=== PATIENT | female | born 1950 | race Caucasian/White ===

== ENCOUNTER → 2016-06-11 | Outpatient (CLI) | payer BC ==
--- NOTE | 2016-06-11 14:13 | MM ---
Reason for exam: history of breast cancer, conservation therapy. Last mammogram was performed 3 years and 8 months ago. History: Patient is postmenopausal and has history of breast cancer at age 55. Benign right mammotome panel of the right breast, November 27, 2009. Lumpectomy of the right breast, December 13, 2005. Malignant right mammotome panel of the right breast, November 22, 2005. Radiation therapy of the right breast, 2005. Took tamoxifen for 5 years 6 months beginning at age 57. Physical Findings: Nurse Summary: 1cm nodule in the right breast at 2 o'clock by scar (nurse mm). MG Diagnostic Mammo w CAD JAMES Bilateral CC and MLO view(s) were taken. Prior study comparison: September 28, 2012, CAD bilateral diagnostic mammogram. August 09, 2011, CAD bilateral diagnostic mammogram. There are scattered fibroglandular densities. No suspicious calcifications are seen. Stable post operative changes in the right breast. No significant new findings when compared with previous films. These results were verbally communicated with the patient and result sheet given to the patient on 06/11/16. ASSESSMENT: Benign, BI-RAD 2 RECOMMENDATION: Follow-up diagnostic mammogram of both breasts in 1 year.
--- NOTE | 2016-06-11 14:51 | BD ---
EXAMINATION TYPE: MG DEXA axial skeleton. DATE OF EXAM: 06/11/2016 2:25 PM COMPARISON: 2006 CLINICAL HISTORY: BONE DISORDER Height: 5'1 Weight: 206 FRAX RISK QUESTIONS: Alcohol (3 or more units per day): no Family History (Parent hip fracture): no Glucocorticoids (More than 3mos): no (Ex: prednisone, prednisolone, methylprednisolone, dexamethasone, and hydrocortisone). History of Fracture in Adulthood: no Secondary Osteoporosis: 1. Type 1 Diabetes: no 2. Hyperthyroidism: no 3. Menopause before 45: no 4. Malnutrition: no 5. Chronic liver disease: no Rheumatoid Arthritis: no Current Tobacco Use: yes RISK FACTORS HISTORY OF: Smoke tobacco: Active: Postmenopausal woman: MEDICATIONS: Additional Medications: vitamin D , see list Additional History: breast cancer survivor 2006, radiation EXAM MEASUREMENTS: Bone mineral densitometry was performed using the Transmension System. Bone mineral density as measured about the Lumbar spine is: ----- L1-L4(G/cm2): 1.265 T Score Values are as follows: ----- L2: 0.4 ----- L3: 1.9 ----- L4: 0.9 ----- L1-L4:0.7 Bone mineral density has: Increased 11.8% since study of: 12/30/2006 Bone mineral density about the R hip (g/cm2): 0.840 Bone mineral density about the L hip (g/cm2): 0.818 T Score values are as follows: -----R Neck: -1.4 -----L Neck: -1.6 -----R Intertrochanter: -0.4 -----L Intertrochanter: -0.5 Bone mineral density has: Decreased -1.1% since study of: 12/30/2006 IMPRESSION: Osteopenia (T Score between -2.5 and -1 as noted by T score values: Christian Hips There is slightly increased risk of fracture and the patient may be considered for treatment. Re-Screen 1-2 years. NOTE: T-SCORE=SD OF THE YOUNG ADULT MEAN.
== END | disposition home or self-care (01) ==
LOC: RADMAMWWP 13:32
PROVIDERS: ATTEND Internal Medicine
DX: M85.852 Other specified disorders of bone density and structure, left thigh (principal); M85.851 Other specified disorders of bone density and structure, right thigh; Z85.3 Personal history of malignant neoplasm of breast
CPT/HCPCS: 77080; G0204

== ENCOUNTER → 2016-08-06 | Day surgery (SDC) | payer BC ==
--- NOTE | 2016-08-06 13:36 | US ---
EXAMINATION TYPE: US thyroid st tissue head/neck DATE OF EXAM: 08/06/2016 12:31 PM COMPARISON: Prior ultrasound thyroid dated 21 March 2015, FNA thyroid 28 July 2015 CLINICAL HISTORY: E04.1 Thyroid Nodule; no thyroid medication per patient GLAND SIZE: Right Lobe: 5.3 x 2.6 x 2.4 cm Overall Parenchyma: heterogenous Left Lobe: 3.8 x 3.8 x 4.2 cm Overall Parenchyma: heterogeneous Isthmus Thickness: 0.6 cm NODULES RIGHT: # of nodules measured on right: none measured as thyroid nodules are too numerous to count LEFT: # of nodules measured on left: 1 (largest of multiple) 1. 4.6 X 2.7 x 2.6 cm hypoechoic mixed nodule at the mid and lower pole with poorly defined margins . This nodule is wider than tall and shows no intranodular vascularity. Prior size: 5.2 x 2.7 x 3.4 cm ISTHMUS: # of nodules measured in the isthmus: 1 1. 0.9 X 0.7 x 0.7 cm hypoechoic mixed nodule at the lower pole with well-defined margins. This no dule is as wide as is tall and shows no intranodular vascularity. Prior size: no prior Bilateral neck scanned, no evidence of lymphadenopathy. Mixed cystic solid nodule in the left lobe of the thyroid is not significantly changed. Gland shows m ultiple subcentimeter thyroid nodules. IMPRESSION: Consider multinodular goiter, thyroiditis, essentially stable exam
== END ==
LOC: RADPROMAIN 12:07
PROVIDERS: ATTEND Otolaryngology
DX: E04.1 Nontoxic single thyroid nodule (principal)
CPT/HCPCS: 76536

== ENCOUNTER → 2017-04-09 | Outpatient (CLI) | payer BC ==
--- NOTE | 2017-04-09 13:14 | US ---
EXAMINATION TYPE: US kidneys/renal and bladder DATE OF EXAM: 04/09/2017 COMPARISON: NONE CLINICAL HISTORY: R10.9 Lt Flank Pain. EXAM MEASUREMENTS: Right Kidney: 11.5 x 4.5 x 5.8 cm Left Kidney: 11.5 x 5.6 x 5.8 cm Right Kidney: No hydronephrosis or masses seen Left Kidney: cyst lower pole measures 1.7 x 1.5 x 1.3 cm Bladder: wnl Bilateral Jets seen: Yes There is no evidence for hydronephrosis at this point in time. No nephrolithiasis is seen. No suspi cious solid or cystic masses are identified. The urinary bladder is anechoic. Bilateral ureteral je ts are seen. Technologist garland 1.7 cm simple appearing cysts left kidney mid to lower pole level. IMPRESSION: No significant finding is seen to account for patient's symptoms.
== END | disposition home or self-care (01) ==
LOC: RADUSWWP 12:27
PROVIDERS: ATTEND Internal Medicine
DX: R10.9 Unspecified abdominal pain (principal)
CPT/HCPCS: 76770

== ENCOUNTER → 2017-12-05 | Outpatient (CLI) | payer BC ==
--- NOTE | 2017-12-05 15:53 | XR ---
EXAMINATION TYPE: XR chest 2V DATE OF EXAM: 12/05/2017 COMPARISON: NONE TECHNIQUE: PA and lateral views submitted. HISTORY: Cough FINDINGS: There is a mass within the right upper lobe measuring 1.8 cm. There is ill-defined patchy density anthony ng the left suprahilar region and prominence of both hilum. Subsegmental consolidation at the left malick ng base. No pleural effusion or pneumothorax. Hypertrophic and degenerative change of the spine. IMPRESSION: 1. 1.8 cm right upper lobe lung mass recommend CT chest. 2. Patchy infiltrate left lower lobe and left upper lobe. Underlying adenopathy in the mediastinum dubois spected. A Yellow level critical message alert has been initiated for Diana Mora MD via the [employer] Critical Results System on 12/05/2017 3:51 PM. This message alert has been sent to Diana Mora MD via the preferences provided by the clinician for the receipt of Radiology Critical Findings. Message ID [id number].
== END | disposition home or self-care (01) ==
LOC: RADXRMAIN 15:35
PROVIDERS: ATTEND Internal Medicine
DX: R91.8 Other nonspecific abnormal finding of lung field (principal)
CPT/HCPCS: 71046

== ENCOUNTER → 2017-12-11 | Outpatient (CLI) | payer BC ==
--- NOTE | 2017-12-11 10:40 | US ---
EXAMINATION TYPE: US thyroid st tissue head/neck DATE OF EXAM: 12/11/2017 COMPARISON: US CLINICAL HISTORY: E04.1 Nontoxic single thyroid nodule. GLAND SIZE: Right Lobe: 5.2 x 2.4 x 2.5 cm Overall Parenchyma: heterogenous Left Lobe: 4.7 x 2.3 x 2.4 cm Overall Parenchyma: heterogeneous Isthmus Thickness: 0.6 cm NODULES RIGHT: # of nodules measured on right: Full of nodules, too many to accurately separate and measure. LEFT: # of nodules measured on left: 1 1. 3.3 X 1.7 x 2.5 cm hypoechoic cystic nodule at the lower pole with irregular margins; . This no dule is wider than tall and shows no intranodular vascularity. Prior size: 3.6 x 1.7 x 2.4 cm ISTHMUS: # of nodules measured in the isthmus: 1 1. 0.7 X 0.4 x 0.8 cm hypoechoic mixed nodule at the left side with well-defined margins; . This n odule is wider than tall and shows no intranodular vascularity. Prior size: 0.9 x 0.6 x 0.8 cm Bilateral neck scanned, no evidence of lymphadenopathy. Bilateral solid soft tissue densities, right measures 3.0 x 1.2 x 1.9, and left 2.2 x 1.2 x 1.8 cm. T here are other smaller densities as well. IMPRESSION: 1. Large left lobe cystic type thyroid nodule, essentially stable. No increasing size nodule is ident ified. 2. Multinodular goiter heterogenous signal through the right lobe thyroid
== END | disposition home or self-care (01) ==
LOC: RADUSWWP 09:27
PROVIDERS: ATTEND Otolaryngology
DX: E04.2 Nontoxic multinodular goiter (principal)
CPT/HCPCS: 76536

== ENCOUNTER 2017-12-15 13:34 | Inpatient (IN) | payer BC, MEDICARE ==
[2017-12-15] MEDS ORDERED: SODIUM CHLORIDE 0.9% 1,000 ML IV STA (14:58)
[2017-12-15] MEDS ORDERED: IPRATROPIUM-ALBUTEROL 3 ML NEB INHALATION STA (14:58)
--- NOTE | 2017-12-15 15:13 | ED ---
General Adult HPI - General Source: patient, RN notes reviewed Mode of arrival: wheelchair Limitations: no limitations <Martha Luevano - Last Filed: 12/15/17 19:33> <Yvonne Dominique - Last Filed: 12/22/17 22:28> - General Chief complaint: Recheck/Abnormal Lab/Rx Stated complaint: abnormal labs Time Seen by Provider: 12/15/17 14:41 - History of Present Illness Initial comments: This is a 67-year-old female who presents to the emergency department chief complaint abnormal labs. Patient states that she has a history of COPD. She states that over the past one month she has been doing at home breathing treatments for cough, shortness of breath and wheezes. She states that after 1 month of this she presented to her primary care provider, Dr. Mora for further evaluation. Patient states that on December 05 a chest x-ray was taken. She states that she was sent to the hospital today for a computed tomography scan of the chest. CT scan with IV contrast could not be performed because of patient's kidney function. Patient denies any history of kidney disease. She denies overuse of NSAIDs. She denies any new medications. She denies recent fevers or chills, chest pain, abdominal pain, nausea or vomiting, diarrhea or constipation. She states that over the last few months she has lost weight and has had a decreased appetite. (Martha Luevano) - Related Data Home Medications Medication Instructions Recorded Confirmed ALPRAZolam [Xanax] 0.25 mg PO BID PRN 07/19/15 12/15/17 Aspirin 81 mg PO DAILY 07/19/15 12/15/17 Atenolol 25 mg PO BID 07/19/15 12/15/17 Losartan/Hydrochlorothiazide 1 tab PO DAILY 07/19/15 12/15/17 [Losartan-Hctz 50-12.5 mg Tab] Pentoxifylline [TRENtal] 400 mg PO AC-TID 07/19/15 12/15/17 Simvastatin [Zocor] 20 mg PO HS 07/19/15 12/15/17 amLODIPine BESYLATE [Norvasc] 2.5 mg PO DAILY 07/19/15 12/15/17 Ergocalciferol [Vitamin D2] 50,000 unit PO FR 12/15/17 12/15/17 busPIRone HCL 15 mg PO TID 12/15/17 12/15/17 Allergies Allergy/AdvReac Type Severity Reaction Status Date / Time No Known Allergies Allergy Verified 12/15/17 13:40 Review of Systems ROS Other: All systems not noted in ROS Statement are negative. <Martha Luevano - Last Filed: 12/15/17 19:33> ROS Other: All systems not noted in ROS Statement are negative. <Yvonne Dominique P - Last Filed: 12/22/17 22:28> ROS Statement: Those systems with pertinent positive or pertinent negative responses have been documented in the HPI. Past Medical History Past Medical History: Cancer, Hearing Disorder / Deafness, Hyperlipidemia, Hypertension, Pneumonia, Vascular Disorder Additional Past Medical History / Comment(s): 2 times pneumonia 2010, breast cancer right breast - lumpectomy 2005 History of Any Multi-Drug Resistant Organisms: None Reported Past Surgical History: Appendectomy, Breast Surgery, Section, Hysterectomy Additional Past Surgical History / Comment(s): 2 times , salpingectomy and oopherectomy, angioplasty on left leg, lumpectomy 2005 Past Anesthesia/Blood Transfusion Reactions: No Reported Reaction, Previous Problems w/ Anesthesia Additional Past Anesthesia/Blood Transfusion Reaction / Comment(s): slow to wake up after anaesthesia Past Psychological History: Anxiety Smoking Status: Current every day smoker Past Alcohol Use History: None Reported Past Drug Use History: None Reported - Past Family History Mother Additional Family Medical History / Comment(s): diverticulitis, Sister(s) Family Medical History: Diabetes Mellitus Father Family Medical History: Coronary Artery Disease (CAD), Diabetes Mellitus Additional Family Medical History / Comment(s): CABG and carotid endarterectomy <Martha Luevano - Last Filed: 12/15/17 19:33> General Exam Limitations: no limitations <Martha Luevano - Last Filed: 12/15/17 19:33> <Yvonne Dominique P - Last Filed: 12/22/17 22:28> - General Exam Comments Initial Comments: General: Awake and alert, well-developed; in no apparent distress. Appears chronically ill. is at bedside. HEENT: Head atraumatic, normocephalic. Pupils are equal, round and reactive to light. Extraocular movements intact. Oropharynx moist without erythema or exudate. Neck: Supple. Normal ROM. Cardiovascular: Regular rate and rhythm. No murmurs, rubs or gallops. Chest symmetrical. Respiratory: Normal respiratory effort with no use of accessory muscles. Diffuse rales and wheezes throughout. Abdomen: Soft, non-tender, non-distended. No rigidity, rebound or guarding. Normal bowel sounds in all 4 quadrants. Musculoskeletal: Normal ROM, no tenderness bilateral upper and lower extremities. Ambulating normally. Skin: [place], warm and dry without rashes or lesions. Neurological: Alert and oriented x3. CN II-XII grossly intact. Speech is fluent and answers are appropriate. No focal neuro deficits. Psychiatric: Normal mood and affect. No overt signs of depression or anxiety noted. (Martha Luevano) Vital Signs 12/15/17 12/15/17 12/15/17 13:38 14:03 15:21 Temperature 97.9 F Pulse Rate 90 87 85 Respiratory 20 20 18 Rate Blood Pressure 105/71 122/70 114/80 O2 Sat by Pulse 97 95 99 Oximetry 12/15/17 12/15/17 12/15/17 15:37 15:49 17:07 Temperature 98 F Pulse Rate 94 97 84 Respiratory 16 Rate Blood Pressure 105/65 O2 Sat by Pulse 98 Oximetry Medical Decision Making - Lab Data Result diagrams: 12/15/17 15:30 12/15/17 15:30 - Radiology Data Radiology results: report reviewed <Martha Luveano - Last Filed: 12/15/17 19:33> - Lab Data Result diagrams: 12/22/17 06:29 12/22/17 06:29 <Yvonne Dominique - Last Filed: 12/22/17 22:28> - Medical Decision Making This is a 67-year-old female who presents to the emergency department with chief complaint of abnormal labs. Patient was sent to the hospital today for a computed tomography scan of her chest with IV contrast. Before undergoing this , patient was noted to have an elevated BUN at 103 and a creatinine of 6.15. Patient denies any history of kidney disease. Denies any new medications or overuse of NSAIDs. On review of patient's previous reports, a chest x-ray performed on December 05 revealed evidence for a right pulmonary mass. A computed tomography scan without IV contrast of the chest was obtained here in the emergency department. This revealed evidence for multiple pulmonary nodules bilaterally. Follow-up bronchoscopy is recommended. Findings were discussed with patient and her at bedside. Patient will be admitted to Dr. Mora with diagnosis of acute kidney failure with consult to nephrology. Patient is in agreement with this. Her vital signs have been stable and she is in no acute distress. All questions have been answered. (Martha Luevano) I saw and evaluated this patient. I discussed the patient care with her primary care physician Dr. Mora who accepts admission. Admission orders placed. (Yvonne Dominique) - Lab Data Lab Results 12/15/17 12/15/17 12/15/17 Range/Units 12:45 15:30 15:30 WBC 11.5 H (3.8-10.6) k/uL RBC 4.04 (3.80-5.40) m/uL Hgb 12.1 (11.4-16.0) gm/dL Hct 36.3 (34.0-46.0) % MCV 89.8 (80.0-100.0) fL MCH 29.9 (25.0-35.0) pg MCHC 33.3 (31.0-37.0) g/dL RDW 14.0 (11.5-15.5) % Plt Count 205 (150-450) k/uL Neutrophils % 77 % Lymphocytes % 11 % Monocytes % 7 % Eosinophils % 3 % Basophils % 1 % Neutrophils # 8.9 H (1.3-7.7) k/uL Lymphocytes # 1.2 (1.0-4.8) k/uL Monocytes # 0.8 (0-1.0) k/uL Eosinophils # 0.3 (0-0.7) k/uL Basophils # 0.1 (0-0.2) k/uL Sodium 143 (137-145) mmol/L Potassium 3.8 (3.5-5.1) mmol/L Chloride 108 H (98-107) mmol/L Carbon Dioxide 19 L (22-30) mmol/L Anion Gap 16 mmol/L BUN 103 H* 106 H* (7-17) mg/dL Creatinine 6.15 H* 5.90 H* (0.52-1.04) mg/dL Est GFR (CKD-EPI)AfAm 8 8 (>60 ml/min/1.73 sqM) Est GFR (CKD-EPI)NonAf 7 7 (>60 ml/min/1.73 sqM) Glucose 114 H (74-99) mg/dL Uric Acid (3.7-7.4) mg/dL Calcium 10.1 (8.4-10.2) mg/dL Total Bilirubin 0.6 (0.2-1.3) mg/dL AST 17 (14-36) U/L ALT 22 (9-52) U/L Alkaline Phosphatase 108 (38-126) U/L Total Protein 6.9 (6.3-8.2) g/dL Albumin 4.0 (3.5-5.0) g/dL Serum HENRY Interpret 12/15/17 12/15/17 Range/Units 15:30 15:30 WBC (3.8-10.6) k/uL RBC (3.80-5.40) m/uL Hgb (11.4-16.0) gm/dL Hct (34.0-46.0) % MCV (80.0-100.0) fL MCH (25.0-35.0) pg MCHC (31.0-37.0) g/dL RDW (11.5-15.5) % Plt Count (150-450) k/uL Neutrophils % % Lymphocytes % % Monocytes % % Eosinophils % % Basophils % % Neutrophils # (1.3-7.7) k/uL Lymphocytes # (1.0-4.8) k/uL Monocytes # (0-1.0) k/uL Eosinophils # (0-0.7) k/uL Basophils # (0-0.2) k/uL Sodium (137-145) mmol/L Potassium (3.5-5.1) mmol/L Chloride (98-107) mmol/L Carbon Dioxide (22-30) mmol/L Anion Gap mmol/L BUN (7-17) mg/dL Creatinine (0.52-1.04) mg/dL Est GFR (CKD-EPI)AfAm (>60 ml/min/1.73 sqM) Est GFR (CKD-EPI)NonAf (>60 ml/min/1.73 sqM) Glucose (74-99) mg/dL Uric Acid 9.6 H (3.7-7.4) mg/dL Calcium (8.4-10.2) mg/dL Total Bilirubin (0.2-1.3) mg/dL AST (14-36) U/L ALT (9-52) U/L Alkaline Phosphatase (38-126) U/L Total Protein (6.3-8.2) g/dL Albumin (3.5-5.0) g/dL Serum HENRY Interpret SEE NOTE - Radiology Data CT chest without contrast impression: 1. Multiple pulmonary nodules measuring up to 2.0 cm. A couple cavitary masses are present in the left hilar region and left lower lobe measuring up to 3.7 cm. There is also left hilar soft tissue fullness and mediastinal lymphadenopathy measuring up to 3.1 cm and upper abdominal lymphadenopathy measuring up to 1.6 cm. Left adrenal nodularity measures up to 3.4 cm. 2. Neoplastic etiology with metastatic disease is in the differential as is atypical infections going to be and fungal infections given the cavitary changes. Clinical correlation recommended. Consider bronchoscopic evaluation. 2. COPD with moderate emphysema. 4. Large heterogenous left thyroid nodule. We note recent thyroid ultrasound performed on 12/11/2017. For to that report for further findings and impression. (Martha Luevano) Disposition Is patient prescribed a controlled substance at d/c from ED?: No Time of Disposition: 17:01 <Martha Luevano - Last Filed: 12/15/17 19:33> <Yvonne Dominique - Last Filed: 12/22/17 22:28> Clinical Impression: Acute kidney failure, Pulmonary nodules Disposition: ADMITTED IP TO THIS HOSP Condition: Fair
[2017-12-15 15:46] LABS: Basophils # (A) 0.1 k/uL (0-0.2); Basophils % (A) 1 %; Eosinophils # (A) 0.3 k/uL (0-0.7); Eosinophils % (A) 3 %; HCT 36.3 % (34.0-46.0); HGB 12.1 gm/dL (11.4-16.0); Lymphocytes # (A) 1.2 k/uL (1.0-4.8); Lymphocytes % (A) 11 %; MCH 29.9 pg (25.0-35.0); MCHC 33.3 g/dL (31.0-37.0); MCV 89.8 fL (80.0-100.0); Mean Platelet Volume 7.7; Monocytes # (A) 0.8 k/uL (0-1.0); Monocytes % (A) 7 %; Neutrophils # (A) 8.9 k/uL (1.3-7.7); Neutrophils % (A) 77 %; Platelet Count 205 k/uL (150-450); RBC 4.04 m/uL (3.80-5.40); WBC 11.5 k/uL (3.8-10.6)
[2017-12-15 15:58] LABS: Calcium 10.1 mg/dL (8.4-10.2); Potassium 3.8 mmol/L (3.5-5.1); Total Bilirubin 0.6 mg/dL (0.2-1.3); Total Protein 6.9 g/dL (6.3-8.2)
--- NOTE | 2017-12-15 16:28 | CT ---
EXAMINATION TYPE: CT chest wo con DATE OF EXAM: 12/15/2017 COMPARISON: Radiograph 12/05/2017 HISTORY: 67-year-old female Lung mass. TECHNIQUE: Contiguous axial scanning of the chest without IV contrast. Coronal and sagittal reconstru ctions performed. CT DLP: 703 mGycm Automated exposure control for dose reduction was used. FINDINGS: Large complex nodule of the left lobe of the thyroid gland measures up to 4.7 cm with internal cystic components and calcifications. Since slight substernal extension extending below the sternal notch b y 1.3 cm, refer to sagittal image 66. Heart normal size without pericardial effusion. Coronary vessel calcifications are present. Aorta normal caliber with mild arthroscopic calcifications and obscured arch vessels due to the large left thyroid nodule. There is underlying mediastinal lymphadenopathy measuring up to 2.2 cm prevascular space, 2.2 cm AP w indow, 3.1 cm right paratracheal, 2.7 cm subcarinal region. There is moderate centrilobular emphysema and left-sided hilar soft tissue thickening. Scattered pulmonary nodules are present on both sides, largest right upper lobe measure 2.0 and 1.4 c m just adjacent to each other. Right midlung pulmonary nodule measures 1.3 cm. There is focal cavitary mass measuring 3.7 cm in the left lower lobe and a second area of left perihi lar cavitation measuring 1.9 cm. Left retrocrural lymphadenopathy measures up to 9 mm. Upper abdominal lymphadenopathy partially visua lized in the gastrohepatic ligament region measures up to 1.6 cm and in the left para-aortic region m easures 1.6 cm. There is abnormal nodular thickening of the left adrenal gland measuring up to 3.4 cm . Bones: No osseous destructive process. Degenerative disc disease midthoracic spine. IMPRESSION: 1. MULTIPLE PULMONARY NODULES MEASURING UP TO 2.0 CM. A COUPLE CAVITARY MASSES ARE PRESENT IN THE LEF T HILAR REGION AND LEFT LOWER LOBE MEASURING UP TO 3.7 CM. THERE IS ALSO LEFT HILAR SOFT TISSUE FULLN ESS AND MEDIASTINAL LYMPHADENOPATHY MEASURING UP TO 3.1 CM AND UPPER ABDOMINAL LYMPHADENOPATHY MEASUR ING UP TO 1.6 CM. LEFT ADRENAL NODULARITY MEASURES UP TO 3.4 CM. 2. NEOPLASTIC ETIOLOGY WITH METASTATIC DISEASE IS IN THE DIFFERENTIAL IS ATYPICAL INFECTIONS INCLU DING TB AND FUNGAL INFECTIONS GIVEN THE CAVITARY CHANGES. CLINICAL CORRELATION RECOMMENDED. CONSIDER BRONCHOSCOPIC EVALUATION. 3. COPD WITH MODERATE EMPHYSEMA. 4. LARGE HETEROGENEOUS LEFT THYROID NODULE. WE NOTE RECENT THYROID ULTRASOUND PERFORMED ON 12/11/2017. REFER TO THAT REPORT FOR FURTHER FINDINGS AND IMPRESSION.
[2017-12-15] MEDS ORDERED: NALOXONE 0.4 MG/ML 1 ML VIAL IV PRN (17:02)
[2017-12-15] MEDS ORDERED: ONDANSETRON 4 MG/2 ML VIAL IVP PRN (17:02)
[2017-12-15] MEDS ORDERED: HYDROcodone/APAP 5-325MG 1 EACH TAB PO PRN (17:02)
[2017-12-15] MEDS ORDERED: MORPHINE SULFATE 4 MG/ML SYRINGE IV PRN (17:02)
[2017-12-15] MEDS ORDERED: ACETAMINOPHEN TAB 325 MG TAB PO PRN (17:02)
[2017-12-15] MEDS: SODIUM CHLORIDE 0.9% 1,000 ML IV SCH (18:59)
--- NOTE | 2017-12-15 19:07 | P.HPIM ---
History of Present Illness H&P Date: 12/15/17 Evelyn Flores is a 67 year old female who presented to [facility] to have a computed tomography scan of the chest was contrast BUN and creatinine were done prior to computed tomography scan and were significantly elevated, her BUN was 103, and creatinine 6.15, computed tomography scan was canceled and patient was sent to [facility] emergency room, she was evaluated in the emergency room she was given IV fluid and her creatinine came down slightly to 5.9, computed tomography scan of the chest without contrast was done and revealed multiple pulmonary nodules with a couple of cavitary masses patient also had evidence of lymphadenopathy in the chest and the upper abdomen, she also had a large left thyroid nodule, she was started on IV fluid and was admitted to the medical floor, pulmonary and nephrology and oncology consultation were requested. Patient has not been feeling well for the last 6 weeks, she had cough with minimal sputum production, she was given a course of antibiotic without any improvement, chest x-ray was done on 12/05/2017 and revealed evidence of right upper lobe lung mass computed tomography scan was recommended and this was scheduled for 12/15/2017 however patient was admitted due to severely elevated BUN and creatinine. Patient has a lifelong history of smoking, she has known history of hypertension , hyperlipidemia, anxiety disorder, and a thyroid nodule that was recently biopsied by Dr. Morales. At this time patient denies any pain or discomfort she reports having episodes of nausea and vomiting in the last 2 weeks she reports feeling full and then able to eat much, she reports significant weight loss in the last 6 weeks, she has been complaining of cough, she had minimal sputum production, she denies any hemoptysis, there is no abdominal pain no blood in the urine or in the stools. Past Medical History Past Medical History: Cancer, Hearing Disorder / Deafness, Hyperlipidemia, Hypertension, Pneumonia, Vascular Disorder Additional Past Medical History / Comment(s): 2 times pneumonia 2010, breast cancer right breast - lumpectomy 2005 History of Any Multi-Drug Resistant Organisms: None Reported Past Surgical History: Appendectomy, Breast Surgery, Section, Hysterectomy Additional Past Surgical History / Comment(s): 2 times , salpingectomy and oopherectomy, angioplasty on left leg, lumpectomy 2005 Past Anesthesia/Blood Transfusion Reactions: No Reported Reaction, Previous Problems w/ Anesthesia Additional Past Anesthesia/Blood Transfusion Reaction / Comment(s): slow to wake up after anaesthesia Past Psychological History: Anxiety Smoking Status: Current every day smoker Past Alcohol Use History: None Reported Past Drug Use History: None Reported - Past Family History Mother Additional Family Medical History / Comment(s): diverticulitis, Sister(s) Family Medical History: Diabetes Mellitus Father Family Medical History: Coronary Artery Disease (CAD), Diabetes Mellitus Additional Family Medical History / Comment(s): CABG and carotid endarterectomy Medications and Allergies Home Medications Medication Instructions Recorded Confirmed Type ALPRAZolam [Xanax] 0.25 mg PO BID PRN 07/19/15 12/15/17 History Aspirin 81 mg PO DAILY 07/19/15 12/15/17 History Atenolol 25 mg PO BID 07/19/15 12/15/17 History Losartan/Hydrochlorothiazide 1 tab PO DAILY 07/19/15 12/15/17 History [Losartan-Hctz 50-12.5 mg Tab] Pentoxifylline [TRENtal] 400 mg PO AC-TID 07/19/15 12/15/17 History Simvastatin [Zocor] 20 mg PO HS 07/19/15 12/15/17 History amLODIPine BESYLATE [Norvasc] 2.5 mg PO DAILY 07/19/15 12/15/17 History Ergocalciferol [Vitamin D2] 50,000 unit PO FR 12/15/17 12/15/17 History busPIRone HCL 15 mg PO TID 12/15/17 12/15/17 History Allergies Allergy/AdvReac Type Severity Reaction Status Date / Time No Known Allergies Allergy Verified 12/15/17 13:40 Physical Exam Vitals: Vital Signs Temp Pulse Resp BP Pulse Ox 12/15/17 17:07 98 F 84 16 105/65 98 12/15/17 15:49 97 12/15/17 15:37 94 12/15/17 15:21 85 18 114/80 99 12/15/17 14:03 87 20 122/70 95 12/15/17 13:38 97.9 F 90 20 105/71 97 Intake and Output 12/15/17 12/15/17 12/15/17 06:59 14:59 22:59 Other: Weight 73.482 kg In general patient is alert and oriented 3 in no apparent distress HEENT head normocephalic and atraumatic Neck is supple no JVD no goiter no lymphadenopathy Chest exam reveals a few scattered crackles no wheezing Cardiac exam reveals regular heart sounds no gallops no murmurs Abdomen is soft nontender no organomegaly with normal bowel sounds Extremity exam reveals no edema no cyanosis or clubbing Neurological examination reveals no gross focal deficits Results CBC & Chem 7: 12/15/17 15:30 12/15/17 15:30 Labs: Abnormal Lab Results - Last 24 Hours (Table) 12/15/17 12/15/17 12/15/17 Range/Units 12:45 15:30 15:30 WBC 11.5 H (3.8-10.6) k/uL Neutrophils # 8.9 H (1.3-7.7) k/uL Chloride 108 H (98-107) mmol/L Carbon Dioxide 19 L (22-30) mmol/L BUN 103 H* 106 H* (7-17) mg/dL Creatinine 6.15 H* 5.90 H* (0.52-1.04) mg/dL Glucose 114 H (74-99) mg/dL Thrombosis Risk Factor Assmnt - Choose All That Apply Any of the Below Risk Factors Present?: Yes Other Risk Factors: Yes Each Risk Factor Represents 2 Points: Age 61-74 years Other congenital or acquired thrombophilia - If yes, enter type in comment: No Thrombosis Risk Factor Assessment Total Risk Factor Score: 2 Thrombosis Risk Factor Assessment Level: Low Risk Assessment and Plan Plan: #1 multiple pulmonary masses including 2 cavitary lesions #2 enlarged lymphadenopathy in the chest and upper abdomen #3 thyroid nodule with recent biopsy by Dr. Morales #4 acute renal failure, last creatinine prior to this admission was in August 2017 and was 1.2 #5 underlying history of hypertension #6 underlying history of hyperlipidemia #7 evidence of COPD on computed tomography scan #8 tobacco abuse #9 underlying history of anxiety disorder At this time patient is admitted to medical floor She was started on IV fluid, will monitor kidney function Nephrology consult was requested Also pulmonary and oncology consultation were requested Will follow closely prognosis is guarded
--- NOTE | 2017-12-15 20:58 | P.NPCON ---
History of Present Illness - Reason for Consult Consult date: 12/15/17 acute renal failure - Chief Complaint acute kidney injury - History of Present Illness this is a 67-year-old female seen in consultation because of acute kidney injury. Creatinine went up to 6.15 and she was being prepared for a computed tomography scan of the chest.a plain CT was done it showed possible metastatic disease with multiple pulmonary nodules and and lymphadenopathy. She has a creatinine of 0.971 07/24/2015, since then no creatinines are available here in the EMR but supposedly the patient was told by Dr. Mora that her creatinine was normal in August 2017 3 months ago. She denies any nausea vomiting use of nonsteroidals antibiotics recently. No history of herbal use. No history suggestive of any bladder problems. No hematuria kidney stones recurrent infection. No history of chest pain shortness of breath. She is known with COPD, chronic smoker, hypertension, CA breast 2006 with lumpectomy. She had peripheral vascular disease supposedly operate upon 1998. She is known with weight loss of 30 pounds over the last few weeks with loss of appetite is possibly some night sweats. She's been coughing which is dry. Past Medical History Past Medical History: Cancer, Hearing Disorder / Deafness, Hyperlipidemia, Hypertension, Pneumonia, Vascular Disorder Additional Past Medical History / Comment(s): 2 times pneumonia 2010, breast cancer right breast - lumpectomy 2005 History of Any Multi-Drug Resistant Organisms: None Reported Past Surgical History: Appendectomy, Breast Surgery, Section, Hysterectomy Additional Past Surgical History / Comment(s): 2 times , salpingectomy and oopherectomy, angioplasty on left leg, lumpectomy 2005 Past Anesthesia/Blood Transfusion Reactions: No Reported Reaction, Previous Problems w/ Anesthesia Additional Past Anesthesia/Blood Transfusion Reaction / Comment(s): slow to wake up after anaesthesia Past Psychological History: Anxiety Smoking Status: Current every day smoker Past Alcohol Use History: None Reported Past Drug Use History: None Reported - Past Family History Mother Additional Family Medical History / Comment(s): diverticulitis, Sister(s) Family Medical History: Diabetes Mellitus Father Family Medical History: Coronary Artery Disease (CAD), Diabetes Mellitus Additional Family Medical History / Comment(s): CABG and carotid endarterectomy Medications and Allergies Home Medications Medication Instructions Recorded Confirmed Type ALPRAZolam [Xanax] 0.25 mg PO BID PRN 07/19/15 12/15/17 History Aspirin 81 mg PO DAILY 07/19/15 12/15/17 History Atenolol 25 mg PO BID 07/19/15 12/15/17 History Losartan/Hydrochlorothiazide 1 tab PO DAILY 07/19/15 12/15/17 History [Losartan-Hctz 50-12.5 mg Tab] Pentoxifylline [TRENtal] 400 mg PO AC-TID 07/19/15 12/15/17 History Simvastatin [Zocor] 20 mg PO HS 07/19/15 12/15/17 History amLODIPine BESYLATE [Norvasc] 2.5 mg PO DAILY 07/19/15 12/15/17 History Ergocalciferol [Vitamin D2] 50,000 unit PO FR 12/15/17 12/15/17 History busPIRone HCL 15 mg PO TID 12/15/17 12/15/17 History Allergies Allergy/AdvReac Type Severity Reaction Status Date / Time No Known Allergies Allergy Verified 12/15/17 13:40 Physical Exam Vitals: Vital Signs Temp Pulse Resp BP Pulse Ox 12/15/17 17:07 98 F 84 16 105/65 98 12/15/17 15:49 97 12/15/17 15:37 94 12/15/17 15:21 85 18 114/80 99 12/15/17 14:03 87 20 122/70 95 12/15/17 13:38 97.9 F 90 20 105/71 97 Intake and Output 12/15/17 12/15/17 12/15/17 06:59 14:59 22:59 Other: Weight 73.482 kg examination she is awake alert oriented very anxious HEENT exam no JVP lymphadenopathy thyromegaly she had thyroid nodule that has been ultrasound and examine but not biopsied recently Lungs are clear to auscultation and percussion with good air entry bilaterally Heart sounds are unremarkable for any murmur rub gallop Abdomen soft nontender no organomegaly ascites masses Lymph nodes are not noted in the axilla neck or groin Extremity exam was no edema Neurologically awake alert oriented comfortable motor deficit Results - Lab Results Most recent lab results Calcium 10.1 mg/dL (8.4-10.2) 12/15/17 15:30 12/15/17 15:30 12/15/17 15:30 Assessment and Plan Assessment: impression 1. Acute kidney injury with creatinine of 6.15 on admission. Previous creatinine 0.97 07/24/2015 and her possible normal creatinine in August 2017. Patient. The cause of this acute kidney injury is not clear possible metastatic disease with retroperitoneal fibrosis and hydronephrosis is a possibility. This is because of the fact that the computed tomography scan done this morning showed multiple pulmonary nodules and lymph nodes in the chest. This could be lymphoma. 2. mild degree of gap acidosis with bicarb 19 and gap of 16 secondary to acute kidney injury. 3. History of Peripheral vascular disease with surgery on both groin in 1998. No history of acute PA or strokes. 3. Hypertension. 4. COPD smoker. 5. History of CA breast 2006 lumpectomy. 6. thyroid noduleNodule 7.significant weight loss of 30 pounds over the last few weeks rule out malignancy recommendation. 1. Check ultrasound of the abdomen and pelvis and right upper Ultrasound. 2. Check uric acid. 3. Maintain IV fluids normal saline at 75 an hour. 4. Urinalysis. 5. Urine and serum immunofixation. 6. Monitor labs on a daily basis for the next few days. Thank you for this consultation and continue to follow closely with you.
--- NOTE | 2017-12-15 22:34 | US ---
EXAMINATION TYPE: US renals and bladder DATE OF EXAM: 12/15/2017 COMPARISON: NONE CLINICAL HISTORY: renal failure. Acute renal failure. EXAM MEASUREMENTS: Right Kidney: 10.5 x 4.2 x 4.1 cm Left Kidney: 10.2 x 5.3 x 4.6 cm Post Void Residual Volume: mL Right Kidney: No hydronephrosis or masses seen Left Kidney: Cystic area seen lower pole measuring 1.8 x 1.3 x 1.5cm Bladder: Anechoic Bilateral Jets seen: No There is no evidence for hydronephrosis at this point in time. No nephrolithiasis is seen. No aurelio s are identified. The urinary bladder is anechoic. Incidental finding aortic aneurysm mid measuring 4.4 x 4.5 x 5.2 cm. IMPRESSION: There is a fusiform lower abdominal aortic aneurysm that measures up to 5.2 cm in diameter. The lengt h is more than 8 cm. No hydronephrosis. Small left renal cortical cyst.
[2017-12-16 01:34] LABS: Amorphous Sediment,Urine Rare /hpf; Appearance,Urine Clear (Clear); Bacteria,Urine Rare /hpf; Bilirubin,Urine Negative (Negative); Blood,Urine Trace (Negative); Color,Urine Light Yellow; Glucose,Urine (UA) Negative (Negative); Ketones,Urine Negative (Negative); Leukocyte Esterase,Urine Small (Negative); Mucus,Urine Rare /hpf; Nitrite,Urine Negative (Negative); PH, Urine 5.5 (5.0-8.0); Protein,Urine Trace (Negative); RBC,Urine 2 /hpf (0-5); Specific Gravity,Urine 1.009 (1.001-1.035); Squamous Epithelial Cell,Urine 1 /hpf (0-4); Urobilinogen,Urine <2.0 mg/dL (<2.0); WBC,Urine 8 /hpf (0-5)
[2017-12-16 07:29] LABS: Basophils # (A) 0.1 k/uL (0-0.2); Basophils % (A) 1 %; Eosinophils # (A) 0.3 k/uL (0-0.7); Eosinophils % (A) 3 %; HCT 28.9 % (34.0-46.0); HGB 10.1 gm/dL (11.4-16.0); Lymphocytes # (A) 0.9 k/uL (1.0-4.8); Lymphocytes % (A) 10 %; MCHC 34.9 g/dL (31.0-37.0); MCV 88.8 fL (80.0-100.0); Monocytes # (A) 0.8 k/uL (0-1.0); Monocytes % (A) 9 %; Neutrophils % (A) 76 %; Platelet Count 173 k/uL (150-450); RBC 3.26 m/uL (3.80-5.40); RDW 13.9 % (11.5-15.5); WBC 9.2 k/uL (3.8-10.6)
[2017-12-16 07:44] LABS: Albumin 3.1 g/dL (3.5-5.0); Calcium 8.8 mg/dL (8.4-10.2); Total Bilirubin 0.5 mg/dL (0.2-1.3); Total Protein 5.6 g/dL (6.3-8.2)
[2017-12-16 07:52] LABS: Potassium 2.9 mmol/L (3.5-5.1)
[2017-12-16] MEDS ORDERED: Potassium Replacement Protocol 1 EACH MISC MISCELLANE PRN (08:34)
[2017-12-16] MEDS: SODIUM CHLORIDE 0.9% 1,000 ML IV SCH ×2 (08:38→19:24)
[2017-12-16] MEDS: POTASSIUM CHLORIDE ER 20 MEQ TAB.ER PO SCH ×3 (09:13→12:04)
[2017-12-16 10:29] VITALS: BMI 28.7
--- NOTE | 2017-12-16 10:43 | P.PN ---
Subjective Progress Note Date: 12/16/17 Evelyn Flores is a 67 year old female who presented to [facility] to have a computed tomography scan of the chest was contrast BUN and creatinine were done prior to computed tomography scan and were significantly elevated, her BUN was 103, and creatinine 6.15, computed tomography scan was canceled and patient was sent to [facility] emergency room, she was evaluated in the emergency room she was given IV fluid and her creatinine came down slightly to 5.9, computed tomography scan of the chest without contrast was done and revealed multiple pulmonary nodules with a couple of cavitary masses patient also had evidence of lymphadenopathy in the chest and the upper abdomen, she also had a large left thyroid nodule, she was started on IV fluid and was admitted to the medical floor, pulmonary and nephrology and oncology consultation were requested. Patient has not been feeling well for the last 6 weeks, she had cough with minimal sputum production, she was given a course of antibiotic without any improvement, chest x-ray was done on 12/05/2017 and revealed evidence of right upper lobe lung mass computed tomography scan was recommended and this was scheduled for 12/15/2017 however patient was admitted due to severely elevated BUN and creatinine. Patient has a lifelong history of smoking, she has known history of hypertension , hyperlipidemia, anxiety disorder, and a thyroid nodule that was recently biopsied by Dr. Morales. At this time patient denies any pain or discomfort she reports having episodes of nausea and vomiting in the last 2 weeks she reports feeling full and then able to eat much, she reports significant weight loss in the last 6 weeks, she has been complaining of cough, she had minimal sputum production, she denies any hemoptysis, there is no abdominal pain no blood in the urine or in the stools. On 12/16/2017 patient is currently A & O 3 resting comfortably in bed. Patient does report some shortness of breath with activity. Patient denies chest pain. Denies nausea vomiting or diarrhea. Does reports she has very little appetite. Patient denies any urinary burning or frequency. Objective - Vital Signs Vital signs: Vital Signs Temp 97.5 F L 12/16/17 08:47 Pulse 87 12/16/17 08:47 Resp 16 12/16/17 08:47 BP 111/56 12/16/17 08:47 Pulse Ox 94 L 12/16/17 08:47 Intake & Output 12/15/17 12/16/17 12/16/17 18:59 06:59 18:59 Intake Total 900 Output Total 68 Balance 832 Weight 73.482 kg 73.482 kg Intake: IV 900 Sodium Chloride 0.9% 1, 900 000 ml @ 75 mls/hr IV . [id number] [facility] Rx#:[id number] Output: Post Void Residual 68 Other: Voiding Method Toilet Toilet - Exam Head normocephalic Neck supple Lungs scattered crackles Heart regular rate and rhythm S1-S2, no rub or gallop Abdomen is soft nontender nondistended positive bowel sounds no hepatosplenomegaly Extremities no edema Neuro alert and orientated to 3 - Labs CBC & Chem 7: 12/16/17 06:56 12/16/17 06:56 Labs: Abnormal Lab Results - Last 24 Hours (Table) 12/15/17 12/15/17 12/15/17 Range/Units 12:45 15:30 15:30 WBC 11.5 H (3.8-10.6) k/uL RBC (3.80-5.40) m/uL Hgb (11.4-16.0) gm/dL Hct (34.0-46.0) % Neutrophils # 8.9 H (1.3-7.7) k/uL Lymphocytes # (1.0-4.8) k/uL Potassium (3.5-5.1) mmol/L Chloride 108 H (98-107) mmol/L Carbon Dioxide 19 L (22-30) mmol/L BUN 103 H* 106 H* (7-17) mg/dL Creatinine 6.15 H* 5.90 H* (0.52-1.04) mg/dL Glucose 114 H (74-99) mg/dL Uric Acid (3.7-7.4) mg/dL Total Protein (6.3-8.2) g/dL Albumin (3.5-5.0) g/dL Urine Protein (Negative) Urine Blood (Negative) Ur Leukocyte Esterase (Negative) Urine WBC (0-5) /hpf Amorphous Sediment (None) /hpf Urine Bacteria (None) /hpf Urine Mucus (None) /hpf 12/15/17 12/16/17 12/16/17 Range/Units 15:30 01:00 06:56 WBC (3.8-10.6) k/uL RBC 3.26 L (3.80-5.40) m/uL Hgb 10.1 L (11.4-16.0) gm/dL Hct 28.9 L (34.0-46.0) % Neutrophils # (1.3-7.7) k/uL Lymphocytes # 0.9 L (1.0-4.8) k/uL Potassium (3.5-5.1) mmol/L Chloride (98-107) mmol/L Carbon Dioxide (22-30) mmol/L BUN (7-17) mg/dL Creatinine (0.52-1.04) mg/dL Glucose (74-99) mg/dL Uric Acid 9.6 H (3.7-7.4) mg/dL Total Protein (6.3-8.2) g/dL Albumin (3.5-5.0) g/dL Urine Protein Trace H (Negative) Urine Blood Trace H (Negative) Ur Leukocyte Esterase Small H (Negative) Urine WBC 8 H (0-5) /hpf Amorphous Sediment Rare H (None) /hpf Urine Bacteria Rare H (None) /hpf Urine Mucus Rare H (None) /hpf 12/16/17 Range/Units 06:56 WBC (3.8-10.6) k/uL RBC (3.80-5.40) m/uL Hgb (11.4-16.0) gm/dL Hct (34.0-46.0) % Neutrophils # (1.3-7.7) k/uL Lymphocytes # (1.0-4.8) k/uL Potassium 2.9 L* (3.5-5.1) mmol/L Chloride 112 H (98-107) mmol/L Carbon Dioxide 18 L (22-30) mmol/L BUN 93 H* (7-17) mg/dL Creatinine 5.15 H* (0.52-1.04) mg/dL Glucose 108 H (74-99) mg/dL Uric Acid (3.7-7.4) mg/dL Total Protein 5.6 L (6.3-8.2) g/dL Albumin 3.1 L (3.5-5.0) g/dL Urine Protein (Negative) Urine Blood (Negative) Ur Leukocyte Esterase (Negative) Urine WBC (0-5) /hpf Amorphous Sediment (None) /hpf Urine Bacteria (None) /hpf Urine Mucus (None) /hpf Assessment and Plan Assessment: #1 multiple pulmonary masses including 2 cavitary lesions. Pulmonary services have been consulted. Awaiting consult. #2 enlarged lymphadenopathy in the chest and upper abdomen. Oncology services have been consulted. #3 thyroid nodule with recent biopsy by Dr. Morales #4 acute renal failure, last creatinine prior to this admission was in August 2017 and was 1.2. Creatinine 5.15 and bun 93. Nephrology following. Renal ultrasound completed showing fusiform lower abdomen aortic aneurysm measures up to 5.2 cm in diameter. The length is more than 8 cm. No hydronephrosis. Small left renal cortical cyst. We'll continue to monitor labs closely #5 underlying history of hypertension #6 underlying history of hyperlipidemia #7 evidence of COPD on computed tomography scan #8 tobacco abuse #9 underlying history of anxiety disorder #10 hypokalemia. Potassium replacement protocol. Will recheck potassium level and monitor closely GI prophylaxis Pepcid and DVT prophylaxis Lovenox I performed an examination of the patient and discussed their management with the Nurse Practitioner. I have reviewed the Nurse Practitioner's notes and agree with the documented findings and plan of care
--- NOTE | 2017-12-16 10:57 | P.CNPUL ---
History of Present Illness Consult date: 12/16/17 Requesting physician: Diana Mora Reason for consult: dyspnea, abnormal CXR/CT Chief complaint: Shortness of breath, cough, congestion History of present illness: This is a very pleasant 67-year-old female patient who follows with Dr. Mora as her primary care physician. She has a history of hypertension, hyperlipidemia, peripheral vascular disease with previous angioplasty of the left lower extremity, hearing disorder, right sided breast cancer status post lumpectomy and radiation treatment in 2005. She also has chronic and ongoing 40 + year smoking history. She had not been on any inhalers in the past. Approximately one month ago she started having increasing shortness of breath, cough and congestion. She was treated with antibiotics and nebulized treatments without much improvement. Follow-up chest x-ray revealed some abnormalities and she was scheduled for a CT angiogram of the chest to be performed yesterday. However her renal function was significantly elevated. She did undergo a computed tomography scan of the chest without contrast which revealed multiple pulmonary nodules measuring up to 2 cm. There is cavitary masses present in the left hilar region and left lower lobe. There is left hilar soft tissue fullness and mediastinal lymphadenopathy. There is also noted moderate emphysema/COPD. There is a large heterogenous left thyroid nodule with recent ultrasound revealing a large left lobe cystic-type thyroid nodule that was stable compared to previous. Renal ultrasound revealed no evidence of hydronephrosis. There is a small left renal cortical cysts. She does have a fusiform lower abdominal aortic aneurysm measuring 5.2 cm in diameter that is more than 8 cm in length. Initial creatinine 6.15. Today 5.15 the BUN of 93. Patient is seen today in consultation on the oncology unit. She is currently awake and alert in no acute distress. She has been feeling quite poorly especially the last several days without eating or drinking much. She's had approximately 30 pound weight loss over the past month since all of her symptoms began. She denies productive cough. No hemoptysis. Review of Systems Constitutional: Reports fatigue, Reports malaise, Reports weight loss Eyes: denies blurred vision, denies decreased vision Ears: bilateral: decreased hearing Ears, nose, mouth and throat: Reports hoarseness, Reports neck lump Breasts: right: as per HPI Cardiovascular: Reports dyspnea on exertion, Reports shortness of breath Respiratory: Reports congestion, Reports cough, Reports dyspnea Gastrointestinal: Reports indigestion, Reports nausea Genitourinary: Denies dysuria, Denies hematuria Musculoskeletal: Denies myalgias Integumentary: Reports color changes Neurological: Reports weakness Psychiatric: Reports anxiety Endocrine: Reports weight change, Denies fatigue Hematologic/Lymphatic: Reports as per HPI Allergic/Immunologic: Reports as per HPI Past Medical History Past Medical History: Cancer, Hearing Disorder / Deafness, Hyperlipidemia, Hypertension, Pneumonia, Vascular Disorder Additional Past Medical History / Comment(s): 2 times pneumonia 2010, breast cancer right breast - lumpectomy 2005 History of Any Multi-Drug Resistant Organisms: None Reported Past Surgical History: Appendectomy, Breast Surgery, Section, Hysterectomy Additional Past Surgical History / Comment(s): 2 times , salpingectomy and oopherectomy, angioplasty on left leg, lumpectomy 2005 Past Anesthesia/Blood Transfusion Reactions: No Reported Reaction, Previous Problems w/ Anesthesia Additional Past Anesthesia/Blood Transfusion Reaction / Comment(s): slow to wake up after anaesthesia Past Psychological History: Anxiety Smoking Status: Current every day smoker Past Alcohol Use History: None Reported Past Drug Use History: None Reported - Past Family History Mother Additional Family Medical History / Comment(s): diverticulitis, Sister(s) Family Medical History: Diabetes Mellitus Father Family Medical History: Coronary Artery Disease (CAD), Diabetes Mellitus Additional Family Medical History / Comment(s): CABG and carotid endarterectomy Medications and Allergies Home Medications Medication Instructions Recorded Confirmed Type ALPRAZolam [Xanax] 0.25 mg PO BID PRN 07/19/15 12/15/17 History Aspirin 81 mg PO DAILY 07/19/15 12/15/17 History Atenolol 25 mg PO BID 07/19/15 12/15/17 History Losartan/Hydrochlorothiazide 1 tab PO DAILY 07/19/15 12/15/17 History [Losartan-Hctz 50-12.5 mg Tab] Pentoxifylline [TRENtal] 400 mg PO AC-TID 07/19/15 12/15/17 History Simvastatin [Zocor] 20 mg PO HS 07/19/15 12/15/17 History amLODIPine BESYLATE [Norvasc] 2.5 mg PO DAILY 07/19/15 12/15/17 History Ergocalciferol [Vitamin D2] 50,000 unit PO FR 12/15/17 12/15/17 History busPIRone HCL 15 mg PO TID 12/15/17 12/15/17 History Allergies Allergy/AdvReac Type Severity Reaction Status Date / Time No Known Allergies Allergy Verified 12/15/17 13:40 Physical Exam Vitals: Vital Signs Temp Pulse Pulse Resp BP BP Pulse Ox 12/16/17 08:47 97.5 F L 87 16 111/56 94 L 12/16/17 05:00 97.9 F 94 16 88/50 93 L 12/15/17 23:00 96.5 F L 85 16 107/56 98 12/15/17 17:07 98 F 84 16 105/65 98 12/15/17 15:49 97 12/15/17 15:37 94 12/15/17 15:21 85 18 114/80 99 12/15/17 14:03 87 20 122/70 95 12/15/17 13:38 97.9 F 90 20 105/71 97 Intake and Output 12/15/17 12/16/17 12/16/17 22:59 06:59 14:59 Intake Total 300 600 Output Total 68 Balance 232 600 Intake: IV 300 600 Sodium Chloride 0.9% 1, 300 600 000 ml @ 75 mls/hr IV . [id number] [facility] Rx#:[id number] Output: Post Void Residual 68 Other: Voiding Method Toilet Toilet - Constitutional General appearance: average body habitus, mild distress - EENT Eyes: EOMI, PERRLA ENT: hard of hearing Ears: bilateral: normal - Neck Neck: normal ROM Carotids: bilateral: upstroke normal Thyroid: left: enlarged, nodule - Respiratory Respiratory: bilateral: diminished, rhonchi - Cardiovascular Rhythm: regular Heart sounds: normal: S1, S2 - Gastrointestinal General gastrointestinal: normal bowel sounds - Integumentary Integumentary: normal turgor - Neurologic Neurologic: CNII-XII intact - Musculoskeletal Musculoskeletal: gait normal - Psychiatric Psychiatric: A&O x's 3, appropriate affect, intact judgment & insight Results - Laboratory Findings CBC and BMP: 12/16/17 06:56 12/16/17 06:56 Abnormal lab findings: Abnormal Labs 12/15/17 12/15/17 12/15/17 12:45 15:30 15:30 WBC 11.5 H RBC Hgb Hct Neutrophils # 8.9 H Lymphocytes # Potassium Chloride 108 H Carbon Dioxide 19 L BUN 103 H* 106 H* Creatinine 6.15 H* 5.90 H* Glucose 114 H Uric Acid Total Protein Albumin Urine Protein Urine Blood Ur Leukocyte Esterase Urine WBC Amorphous Sediment Urine Bacteria Urine Mucus 12/15/17 12/16/17 12/16/17 15:30 01:00 06:56 WBC RBC 3.26 L Hgb 10.1 L Hct 28.9 L Neutrophils # Lymphocytes # 0.9 L Potassium Chloride Carbon Dioxide BUN Creatinine Glucose Uric Acid 9.6 H Total Protein Albumin Urine Protein Trace H Urine Blood Trace H Ur Leukocyte Esterase Small H Urine WBC 8 H Amorphous Sediment Rare H Urine Bacteria Rare H Urine Mucus Rare H 12/16/17 06:56 WBC RBC Hgb Hct Neutrophils # Lymphocytes # Potassium 2.9 L* Chloride 112 H Carbon Dioxide 18 L BUN 93 H* Creatinine 5.15 H* Glucose 108 H Uric Acid Total Protein 5.6 L Albumin 3.1 L Urine Protein Urine Blood Ur Leukocyte Esterase Urine WBC Amorphous Sediment Urine Bacteria Urine Mucus - Diagnostic Findings Chest x-ray: image reviewed CT scan - chest: image reviewed Assessment and Plan Assessment: Impression: #1 Acute renal failure of unclear etiology. No hydronephrosis per ultrasound. Presenting creatinine 6.15, currently 5.15. #2 multiple pulmonary nodules along with cavitary masses. Left hilar soft tissue fullness and mediastinal adenopathy and upper abdominal lymphadenopathy with left adrenal nodularity. Neoplastic etiology with metastatic disease within the differential. #3 Chronic and ongoing tobacco dependence of greater than 40 years. 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 #5 History of right-sided breast cancer status post lumpectomy and radiation. #6 Large left thyroid nodule, negative biopsy in 2016. #7 Hypertension. #8 Hyperlipidemia. #9 Peripheral vascular disease with previous angioplasty of the left lower extremity. #10 Anxiety. Plan: The patient was seen and evaluated by Dr. Rojas. CAT scan was reviewed. Plan to do a bronchoscopy with BAL and biopsies in 2 days from now. That'll give us opportunity to improve her pulmonary and hopefully renal status. We did have a long discussion with the patient and her is present at the bedside. They are aware that cancer is a probability most likely a small cell lung cancer. We'll continue with the current treatment plan. We will continue to follow. I, the cosigning physician, performed a history & physical examination of the patient. Lungs sounds with bilateral end expiratory wheeze, scattered rhonchi. Maintaining good O2 saturations in the 90s on 2 L/m per nasal cannula. I discussed the assessment and plan of care with my nurse practitioner, Patricia Baca. I attest to the above note as dictated by her. Time with Patient: Greater than 30
[2017-12-16] MEDS ORDERED: PENTOXIFYLLINE 400 MG TABLET.ER PO SCH (12:30)
--- NOTE | 2017-12-16 13:04 | P.CONS ---
History of Present Illness - Reason for Consult Consult date: 12/16/17 New Adenopathy and Pulmonary nodules Requesting physician: Diana Mora - Chief Complaint Acute Renal Failure, New Pulmonary Nodules - History of Present Illness Evelyn Flores is a 67 year old female who originally was sent to [facility] with increased renal function studies prior to a repeat CT of the chest. She admits to decreased po intake of fluids and food, weight loss 30+ pounds in past 6 weeks. A Chest xray was completed earler this month and showed concern for a RUL mass, a repeat CT Follow-up was ordered and was unable to be performed secondary to renal function. CT was completed without contrast and did show consistencys with what appears to be concerning for a malignant process , therefore Oncology has been consulted. Review of Systems A 14 point review of systems assessed and completed and all negative except HPI. Past Medical History Past Medical History: Cancer, Hearing Disorder / Deafness, Hyperlipidemia, Hypertension, Pneumonia, Vascular Disorder Additional Past Medical History / Comment(s): 2 times pneumonia 2010, breast cancer right breast - lumpectomy 2005 History of Any Multi-Drug Resistant Organisms: None Reported Past Surgical History: Appendectomy, Breast Surgery, Section, Hysterectomy Additional Past Surgical History / Comment(s): 2 times , salpingectomy and oopherectomy, angioplasty on left leg, lumpectomy 2005 Past Anesthesia/Blood Transfusion Reactions: No Reported Reaction, Previous Problems w/ Anesthesia Additional Past Anesthesia/Blood Transfusion Reaction / Comm: slow to wake up after anaesthesia Past Psychological History: Anxiety Smoking Status: Current every day smoker Past Alcohol Use History: None Reported Past Drug Use History: None Reported - Past Family History Mother Additional Family Medical History / Comment(s): diverticulitis, Sister(s) Family Medical History: Diabetes Mellitus Father Family Medical History: Coronary Artery Disease (CAD), Diabetes Mellitus Additional Family Medical History / Comment(s): CABG and carotid endarterectomy Medications and Allergies Home Medications Medication Instructions Recorded Confirmed Type ALPRAZolam [Xanax] 0.25 mg PO BID PRN 07/19/15 12/15/17 History Aspirin 81 mg PO DAILY 07/19/15 12/15/17 History Atenolol 25 mg PO BID 07/19/15 12/15/17 History Losartan/Hydrochlorothiazide 1 tab PO DAILY 07/19/15 12/15/17 History [Losartan-Hctz 50-12.5 mg Tab] Pentoxifylline [TRENtal] 400 mg PO AC-TID 07/19/15 12/15/17 History Simvastatin [Zocor] 20 mg PO HS 07/19/15 12/15/17 History amLODIPine BESYLATE [Norvasc] 2.5 mg PO DAILY 07/19/15 12/15/17 History Ergocalciferol [Vitamin D2] 50,000 unit PO FR 12/15/17 12/15/17 History busPIRone HCL 15 mg PO TID 12/15/17 12/15/17 History Allergies Allergy/AdvReac Type Severity Reaction Status Date / Time No Known Allergies Allergy Verified 12/15/17 13:40 Physical Exam Vitals: Vital Signs Temp Pulse Pulse Resp BP BP Pulse Ox 12/16/17 08:47 97.5 F L 87 16 111/56 94 L 12/16/17 05:00 97.9 F 94 16 88/50 93 L 12/15/17 23:00 96.5 F L 85 16 107/56 98 12/15/17 17:07 98 F 84 16 105/65 98 12/15/17 15:49 97 12/15/17 15:37 94 12/15/17 15:21 85 18 114/80 99 12/15/17 14:03 87 20 122/70 95 12/15/17 13:38 97.9 F 90 20 105/71 97 Intake and Output 12/15/17 12/16/17 12/16/17 22:59 06:59 14:59 Intake Total 300 600 Output Total 68 Balance 232 600 Intake: IV 300 600 Sodium Chloride 0.9% 1, 300 600 000 ml @ 75 mls/hr IV . [id number] [facility] Rx#:[id number] Output: Post Void Residual 68 Other: Voiding Method Toilet Toilet Weight 73.482 kg - Constitutional General appearance: average body habitus, mild distress - EENT Eyes: EOMI, PERRLA ENT: hard of hearing Ears: bilateral: normal - Neck Neck: normal ROM Carotids: bilateral: upstroke normal Thyroid: left: enlarged, nodule - Respiratory Respiratory: bilateral: diminished, rhonchi - Cardiovascular Rhythm: regular Heart sounds: normal: S1, S2 - Gastrointestinal General gastrointestinal: normal bowel sounds - Integumentary Integumentary: normal turgor - Neurologic Neurologic: CNII-XII intact - Musculoskeletal Musculoskeletal: gait normal - Psychiatric Psychiatric: A&O x's 3, appropriate affect, intact judgment & insight Results CBC & Chem 7: 12/16/17 06:56 12/16/17 06:56 Labs: Abnormal Lab Results - Last 24 Hours (Table) 12/15/17 12/15/17 12/15/17 Range/Units 12:45 15:30 15:30 WBC 11.5 H (3.8-10.6) k/uL RBC (3.80-5.40) m/uL Hgb (11.4-16.0) gm/dL Hct (34.0-46.0) % Neutrophils # 8.9 H (1.3-7.7) k/uL Lymphocytes # (1.0-4.8) k/uL Potassium (3.5-5.1) mmol/L Chloride 108 H (98-107) mmol/L Carbon Dioxide 19 L (22-30) mmol/L BUN 103 H* 106 H* (7-17) mg/dL Creatinine 6.15 H* 5.90 H* (0.52-1.04) mg/dL Glucose 114 H (74-99) mg/dL Uric Acid (3.7-7.4) mg/dL Total Protein (6.3-8.2) g/dL Albumin (3.5-5.0) g/dL Urine Protein (Negative) Urine Blood (Negative) Ur Leukocyte Esterase (Negative) Urine WBC (0-5) /hpf Amorphous Sediment (None) /hpf Urine Bacteria (None) /hpf Urine Mucus (None) /hpf 12/15/17 12/16/17 12/16/17 Range/Units 15:30 01:00 06:56 WBC (3.8-10.6) k/uL RBC 3.26 L (3.80-5.40) m/uL Hgb 10.1 L (11.4-16.0) gm/dL Hct 28.9 L (34.0-46.0) % Neutrophils # (1.3-7.7) k/uL Lymphocytes # 0.9 L (1.0-4.8) k/uL Potassium (3.5-5.1) mmol/L Chloride (98-107) mmol/L Carbon Dioxide (22-30) mmol/L BUN (7-17) mg/dL Creatinine (0.52-1.04) mg/dL Glucose (74-99) mg/dL Uric Acid 9.6 H (3.7-7.4) mg/dL Total Protein (6.3-8.2) g/dL Albumin (3.5-5.0) g/dL Urine Protein Trace H (Negative) Urine Blood Trace H (Negative) Ur Leukocyte Esterase Small H (Negative) Urine WBC 8 H (0-5) /hpf Amorphous Sediment Rare H (None) /hpf Urine Bacteria Rare H (None) /hpf Urine Mucus Rare H (None) /hpf 12/16/17 Range/Units 06:56 WBC (3.8-10.6) k/uL RBC (3.80-5.40) m/uL Hgb (11.4-16.0) gm/dL Hct (34.0-46.0) % Neutrophils # (1.3-7.7) k/uL Lymphocytes # (1.0-4.8) k/uL Potassium 2.9 L* (3.5-5.1) mmol/L Chloride 112 H (98-107) mmol/L Carbon Dioxide 18 L (22-30) mmol/L BUN 93 H* (7-17) mg/dL Creatinine 5.15 H* (0.52-1.04) mg/dL Glucose 108 H (74-99) mg/dL Uric Acid (3.7-7.4) mg/dL Total Protein 5.6 L (6.3-8.2) g/dL Albumin 3.1 L (3.5-5.0) g/dL Urine Protein (Negative) Urine Blood (Negative) Ur Leukocyte Esterase (Negative) Urine WBC (0-5) /hpf Amorphous Sediment (None) /hpf Urine Bacteria (None) /hpf Urine Mucus (None) /hpf Assessment and Plan Plan: Assessment and Recommendations: 1. New Mediastinal Lymphadenopathy and Pulmonary Nodules: - Will need a tissue biopsy, likely surgical (to send further tests if possible ), for diagnsis - Pulmonary is following and will defer Bronchoscopy versus IR Needle Biopsy - Full Initial Staging once renal function improves - May benefit from MRI brain as well 2. Acute Renal Failure: - This maybe related to Dehydration and Dramatic reduction in PO intake - She has had a large weight loss and decreased po intake overall - Nephrology is following - Renal Function Mildly improving since hydration Began 3. Hypokalemia - Per Nephrology 4. Hx: Breast Cancer - Lumpectomy and radiation in 2005 - Unaware of type - Check Tumor Markers Physician Attestation: I have completed the full history and physical of this patient and agree with above dictation by josephine pablo NP. Dictated as a scribe
[2017-12-16] MEDS: IPRATROPIUM-ALBUTEROL 3 ML NEB INHALATION PRN ×2 (16:04→20:03)
[2017-12-16] MEDS: methylPREDNISolone SOD SUCCI 125 MG/2 ML VIAL IV SCH ×3 (16:32→23:23)
[2017-12-16] MEDS: FAMOTIDINE 20 MG TAB PO SCH (16:33)
[2017-12-16] MEDS: busPIRone HCl 5 MG TAB PO SCH ×2 (16:33→21:02)
[2017-12-16] MEDS ORDERED: POTASSIUM CHLORIDE ER 20 MEQ TAB.ER PO SCH (17:00)
[2017-12-16 17:06] LABS: Glucose,Whole Blood 130 mg/dL (75-99)
[2017-12-16 17:08] LABS: CA27.29 Breast Ca Marker 60.6 U/mL (0.0-38.5)
[2017-12-16] MEDS: INSULIN ASPART 100 UNIT/ML 1 ML 10 ML VIAL SQ SCH ×2 (17:36→21:01)
[2017-12-16 20:00] LABS: Glucose,Whole Blood 236 mg/dL (75-99)
[2017-12-16] MEDS: BUDESONIDE 1 MG/2 ML NEBU INHALATION SCH (20:03)
[2017-12-16] MEDS: FORMOTEROL FUMARATE 20 MCG/2 ML NEBU INHALATION SCH (20:03)
[2017-12-16] MEDS: ATENOLOL 25 MG TAB PO SCH (21:01)
[2017-12-16] MEDS: ATORVASTATIN 10 MG TAB PO SCH (21:01)
[2017-12-16] MEDS: PENTOXIFYLLINE 400 MG TABLET.ER PO SCH (21:02)
[2017-12-17] MEDS: methylPREDNISolone SOD SUCCI 125 MG/2 ML VIAL IV SCH ×4 (05:30→23:41)
[2017-12-17 06:55] LABS: Glucose,Whole Blood 225 mg/dL (75-99)
[2017-12-17 07:24] LABS: Basophils % (A) 0 %; Eosinophils % (A) 0 %; HCT 29.4 % (34.0-46.0); HGB 9.9 gm/dL (11.4-16.0); Lymphocytes # (A) 0.4 k/uL (1.0-4.8); Lymphocytes % (A) 5 %; MCH 31.1 pg (25.0-35.0); MCHC 33.6 g/dL (31.0-37.0); MCV 92.5 fL (80.0-100.0); Mean Platelet Volume 7.6; Monocytes # (A) 0.2 k/uL (0-1.0); Monocytes % (A) 2 %; Neutrophils # (A) 8.4 k/uL (1.3-7.7); Neutrophils % (A) 93 %; Platelet Count 175 k/uL (150-450); RBC 3.18 m/uL (3.80-5.40); RDW 13.9 % (11.5-15.5); WBC 9.1 k/uL (3.8-10.6)
[2017-12-17 07:58] LABS: Albumin 3.1 g/dL (3.5-5.0); Calcium 8.9 mg/dL (8.4-10.2); Potassium 3.9 mmol/L (3.5-5.1); Total Bilirubin 0.3 mg/dL (0.2-1.3); Total Protein 5.6 g/dL (6.3-8.2)
[2017-12-17] MEDS: busPIRone HCl 5 MG TAB PO SCH ×3 (08:03→20:30)
[2017-12-17] MEDS: FAMOTIDINE 20 MG TAB PO SCH (08:03)
[2017-12-17] MEDS: PENTOXIFYLLINE 400 MG TABLET.ER PO SCH ×4 (08:03→16:38)
[2017-12-17] MEDS: ATENOLOL 25 MG TAB PO SCH ×2 (08:03→20:34)
[2017-12-17] MEDS: ASPIRIN 81 MG PO SCH ×2 (08:03→08:35)
[2017-12-17] MEDS: INSULIN ASPART 100 UNIT/ML 1 ML 10 ML VIAL SQ SCH ×4 (08:04→20:31)
[2017-12-17] MEDS: IPRATROPIUM-ALBUTEROL 3 ML NEB INHALATION PRN ×4 (08:55→19:20)
[2017-12-17] MEDS: FORMOTEROL FUMARATE 20 MCG/2 ML NEBU INHALATION SCH ×2 (08:55→19:20)
[2017-12-17] MEDS: BUDESONIDE 1 MG/2 ML NEBU INHALATION SCH ×2 (08:55→19:20)
[2017-12-17] MEDS ORDERED: PENTOXIFYLLINE 400 MG TABLET.ER PO SCH (09:00)
[2017-12-17] MEDS ORDERED: FAMOTIDINE 20 MG TAB PO SCH (09:00)
[2017-12-17] MEDS ORDERED: ENOXAPARIN 40 MG/0.4 ML SYRINGE SQ SCH (09:00)
--- NOTE | 2017-12-17 11:14 | P.PN ---
Subjective Progress Note Date: 12/17/17 Principal diagnosis: Multiple pulmonary nodules, adenopathy This is a very pleasant 67-year-old female patient who follows with Dr. Mora as her primary care physician. She has a history of hypertension, hyperlipidemia, peripheral vascular disease with previous angioplasty of the left lower extremity, hearing disorder, right sided breast cancer status post lumpectomy and radiation treatment in 2005. She also has chronic and ongoing 40 + year smoking history. She had not been on any inhalers in the past. Approximately one month ago she started having increasing shortness of breath, cough and congestion. She was treated with antibiotics and nebulized treatments without much improvement. Follow-up chest x-ray revealed some abnormalities and she was scheduled for a CT angiogram of the chest to be performed yesterday. However her renal function was significantly elevated. She did undergo a computed tomography scan of the chest without contrast which revealed multiple pulmonary nodules measuring up to 2 cm. There is cavitary masses present in the left hilar region and left lower lobe. There is left hilar soft tissue fullness and mediastinal lymphadenopathy. There is also noted moderate emphysema/COPD. There is a large heterogenous left thyroid nodule with recent ultrasound revealing a large left lobe cystic-type thyroid nodule that was stable compared to previous. Renal ultrasound revealed no evidence of hydronephrosis. There is a small left renal cortical cysts. She does have a fusiform lower abdominal aortic aneurysm measuring 5.2 cm in diameter that is more than 8 cm in length. Initial creatinine 6.15. Today 5.15 the BUN of 93. Patient is seen today in consultation on the oncology unit. She is currently awake and alert in no acute distress. She has been feeling quite poorly especially the last several days without eating or drinking much. She's had approximately 30 pound weight loss over the past month since all of her symptoms began. She denies productive cough. No hemoptysis. The patient is seen again today 12/17/2017 in follow-up on the oncology unit. She is currently awake and alert in no acute distress. She is breathing quite a bit easier today as compared to yesterday. In general she is feeling better overall as well. Her renal function has improved current creatinine 4.33. Her pulmonary status has improved. She is less short of breath. Less bronchospastic and wheezy. Maintaining good O2 saturations in the mid to upper 90s on 2 L/m per nasal cannula. She is afebrile. Blood culture reveals no growth. White count 9.1. Hemoglobin 9.9. Objective - Vital Signs Vital signs: Vital Signs Temp 97.8 F 12/17/17 05:00 Pulse 92 12/17/17 09:14 Resp 16 12/17/17 05:00 BP 109/55 12/17/17 05:00 Pulse Ox 96 12/17/17 05:00 Intake & Output 12/16/17 12/17/17 12/17/17 18:59 06:59 18:59 Intake Total 1970 Output Total 0 800 Balance 0 1170 Weight 73.482 kg Intake: IV 900 Sodium Chloride 0.9% 1, 900 000 ml @ 75 mls/hr IV . [id number] [facility] Rx#:[id number] Oral 1070 Output: Urine 800 Post Void Residual 0 Other: Voiding Method Toilet Toilet Toilet # Voids 1 2 # Bowel Movements 2 - Exam - Constitutional General appearance: average body habitus, no acute distress - EENT Eyes: EOMI, PERRLA ENT: hard of hearing Ears: bilateral: normal - Neck Neck: normal ROM Carotids: bilateral: upstroke normal Thyroid: left: enlarged, nodule - Respiratory Respiratory: bilateral: diminished, end expiratory wheeze - Cardiovascular Rhythm: regular Heart sounds: normal: S1, S2 - Gastrointestinal General gastrointestinal: normal bowel sounds - Integumentary Integumentary: normal turgor - Neurologic Neurologic: CNII-XII intact - Musculoskeletal Musculoskeletal: gait normal - Psychiatric Psychiatric: A&O x's 3, appropriate affect, intact judgment & insight - Labs CBC & Chem 7: 12/17/17 07:07 12/17/17 07:07 Labs: Abnormal Lab Results - Last 24 Hours (Table) 12/16/17 12/16/17 12/16/17 Range/Units 06:56 16:59 19:57 RBC (3.80-5.40) m/uL Hgb (11.4-16.0) gm/dL Hct (34.0-46.0) % Neutrophils # (1.3-7.7) k/uL Lymphocytes # (1.0-4.8) k/uL Chloride (98-107) mmol/L Carbon Dioxide (22-30) mmol/L BUN (7-17) mg/dL Creatinine (0.52-1.04) mg/dL Glucose (74-99) mg/dL POC Glucose (mg/dL) 130 H 236 H (75-99) mg/dL Total Protein (6.3-8.2) g/dL Albumin (3.5-5.0) g/dL CA 27-29 60.6 H (0.0-38.5) U/mL 12/17/17 12/17/17 12/17/17 Range/Units 06:53 07:07 07:07 RBC 3.18 L (3.80-5.40) m/uL Hgb 9.9 L (11.4-16.0) gm/dL Hct 29.4 L (34.0-46.0) % Neutrophils # 8.4 H (1.3-7.7) k/uL Lymphocytes # 0.4 L (1.0-4.8) k/uL Chloride 116 H (98-107) mmol/L Carbon Dioxide 16 L (22-30) mmol/L BUN 85 H* (7-17) mg/dL Creatinine 4.33 H (0.52-1.04) mg/dL Glucose 180 H (74-99) mg/dL POC Glucose (mg/dL) 225 H (75-99) mg/dL Total Protein 5.6 L (6.3-8.2) g/dL Albumin 3.1 L (3.5-5.0) g/dL CA 27-29 (0.0-38.5) U/mL Microbiology - Last 24 Hours (Table) 12/15/17 15:30 Blood Culture - Preliminary Blood No Growth after 24 hours Assessment and Plan Assessment: Impression: #1 Acute renal failure of unclear etiology. No hydronephrosis per ultrasound. Presenting creatinine 6.15, currently 4.33. #2 Multiple pulmonary nodules along with cavitary masses. Left hilar soft tissue fullness and mediastinal adenopathy and upper abdominal lymphadenopathy with left adrenal nodularity. Neoplastic etiology with metastatic disease within the differential. #3 Chronic and ongoing tobacco dependence of greater than 40 years. 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 #5 History of right-sided breast cancer status post lumpectomy and radiation. #6 Large left thyroid nodule, negative biopsy in 2016. #7 Hypertension. #8 Hyperlipidemia. #9 Peripheral vascular disease with previous angioplasty of the left lower extremity. #10 Anxiety. Plan: The patient was seen and evaluated by Dr. Rojas. She is improved from the pulmonary status. We'll continue with her current medications. We'll plan for bronchoscopy with biopsies tomorrow. We will continue to follow. I, the cosigning physician, performed a history & physical examination of the patient. Lungs sounds with bilateral end expiratory wheeze, scattered rhonchi. Maintaining good O2 saturations in the 90s on 2 L/m per nasal cannula. I discussed the assessment and plan of care with my nurse practitioner, Patricia Baca. I attest to the above note as dictated by her.
[2017-12-17 11:18] LABS: Glucose,Whole Blood 207 mg/dL (75-99)
--- NOTE | 2017-12-17 11:52 | P.PN ---
Subjective Progress Note Date: 12/17/17 Evelyn Flores is a 67 year old female who presented to [facility] to have a computed tomography scan of the chest was contrast BUN and creatinine were done prior to computed tomography scan and were significantly elevated, her BUN was 103, and creatinine 6.15, computed tomography scan was canceled and patient was sent to [facility] emergency room, she was evaluated in the emergency room she was given IV fluid and her creatinine came down slightly to 5.9, computed tomography scan of the chest without contrast was done and revealed multiple pulmonary nodules with a couple of cavitary masses patient also had evidence of lymphadenopathy in the chest and the upper abdomen, she also had a large left thyroid nodule, she was started on IV fluid and was admitted to the medical floor, pulmonary and nephrology and oncology consultation were requested. Patient has not been feeling well for the last 6 weeks, she had cough with minimal sputum production, she was given a course of antibiotic without any improvement, chest x-ray was done on 12/05/2017 and revealed evidence of right upper lobe lung mass computed tomography scan was recommended and this was scheduled for 12/15/2017 however patient was admitted due to severely elevated BUN and creatinine. Patient has a lifelong history of smoking, she has known history of hypertension , hyperlipidemia, anxiety disorder, and a thyroid nodule that was recently biopsied by Dr. Morales. At this time patient denies any pain or discomfort she reports having episodes of nausea and vomiting in the last 2 weeks she reports feeling full and then able to eat much, she reports significant weight loss in the last 6 weeks, she has been complaining of cough, she had minimal sputum production, she denies any hemoptysis, there is no abdominal pain no blood in the urine or in the stools. On 12/16/2017 patient is currently A & O 3 resting comfortably in bed. Patient does report some shortness of breath with activity. Patient denies chest pain. Denies nausea vomiting or diarrhea. Does reports she has very little appetite. Patient denies any urinary burning or frequency. On 12/17/2017 patient is currently anal 3 resting in bed comfortably. Patient' s shortness of breath has improved. Patient being followed by pulmonary. Per pulmonary plan for bronchoscopy and biopsies tomorrow. IV steroids have been added per pulmonary. Patient denies chest pain at this time. Patient denies nausea vomiting or diarrhea. Patient denies any urinary burning or frequency Objective - Vital Signs Vital signs: Vital Signs Temp 97.8 F 12/17/17 05:00 Pulse 92 12/17/17 09:14 Resp 16 12/17/17 05:00 BP 109/55 12/17/17 05:00 Pulse Ox 96 12/17/17 05:00 Intake & Output 12/16/17 12/17/17 12/17/17 18:59 06:59 18:59 Intake Total 1970 Output Total 0 800 Balance 0 1170 Weight 73.482 kg Intake: IV 900 Sodium Chloride 0.9% 1, 900 000 ml @ 75 mls/hr IV . [id number] MIGUEL Rx#:[id number] Oral 1070 Output: Urine 800 Post Void Residual 0 Other: Voiding Method Toilet Toilet Toilet # Voids 1 2 # Bowel Movements 2 - Exam Head normocephalic Neck supple Lungs scattered crackles Heart regular rate and rhythm S1-S2, no rub or gallop Abdomen is soft nontender nondistended positive bowel sounds no hepatosplenomegaly Extremities no edema Neuro alert and orientated to 3 - Labs CBC & Chem 7: 12/17/17 07:07 12/17/17 07:07 Labs: Abnormal Lab Results - Last 24 Hours (Table) 12/16/17 12/16/17 12/16/17 Range/Units 06:56 16:59 19:57 RBC (3.80-5.40) m/uL Hgb (11.4-16.0) gm/dL Hct (34.0-46.0) % Neutrophils # (1.3-7.7) k/uL Lymphocytes # (1.0-4.8) k/uL Chloride (98-107) mmol/L Carbon Dioxide (22-30) mmol/L BUN (7-17) mg/dL Creatinine (0.52-1.04) mg/dL Glucose (74-99) mg/dL POC Glucose (mg/dL) 130 H 236 H (75-99) mg/dL Total Protein (6.3-8.2) g/dL Albumin (3.5-5.0) g/dL CA 27-29 60.6 H (0.0-38.5) U/mL 12/17/17 12/17/17 12/17/17 Range/Units 06:53 07:07 07:07 RBC 3.18 L (3.80-5.40) m/uL Hgb 9.9 L (11.4-16.0) gm/dL Hct 29.4 L (34.0-46.0) % Neutrophils # 8.4 H (1.3-7.7) k/uL Lymphocytes # 0.4 L (1.0-4.8) k/uL Chloride 116 H (98-107) mmol/L Carbon Dioxide 16 L (22-30) mmol/L BUN 85 H* (7-17) mg/dL Creatinine 4.33 H (0.52-1.04) mg/dL Glucose 180 H (74-99) mg/dL POC Glucose (mg/dL) 225 H (75-99) mg/dL Total Protein 5.6 L (6.3-8.2) g/dL Albumin 3.1 L (3.5-5.0) g/dL CA 27-29 (0.0-38.5) U/mL 12/17/17 Range/Units 11:16 RBC (3.80-5.40) m/uL Hgb (11.4-16.0) gm/dL Hct (34.0-46.0) % Neutrophils # (1.3-7.7) k/uL Lymphocytes # (1.0-4.8) k/uL Chloride (98-107) mmol/L Carbon Dioxide (22-30) mmol/L BUN (7-17) mg/dL Creatinine (0.52-1.04) mg/dL Glucose (74-99) mg/dL POC Glucose (mg/dL) 207 H (75-99) mg/dL Total Protein (6.3-8.2) g/dL Albumin (3.5-5.0) g/dL CA 27-29 (0.0-38.5) U/mL Microbiology - Last 24 Hours (Table) 12/15/17 15:30 Blood Culture - Preliminary Blood No Growth after 24 hours Assessment and Plan Assessment: #1 multiple pulmonary masses including 2 cavitary lesions. Pulmonary services have been consulted. Awaiting consult. Per pulmonary team planning biopsy and bronchoscopy tomorrow. Solu-Medrol 60 mg every 6 has been added. #2 enlarged lymphadenopathy in the chest and upper abdomen. Oncology services . CA 2729 and CA 153 antigen ordered per oncology. #3 thyroid nodule with recent biopsy by Dr. Morales #4 acute renal failure, last creatinine prior to this admission was in August 2017 and was 1.2. Creatinine 5.15 and bun 93. Nephrology following. Renal ultrasound completed showing fusiform lower abdomen aortic aneurysm measures up to 5.2 cm in diameter. The length is more than 8 cm. No hydronephrosis. Small left renal cortical cyst. We'll continue to monitor labs closely. Creatinine continued to trend down to 4.33 and bun 85. Per nephrology continue to monitor labs on a daily basis #5 underlying history of hypertension #6 underlying history of hyperlipidemia #7 evidence of COPD on computed tomography scan #8 tobacco abuse #9 underlying history of anxiety disorder #10 hypokalemia. Potassium replacement protocol. Will recheck potassium level and monitor closely. Repeat potassium 3.9 GI prophylaxis Pepcid and DVT prophylaxis SCDs. Lovenox on hold due to bronchoscopy tomorrow I performed an examination of the patient and discussed their management with the Nurse Practitioner. I have reviewed the Nurse Practitioner's notes and agree with the documented findings and plan of care
[2017-12-17] MEDS: SODIUM CHLORIDE 0.9% 1,000 ML IV SCH (12:11)
--- NOTE | 2017-12-17 14:08 | P.PN ---
Subjective Progress Note Date: 12/17/17 Principal diagnosis: New Pulmonary Nodules and adenopathy Patient seen and examined today. Plan for Biopsy via bronch tomorrow per pulmonary. Objective - Vital Signs Vital signs: Vital Signs Temp 97.7 F 12/17/17 12:40 Pulse 97 12/17/17 12:40 Resp 16 12/17/17 12:40 BP 129/62 12/17/17 12:40 Pulse Ox 91 L 12/17/17 12:40 Intake & Output 12/16/17 12/17/17 12/17/17 18:59 06:59 18:59 Intake Total 1970 Output Total 0 800 Balance 0 1170 Weight 73.482 kg Intake: IV 900 Sodium Chloride 0.9% 1, 900 000 ml @ 75 mls/hr IV . [id number] MIGUEL Rx#:[id number] Oral 1070 Output: Urine 800 Post Void Residual 0 Other: Voiding Method Toilet Toilet Toilet # Voids 1 2 # Bowel Movements 2 - Exam - Constitutional General appearance: average body habitus, mild distress - EENT Eyes: EOMI, PERRLA ENT: hard of hearing Ears: bilateral: normal - Neck Neck: normal ROM Carotids: bilateral: upstroke normal Thyroid: left: enlarged, nodule - Respiratory Respiratory: bilateral: diminished, rhonchi - Cardiovascular Rhythm: regular Heart sounds: normal: S1, S2 - Gastrointestinal General gastrointestinal: normal bowel sounds - Integumentary Integumentary: normal turgor - Neurologic Neurologic: CNII-XII intact - Musculoskeletal Musculoskeletal: gait normal - Psychiatric Psychiatric: A&O x's 3, appropriate affect, intact judgment & insight - Labs CBC & Chem 7: 12/17/17 07:07 12/17/17 07:07 Labs: Abnormal Lab Results - Last 24 Hours (Table) 12/16/17 12/16/17 12/16/17 Range/Units 06:56 16:59 19:57 RBC (3.80-5.40) m/uL Hgb (11.4-16.0) gm/dL Hct (34.0-46.0) % Neutrophils # (1.3-7.7) k/uL Lymphocytes # (1.0-4.8) k/uL Chloride (98-107) mmol/L Carbon Dioxide (22-30) mmol/L BUN (7-17) mg/dL Creatinine (0.52-1.04) mg/dL Glucose (74-99) mg/dL POC Glucose (mg/dL) 130 H 236 H (75-99) mg/dL Total Protein (6.3-8.2) g/dL Albumin (3.5-5.0) g/dL CA 27-29 60.6 H (0.0-38.5) U/mL 12/17/17 12/17/17 12/17/17 Range/Units 06:53 07:07 07:07 RBC 3.18 L (3.80-5.40) m/uL Hgb 9.9 L (11.4-16.0) gm/dL Hct 29.4 L (34.0-46.0) % Neutrophils # 8.4 H (1.3-7.7) k/uL Lymphocytes # 0.4 L (1.0-4.8) k/uL Chloride 116 H (98-107) mmol/L Carbon Dioxide 16 L (22-30) mmol/L BUN 85 H* (7-17) mg/dL Creatinine 4.33 H (0.52-1.04) mg/dL Glucose 180 H (74-99) mg/dL POC Glucose (mg/dL) 225 H (75-99) mg/dL Total Protein 5.6 L (6.3-8.2) g/dL Albumin 3.1 L (3.5-5.0) g/dL CA 27-29 (0.0-38.5) U/mL 12/17/17 Range/Units 11:16 RBC (3.80-5.40) m/uL Hgb (11.4-16.0) gm/dL Hct (34.0-46.0) % Neutrophils # (1.3-7.7) k/uL Lymphocytes # (1.0-4.8) k/uL Chloride (98-107) mmol/L Carbon Dioxide (22-30) mmol/L BUN (7-17) mg/dL Creatinine (0.52-1.04) mg/dL Glucose (74-99) mg/dL POC Glucose (mg/dL) 207 H (75-99) mg/dL Total Protein (6.3-8.2) g/dL Albumin (3.5-5.0) g/dL CA 27-29 (0.0-38.5) U/mL Microbiology - Last 24 Hours (Table) 12/15/17 15:30 Blood Culture - Preliminary Blood No Growth after 24 hours Assessment and Plan Plan: Assessment and Recommendations: 1. New Mediastinal Lymphadenopathy and Pulmonary Nodules: - Will need a tissue biopsy, likely surgical (to send further tests if possible ), for diagnsis - Pulmonary is following and will defer Bronchoscopy versus IR Needle Biopsy - Full Initial Staging once renal function improves - May benefit from MRI brain as well - Biopsy tomorrow via bronch although recommend caution with steroid use prior to biopsy as may affect positive results if underlyng lymphoma malignancy. Discussed with ORANGE PEEL OPERATOR 2. Acute Renal Failure: - This maybe related to Dehydration and Dramatic reduction in PO intake - She has had a large weight loss and decreased po intake overall - Nephrology is following - Renal Function Mildly improving since hydration Began 3. Hypokalemia - Per Nephrology 4. Hx: Breast Cancer - Lumpectomy and radiation in 2005 - Unaware of type - Check Tumor Markers, Ca 27.29 is mildly elevated from normal range
[2017-12-17] MEDS ORDERED: CALCIUM CARBONATE 500 MG CHEWABLE PO PRN (14:31)
[2017-12-17 16:59] LABS: Glucose,Whole Blood 158 mg/dL (75-99)
[2017-12-17 20:04] LABS: Glucose,Whole Blood 232 mg/dL (75-99)
[2017-12-17] MEDS: ALPRAZolam 0.25 MG TAB PO PRN (20:30)
[2017-12-17] MEDS: ATORVASTATIN 10 MG TAB PO SCH (20:31)
--- NOTE | 2017-12-17 20:57 | PN ---
PROGRESS NOTE DATE OF SERVICE: 12/16/2012. The patient is seen for followup for acute injury. She is currently not complaining of any pain. The patient is maintained on IV fluids. She has had good urine output. EXAMINATION: Blood pressure was 109/70, heart rate 90 per minute. The patient is afebrile. HEART: S1, S2. LUNGS: Bilateral breath sounds are heard. Decreased breath sounds at the bases. Abdomen is soft, obese, nontender. Lower extremities show no significant edema. LABS: Show sodium of 140, potassium 2.9, chloride 112, BUN 93, serum creatinine 5.15. Potassium was previously elevated at 9.6. Hemoglobin 10.1 g/dL. ASSESSMENT: 1. Acute kidney injury, most likely acute tubular necrosis, currently nonoliguric. Will continue with IV fluids. Repeat labs in a.m. urinalysis shows trace protein and trace blood. There is no evidence of obstruction on the ultrasound. 2. Metabolic acidosis secondary to renal failure. 3. Hypertension. 4. Chronic obstructive pulmonary disease. PLAN: Continue IV fluids. Repeat labs in a.m. MMODL / IJN: [id number] /
--- NOTE | 2017-12-17 21:03 | PN ---
PROGRESS NOTE DATE OF SERVICE: 12/17/2017 Patient is seen for followup for acute renal injury. Her renal function has improved. Patient has had good urine output. She remains on IV fluids. Overall she states she is feeling better. She has found to have multiple pulmonary nodules and cavitary masses and is scheduled for bronchoscopy. PHYSICAL EXAMINATION: Blood pressure 129/62, heart rate 74 per minute. Patient is afebrile. EXAMINATION OF THE HEART: S1, S2. EXAMINATION OF LUNGS: Bilateral breath sounds are heard. ABDOMEN: Soft, non-tender. Examination of lower extremities shows no significant edema. COGNOS TM1 DEVELOPER exam is grossly intact. LABS: Sodium of 141, potassium 3.9, BUN 85, serum creatinine 4.3, hemoglobin 9.9 g/dL. ASSESSMENT: 1. Acute kidney injury, currently non-oliguric and improving. Continue with IV fluids. 2. Non-gap metabolic acidosis secondary to renal failure. Continue with oral sodium bicarb. 3. Pulmonary nodules and cavitary lesions, scheduled for bronchoscopy. PLAN: Continue IV fluids and oral sodium bicarb. Repeat labs in a.m. MMODL / IJN: [id number] /
[2017-12-17] MEDS: SODIUM BICARBONATE TAB 650 MG TAB PO SCH (21:15)
[2017-12-18] MEDS: SODIUM CHLORIDE 0.9% 1,000 ML IV SCH ×2 (04:59→13:31)
[2017-12-18] MEDS: methylPREDNISolone SOD SUCCI 125 MG/2 ML VIAL IV SCH ×3 (04:59→18:08)
[2017-12-18 07:08] LABS: Glucose,Whole Blood 165 mg/dL (75-99)
[2017-12-18 07:44] LABS: Basophils % (A) 0 %; Eosinophils # (A) 0.1 k/uL (0-0.7); Eosinophils % (A) 0 %; HCT 32.3 % (34.0-46.0); HGB 10.3 gm/dL (11.4-16.0); Lymphocytes # (A) 0.7 k/uL (1.0-4.8); Lymphocytes % (A) 3 %; MCH 29.5 pg (25.0-35.0); MCHC 31.9 g/dL (31.0-37.0); MCV 92.6 fL (80.0-100.0); Mean Platelet Volume 8.3; Monocytes # (A) 0.9 k/uL (0-1.0); Monocytes % (A) 4 %; Neutrophils # (A) 19.4 k/uL (1.3-7.7); Neutrophils % (A) 92 %; Platelet Count 211 k/uL (150-450); RBC 3.48 m/uL (3.80-5.40); RDW 13.8 % (11.5-15.5); WBC 21.2 k/uL (3.8-10.6)
[2017-12-18 07:51] LABS: Albumin 3.3 g/dL (3.5-5.0); Calcium 9.5 mg/dL (8.4-10.2); Potassium 3.9 mmol/L (3.5-5.1); Total Bilirubin 0.3 mg/dL (0.2-1.3)
[2017-12-18] MEDS: INSULIN ASPART 100 UNIT/ML 1 ML 10 ML VIAL SQ SCH ×4 (08:19→21:03)
[2017-12-18] MEDS: busPIRone HCl 5 MG TAB PO SCH ×3 (08:23→21:00)
[2017-12-18] MEDS: ATENOLOL 25 MG TAB PO SCH ×2 (08:24→21:00)
[2017-12-18] MEDS: PENTOXIFYLLINE 400 MG TABLET.ER PO SCH ×3 (08:24→18:08)
[2017-12-18] MEDS: BUDESONIDE 1 MG/2 ML NEBU INHALATION SCH ×2 (08:54→19:38)
[2017-12-18] MEDS: FORMOTEROL FUMARATE 20 MCG/2 ML NEBU INHALATION SCH ×2 (08:54→19:38)
[2017-12-18] MEDS: IPRATROPIUM-ALBUTEROL 3 ML NEB INHALATION PRN ×3 (08:54→19:38)
[2017-12-18] MEDS ORDERED: ENOXAPARIN 30 MG/0.3 ML SYRINGE SQ SCH (09:00)
[2017-12-18] MEDS ORDERED: IV FLUID CONTINUATION 1,000 ML IV ONE (09:43)
[2017-12-18] MEDS: LACTATED RINGERS 1,000 ML IV SCH (10:02)
[2017-12-18] MEDS ORDERED: LIDOCAINE 1% INJ 10MG/ML (20 ML MDV) ONE (10:30)
[2017-12-18] MEDS ORDERED: MIDAZOLAM 2 MG/2 ML VIAL ONE (10:30)
[2017-12-18] MEDS ORDERED: fentaNYL (PF) 50 MCG/ML 2 ML AMP ONE (10:30)
[2017-12-18] MEDS ORDERED: PROPOFOL 10 MG/ML 20 ML VIAL IV ONE (10:30)
[2017-12-18] MEDS ORDERED: SUCCINYLCHOLINE CHLORIDE 100 MG/5 ML SYR IV ONE (10:30)
--- NOTE | 2017-12-18 12:15 | XR ---
EXAMINATION TYPE: XR chest 1V DATE OF EXAM: 12/18/2017 COMPARISON: 12/05/2017 HISTORY: Shortness of breath TECHNIQUE: Single frontal view of the chest is obtained. FINDINGS: There is a mass within the right upper lobe measuring 1.8 cm. There is ill- defined patchy density along the left suprahilar region and prominence of both hilum. Subsegmental consolidation at the left lung base. No pleural effusion or pneumothorax. Hypertrophic and degenerative change of the spine. IMPRESSION: 1. Bilateral pulmonary masses suspected left perihilar and lower lobe patchy infiltrate stable from t he prior exam.
[2017-12-18 12:36] LABS: Glucose,Whole Blood 142 mg/dL (75-99)
--- NOTE | 2017-12-18 12:58 | PCN ---
PROCEDURE NOTE PROCEDURE: Bronchoscopy with multiple endobronchial biopsies of the lingula, brushings of the lingula, washings, and lavage of the lingula. Brushings of the left lower lobe and washings of the left lower lobe, and trans carinal Andre needle, aspiration of the anterior carinal lymph node using Andre needle. PREOPERATIVE DIAGNOSIS: Cavitary lung masses, lymphadenopathy and anterior carinal lymph nodes. POSTOPERATIVE DIAGNOSIS: Cavitary lung masses, lymphadenopathy and anterior carinal lymph nodes. ANESTHESIA USED: Patient was given the general anesthesia, please refer to IRRIGATOR VALVE PIPE documentation, patient was intubated by IRRIGATOR VALVE PIPE, and the procedure was done in the Operating Room. PROCEDURE DESCRIPTION: Patient was prepared according to the bronchoscopy protocol. She was brought in to the operating room #2, intubated by Anesthesia, we monitored continuously her O2 saturation, blood pressure was intermittently monitored, and cardiac rhythm was continuously monitored. Patient was already on mechanical ventilation, and an adapter was applied to the endotracheal tube. The bronchoscope was advanced through the endotracheal tube down to the area of the jeffrey and the jeffrey was noted to be collapsible, and there was generous and prominent tissue noted in the anterior carinal portion on the left side and on the right side. Further examination was done of the right upper lobe, right middle lobe, right lower lobe, and there was no significant findings to be concerned with on the right side other than the anterior carinal lymph nodes. On the left side; however, there was significant purulent secretions. There was significant abnormality involving the mucosa of the lingula, the mucosa of the left lower lobe was also abnormal showing a lumpy appearance to it, and irregular with fragile mucosa noted. Multiple washings were done from the left lower lobe and from the lingula. Then the brushings were also done from the left lower lobe and from the lingula. Multiple endobronchial biopsies were done from the superior and inferior lingula. Then, Andre needle aspiration and biopsy done from the anterior carinal lymph nodes. Procedure was well tolerated, no evidence of any immediate complications. BLOOD LOSS: Less than 10 mL total. Again, no evidence of any immediate complications. MMODL / IJN: [id number] /
[2017-12-18] MEDS: ASPIRIN 81 MG PO SCH (13:18)
[2017-12-18] MEDS: FAMOTIDINE 20 MG TAB PO SCH (13:20)
--- NOTE | 2017-12-18 13:41 | P.PN ---
Subjective Progress Note Date: 12/18/17 Evelyn Flores is a 67 year old female who presented to [facility] to have a computed tomography scan of the chest was contrast BUN and creatinine were done prior to computed tomography scan and were significantly elevated, her BUN was 103, and creatinine 6.15, computed tomography scan was canceled and patient was sent to [facility] emergency room, she was evaluated in the emergency room she was given IV fluid and her creatinine came down slightly to 5.9, computed tomography scan of the chest without contrast was done and revealed multiple pulmonary nodules with a couple of cavitary masses patient also had evidence of lymphadenopathy in the chest and the upper abdomen, she also had a large left thyroid nodule, she was started on IV fluid and was admitted to the medical floor, pulmonary and nephrology and oncology consultation were requested. Patient has not been feeling well for the last 6 weeks, she had cough with minimal sputum production, she was given a course of antibiotic without any improvement, chest x-ray was done on 12/05/2017 and revealed evidence of right upper lobe lung mass computed tomography scan was recommended and this was scheduled for 12/15/2017 however patient was admitted due to severely elevated BUN and creatinine. Patient has a lifelong history of smoking, she has known history of hypertension , hyperlipidemia, anxiety disorder, and a thyroid nodule that was recently biopsied by Dr. Morales. At this time patient denies any pain or discomfort she reports having episodes of nausea and vomiting in the last 2 weeks she reports feeling full and then able to eat much, she reports significant weight loss in the last 6 weeks, she has been complaining of cough, she had minimal sputum production, she denies any hemoptysis, there is no abdominal pain no blood in the urine or in the stools. On 12/16/2017 patient is currently A & O 3 resting comfortably in bed. Patient does report some shortness of breath with activity. Patient denies chest pain. Denies nausea vomiting or diarrhea. Does reports she has very little appetite. Patient denies any urinary burning or frequency. On 12/17/2017 patient is currently alert and oriented 3 resting in bed comfortably. Patient's shortness of breath has improved. Patient being followed by pulmonary. Per pulmonary plan for bronchoscopy and biopsies tomorrow. IV steroids have been added per pulmonary. Patient denies chest pain at this time. Patient denies nausea vomiting or diarrhea. Patient denies any urinary burning or frequency On 12/18/2017 patient is currently alert and oriented X 3. Patient is currently resting comfortably in bed. Patient underwent bronchoscopy with biopsy without complication. Patient is currently on room air but does state she still gets winded upon activity. Patient denies chest pain or shortness of breath. Denies nausea vomiting or diarrhea. Denies any urinary or burning with urination Objective - Vital Signs Vital signs: Vital Signs Temp 97.6 F 12/18/17 11:36 Pulse 93 12/18/17 12:16 Resp 24 12/18/17 12:16 BP 102/61 12/18/17 12:16 Pulse Ox 93 L 12/18/17 12:16 Intake & Output 12/17/17 12/18/17 12/18/17 18:59 06:59 18:59 Intake Total 600 825 800 Output Total 800 Balance 600 25 800 Weight 73.482 kg Intake: IV 825 800 Sodium Chloride 0.9% 1, 825 000 ml @ 75 mls/hr IV . [id number] MIGUEL Rx#:[id number] Intake, IV Titration 600 Amount Sodium Chloride 0.9% 1, 600 000 ml @ 75 mls/hr IV . [id number] MIGUEL Rx#:[id number] Output: Urine 800 Other: Voiding Method Toilet Toilet Toilet # Voids 2 # Bowel Movements 2 - Exam Head normocephalic Neck supple Lungs scattered crackles Heart regular rate and rhythm S1-S2, no rub or gallop Abdomen is soft nontender nondistended positive bowel sounds no hepatosplenomegaly Extremities no edema Neuro alert and orientated to 3 - Labs CBC & Chem 7: 12/18/17 06:43 12/18/17 06:43 Labs: Abnormal Lab Results - Last 24 Hours (Table) 12/17/17 12/17/17 12/18/17 Range/Units 16:57 19:47 06:43 WBC 21.2 H (3.8-10.6) k/uL RBC 3.48 L (3.80-5.40) m/uL Hgb 10.3 L (11.4-16.0) gm/dL Hct 32.3 L (34.0-46.0) % Neutrophils # 19.4 H (1.3-7.7) k/uL Lymphocytes # 0.7 L (1.0-4.8) k/uL Chloride (98-107) mmol/L Carbon Dioxide (22-30) mmol/L BUN (7-17) mg/dL Creatinine (0.52-1.04) mg/dL Glucose (74-99) mg/dL POC Glucose (mg/dL) 158 H 232 H (75-99) mg/dL Total Protein (6.3-8.2) g/dL Albumin (3.5-5.0) g/dL 12/18/17 12/18/17 12/18/17 Range/Units 06:43 07:06 12:34 WBC (3.8-10.6) k/uL RBC (3.80-5.40) m/uL Hgb (11.4-16.0) gm/dL Hct (34.0-46.0) % Neutrophils # (1.3-7.7) k/uL Lymphocytes # (1.0-4.8) k/uL Chloride 114 H (98-107) mmol/L Carbon Dioxide 15 L (22-30) mmol/L BUN 74 H (7-17) mg/dL Creatinine 4.07 H (0.52-1.04) mg/dL Glucose 135 H (74-99) mg/dL POC Glucose (mg/dL) 165 H 142 H (75-99) mg/dL Total Protein 6.0 L (6.3-8.2) g/dL Albumin 3.3 L (3.5-5.0) g/dL Microbiology - Last 24 Hours (Table) 12/15/17 15:30 Blood Culture - Preliminary Blood No Growth after 48 hours Assessment and Plan Assessment: #1 multiple pulmonary masses including 2 cavitary lesions. Pulmonary services have been consulted. Awaiting consult. Per pulmonary team planning biopsy and bronchoscopy tomorrow. Solu-Medrol 60 mg every 6 has been added. Patient underwent bronchoscopy with biopsies and Dr. Rojas. Awaiting biopsy results #2 enlarged lymphadenopathy in the chest and upper abdomen. Oncology services . CA 2729 and CA 153 antigen ordered per oncology. CA 153 antigen 29.9 and CA 2729 elevated at 60.6. Oncology services are following #3 thyroid nodule with recent biopsy by Dr. Morales #4 acute renal failure, last creatinine prior to this admission was in August 2017 and was 1.2. Creatinine 5.15 and bun 93. Nephrology following. Renal ultrasound completed showing fusiform lower abdomen aortic aneurysm measures up to 5.2 cm in diameter. The length is more than 8 cm. No hydronephrosis. Small left renal cortical cyst. We'll continue to monitor labs closely. Creatinine continued to trend down to 4.07 and bun 73. Per nephrology continue to monitor labs on a daily basis #5 underlying history of hypertension #6 underlying history of hyperlipidemia #7 evidence of COPD on computed tomography scan #8 tobacco abuse #9 underlying history of anxiety disorder #10 hypokalemia. Potassium replacement protocol. Will recheck potassium level and monitor closely. Repeat potassium 3.9 #11 abdominal aortic aneurysm. Renal ultrasound completed showing fusiform lower abdomen aortic aneurysm measuring up to 5.2 cm in diameter. The length is more than 8 cm. Patient to follow-up outpatient for further workup. #12 leukocytosis likely related to steroids. WBC increasing to 21.2. Blood culture currently negative. Patient does state she is coughing up sputum. Will order sputum sample GI prophylaxis Pepcid and DVT prophylaxis SCDs. DVT prophylaxis heparin I performed an examination of the patient and discussed their management with the Nurse Practitioner. I have reviewed the Nurse Practitioner's notes and agree with the documented findings and plan of care
--- NOTE | 2017-12-18 14:16 | P.PN ---
Subjective Progress Note Date: 12/18/17 Principal diagnosis: Multiple pulmonary nodules, adenopathy This is a very pleasant 67-year-old female patient who follows with Dr. Mora as her primary care physician. She has a history of hypertension, hyperlipidemia, peripheral vascular disease with previous angioplasty of the left lower extremity, hearing disorder, right sided breast cancer status post lumpectomy and radiation treatment in 2005. She also has chronic and ongoing 40 + year smoking history. She had not been on any inhalers in the past. Approximately one month ago she started having increasing shortness of breath, cough and congestion. She was treated with antibiotics and nebulized treatments without much improvement. Follow-up chest x-ray revealed some abnormalities and she was scheduled for a CT angiogram of the chest to be performed yesterday. However her renal function was significantly elevated. She did undergo a computed tomography scan of the chest without contrast which revealed multiple pulmonary nodules measuring up to 2 cm. There is cavitary masses present in the left hilar region and left lower lobe. There is left hilar soft tissue fullness and mediastinal lymphadenopathy. There is also noted moderate emphysema/COPD. There is a large heterogenous left thyroid nodule with recent ultrasound revealing a large left lobe cystic-type thyroid nodule that was stable compared to previous. Renal ultrasound revealed no evidence of hydronephrosis. There is a small left renal cortical cysts. She does have a fusiform lower abdominal aortic aneurysm measuring 5.2 cm in diameter that is more than 8 cm in length. Initial creatinine 6.15. Today 5.15 the BUN of 93. Patient is seen today in consultation on the oncology unit. She is currently awake and alert in no acute distress. She has been feeling quite poorly especially the last several days without eating or drinking much. She's had approximately 30 pound weight loss over the past month since all of her symptoms began. She denies productive cough. No hemoptysis. The patient is seen again today 12/17/2017 in follow-up on the oncology unit. She is currently awake and alert in no acute distress. She is breathing quite a bit easier today as compared to yesterday. In general she is feeling better overall as well. Her renal function has improved current creatinine 4.33. Her pulmonary status has improved. She is less short of breath. Less bronchospastic and wheezy. Maintaining good O2 saturations in the mid to upper 90s on 2 L/m per nasal cannula. She is afebrile. Blood culture reveals no growth. White count 9.1. Hemoglobin 9.9. The patient is seen again today 12/18/2017 in follow-up on the oncology unit. She is awake and alert in no acute distress. She is breathing a bit better today as compared to yesterday. Maintaining good O2 saturations in the 90s on room air. She's been afebrile. Hemodynamically stable. Blood culture reveals no growth to date. White count 21.2. Hemoglobin 10.3. Creatinine 4.07. She did undergo bronchoscopy with biopsies with Dr. Rojas this morning. She tolerated the procedure well. Pathology is pending. Objective - Vital Signs Vital signs: Vital Signs Temp 97.6 F 12/18/17 11:36 Pulse 80 12/18/17 13:44 Resp 24 12/18/17 12:16 BP 102/61 12/18/17 12:16 Pulse Ox 93 L 12/18/17 12:16 Intake & Output 12/17/17 12/18/17 12/18/17 18:59 06:59 18:59 Intake Total 600 825 800 Output Total 800 Balance 600 25 800 Weight 73.482 kg Intake: IV 825 800 Sodium Chloride 0.9% 1, 825 000 ml @ 75 mls/hr IV . [id number] [facility] Rx#:[id number] Intake, IV Titration 600 Amount Sodium Chloride 0.9% 1, 600 000 ml @ 75 mls/hr IV . [id number] [facility] Rx#:[id number] Output: Urine 800 Other: Voiding Method Toilet Toilet Toilet # Voids 2 # Bowel Movements 2 - Exam - Constitutional General appearance: average body habitus, no acute distress - EENT Eyes: EOMI, PERRLA ENT: hard of hearing Ears: bilateral: normal - Neck Neck: normal ROM Carotids: bilateral: upstroke normal Thyroid: left: enlarged, nodule - Respiratory Respiratory: bilateral: diminished, end expiratory wheeze - Cardiovascular Rhythm: regular Heart sounds: normal: S1, S2 - Gastrointestinal General gastrointestinal: normal bowel sounds - Integumentary Integumentary: normal turgor - Neurologic Neurologic: CNII-XII intact - Musculoskeletal Musculoskeletal: gait normal - Psychiatric Psychiatric: A&O x's 3, appropriate affect, intact judgment & insight - Labs CBC & Chem 7: 12/18/17 06:43 12/18/17 06:43 Labs: Abnormal Lab Results - Last 24 Hours (Table) 12/17/17 12/17/17 12/18/17 Range/Units 16:57 19:47 06:43 WBC 21.2 H (3.8-10.6) k/uL RBC 3.48 L (3.80-5.40) m/uL Hgb 10.3 L (11.4-16.0) gm/dL Hct 32.3 L (34.0-46.0) % Neutrophils # 19.4 H (1.3-7.7) k/uL Lymphocytes # 0.7 L (1.0-4.8) k/uL Chloride (98-107) mmol/L Carbon Dioxide (22-30) mmol/L BUN (7-17) mg/dL Creatinine (0.52-1.04) mg/dL Glucose (74-99) mg/dL POC Glucose (mg/dL) 158 H 232 H (75-99) mg/dL Total Protein (6.3-8.2) g/dL Albumin (3.5-5.0) g/dL 12/18/17 12/18/17 12/18/17 Range/Units 06:43 07:06 12:34 WBC (3.8-10.6) k/uL RBC (3.80-5.40) m/uL Hgb (11.4-16.0) gm/dL Hct (34.0-46.0) % Neutrophils # (1.3-7.7) k/uL Lymphocytes # (1.0-4.8) k/uL Chloride 114 H (98-107) mmol/L Carbon Dioxide 15 L (22-30) mmol/L BUN 74 H (7-17) mg/dL Creatinine 4.07 H (0.52-1.04) mg/dL Glucose 135 H (74-99) mg/dL POC Glucose (mg/dL) 165 H 142 H (75-99) mg/dL Total Protein 6.0 L (6.3-8.2) g/dL Albumin 3.3 L (3.5-5.0) g/dL Microbiology - Last 24 Hours (Table) 12/15/17 15:30 Blood Culture - Preliminary Blood No Growth after 48 hours Assessment and Plan Assessment: Impression: #1 Acute renal failure of unclear etiology. No hydronephrosis per ultrasound. Presenting creatinine 6.15, currently 4.07. #2 Multiple pulmonary nodules along with cavitary masses. Left hilar soft tissue fullness and mediastinal adenopathy and upper abdominal lymphadenopathy with left adrenal nodularity. Neoplastic etiology with metastatic disease within the differential. Status post bronchoscopy with biopsies 12/18/2017 #3 Chronic and ongoing tobacco dependence of greater than 40 years. 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 #5 History of right-sided breast cancer status post lumpectomy and radiation. #6 Large left thyroid nodule, negative biopsy in 2016. #7 Hypertension. #8 Hyperlipidemia. #9 Peripheral vascular disease with previous angioplasty of the left lower extremity. #10 Anxiety. Plan: The patient was seen and evaluated by Dr. Rojas. She is improved from the pulmonary status. We will continue with her current medications. She did undergo bronchoscopy with biopsies today. Tolerated procedure well. Pathology is pending. We'll continue to follow.. I, the cosigning physician, performed a history & physical examination of the patient. Lungs sounds with bilateral end expiratory wheeze, scattered rhonchi. Maintaining good O2 saturations in the 90s on room air. I discussed the assessment and plan of care with my nurse practitioner, Patricia Baca. I attest to the above note as dictated by her.
[2017-12-18 15:07] LABS: Appearance,BF Blood Tinged
[2017-12-18 15:08] LABS: Nucleated Cells, Body Fluid 40 /uL; RBC, Body Fluid 1720 /uL
[2017-12-18 15:17] LABS: Appearance,BF Bloody; Color,BF Red
[2017-12-18 15:18] LABS: Nucleated Cells, Body Fluid 120 /uL; RBC, Body Fluid 24800 /uL
[2017-12-18 15:29] LABS: Mononuclear WBC,Body Fluid 50 %; Mononuclear WBC,Body Fluid 63 %; Polynuclear WBC,Body Fluid 37 %; Polynuclear WBC,Body Fluid 50 %; Total Cells Counted,Body Fluid 100
[2017-12-18 16:07] LABS: Amorphous Sediment,Urine Rare /hpf; Appearance,Urine Clear (Clear); Bilirubin,Urine Negative (Negative); Blood,Urine Trace (Negative); Color,Urine Light Yellow; Glucose,Urine (UA) Negative (Negative); Ketones,Urine Negative (Negative); Leukocyte Esterase,Urine Trace (Negative); Nitrite,Urine Negative (Negative); PH, Urine 5.5 (5.0-8.0); Protein,Urine Trace (Negative); RBC,Urine 1 /hpf (0-5); Specific Gravity,Urine 1.009 (1.001-1.035); Squamous Epithelial Cell,Urine 2 /hpf (0-4); Urobilinogen,Urine <2.0 mg/dL (<2.0); WBC,Urine 6 /hpf (0-5)
--- NOTE | 2017-12-18 16:32 | P.PN ---
Subjective Progress Note Date: 12/18/17 Principal diagnosis: New Pulmonary Nodules and adenopathy Patient seen and examined today. Status Post Bronchoscopy with Biopsy, appears to have tolerated procedure well. Still with increased respiratory effort, although subjective improvement Objective - Vital Signs Vital signs: Vital Signs Temp 97.6 F 12/18/17 11:36 Pulse 93 12/18/17 15:58 Resp 24 12/18/17 15:58 BP 102/61 12/18/17 12:16 Pulse Ox 93 L 12/18/17 12:16 Intake & Output 12/17/17 12/18/17 12/18/17 18:59 06:59 18:59 Intake Total 283 937 8848 Output Total 800 Balance 835 31 4020 Weight 73.482 kg Intake: IV 825 800 Sodium Chloride 0.9% 1, 825 000 ml @ 75 mls/hr IV . [id number] [facility] Rx#:[id number] Intake, IV Titration 600 525 Amount Sodium Chloride 0.9% 1, 600 525 000 ml @ 75 mls/hr IV . [id number] [facility] Rx#:[id number] Output: Urine 800 Other: Voiding Method Toilet Toilet Toilet # Voids 2 # Bowel Movements 2 - Exam - Constitutional General appearance: average body habitus, mild distress - EENT Eyes: EOMI, PERRLA ENT: hard of hearing Ears: bilateral: normal - Neck Neck: normal ROM Carotids: bilateral: upstroke normal Thyroid: left: enlarged, nodule - Respiratory Respiratory: bilateral: diminished, rhonchi - Cardiovascular Rhythm: regular Heart sounds: normal: S1, S2 - Gastrointestinal General gastrointestinal: normal bowel sounds - Integumentary Integumentary: normal turgor - Neurologic Neurologic: CNII-XII intact - Musculoskeletal Musculoskeletal: gait normal - Psychiatric Psychiatric: A&O x's 3, appropriate affect, intact judgment & insight - Labs CBC & Chem 7: 12/18/17 06:43 12/18/17 06:43 Labs: Abnormal Lab Results - Last 24 Hours (Table) 12/17/17 12/17/17 12/18/17 Range/Units 16:57 19:47 06:43 WBC 21.2 H (3.8-10.6) k/uL RBC 3.48 L (3.80-5.40) m/uL Hgb 10.3 L (11.4-16.0) gm/dL Hct 32.3 L (34.0-46.0) % Neutrophils # 19.4 H (1.3-7.7) k/uL Lymphocytes # 0.7 L (1.0-4.8) k/uL Chloride (98-107) mmol/L Carbon Dioxide (22-30) mmol/L BUN (7-17) mg/dL Creatinine (0.52-1.04) mg/dL Glucose (74-99) mg/dL POC Glucose (mg/dL) 158 H 232 H (75-99) mg/dL Total Protein (6.3-8.2) g/dL Albumin (3.5-5.0) g/dL Urine Protein (Negative) Urine Blood (Negative) Ur Leukocyte Esterase (Negative) Urine WBC (0-5) /hpf Amorphous Sediment (None) /hpf 12/18/17 12/18/17 12/18/17 Range/Units 06:43 07:06 12:34 WBC (3.8-10.6) k/uL RBC (3.80-5.40) m/uL Hgb (11.4-16.0) gm/dL Hct (34.0-46.0) % Neutrophils # (1.3-7.7) k/uL Lymphocytes # (1.0-4.8) k/uL Chloride 114 H (98-107) mmol/L Carbon Dioxide 15 L (22-30) mmol/L BUN 74 H (7-17) mg/dL Creatinine 4.07 H (0.52-1.04) mg/dL Glucose 135 H (74-99) mg/dL POC Glucose (mg/dL) 165 H 142 H (75-99) mg/dL Total Protein 6.0 L (6.3-8.2) g/dL Albumin 3.3 L (3.5-5.0) g/dL Urine Protein (Negative) Urine Blood (Negative) Ur Leukocyte Esterase (Negative) Urine WBC (0-5) /hpf Amorphous Sediment (None) /hpf 12/18/17 Range/Units 15:50 WBC (3.8-10.6) k/uL RBC (3.80-5.40) m/uL Hgb (11.4-16.0) gm/dL Hct (34.0-46.0) % Neutrophils # (1.3-7.7) k/uL Lymphocytes # (1.0-4.8) k/uL Chloride (98-107) mmol/L Carbon Dioxide (22-30) mmol/L BUN (7-17) mg/dL Creatinine (0.52-1.04) mg/dL Glucose (74-99) mg/dL POC Glucose (mg/dL) (75-99) mg/dL Total Protein (6.3-8.2) g/dL Albumin (3.5-5.0) g/dL Urine Protein Trace H (Negative) Urine Blood Trace H (Negative) Ur Leukocyte Esterase Trace H (Negative) Urine WBC 6 H (0-5) /hpf Amorphous Sediment Rare H (None) /hpf Microbiology - Last 24 Hours (Table) 12/15/17 15:30 Blood Culture - Preliminary Blood No Growth after 48 hours Assessment and Plan Plan: Assessment and Recommendations: 1. New Mediastinal Lymphadenopathy and Pulmonary Nodules: - Will need a tissue biopsy, likely surgical (to send further tests if possible ), for diagnsis - Pulmonary is following and will defer Bronchoscopy versus IR Needle Biopsy - Full Initial Staging once renal function improves - May benefit from MRI brain as well when renal function improves - Biopsy via Bronch 12/18/17 - Pending 2. Acute Renal Failure: - This maybe related to Dehydration and Dramatic reduction in PO intake - She has had a large weight loss and decreased po intake overall - Nephrology is following - Renal Function Mildly improving since hydration Began 3. Hypokalemia - Per Nephrology 4. Hx: Breast Cancer - Lumpectomy and radiation in 2005 - Unaware of type - Check Tumor Markers, Ca 27.29 is mildly elevated from normal range
[2017-12-18 17:08] LABS: Glucose,Whole Blood 167 mg/dL (75-99)
[2017-12-18 20:56] LABS: Glucose,Whole Blood 148 mg/dL (75-99)
[2017-12-18] MEDS: SODIUM BICARBONATE TAB 650 MG TAB PO SCH ×2 (21:00→21:40)
[2017-12-18] MEDS: ATORVASTATIN 10 MG TAB PO SCH (21:00)
[2017-12-19] MEDS: ALPRAZolam 0.25 MG TAB PO PRN ×2 (00:06→21:21)
[2017-12-19] MEDS: SODIUM CHLORIDE 0.9% 1,000 ML IV SCH ×2 (02:56→19:05)
[2017-12-19] MEDS: methylPREDNISolone SOD SUCCI 125 MG/2 ML VIAL IV SCH ×5 (06:20→22:29)
[2017-12-19] MEDS: IPRATROPIUM-ALBUTEROL 3 ML NEB INHALATION PRN ×4 (06:25→20:35)
[2017-12-19] MEDS: BUDESONIDE 1 MG/2 ML NEBU INHALATION SCH ×2 (06:25→20:38)
[2017-12-19] MEDS: FORMOTEROL FUMARATE 20 MCG/2 ML NEBU INHALATION SCH ×2 (06:26→20:38)
[2017-12-19 07:13] LABS: Basophils % (A) 0 %; Eosinophils % (A) 0 %; HCT 29.3 % (34.0-46.0); Lymphocytes # (A) 0.4 k/uL (1.0-4.8); Lymphocytes % (A) 3 %; MCH 30.9 pg (25.0-35.0); MCHC 34.2 g/dL (31.0-37.0); MCV 90.2 fL (80.0-100.0); Mean Platelet Volume 7.7; Monocytes # (A) 0.6 k/uL (0-1.0); Monocytes % (A) 4 %; Neutrophils # (A) 14.4 k/uL (1.3-7.7); Neutrophils % (A) 93 %; Platelet Count 189 k/uL (150-450); RBC 3.25 m/uL (3.80-5.40); RDW 13.9 % (11.5-15.5); WBC 15.4 k/uL (3.8-10.6)
[2017-12-19 07:27] LABS: Glucose,Whole Blood 177 mg/dL (75-99)
[2017-12-19 07:37] LABS: Albumin 2.9 g/dL (3.5-5.0); Magnesium 1.4 mg/dL (1.6-2.3); Potassium 3.7 mmol/L (3.5-5.1); Total Bilirubin 0.3 mg/dL (0.2-1.3); Total Protein 5.3 g/dL (6.3-8.2)
[2017-12-19] MEDS: INSULIN ASPART 100 UNIT/ML 1 ML 10 ML VIAL SQ SCH ×4 (08:00→21:11)
[2017-12-19] MEDS: FAMOTIDINE 20 MG TAB PO SCH (08:01)
[2017-12-19] MEDS: ATENOLOL 25 MG TAB PO SCH ×2 (08:01→21:10)
[2017-12-19] MEDS: busPIRone HCl 5 MG TAB PO SCH ×3 (08:01→22:28)
[2017-12-19] MEDS: PENTOXIFYLLINE 400 MG TABLET.ER PO SCH ×3 (08:01→19:03)
[2017-12-19] MEDS: ASPIRIN 81 MG PO SCH (08:01)
[2017-12-19] MEDS: HEPARIN SODIUM,PORCINE 5,000 UNIT/ML 1 ML VIAL SQ SCH ×2 (08:01→21:11)
--- NOTE | 2017-12-19 09:04 | P.PN ---
Subjective Patient is seen in follow for acute kidney injury. Creatinine was greater than 6 on admission and is down to 3.86 today. She is currently maintained on normal saline at 75 mL an hour. Patient was noted to have cavitary lesions in the lungs and underwent a bronchoscopy on December 18. She admits to soreness in her throat. Otherwise no chest pain or shortness of breath. Good urine output. Oral intake slowly improving. Vital signs are stable. General: The patient appeared well nourished and normally developed. HEENT: Head exam is unremarkable. Neck is without jugular venous distension. LUNGS: Lungs are clear to auscultation and percussion. Breath sounds decreased. HEART: Rate and Rhythm are regular. First and second heart sounds normal. No murmurs, rubs or gallops. ABDOMEN: Abdominal exam reveals normal bowel sounds. Non-tender and non- distended. No evidence of peritonitis. EXTREMITITES: No clubbing, cyanosis, or edema. Objective - Vital Signs Vital signs: Vital Signs Temp 97.8 F 12/19/17 05:00 Pulse 104 H 12/19/17 06:50 Resp 16 12/19/17 05:00 BP 103/66 12/19/17 05:00 Pulse Ox 98 12/19/17 05:00 Intake & Output 12/18/17 12/19/17 12/19/17 18:59 06:59 18:59 Intake Total 1325 900 Balance 1325 900 Intake: IV 800 900 Sodium Chloride 0.9% 1, 900 000 ml @ 75 mls/hr IV . [id number] [facility] Rx#:[id number] Intake, IV Titration 525 Amount Sodium Chloride 0.9% 1, 525 000 ml @ 75 mls/hr IV . [id number] [facility] Rx#:[id number] Other: Voiding Method Toilet Toilet - Labs CBC & Chem 7: 12/19/17 06:47 12/19/17 06:47 Labs: Abnormal Lab Results - Last 24 Hours (Table) 12/18/17 12/18/17 12/18/17 Range/Units 12:34 15:50 17:06 WBC (3.8-10.6) k/uL RBC (3.80-5.40) m/uL Hgb (11.4-16.0) gm/dL Hct (34.0-46.0) % Neutrophils # (1.3-7.7) k/uL Lymphocytes # (1.0-4.8) k/uL Chloride (98-107) mmol/L Carbon Dioxide (22-30) mmol/L BUN (7-17) mg/dL Creatinine (0.52-1.04) mg/dL Glucose (74-99) mg/dL POC Glucose (mg/dL) 142 H 167 H (75-99) mg/dL Magnesium (1.6-2.3) mg/dL Total Protein (6.3-8.2) g/dL Albumin (3.5-5.0) g/dL Urine Protein Trace H (Negative) Urine Blood Trace H (Negative) Ur Leukocyte Esterase Trace H (Negative) Urine WBC 6 H (0-5) /hpf Amorphous Sediment Rare H (None) /hpf 12/18/17 12/19/17 12/19/17 Range/Units 20:55 06:47 06:47 WBC 15.4 H (3.8-10.6) k/uL RBC 3.25 L (3.80-5.40) m/uL Hgb 10.0 L (11.4-16.0) gm/dL Hct 29.3 L (34.0-46.0) % Neutrophils # 14.4 H (1.3-7.7) k/uL Lymphocytes # 0.4 L (1.0-4.8) k/uL Chloride 117 H (98-107) mmol/L Carbon Dioxide 18 L (22-30) mmol/L BUN 74 H (7-17) mg/dL Creatinine 3.86 H (0.52-1.04) mg/dL Glucose 137 H (74-99) mg/dL POC Glucose (mg/dL) 148 H (75-99) mg/dL Magnesium 1.4 L (1.6-2.3) mg/dL Total Protein 5.3 L (6.3-8.2) g/dL Albumin 2.9 L (3.5-5.0) g/dL Urine Protein (Negative) Urine Blood (Negative) Ur Leukocyte Esterase (Negative) Urine WBC (0-5) /hpf Amorphous Sediment (None) /hpf 12/19/17 Range/Units 07:26 WBC (3.8-10.6) k/uL RBC (3.80-5.40) m/uL Hgb (11.4-16.0) gm/dL Hct (34.0-46.0) % Neutrophils # (1.3-7.7) k/uL Lymphocytes # (1.0-4.8) k/uL Chloride (98-107) mmol/L Carbon Dioxide (22-30) mmol/L BUN (7-17) mg/dL Creatinine (0.52-1.04) mg/dL Glucose (74-99) mg/dL POC Glucose (mg/dL) 177 H (75-99) mg/dL Magnesium (1.6-2.3) mg/dL Total Protein (6.3-8.2) g/dL Albumin (3.5-5.0) g/dL Urine Protein (Negative) Urine Blood (Negative) Ur Leukocyte Esterase (Negative) Urine WBC (0-5) /hpf Amorphous Sediment (None) /hpf Microbiology - Last 24 Hours (Table) 12/18/17 11:30 Gram Stain - Preliminary Bronchial Washings - Left Bronchial Washings Culture - Preliminary 12/18/17 11:30 Gram Stain - Preliminary Bronchial Washings - Random Bronchial Washings Culture - Preliminary 12/18/17 11:30 Acid Fast Bacilli Smear - Final Bronchial Washings - Random Acid Fast Bacilli Culture - Preliminary 12/18/17 11:30 Acid Fast Bacilli Smear - Final Bronchial Washings - Left Acid Fast Bacilli Culture - Preliminary 12/18/17 15:50 Urine Culture - Preliminary Urine,Voided 12/18/17 11:30 Fungal Culture - Preliminary Bronchial Washings - Left 12/18/17 11:30 Fungal Culture - Preliminary Bronchial Washings - Random 12/15/17 15:30 Blood Culture - Preliminary Blood No Growth after 72 hours Assessment and Plan Plan: Assessment: 1. Nonoliguric acute kidney injury mostly prerenal secondary to severe intravascular volume depletion from poor oral intake and diuretics. Creatinine was greater than 6 on admission and is down to 3.86 today. No evidence of hydronephrosis noted on renal ultrasound. 2. Cavitary lung nodules status post bronchoscopy on December 18. Biopsy results pending. 3. Metabolic acidosis secondary to acute kidney injury. Improving. 4. Hypomagnesemia from poor oral intake. Plan: Continue normal saline at 75 mL an hour. Maintain oral sodium bicarbonate 1300 mg twice daily. Replace magnesium. 2 g IV today. Encouraged oral intake. Repeat electrolytes in the morning.
--- NOTE | 2017-12-19 10:42 | P.PN ---
Subjective Progress Note Date: 12/19/17 Evelyn Flores is a 67 year old female who presented to [facility] to have a computed tomography scan of the chest was contrast BUN and creatinine were done prior to computed tomography scan and were significantly elevated, her BUN was 103, and creatinine 6.15, computed tomography scan was canceled and patient was sent to [facility] emergency room, she was evaluated in the emergency room she was given IV fluid and her creatinine came down slightly to 5.9, computed tomography scan of the chest without contrast was done and revealed multiple pulmonary nodules with a couple of cavitary masses patient also had evidence of lymphadenopathy in the chest and the upper abdomen, she also had a large left thyroid nodule, she was started on IV fluid and was admitted to the medical floor, pulmonary and nephrology and oncology consultation were requested. Patient has not been feeling well for the last 6 weeks, she had cough with minimal sputum production, she was given a course of antibiotic without any improvement, chest x-ray was done on 12/05/2017 and revealed evidence of right upper lobe lung mass computed tomography scan was recommended and this was scheduled for 12/15/2017 however patient was admitted due to severely elevated BUN and creatinine. Patient has a lifelong history of smoking, she has known history of hypertension , hyperlipidemia, anxiety disorder, and a thyroid nodule that was recently biopsied by Dr. Morales. At this time patient denies any pain or discomfort she reports having episodes of nausea and vomiting in the last 2 weeks she reports feeling full and then able to eat much, she reports significant weight loss in the last 6 weeks, she has been complaining of cough, she had minimal sputum production, she denies any hemoptysis, there is no abdominal pain no blood in the urine or in the stools. On 12/16/2017 patient is currently A & O 3 resting comfortably in bed. Patient does report some shortness of breath with activity. Patient denies chest pain. Denies nausea vomiting or diarrhea. Does reports she has very little appetite. Patient denies any urinary burning or frequency. On 12/17/2017 patient is currently alert and oriented 3 resting in bed comfortably. Patient's shortness of breath has improved. Patient being followed by pulmonary. Per pulmonary plan for bronchoscopy and biopsies tomorrow. IV steroids have been added per pulmonary. Patient denies chest pain at this time. Patient denies nausea vomiting or diarrhea. Patient denies any urinary burning or frequency On 12/18/2017 patient is currently alert and oriented X 3. Patient is currently resting comfortably in bed. Patient underwent bronchoscopy with biopsy without complication. Patient is currently on room air but does state she still gets winded upon activity. Patient denies chest pain or shortness of breath. Denies nausea vomiting or diarrhea. Denies any urinary or burning with urination On 12/19/2017 patient is currently alert and oriented 3. Patient remains short of breath after activity. Patient states she did not get much sleep last night. Patient denies chest pain. Patient denies nausea vomiting or diarrhea denies any urinary burning or frequency. Objective - Vital Signs Vital signs: Vital Signs Temp 97.8 F 12/19/17 05:00 Pulse 104 H 12/19/17 06:50 Resp 16 12/19/17 05:00 BP 103/66 12/19/17 05:00 Pulse Ox 98 12/19/17 05:00 Intake & Output 12/18/17 12/19/17 12/19/17 18:59 06:59 18:59 Intake Total 1325 900 Balance 1325 900 Intake: IV 800 900 Sodium Chloride 0.9% 1, 900 000 ml @ 75 mls/hr IV . [id number] [facility] Rx#:[id number] Intake, IV Titration 525 Amount Sodium Chloride 0.9% 1, 525 000 ml @ 75 mls/hr IV . [id number] [facility] Rx#:[id number] Other: Voiding Method Toilet Toilet - Exam Head normocephalic Neck supple Lungs scattered crackles Heart regular rate and rhythm S1-S2, no rub or gallop Abdomen is soft nontender nondistended positive bowel sounds no hepatosplenomegaly Extremities no edema Neuro alert and orientated to 3 - Labs CBC & Chem 7: 12/19/17 06:47 12/19/17 06:47 Labs: Abnormal Lab Results - Last 24 Hours (Table) 12/18/17 12/18/17 12/18/17 Range/Units 12:34 15:50 17:06 WBC (3.8-10.6) k/uL RBC (3.80-5.40) m/uL Hgb (11.4-16.0) gm/dL Hct (34.0-46.0) % Neutrophils # (1.3-7.7) k/uL Lymphocytes # (1.0-4.8) k/uL Chloride (98-107) mmol/L Carbon Dioxide (22-30) mmol/L BUN (7-17) mg/dL Creatinine (0.52-1.04) mg/dL Glucose (74-99) mg/dL POC Glucose (mg/dL) 142 H 167 H (75-99) mg/dL Magnesium (1.6-2.3) mg/dL Total Protein (6.3-8.2) g/dL Albumin (3.5-5.0) g/dL Urine Protein Trace H (Negative) Urine Blood Trace H (Negative) Ur Leukocyte Esterase Trace H (Negative) Urine WBC 6 H (0-5) /hpf Amorphous Sediment Rare H (None) /hpf 12/18/17 12/19/17 12/19/17 Range/Units 20:55 06:47 06:47 WBC 15.4 H (3.8-10.6) k/uL RBC 3.25 L (3.80-5.40) m/uL Hgb 10.0 L (11.4-16.0) gm/dL Hct 29.3 L (34.0-46.0) % Neutrophils # 14.4 H (1.3-7.7) k/uL Lymphocytes # 0.4 L (1.0-4.8) k/uL Chloride 117 H (98-107) mmol/L Carbon Dioxide 18 L (22-30) mmol/L BUN 74 H (7-17) mg/dL Creatinine 3.86 H (0.52-1.04) mg/dL Glucose 137 H (74-99) mg/dL POC Glucose (mg/dL) 148 H (75-99) mg/dL Magnesium 1.4 L (1.6-2.3) mg/dL Total Protein 5.3 L (6.3-8.2) g/dL Albumin 2.9 L (3.5-5.0) g/dL Urine Protein (Negative) Urine Blood (Negative) Ur Leukocyte Esterase (Negative) Urine WBC (0-5) /hpf Amorphous Sediment (None) /hpf 12/19/17 Range/Units 07:26 WBC (3.8-10.6) k/uL RBC (3.80-5.40) m/uL Hgb (11.4-16.0) gm/dL Hct (34.0-46.0) % Neutrophils # (1.3-7.7) k/uL Lymphocytes # (1.0-4.8) k/uL Chloride (98-107) mmol/L Carbon Dioxide (22-30) mmol/L BUN (7-17) mg/dL Creatinine (0.52-1.04) mg/dL Glucose (74-99) mg/dL POC Glucose (mg/dL) 177 H (75-99) mg/dL Magnesium (1.6-2.3) mg/dL Total Protein (6.3-8.2) g/dL Albumin (3.5-5.0) g/dL Urine Protein (Negative) Urine Blood (Negative) Ur Leukocyte Esterase (Negative) Urine WBC (0-5) /hpf Amorphous Sediment (None) /hpf Microbiology - Last 24 Hours (Table) 12/18/17 11:30 Gram Stain - Preliminary Bronchial Washings - Left Bronchial Washings Culture - Preliminary 12/18/17 11:30 Gram Stain - Preliminary Bronchial Washings - Random Bronchial Washings Culture - Preliminary 12/18/17 11:30 Acid Fast Bacilli Smear - Final Bronchial Washings - Random Acid Fast Bacilli Culture - Preliminary 12/18/17 11:30 Acid Fast Bacilli Smear - Final Bronchial Washings - Left Acid Fast Bacilli Culture - Preliminary 12/18/17 15:50 Urine Culture - Preliminary Urine,Voided 12/18/17 11:30 Fungal Culture - Preliminary Bronchial Washings - Left 12/18/17 11:30 Fungal Culture - Preliminary Bronchial Washings - Random 12/15/17 15:30 Blood Culture - Preliminary Blood No Growth after 72 hours Assessment and Plan Assessment: #1 multiple pulmonary masses including 2 cavitary lesions. Pulmonary services have been consulted. Awaiting consult. Per pulmonary team planning biopsy and bronchoscopy tomorrow. Solu-Medrol 60 mg every 6 has been added. Patient underwent bronchoscopy with biopsies and Dr. Rojas. Awaiting biopsy results. Patient remains on IV steroids. #2 enlarged lymphadenopathy in the chest and upper abdomen. Oncology services . CA 2729 and CA 153 antigen ordered per oncology. CA 153 antigen 29.9 and CA 2729 elevated at 60.6. Oncology services are following #3 thyroid nodule with recent biopsy by Dr. Morales #4 acute renal failure, last creatinine prior to this admission was in August 2017 and was 1.2. Creatinine 5.15 and bun 93. Nephrology following. Renal ultrasound completed showing fusiform lower abdomen aortic aneurysm measures up to 5.2 cm in diameter. The length is more than 8 cm. No hydronephrosis. Small left renal cortical cyst. We'll continue to monitor labs closely. Creatinine continued to trend down to 4.07 and bun 73. Per nephrology continue to monitor labs on a daily basis. Creatinine improving to 3.86 and bun 74. #5 underlying history of hypertension #6 underlying history of hyperlipidemia #7 evidence of COPD on computed tomography scan #8 tobacco abuse #9 underlying history of anxiety disorder #10 hypokalemia. Potassium replacement protocol. Will recheck potassium level and monitor closely. Repeat potassium 3.9 #11 abdominal aortic aneurysm. Renal ultrasound completed showing fusiform lower abdomen aortic aneurysm measuring up to 5.2 cm in diameter. The length is more than 8 cm. Patient to follow-up outpatient for further workup. #12 leukocytosis likely related to steroids. WBC increasing to 21.2. Blood culture currently negative. Patient does state she is coughing up sputum. Will order sputum sample WBC improving to 15.4 #13 insomnia. Melatonin added #14 hypomagnesemia. Magnesium 1.4. Replacement protocol. Noam to monitor closely GI prophylaxis Pepcid and DVT prophylaxis SCDs. DVT prophylaxis heparin I performed an examination of the patient and discussed their management with the Nurse Practitioner. I have reviewed the Nurse Practitioner's notes and agree with the documented findings and plan of care
[2017-12-19 11:17] LABS: Glucose,Whole Blood 151 mg/dL (75-99)
--- NOTE | 2017-12-19 11:46 | XR ---
EXAMINATION TYPE: XR chest 1V portable DATE OF EXAM: 12/19/2017 COMPARISON: 12/18/2017 HISTORY: Lung cancer TECHNIQUE: Single frontal view of the chest is obtained. FINDINGS: There is a mass within the right upper lobe measuring 1.8 cm. There is ill- defined patchy density along the left suprahilar region and prominence of both hilum. Subsegmental consolidation at the left lung base. No pleural effusion or pneumothorax. Hypertrophic and degenerative change of the spine. Hilar prominence suspicious for adenopathy. IMPRESSION: 1. Bilateral areas of consolidation and pulmonary mass with underlying cardiomegaly, chronic intersti tial lung disease and COPD suspected.
[2017-12-19] MEDS: MAGNESIUM SULFATE-D5W PMX 1 GM in DEXTROSE/WATER 1 100ML.BAG IVPB SCH ×4 (12:10→14:22)
[2017-12-19] MEDS: SODIUM BICARBONATE TAB 650 MG TAB PO SCH ×2 (12:11→21:10)
[2017-12-19] MEDS: ERGOCALCIFEROL 50,000 UNIT CAP PO SCH (12:12)
[2017-12-19] MEDS: LACTATED RINGERS 1,000 ML IV SCH (14:22)
--- NOTE | 2017-12-19 15:51 | P.PN ---
Subjective Progress Note Date: 12/19/17 Principal diagnosis: Multiple pulmonary nodules, adenopathy This is a very pleasant 67-year-old female patient who follows with Dr. Mora as her primary care physician. She has a history of hypertension, hyperlipidemia, peripheral vascular disease with previous angioplasty of the left lower extremity, hearing disorder, right sided breast cancer status post lumpectomy and radiation treatment in 2005. She also has chronic and ongoing 40 + year smoking history. She had not been on any inhalers in the past. Approximately one month ago she started having increasing shortness of breath, cough and congestion. She was treated with antibiotics and nebulized treatments without much improvement. Follow-up chest x-ray revealed some abnormalities and she was scheduled for a CT angiogram of the chest to be performed yesterday. However her renal function was significantly elevated. She did undergo a computed tomography scan of the chest without contrast which revealed multiple pulmonary nodules measuring up to 2 cm. There is cavitary masses present in the left hilar region and left lower lobe. There is left hilar soft tissue fullness and mediastinal lymphadenopathy. There is also noted moderate emphysema/COPD. There is a large heterogenous left thyroid nodule with recent ultrasound revealing a large left lobe cystic-type thyroid nodule that was stable compared to previous. Renal ultrasound revealed no evidence of hydronephrosis. There is a small left renal cortical cysts. She does have a fusiform lower abdominal aortic aneurysm measuring 5.2 cm in diameter that is more than 8 cm in length. Initial creatinine 6.15. Today 5.15 the BUN of 93. Patient is seen today in consultation on the oncology unit. She is currently awake and alert in no acute distress. She has been feeling quite poorly especially the last several days without eating or drinking much. She's had approximately 30 pound weight loss over the past month since all of her symptoms began. She denies productive cough. No hemoptysis. The patient is seen again today 12/17/2017 in follow-up on the oncology unit. She is currently awake and alert in no acute distress. She is breathing quite a bit easier today as compared to yesterday. In general she is feeling better overall as well. Her renal function has improved current creatinine 4.33. Her pulmonary status has improved. She is less short of breath. Less bronchospastic and wheezy. Maintaining good O2 saturations in the mid to upper 90s on 2 L/m per nasal cannula. She is afebrile. Blood culture reveals no growth. White count 9.1. Hemoglobin 9.9. The patient is seen again today 12/18/2017 in follow-up on the oncology unit. She is awake and alert in no acute distress. She is breathing a bit better today as compared to yesterday. Maintaining good O2 saturations in the 90s on room air. She's been afebrile. Hemodynamically stable. Blood culture reveals no growth to date. White count 21.2. Hemoglobin 10.3. Creatinine 4.07. She did undergo bronchoscopy with biopsies with Dr. Rojas this morning. She tolerated the procedure well. Pathology is pending. The patient is seen again today 12/19/2017 in follow-up on the oncology unit. She is currently sitting up in bed having lunch. She is awake and alert in no acute distress. She is breathing a bit easier today as compared to yesterday but still dyspneic with exertion. 18 in good O2 saturations in the 90s on 2 L/ m per nasal cannula. Bronchial biopsies are pending. Cultures are pending. White count 15.4. Hemoglobin 10.0. Creatinine 3.86. Objective - Vital Signs Vital signs: Vital Signs Temp 97.8 F 12/19/17 05:00 Pulse 92 12/19/17 15:34 Resp 16 12/19/17 15:34 BP 103/66 12/19/17 05:00 Pulse Ox 98 12/19/17 05:00 Intake & Output 12/18/17 12/19/17 12/19/17 18:59 06:59 18:59 Intake Total 1325 900 625 Balance 1325 900 625 Weight 73.482 kg Intake: IV 800 900 Sodium Chloride 0.9% 1, 900 000 ml @ 75 mls/hr IV . [id number] [facility] Rx#:[id number] Intake, IV Titration 525 625 Amount Magnesium Sulfate-D5w Pmx 100 1 gm In Dextrose/Water 1 100ml.bag @ 100 mls/hr IVPB Q1H [facility] Rx#: [id number] Sodium Chloride 0.9% 1, 525 525 000 ml @ 75 mls/hr IV . [id number] [facility] Rx#:[id number] Other: Voiding Method Toilet Toilet Toilet - Exam - Constitutional General appearance: average body habitus, no acute distress - EENT Eyes: EOMI, PERRLA ENT: hard of hearing Ears: bilateral: normal - Neck Neck: normal ROM Carotids: bilateral: upstroke normal Thyroid: left: enlarged, nodule - Respiratory Respiratory: bilateral: diminished, end expiratory wheeze - Cardiovascular Rhythm: regular Heart sounds: normal: S1, S2 - Gastrointestinal General gastrointestinal: normal bowel sounds - Integumentary Integumentary: normal turgor - Neurologic Neurologic: CNII-XII intact - Musculoskeletal Musculoskeletal: gait normal - Psychiatric Psychiatric: A&O x's 3, appropriate affect, intact judgment & insight - Labs CBC & Chem 7: 12/19/17 06:47 12/19/17 06:47 Labs: Abnormal Lab Results - Last 24 Hours (Table) 12/18/17 12/18/17 12/18/17 Range/Units 15:50 17:06 20:55 WBC (3.8-10.6) k/uL RBC (3.80-5.40) m/uL Hgb (11.4-16.0) gm/dL Hct (34.0-46.0) % Neutrophils # (1.3-7.7) k/uL Lymphocytes # (1.0-4.8) k/uL Chloride (98-107) mmol/L Carbon Dioxide (22-30) mmol/L BUN (7-17) mg/dL Creatinine (0.52-1.04) mg/dL Glucose (74-99) mg/dL POC Glucose (mg/dL) 167 H 148 H (75-99) mg/dL Magnesium (1.6-2.3) mg/dL Total Protein (6.3-8.2) g/dL Albumin (3.5-5.0) g/dL Urine Protein Trace H (Negative) Urine Blood Trace H (Negative) Ur Leukocyte Esterase Trace H (Negative) Urine WBC 6 H (0-5) /hpf Amorphous Sediment Rare H (None) /hpf 12/19/17 12/19/17 12/19/17 Range/Units 06:47 06:47 07:26 WBC 15.4 H (3.8-10.6) k/uL RBC 3.25 L (3.80-5.40) m/uL Hgb 10.0 L (11.4-16.0) gm/dL Hct 29.3 L (34.0-46.0) % Neutrophils # 14.4 H (1.3-7.7) k/uL Lymphocytes # 0.4 L (1.0-4.8) k/uL Chloride 117 H (98-107) mmol/L Carbon Dioxide 18 L (22-30) mmol/L BUN 74 H (7-17) mg/dL Creatinine 3.86 H (0.52-1.04) mg/dL Glucose 137 H (74-99) mg/dL POC Glucose (mg/dL) 177 H (75-99) mg/dL Magnesium 1.4 L (1.6-2.3) mg/dL Total Protein 5.3 L (6.3-8.2) g/dL Albumin 2.9 L (3.5-5.0) g/dL Urine Protein (Negative) Urine Blood (Negative) Ur Leukocyte Esterase (Negative) Urine WBC (0-5) /hpf Amorphous Sediment (None) /hpf 12/19/17 Range/Units 11:15 WBC (3.8-10.6) k/uL RBC (3.80-5.40) m/uL Hgb (11.4-16.0) gm/dL Hct (34.0-46.0) % Neutrophils # (1.3-7.7) k/uL Lymphocytes # (1.0-4.8) k/uL Chloride (98-107) mmol/L Carbon Dioxide (22-30) mmol/L BUN (7-17) mg/dL Creatinine (0.52-1.04) mg/dL Glucose (74-99) mg/dL POC Glucose (mg/dL) 151 H (75-99) mg/dL Magnesium (1.6-2.3) mg/dL Total Protein (6.3-8.2) g/dL Albumin (3.5-5.0) g/dL Urine Protein (Negative) Urine Blood (Negative) Ur Leukocyte Esterase (Negative) Urine WBC (0-5) /hpf Amorphous Sediment (None) /hpf Microbiology - Last 24 Hours (Table) 12/18/17 11:30 Gram Stain - Preliminary Bronchial Washings - Left Bronchial Washings Culture - Preliminary 12/18/17 11:30 Gram Stain - Preliminary Bronchial Washings - Random Bronchial Washings Culture - Preliminary 12/18/17 11:30 Acid Fast Bacilli Smear - Final Bronchial Washings - Random Acid Fast Bacilli Culture - Preliminary 12/18/17 11:30 Acid Fast Bacilli Smear - Final Bronchial Washings - Left Acid Fast Bacilli Culture - Preliminary 12/18/17 15:50 Urine Culture - Preliminary Urine,Voided 12/18/17 11:30 Fungal Culture - Preliminary Bronchial Washings - Left 12/18/17 11:30 Fungal Culture - Preliminary Bronchial Washings - Random 12/15/17 15:30 Blood Culture - Preliminary Blood No Growth after 72 hours Assessment and Plan Assessment: Impression: #1 Acute renal failure of unclear etiology. No hydronephrosis per ultrasound. Presenting creatinine 6.15, currently 3.86. #2 Multiple pulmonary nodules along with cavitary masses. Left hilar soft tissue fullness and mediastinal adenopathy and upper abdominal lymphadenopathy with left adrenal nodularity. Neoplastic etiology with metastatic disease within the differential. Status post bronchoscopy with biopsies 12/18/2017 cultures and pathology are pending. #3 Chronic and ongoing tobacco dependence of greater than 40 years. 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 #5 History of right-sided breast cancer status post lumpectomy and radiation. #6 Large left thyroid nodule, negative biopsy in 2016. #7 Hypertension. #8 Hyperlipidemia. #9 Peripheral vascular disease with previous angioplasty of the left lower extremity. #10 Anxiety. Plan: The patient was seen and evaluated by Dr. Rojas. She is improved from the pulmonary status. We will continue with her current medications. Pathology is pending. We'll continue to follow.. I, the cosigning physician, performed a history & physical examination of the patient. Lungs sounds with bilateral end expiratory wheeze, scattered rhonchi. Maintaining good O2 saturations in the 90s on 2 L/m per nasal cannula. I discussed the assessment and plan of care with my nurse practitioner, Patriica Baca. I attest to the above note as dictated by her.
[2017-12-19 16:50] LABS: Glucose,Whole Blood 201 mg/dL (75-99)
--- NOTE | 2017-12-19 18:41 | P.PN ---
Subjective Progress Note Date: 12/19/17 Principal diagnosis: New Pulmonary Nodules and adenopathy Patient seen and examined today. Status Post Bronchoscopy with Biopsy yesterday , awaiting path, Objective - Vital Signs Vital signs: Vital Signs Temp 97.8 F 12/19/17 05:00 Pulse 100 12/19/17 11:50 Resp 16 12/19/17 08:00 BP 103/66 12/19/17 05:00 Pulse Ox 98 12/19/17 05:00 Intake & Output 12/18/17 12/19/17 12/19/17 18:59 06:59 18:59 Intake Total 1325 900 Balance 1325 900 Intake: IV 800 900 Sodium Chloride 0.9% 1, 900 000 ml @ 75 mls/hr IV . [id number] [facility] Rx#:[id number] Intake, IV Titration 525 Amount Sodium Chloride 0.9% 1, 525 000 ml @ 75 mls/hr IV . [id number] [facility] Rx#:[id number] Other: Voiding Method Toilet Toilet Toilet - Exam - Constitutional General appearance: average body habitus, mild distress - EENT Eyes: EOMI, PERRLA ENT: hard of hearing Ears: bilateral: normal - Neck Neck: normal ROM Carotids: bilateral: upstroke normal Thyroid: left: enlarged, nodule - Respiratory Respiratory: bilateral: diminished, rhonchi - Cardiovascular Rhythm: regular Heart sounds: normal: S1, S2 - Gastrointestinal General gastrointestinal: normal bowel sounds - Integumentary Integumentary: normal turgor - Neurologic Neurologic: CNII-XII intact - Musculoskeletal Musculoskeletal: gait normal - Psychiatric Psychiatric: A&O x's 3, appropriate affect, intact judgment & insight - Labs CBC & Chem 7: 12/19/17 06:47 12/19/17 06:47 Labs: Abnormal Lab Results - Last 24 Hours (Table) 12/18/17 12/18/17 12/18/17 Range/Units 12:34 15:50 17:06 WBC (3.8-10.6) k/uL RBC (3.80-5.40) m/uL Hgb (11.4-16.0) gm/dL Hct (34.0-46.0) % Neutrophils # (1.3-7.7) k/uL Lymphocytes # (1.0-4.8) k/uL Chloride (98-107) mmol/L Carbon Dioxide (22-30) mmol/L BUN (7-17) mg/dL Creatinine (0.52-1.04) mg/dL Glucose (74-99) mg/dL POC Glucose (mg/dL) 142 H 167 H (75-99) mg/dL Magnesium (1.6-2.3) mg/dL Total Protein (6.3-8.2) g/dL Albumin (3.5-5.0) g/dL Urine Protein Trace H (Negative) Urine Blood Trace H (Negative) Ur Leukocyte Esterase Trace H (Negative) Urine WBC 6 H (0-5) /hpf Amorphous Sediment Rare H (None) /hpf 12/18/17 12/19/17 12/19/17 Range/Units 20:55 06:47 06:47 WBC 15.4 H (3.8-10.6) k/uL RBC 3.25 L (3.80-5.40) m/uL Hgb 10.0 L (11.4-16.0) gm/dL Hct 29.3 L (34.0-46.0) % Neutrophils # 14.4 H (1.3-7.7) k/uL Lymphocytes # 0.4 L (1.0-4.8) k/uL Chloride 117 H (98-107) mmol/L Carbon Dioxide 18 L (22-30) mmol/L BUN 74 H (7-17) mg/dL Creatinine 3.86 H (0.52-1.04) mg/dL Glucose 137 H (74-99) mg/dL POC Glucose (mg/dL) 148 H (75-99) mg/dL Magnesium 1.4 L (1.6-2.3) mg/dL Total Protein 5.3 L (6.3-8.2) g/dL Albumin 2.9 L (3.5-5.0) g/dL Urine Protein (Negative) Urine Blood (Negative) Ur Leukocyte Esterase (Negative) Urine WBC (0-5) /hpf Amorphous Sediment (None) /hpf 12/19/17 12/19/17 Range/Units 07:26 11:15 WBC (3.8-10.6) k/uL RBC (3.80-5.40) m/uL Hgb (11.4-16.0) gm/dL Hct (34.0-46.0) % Neutrophils # (1.3-7.7) k/uL Lymphocytes # (1.0-4.8) k/uL Chloride (98-107) mmol/L Carbon Dioxide (22-30) mmol/L BUN (7-17) mg/dL Creatinine (0.52-1.04) mg/dL Glucose (74-99) mg/dL POC Glucose (mg/dL) 177 H 151 H (75-99) mg/dL Magnesium (1.6-2.3) mg/dL Total Protein (6.3-8.2) g/dL Albumin (3.5-5.0) g/dL Urine Protein (Negative) Urine Blood (Negative) Ur Leukocyte Esterase (Negative) Urine WBC (0-5) /hpf Amorphous Sediment (None) /hpf Microbiology - Last 24 Hours (Table) 12/18/17 11:30 Gram Stain - Preliminary Bronchial Washings - Left Bronchial Washings Culture - Preliminary 12/18/17 11:30 Gram Stain - Preliminary Bronchial Washings - Random Bronchial Washings Culture - Preliminary 12/18/17 11:30 Acid Fast Bacilli Smear - Final Bronchial Washings - Random Acid Fast Bacilli Culture - Preliminary 12/18/17 11:30 Acid Fast Bacilli Smear - Final Bronchial Washings - Left Acid Fast Bacilli Culture - Preliminary 12/18/17 15:50 Urine Culture - Preliminary Urine,Voided 12/18/17 11:30 Fungal Culture - Preliminary Bronchial Washings - Left 12/18/17 11:30 Fungal Culture - Preliminary Bronchial Washings - Random 12/15/17 15:30 Blood Culture - Preliminary Blood No Growth after 72 hours Assessment and Plan Plan: Assessment and Recommendations: 1. New Mediastinal Lymphadenopathy and Pulmonary Nodules: - Will need a tissue biopsy, likely surgical (to send further tests if possible ), for diagnsis - Pulmonary is following and will defer Bronchoscopy versus IR Needle Biopsy - Full Initial Staging once renal function improves - May benefit from MRI brain as well when renal function improves - Biopsy via Bronch 12/18/17 - Pending - Await Pathology and more recs to follow 2. Acute Renal Failure: - This maybe related to Dehydration and Dramatic reduction in PO intake - She has had a large weight loss and decreased po intake overall - Nephrology is following - Renal Function Mildly improving 3. Hypokalemia - Per Nephrology 4. Hx: Breast Cancer - Lumpectomy and radiation in 2006 - Unaware of type - Check Tumor Markers, Ca 27.29 is mildly elevated from normal range
[2017-12-19] MEDS: NYSTATIN 100,000 UNIT/ML SUSP 500,000 UNIT/5 ML CUP PO SCH ×2 (19:57→22:28)
[2017-12-19 20:00] LABS: Glucose,Whole Blood 168 mg/dL (75-99)
[2017-12-19] MEDS: ATORVASTATIN 10 MG TAB PO SCH (21:10)
[2017-12-20] MEDS: SODIUM CHLORIDE 0.9% 1,000 ML IV SCH ×4 (03:00→21:29)
[2017-12-20] MEDS: IPRATROPIUM-ALBUTEROL 3 ML NEB INHALATION PRN ×5 (04:04→19:08)
[2017-12-20] MEDS: methylPREDNISolone SOD SUCCI 125 MG/2 ML VIAL IV SCH ×4 (06:24→23:07)
[2017-12-20 06:38] LABS: Glucose,Whole Blood 191 mg/dL (75-99)
[2017-12-20 07:21] LABS: Basophils % (A) 0 %; Eosinophils # (A) 0.1 k/uL (0-0.7); Eosinophils % (A) 0 %; HCT 31.9 % (34.0-46.0); HGB 10.5 gm/dL (11.4-16.0); Lymphocytes # (A) 0.5 k/uL (1.0-4.8); Lymphocytes % (A) 3 %; MCH 30.5 pg (25.0-35.0); MCV 92.5 fL (80.0-100.0); Mean Platelet Volume 7.5; Monocytes # (A) 0.8 k/uL (0-1.0); Monocytes % (A) 5 %; Neutrophils # (A) 14.2 k/uL (1.3-7.7); Neutrophils % (A) 91 %; Platelet Count 202 k/uL (150-450); RBC 3.45 m/uL (3.80-5.40); RDW 13.9 % (11.5-15.5); WBC 15.6 k/uL (3.8-10.6)
[2017-12-20 07:35] LABS: Albumin 3.1 g/dL (3.5-5.0); Potassium 3.8 mmol/L (3.5-5.1); Total Bilirubin 0.3 mg/dL (0.2-1.3); Total Protein 5.6 g/dL (6.3-8.2)
[2017-12-20] MEDS: FORMOTEROL FUMARATE 20 MCG/2 ML NEBU INHALATION SCH ×2 (07:38→19:08)
[2017-12-20] MEDS: BUDESONIDE 1 MG/2 ML NEBU INHALATION SCH ×2 (07:52→19:08)
[2017-12-20] MEDS: SODIUM BICARBONATE TAB 650 MG TAB PO SCH ×4 (08:05→21:56)
[2017-12-20] MEDS: INSULIN ASPART 100 UNIT/ML 1 ML 10 ML VIAL SQ SCH ×4 (08:07→21:56)
[2017-12-20] MEDS: PENTOXIFYLLINE 400 MG TABLET.ER PO SCH ×3 (08:08→18:02)
[2017-12-20] MEDS: FAMOTIDINE 20 MG TAB PO SCH (08:11)
[2017-12-20] MEDS: ATENOLOL 25 MG TAB PO SCH ×2 (08:11→21:55)
[2017-12-20] MEDS: ASPIRIN 81 MG PO SCH (08:11)
[2017-12-20] MEDS: busPIRone HCl 5 MG TAB PO SCH ×3 (08:11→21:55)
[2017-12-20] MEDS: NYSTATIN 100,000 UNIT/ML SUSP 500,000 UNIT/5 ML CUP PO SCH ×5 (08:11→21:46)
[2017-12-20] MEDS: HEPARIN SODIUM,PORCINE 5,000 UNIT/ML 1 ML VIAL SQ SCH ×2 (08:11→21:55)
--- NOTE | 2017-12-20 08:59 | P.PN ---
Subjective Patient is seen in follow for acute kidney injury. Creatinine was greater than 6 on admission and is down to 3.68 today. She is currently maintained on normal saline at 75 mL an hour. Patient was noted to have cavitary lesions in the lungs and underwent a bronchoscopy on December 18. Admits to anxiety at times. Good urine output. Oral intake slowly improving. Vital signs are stable. General: The patient appeared well nourished and normally developed. HEENT: Head exam is unremarkable. Neck is without jugular venous distension. LUNGS: Lungs are clear to auscultation and percussion. Breath sounds decreased. HEART: Rate and Rhythm are regular. First and second heart sounds normal. No murmurs, rubs or gallops. ABDOMEN: Abdominal exam reveals normal bowel sounds. Non-tender and non- distended. No evidence of peritonitis. EXTREMITITES: No clubbing, cyanosis, or edema. Objective - Vital Signs Vital signs: Vital Signs Temp 97.6 F 12/20/17 05:00 Pulse 98 12/20/17 08:02 Resp 16 12/20/17 05:00 BP 123/79 12/20/17 05:00 Pulse Ox 92 L 12/20/17 05:00 Intake & Output 12/19/17 12/20/17 12/20/17 18:59 06:59 18:59 Intake Total 625 480 Balance 625 480 Weight 73.482 kg 73.482 kg Intake: Intake, IV Titration 625 Amount Magnesium Sulfate-D5w Pmx 100 1 gm In Dextrose/Water 1 100ml.bag @ 100 mls/hr IVPB Q1H [facility] Rx#: [id number] Sodium Chloride 0.9% 1, 525 000 ml @ 75 mls/hr IV . [id number] [facility] Rx#:[id number] Oral 480 Other: Voiding Method Toilet Toilet # Voids 2 - Labs CBC & Chem 7: 12/20/17 06:35 12/20/17 06:35 Labs: Abnormal Lab Results - Last 24 Hours (Table) 12/19/17 12/19/17 12/19/17 Range/Units 11:15 16:48 19:56 WBC (3.8-10.6) k/uL RBC (3.80-5.40) m/uL Hgb (11.4-16.0) gm/dL Hct (34.0-46.0) % Neutrophils # (1.3-7.7) k/uL Lymphocytes # (1.0-4.8) k/uL Chloride (98-107) mmol/L Carbon Dioxide (22-30) mmol/L BUN (7-17) mg/dL Creatinine (0.52-1.04) mg/dL Glucose (74-99) mg/dL POC Glucose (mg/dL) 151 H 201 H 168 H (75-99) mg/dL Total Protein (6.3-8.2) g/dL Albumin (3.5-5.0) g/dL 12/20/17 12/20/17 12/20/17 Range/Units 06:35 06:35 06:37 WBC 15.6 H (3.8-10.6) k/uL RBC 3.45 L (3.80-5.40) m/uL Hgb 10.5 L (11.4-16.0) gm/dL Hct 31.9 L (34.0-46.0) % Neutrophils # 14.2 H (1.3-7.7) k/uL Lymphocytes # 0.5 L (1.0-4.8) k/uL Chloride 115 H (98-107) mmol/L Carbon Dioxide 17 L (22-30) mmol/L BUN 81 H* (7-17) mg/dL Creatinine 3.68 H (0.52-1.04) mg/dL Glucose 158 H (74-99) mg/dL POC Glucose (mg/dL) 191 H (75-99) mg/dL Total Protein 5.6 L (6.3-8.2) g/dL Albumin 3.1 L (3.5-5.0) g/dL Microbiology - Last 24 Hours (Table) 12/18/17 15:50 Urine Culture - Final Urine,Voided 12/15/17 15:30 Blood Culture - Preliminary Blood No Growth after 96 hours 12/18/17 11:30 Gram Stain - Preliminary Bronchial Washings - Left Bronchial Washings Culture - Preliminary 12/18/17 11:30 Gram Stain - Preliminary Bronchial Washings - Random Bronchial Washings Culture - Preliminary 12/18/17 11:30 Acid Fast Bacilli Smear - Final Bronchial Washings - Random Acid Fast Bacilli Culture - Preliminary 12/18/17 11:30 Acid Fast Bacilli Smear - Final Bronchial Washings - Left Acid Fast Bacilli Culture - Preliminary Assessment and Plan Plan: Assessment: 1. Nonoliguric acute kidney injury mostly prerenal secondary to severe intravascular volume depletion from poor oral intake and diuretics. Creatinine was greater than 6 on admission and is down to 3.68 today. No evidence of hydronephrosis noted on renal ultrasound. Urinalysis revealed trace proteinuria without RBCs. Electrophoresis studies negative. 2. Cavitary lung nodules status post bronchoscopy on December 18. Biopsy results pending. 3. Metabolic acidosis secondary to acute kidney injury. Stable. 4. Hypomagnesemia from poor oral intake. Improved post replacement. Plan: Continue normal saline at 75 mL an hour. Increase oral bicarb 1300 mg 3 times daily. Encouraged oral intake. Repeat electrolytes in the morning.
[2017-12-20] MEDS: LACTATED RINGERS 1,000 ML IV SCH (10:30)
--- NOTE | 2017-12-20 11:27 | P.PN ---
Subjective Progress Note Date: 12/20/17 Principal diagnosis: Multiple pulmonary nodules, adenopathy This is a very pleasant 67-year-old female patient who follows with Dr. Mora as her primary care physician. She has a history of hypertension, hyperlipidemia, peripheral vascular disease with previous angioplasty of the left lower extremity, hearing disorder, right sided breast cancer status post lumpectomy and radiation treatment in 2005. She also has chronic and ongoing 40 + year smoking history. She had not been on any inhalers in the past. Approximately one month ago she started having increasing shortness of breath, cough and congestion. She was treated with antibiotics and nebulized treatments without much improvement. Follow-up chest x-ray revealed some abnormalities and she was scheduled for a CT angiogram of the chest to be performed yesterday. However her renal function was significantly elevated. She did undergo a computed tomography scan of the chest without contrast which revealed multiple pulmonary nodules measuring up to 2 cm. There is cavitary masses present in the left hilar region and left lower lobe. There is left hilar soft tissue fullness and mediastinal lymphadenopathy. There is also noted moderate emphysema/COPD. There is a large heterogenous left thyroid nodule with recent ultrasound revealing a large left lobe cystic-type thyroid nodule that was stable compared to previous. Renal ultrasound revealed no evidence of hydronephrosis. There is a small left renal cortical cysts. She does have a fusiform lower abdominal aortic aneurysm measuring 5.2 cm in diameter that is more than 8 cm in length. Initial creatinine 6.15. Today 5.15 the BUN of 93. Patient is seen today in consultation on the oncology unit. She is currently awake and alert in no acute distress. She has been feeling quite poorly especially the last several days without eating or drinking much. She's had approximately 30 pound weight loss over the past month since all of her symptoms began. She denies productive cough. No hemoptysis. The patient is seen again today 12/17/2017 in follow-up on the oncology unit. She is currently awake and alert in no acute distress. She is breathing quite a bit easier today as compared to yesterday. In general she is feeling better overall as well. Her renal function has improved current creatinine 4.33. Her pulmonary status has improved. She is less short of breath. Less bronchospastic and wheezy. Maintaining good O2 saturations in the mid to upper 90s on 2 L/m per nasal cannula. She is afebrile. Blood culture reveals no growth. White count 9.1. Hemoglobin 9.9. The patient is seen again today 12/18/2017 in follow-up on the oncology unit. She is awake and alert in no acute distress. She is breathing a bit better today as compared to yesterday. Maintaining good O2 saturations in the 90s on room air. She's been afebrile. Hemodynamically stable. Blood culture reveals no growth to date. White count 21.2. Hemoglobin 10.3. Creatinine 4.07. She did undergo bronchoscopy with biopsies with Dr. Rojas this morning. She tolerated the procedure well. Pathology is pending. The patient is seen again today 12/19/2017 in follow-up on the oncology unit. She is currently sitting up in bed having lunch. She is awake and alert in no acute distress. She is breathing a bit easier today as compared to yesterday but still dyspneic with exertion. 18 in good O2 saturations in the 90s on 2 L/ m per nasal cannula. Bronchial biopsies are pending. Cultures are pending. White count 15.4. Hemoglobin 10.0. Creatinine 3.86. The patient is seen again today on 12/20/2017 in follow-up on the oncology unit. She is currently sitting up in bed eating breakfast. She remains quite anxious and teary-eyed. She has short of breath with exertion. Still wheezing. She is maintaining O2 saturations in the 90s on 2 L/m per nasal cannula. She's been afebrile. Cultures reveal no growth thus far. Pathology is still pending. White count 15.6. Hemoglobin 10.5. Creatinine 3.68. Continued on sodium bicarb tablets. Objective - Vital Signs Vital signs: Vital Signs Temp 97.6 F 12/20/17 05:00 Pulse 98 12/20/17 08:02 Resp 16 12/20/17 05:00 BP 123/79 12/20/17 05:00 Pulse Ox 92 L 12/20/17 05:00 Intake & Output 12/19/17 12/20/17 12/20/17 18:59 06:59 18:59 Intake Total 625 480 Balance 625 480 Weight 73.482 kg 73.482 kg Intake: Intake, IV Titration 625 Amount Magnesium Sulfate-D5w Pmx 100 1 gm In Dextrose/Water 1 100ml.bag @ 100 mls/hr IVPB Q1H [facility] Rx#: [id number] Sodium Chloride 0.9% 1, 525 000 ml @ 75 mls/hr IV . [id number] [facility] Rx#:[id number] Oral 480 Other: Voiding Method Toilet Toilet # Voids 2 - Exam - Constitutional General appearance: average body habitus, no acute distress - EENT Eyes: EOMI, PERRLA ENT: hard of hearing Ears: bilateral: normal - Neck Neck: normal ROM Carotids: bilateral: upstroke normal Thyroid: left: enlarged, nodule - Respiratory Respiratory: bilateral: diminished, end expiratory wheeze - Cardiovascular Rhythm: regular Heart sounds: normal: S1, S2 - Gastrointestinal General gastrointestinal: normal bowel sounds - Integumentary Integumentary: normal turgor - Neurologic Neurologic: CNII-XII intact - Musculoskeletal Musculoskeletal: gait normal - Psychiatric Psychiatric: A&O x's 3, appropriate affect, intact judgment & insight - Labs CBC & Chem 7: 12/20/17 06:35 12/20/17 06:35 Labs: Abnormal Lab Results - Last 24 Hours (Table) 12/19/17 12/19/17 12/20/17 Range/Units 16:48 19:56 06:35 WBC 15.6 H (3.8-10.6) k/uL RBC 3.45 L (3.80-5.40) m/uL Hgb 10.5 L (11.4-16.0) gm/dL Hct 31.9 L (34.0-46.0) % Neutrophils # 14.2 H (1.3-7.7) k/uL Lymphocytes # 0.5 L (1.0-4.8) k/uL Chloride (98-107) mmol/L Carbon Dioxide (22-30) mmol/L BUN (7-17) mg/dL Creatinine (0.52-1.04) mg/dL Glucose (74-99) mg/dL POC Glucose (mg/dL) 201 H 168 H (75-99) mg/dL Total Protein (6.3-8.2) g/dL Albumin (3.5-5.0) g/dL 12/20/17 12/20/17 Range/Units 06:35 06:37 WBC (3.8-10.6) k/uL RBC (3.80-5.40) m/uL Hgb (11.4-16.0) gm/dL Hct (34.0-46.0) % Neutrophils # (1.3-7.7) k/uL Lymphocytes # (1.0-4.8) k/uL Chloride 115 H (98-107) mmol/L Carbon Dioxide 17 L (22-30) mmol/L BUN 81 H* (7-17) mg/dL Creatinine 3.68 H (0.52-1.04) mg/dL Glucose 158 H (74-99) mg/dL POC Glucose (mg/dL) 191 H (75-99) mg/dL Total Protein 5.6 L (6.3-8.2) g/dL Albumin 3.1 L (3.5-5.0) g/dL Microbiology - Last 24 Hours (Table) 12/18/17 11:30 Gram Stain - Final Bronchial Washings - Random Bronchial Washings Culture - Final 12/18/17 11:30 Gram Stain - Final Bronchial Washings - Left Bronchial Washings Culture - Final 12/18/17 15:50 Urine Culture - Final Urine,Voided 12/15/17 15:30 Blood Culture - Preliminary Blood No Growth after 96 hours Assessment and Plan Assessment: Impression: #1 Acute renal failure of unclear etiology. No hydronephrosis per ultrasound. Presenting creatinine 6.15, currently 3.68. #2 Multiple pulmonary nodules along with cavitary masses. Left hilar soft tissue fullness and mediastinal adenopathy and upper abdominal lymphadenopathy with left adrenal nodularity. Neoplastic etiology with metastatic disease within the differential. Status post bronchoscopy with biopsies 12/18/2017 cultures and pathology are pending. #3 Chronic and ongoing tobacco dependence of greater than 40 years. 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 #5 History of right-sided breast cancer status post lumpectomy and radiation. #6 Large left thyroid nodule, negative biopsy in 2016. #7 Hypertension. #8 Hyperlipidemia. #9 Peripheral vascular disease with previous angioplasty of the left lower extremity. #10 Anxiety. Plan: The patient was seen and evaluated by Dr. Rojas. We will continue with her current medications. Pathology is pending. We'll continue to follow.. I, the cosigning physician, performed a history & physical examination of the patient. Lungs sounds with bilateral end expiratory wheeze, scattered rhonchi. Maintaining good O2 saturations in the 90s on 2 L/m per nasal cannula. I discussed the assessment and plan of care with my nurse practitioner, Patricia Baca. I attest to the above note as dictated by her.
[2017-12-20 12:01] LABS: Glucose,Whole Blood 164 mg/dL (75-99)
--- NOTE | 2017-12-20 13:55 | P.PN ---
Subjective Progress Note Date: 12/20/17 Evelyn Flores is a 67 year old female who presented to [facility] to have a computed tomography scan of the chest was contrast BUN and creatinine were done prior to computed tomography scan and were significantly elevated, her BUN was 103, and creatinine 6.15, computed tomography scan was canceled and patient was sent to [facility] emergency room, she was evaluated in the emergency room she was given IV fluid and her creatinine came down slightly to 5.9, computed tomography scan of the chest without contrast was done and revealed multiple pulmonary nodules with a couple of cavitary masses patient also had evidence of lymphadenopathy in the chest and the upper abdomen, she also had a large left thyroid nodule, she was started on IV fluid and was admitted to the medical floor, pulmonary and nephrology and oncology consultation were requested. Patient has not been feeling well for the last 6 weeks, she had cough with minimal sputum production, she was given a course of antibiotic without any improvement, chest x-ray was done on 12/05/2017 and revealed evidence of right upper lobe lung mass computed tomography scan was recommended and this was scheduled for 12/15/2017 however patient was admitted due to severely elevated BUN and creatinine. Patient has a lifelong history of smoking, she has known history of hypertension , hyperlipidemia, anxiety disorder, and a thyroid nodule that was recently biopsied by Dr. Morales. At this time patient denies any pain or discomfort she reports having episodes of nausea and vomiting in the last 2 weeks she reports feeling full and then able to eat much, she reports significant weight loss in the last 6 weeks, she has been complaining of cough, she had minimal sputum production, she denies any hemoptysis, there is no abdominal pain no blood in the urine or in the stools. On 12/16/2017 patient is currently A & O 3 resting comfortably in bed. Patient does report some shortness of breath with activity. Patient denies chest pain. Denies nausea vomiting or diarrhea. Does reports she has very little appetite. Patient denies any urinary burning or frequency. On 12/17/2017 patient is currently alert and oriented 3 resting in bed comfortably. Patient's shortness of breath has improved. Patient being followed by pulmonary. Per pulmonary plan for bronchoscopy and biopsies tomorrow. IV steroids have been added per pulmonary. Patient denies chest pain at this time. Patient denies nausea vomiting or diarrhea. Patient denies any urinary burning or frequency On 12/18/2017 patient is currently alert and oriented X 3. Patient is currently resting comfortably in bed. Patient underwent bronchoscopy with biopsy without complication. Patient is currently on room air but does state she still gets winded upon activity. Patient denies chest pain or shortness of breath. Denies nausea vomiting or diarrhea. Denies any urinary or burning with urination On 12/19/2017 patient is currently alert and oriented 3. Patient remains short of breath after activity. Patient states she did not get much sleep last night. Patient denies chest pain. Patient denies nausea vomiting or diarrhea denies any urinary burning or frequency. On 12/20/2017 patient is currently alert and oriented 3. Patient remains short of breath with activity. Patient has chest pain or shortness of breath. Patient denies nausea vomiting or diarrhea. Denies any urinary burning or frequency Objective - Vital Signs Vital signs: Vital Signs Temp 97.6 F 12/20/17 05:00 Pulse 98 12/20/17 11:39 Resp 16 12/20/17 05:00 BP 123/79 12/20/17 05:00 Pulse Ox 92 L 12/20/17 05:00 Intake & Output 12/19/17 12/20/17 12/20/17 18:59 06:59 18:59 Intake Total 625 480 600 Balance 625 480 600 Weight 73.482 kg 73.482 kg Intake: IV 600 Sodium Chloride 0.9% 1, 600 000 ml @ 75 mls/hr IV . [id number] [facility] Rx#:[id number] Intake, IV Titration 625 Amount Magnesium Sulfate-D5w Pmx 100 1 gm In Dextrose/Water 1 100ml.bag @ 100 mls/hr IVPB Q1H [facility] Rx#: [id number] Sodium Chloride 0.9% 1, 525 000 ml @ 75 mls/hr IV . [id number] [facility] Rx#:[id number] Oral 480 Other: Voiding Method Toilet Toilet # Voids 2 - Exam Head normocephalic Neck supple Lungs scattered crackles Heart regular rate and rhythm S1-S2, no rub or gallop Abdomen is soft nontender nondistended positive bowel sounds no hepatosplenomegaly Extremities no edema Neuro alert and orientated to 3 - Labs CBC & Chem 7: 12/20/17 06:35 12/20/17 06:35 Labs: Abnormal Lab Results - Last 24 Hours (Table) 12/19/17 12/19/17 12/20/17 Range/Units 16:48 19:56 06:35 WBC 15.6 H (3.8-10.6) k/uL RBC 3.45 L (3.80-5.40) m/uL Hgb 10.5 L (11.4-16.0) gm/dL Hct 31.9 L (34.0-46.0) % Neutrophils # 14.2 H (1.3-7.7) k/uL Lymphocytes # 0.5 L (1.0-4.8) k/uL Chloride (98-107) mmol/L Carbon Dioxide (22-30) mmol/L BUN (7-17) mg/dL Creatinine (0.52-1.04) mg/dL Glucose (74-99) mg/dL POC Glucose (mg/dL) 201 H 168 H (75-99) mg/dL Total Protein (6.3-8.2) g/dL Albumin (3.5-5.0) g/dL 12/20/17 12/20/17 12/20/17 Range/Units 06:35 06:37 11:49 WBC (3.8-10.6) k/uL RBC (3.80-5.40) m/uL Hgb (11.4-16.0) gm/dL Hct (34.0-46.0) % Neutrophils # (1.3-7.7) k/uL Lymphocytes # (1.0-4.8) k/uL Chloride 115 H (98-107) mmol/L Carbon Dioxide 17 L (22-30) mmol/L BUN 81 H* (7-17) mg/dL Creatinine 3.68 H (0.52-1.04) mg/dL Glucose 158 H (74-99) mg/dL POC Glucose (mg/dL) 191 H 164 H (75-99) mg/dL Total Protein 5.6 L (6.3-8.2) g/dL Albumin 3.1 L (3.5-5.0) g/dL Microbiology - Last 24 Hours (Table) 12/18/17 11:30 Gram Stain - Final Bronchial Washings - Random Bronchial Washings Culture - Final 12/18/17 11:30 Gram Stain - Final Bronchial Washings - Left Bronchial Washings Culture - Final 12/18/17 15:50 Urine Culture - Final Urine,Voided 12/15/17 15:30 Blood Culture - Preliminary Blood No Growth after 96 hours Assessment and Plan Assessment: #1 multiple pulmonary masses including 2 cavitary lesions. Pulmonary services have been consulted. Awaiting consult. Per pulmonary team planning biopsy and bronchoscopy tomorrow. Solu-Medrol 60 mg every 6 has been added. Patient underwent bronchoscopy with biopsies and Dr. Rojas. Awaiting biopsy results. Patient remains on IV steroids. Biopsies from 12/18/2017 Bronchoscopy cultures and pathology are pending #2 enlarged lymphadenopathy in the chest and upper abdomen. Oncology services . CA 2729 and CA 153 antigen ordered per oncology. CA 153 antigen 29.9 and CA 2729 elevated at 60.6. Oncology services are following #3 thyroid nodule with recent biopsy by Dr. Morales. Dr. Morales has been consulted for evaluation. #4 acute renal failure, last creatinine prior to this admission was in August 2017 and was 1.2. Creatinine 5.15 and bun 93. Nephrology following. Renal ultrasound completed showing fusiform lower abdomen aortic aneurysm measures up to 5.2 cm in diameter. The length is more than 8 cm. No hydronephrosis. Small left renal cortical cyst. We'll continue to monitor labs closely. Creatinine continued to trend down to 4.07 and bun 73. Per nephrology continue to monitor labs on a daily basis. Creatinine improving to 3.68 and bun 81. Her nephrology will bicarb has been increased to 1300 mg 3 times daily #5 underlying history of hypertension #6 underlying history of hyperlipidemia #7 evidence of COPD on computed tomography scan #8 tobacco abuse #9 underlying history of anxiety disorder #10 hypokalemia. Potassium replacement protocol. Will recheck potassium level and monitor closely. Repeat potassium 3.8 #11 abdominal aortic aneurysm. Renal ultrasound completed showing fusiform lower abdomen aortic aneurysm measuring up to 5.2 cm in diameter. The length is more than 8 cm. Patient to follow-up outpatient for further workup. #12 leukocytosis likely related to steroids. WBC increasing to 21.2. Blood culture currently negative. Patient does state she is coughing up sputum. Will order sputum sample WBC improving to 15.4 #13 insomnia. Melatonin added #14 hypomagnesemia. Magnesium 1.4. Replacement protocol. Continue to monitor closely. Magnesium 2.0 GI prophylaxis Pepcid and DVT prophylaxis SCDs. DVT prophylaxis heparin I performed an examination of the patient and discussed their management with the Nurse Practitioner. I have reviewed the Nurse Practitioner's notes and agree with the documented findings and plan of care
[2017-12-20 17:08] LABS: Glucose,Whole Blood 177 mg/dL (75-99)
--- NOTE | 2017-12-20 17:10 | P.PN ---
Subjective Progress Note Date: 12/20/17 Principal diagnosis: New Pulmonary Nodules and adenopathy Patient seen and examined today. Status Post Bronchoscopy with Biopsy 12/17 Objective - Vital Signs Vital signs: Vital Signs Temp 98 F 12/20/17 13:00 Pulse 92 12/20/17 15:59 Resp 16 12/20/17 13:00 BP 134/80 12/20/17 13:00 Pulse Ox 92 L 12/20/17 13:00 Intake & Output 12/19/17 12/20/17 12/20/17 18:59 06:59 18:59 Intake Total 625 480 600 Balance 625 480 600 Weight 73.482 kg 73.482 kg Intake: IV 600 Sodium Chloride 0.9% 1, 600 000 ml @ 75 mls/hr IV . [id number] [facility] Rx#:[id number] Intake, IV Titration 625 Amount Magnesium Sulfate-D5w Pmx 100 1 gm In Dextrose/Water 1 100ml.bag @ 100 mls/hr IVPB Q1H [facility] Rx#: [id number] Sodium Chloride 0.9% 1, 525 000 ml @ 75 mls/hr IV . [id number] [facility] Rx#:[id number] Oral 480 Other: Voiding Method Toilet Toilet # Voids 2 - Exam - Constitutional General appearance: average body habitus, mild distress - EENT Eyes: EOMI, PERRLA ENT: hard of hearing Ears: bilateral: normal - Neck Neck: normal ROM Carotids: bilateral: upstroke normal Thyroid: left: enlarged, nodule - Respiratory Respiratory: bilateral: diminished, rhonchi - Cardiovascular Rhythm: regular Heart sounds: normal: S1, S2 - Gastrointestinal General gastrointestinal: normal bowel sounds - Integumentary Integumentary: normal turgor - Neurologic Neurologic: CNII-XII intact - Musculoskeletal Musculoskeletal: gait normal - Psychiatric Psychiatric: A&O x's 3, appropriate affect, intact judgment & insight - Labs CBC & Chem 7: 12/20/17 06:35 12/20/17 06:35 Labs: Abnormal Lab Results - Last 24 Hours (Table) 12/19/17 12/20/17 12/20/17 Range/Units 19:56 06:35 06:35 WBC 15.6 H (3.8-10.6) k/uL RBC 3.45 L (3.80-5.40) m/uL Hgb 10.5 L (11.4-16.0) gm/dL Hct 31.9 L (34.0-46.0) % Neutrophils # 14.2 H (1.3-7.7) k/uL Lymphocytes # 0.5 L (1.0-4.8) k/uL Chloride 115 H (98-107) mmol/L Carbon Dioxide 17 L (22-30) mmol/L BUN 81 H* (7-17) mg/dL Creatinine 3.68 H (0.52-1.04) mg/dL Glucose 158 H (74-99) mg/dL POC Glucose (mg/dL) 168 H (75-99) mg/dL Total Protein 5.6 L (6.3-8.2) g/dL Albumin 3.1 L (3.5-5.0) g/dL 12/20/17 12/20/17 Range/Units 06:37 11:49 WBC (3.8-10.6) k/uL RBC (3.80-5.40) m/uL Hgb (11.4-16.0) gm/dL Hct (34.0-46.0) % Neutrophils # (1.3-7.7) k/uL Lymphocytes # (1.0-4.8) k/uL Chloride (98-107) mmol/L Carbon Dioxide (22-30) mmol/L BUN (7-17) mg/dL Creatinine (0.52-1.04) mg/dL Glucose (74-99) mg/dL POC Glucose (mg/dL) 191 H 164 H (75-99) mg/dL Total Protein (6.3-8.2) g/dL Albumin (3.5-5.0) g/dL Microbiology - Last 24 Hours (Table) 12/18/17 11:30 Gram Stain - Final Bronchial Washings - Random Bronchial Washings Culture - Final 12/18/17 11:30 Gram Stain - Final Bronchial Washings - Left Bronchial Washings Culture - Final 12/18/17 15:50 Urine Culture - Final Urine,Voided 12/15/17 15:30 Blood Culture - Preliminary Blood No Growth after 96 hours Assessment and Plan Plan: Assessment and Recommendations: 1. New Mediastinal Lymphadenopathy and Pulmonary Nodules: - Will need a tissue biopsy, likely surgical (to send further tests if possible ), for diagnsis - Pulmonary is following and will defer Bronchoscopy versus IR Needle Biopsy - Full Initial Staging once renal function improves - May benefit from MRI brain as well when renal function improves - Biopsy via Bronch 12/18/17 - Pending - Await Pathology and more recs to follow 2. Acute Renal Failure: - This maybe related to Dehydration and Dramatic reduction in PO intake - She has had a large weight loss and decreased po intake overall - Nephrology is following - Renal Function Mildly improving 3. Hypokalemia - Per Nephrology 4. Hx: Breast Cancer - Lumpectomy and radiation in 2005 - Unaware of type - Check Tumor Markers, Ca 27.29 is mildly elevated from normal range
[2017-12-20 21:13] LABS: Glucose,Whole Blood 218 mg/dL (75-99)
[2017-12-20] MEDS: ATORVASTATIN 10 MG TAB PO SCH (21:55)
[2017-12-20] MEDS: ALPRAZolam 0.25 MG TAB PO PRN (21:57)
[2017-12-20] MEDS: MELATONIN 1 MG TAB PO PRN (22:58)
[2017-12-21] MEDS: methylPREDNISolone SOD SUCCI 125 MG/2 ML VIAL IV SCH ×3 (06:22→17:11)
[2017-12-21 07:20] LABS: Glucose,Whole Blood 158 mg/dL (75-99)
[2017-12-21 07:29] LABS: Basophils % (A) 0 %; Eosinophils # (A) 0.1 k/uL (0-0.7); Eosinophils % (A) 1 %; HCT 30.3 % (34.0-46.0); HGB 10.2 gm/dL (11.4-16.0); Lymphocytes # (A) 0.3 k/uL (1.0-4.8); Lymphocytes % (A) 3 %; MCH 30.7 pg (25.0-35.0); MCHC 33.6 g/dL (31.0-37.0); MCV 91.4 fL (80.0-100.0); Mean Platelet Volume 7.1; Monocytes # (A) 0.6 k/uL (0-1.0); Monocytes % (A) 6 %; Neutrophils # (A) 9.8 k/uL (1.3-7.7); Neutrophils % (A) 90 %; Platelet Count 181 k/uL (150-450); RBC 3.31 m/uL (3.80-5.40); RDW 13.9 % (11.5-15.5); WBC 10.9 k/uL (3.8-10.6)
[2017-12-21 07:43] LABS: Albumin 2.9 g/dL (3.5-5.0); Calcium 8.9 mg/dL (8.4-10.2); Potassium 3.7 mmol/L (3.5-5.1); Total Bilirubin 0.3 mg/dL (0.2-1.3); Total Protein 5.4 g/dL (6.3-8.2)
[2017-12-21] MEDS: busPIRone HCl 5 MG TAB PO SCH ×3 (08:01→22:10)
[2017-12-21] MEDS: SODIUM BICARBONATE TAB 650 MG TAB PO SCH ×3 (08:01→22:10)
[2017-12-21] MEDS: ASPIRIN 81 MG PO SCH (08:01)
[2017-12-21] MEDS: FAMOTIDINE 20 MG TAB PO SCH (08:01)
[2017-12-21] MEDS: PENTOXIFYLLINE 400 MG TABLET.ER PO SCH ×3 (08:01→17:11)
[2017-12-21] MEDS: ATENOLOL 25 MG TAB PO SCH ×2 (08:01→20:38)
[2017-12-21] MEDS: HEPARIN SODIUM,PORCINE 5,000 UNIT/ML 1 ML VIAL SQ SCH ×2 (08:03→20:38)
[2017-12-21] MEDS: NYSTATIN 100,000 UNIT/ML SUSP 500,000 UNIT/5 ML CUP PO SCH ×4 (08:03→22:09)
[2017-12-21] MEDS: INSULIN ASPART 100 UNIT/ML 1 ML 10 ML VIAL SQ SCH ×4 (08:20→20:37)
[2017-12-21] MEDS: FORMOTEROL FUMARATE 20 MCG/2 ML NEBU INHALATION SCH ×2 (08:52→20:02)
[2017-12-21] MEDS: IPRATROPIUM-ALBUTEROL 3 ML NEB INHALATION PRN ×3 (08:52→20:02)
[2017-12-21] MEDS: BUDESONIDE 1 MG/2 ML NEBU INHALATION SCH ×2 (08:52→20:02)
--- NOTE | 2017-12-21 09:17 | P.PN ---
Subjective Patient is seen in follow for acute kidney injury. Creatinine was greater than 6 on admission and is down to 3.27 today. She is currently maintained on normal saline at 75 mL an hour. Patient was noted to have cavitary lesions in the lungs and underwent a bronchoscopy on December 18. Good urine output. Oral intake slowly improving. No active complaints at this time. She is eager to go home. Vital signs are stable. General: The patient appeared well nourished and normally developed. HEENT: Head exam is unremarkable. Neck is without jugular venous distension. LUNGS: Lungs are clear to auscultation and percussion. Breath sounds decreased. HEART: Rate and Rhythm are regular. First and second heart sounds normal. No murmurs, rubs or gallops. ABDOMEN: Abdominal exam reveals normal bowel sounds. Non-tender and non- distended. No evidence of peritonitis. EXTREMITITES: No clubbing, cyanosis, or edema. Objective - Vital Signs Vital signs: Vital Signs Temp 97.4 F L 12/21/17 05:00 Pulse 95 12/21/17 09:06 Resp 20 12/21/17 08:25 BP 116/73 12/21/17 05:00 Pulse Ox 90 L 12/21/17 05:00 Intake & Output 12/20/17 12/21/17 12/21/17 18:59 06:59 18:59 Intake Total 600 400 Balance 600 400 Intake: IV 600 Sodium Chloride 0.9% 1, 600 000 ml @ 75 mls/hr IV . [id number] [facility] Rx#:[id number] Oral 400 Other: Voiding Method Toilet Toilet # Voids 2 - Labs CBC & Chem 7: 12/21/17 07:01 12/21/17 07:01 Labs: Abnormal Lab Results - Last 24 Hours (Table) 12/20/17 12/20/17 12/20/17 Range/Units 11:49 17:06 21:12 WBC (3.8-10.6) k/uL RBC (3.80-5.40) m/uL Hgb (11.4-16.0) gm/dL Hct (34.0-46.0) % Neutrophils # (1.3-7.7) k/uL Lymphocytes # (1.0-4.8) k/uL Chloride (98-107) mmol/L Carbon Dioxide (22-30) mmol/L BUN (7-17) mg/dL Creatinine (0.52-1.04) mg/dL Glucose (74-99) mg/dL POC Glucose (mg/dL) 164 H 177 H 218 H (75-99) mg/dL AST (14-36) U/L ALT (9-52) U/L Total Protein (6.3-8.2) g/dL Albumin (3.5-5.0) g/dL 12/21/17 12/21/17 12/21/17 Range/Units 07:01 07:01 07:19 WBC 10.9 H (3.8-10.6) k/uL RBC 3.31 L (3.80-5.40) m/uL Hgb 10.2 L (11.4-16.0) gm/dL Hct 30.3 L (34.0-46.0) % Neutrophils # 9.8 H (1.3-7.7) k/uL Lymphocytes # 0.3 L (1.0-4.8) k/uL Chloride 114 H (98-107) mmol/L Carbon Dioxide 19 L (22-30) mmol/L BUN 81 H* (7-17) mg/dL Creatinine 3.27 H (0.52-1.04) mg/dL Glucose 142 H (74-99) mg/dL POC Glucose (mg/dL) 158 H (75-99) mg/dL AST 46 H (14-36) U/L ALT 59 H (9-52) U/L Total Protein 5.4 L (6.3-8.2) g/dL Albumin 2.9 L (3.5-5.0) g/dL Microbiology - Last 24 Hours (Table) 12/15/17 15:30 Blood Culture - Preliminary Blood No Growth after 120 hours 12/18/17 11:30 Gram Stain - Final Bronchial Washings - Random Bronchial Washings Culture - Final 12/18/17 11:30 Gram Stain - Final Bronchial Washings - Left Bronchial Washings Culture - Final 12/18/17 15:50 Urine Culture - Final Urine,Voided Assessment and Plan Plan: Assessment: 1. Nonoliguric acute kidney injury mostly prerenal secondary to severe intravascular volume depletion from poor oral intake and diuretics. Creatinine was greater than 6 on admission and is down to 3.27 today. No evidence of hydronephrosis noted on renal ultrasound. Urinalysis revealed trace proteinuria without RBCs. Electrophoresis studies negative. 2. Cavitary lung nodules status post bronchoscopy on December 18. Biopsy results pending. 3. Metabolic acidosis secondary to acute kidney injury. Improving. 4. Hypomagnesemia from poor oral intake. Improved post replacement. Plan: Continue normal saline at 75 mL an hour. Maintain oral bicarb 1300 mg 3 times daily. Encouraged oral intake. Repeat electrolytes in the morning.
[2017-12-21 11:44] LABS: Glucose,Whole Blood 135 mg/dL (75-99)
--- NOTE | 2017-12-21 12:11 | P.PN ---
Subjective Progress Note Date: 12/21/17 Principal diagnosis: Acute renal failure of unclear etiology, and multiple lung masses with lymphadenopathy This is a very pleasant 67-year-old female patient who follows with Dr. Mora as her primary care physician. She has a history of hypertension, hyperlipidemia, peripheral vascular disease with previous angioplasty of the left lower extremity, hearing disorder, right sided breast cancer status post lumpectomy and radiation treatment in 2005. She also has chronic and ongoing 40 + year smoking history. She had not been on any inhalers in the past. Approximately one month ago she started having increasing shortness of breath, cough and congestion. She was treated with antibiotics and nebulized treatments without much improvement. Follow-up chest x-ray revealed some abnormalities and she was scheduled for a CT angiogram of the chest to be performed yesterday. However her renal function was significantly elevated. She did undergo a computed tomography scan of the chest without contrast which revealed multiple pulmonary nodules measuring up to 2 cm. There is cavitary masses present in the left hilar region and left lower lobe. There is left hilar soft tissue fullness and mediastinal lymphadenopathy. There is also noted moderate emphysema/COPD. There is a large heterogenous left thyroid nodule with recent ultrasound revealing a large left lobe cystic-type thyroid nodule that was stable compared to previous. Renal ultrasound revealed no evidence of hydronephrosis. There is a small left renal cortical cysts. She does have a fusiform lower abdominal aortic aneurysm measuring 5.2 cm in diameter that is more than 8 cm in length. Initial creatinine 6.15. Today 5.15 the BUN of 93. Patient is seen today in consultation on the oncology unit. She is currently awake and alert in no acute distress. She has been feeling quite poorly especially the last several days without eating or drinking much. She's had approximately 30 pound weight loss over the past month since all of her symptoms began. She denies productive cough. No hemoptysis. The patient is seen again today 12/17/2017 in follow-up on the oncology unit. She is currently awake and alert in no acute distress. She is breathing quite a bit easier today as compared to yesterday. In general she is feeling better overall as well. Her renal function has improved current creatinine 4.33. Her pulmonary status has improved. She is less short of breath. Less bronchospastic and wheezy. Maintaining good O2 saturations in the mid to upper 90s on 2 L/m per nasal cannula. She is afebrile. Blood culture reveals no growth. White count 9.1. Hemoglobin 9.9. The patient is seen again today 12/18/2017 in follow-up on the oncology unit. She is awake and alert in no acute distress. She is breathing a bit better today as compared to yesterday. Maintaining good O2 saturations in the 90s on room air. She's been afebrile. Hemodynamically stable. Blood culture reveals no growth to date. White count 21.2. Hemoglobin 10.3. Creatinine 4.07. She did undergo bronchoscopy with biopsies with Dr. Rojas this morning. She tolerated the procedure well. Pathology is pending. The patient is seen again today 12/19/2017 in follow-up on the oncology unit. She is currently sitting up in bed having lunch. She is awake and alert in no acute distress. She is breathing a bit easier today as compared to yesterday but still dyspneic with exertion. 18 in good O2 saturations in the 90s on 2 L/ m per nasal cannula. Bronchial biopsies are pending. Cultures are pending. White count 15.4. Hemoglobin 10.0. Creatinine 3.86. The patient is seen again today on 12/20/2017 in follow-up on the oncology unit. She is currently sitting up in bed eating breakfast. She remains quite anxious and teary-eyed. She has short of breath with exertion. Still wheezing. She is maintaining O2 saturations in the 90s on 2 L/m per nasal cannula. She's been afebrile. Cultures reveal no growth thus far. Pathology is still pending. White count 15.6. Hemoglobin 10.5. Creatinine 3.68. Continued on sodium bicarb tablets. Reevaluated today on 12/21/2017, patient remains in the oncology unit, doing well , relatively asymptomatic except for intermittent cough and wheezing, feels generally weak. CBC is relatively normal, basic metabolic profile was reviewed BUN remains 81 creatinine is 3.27, and that being addressed by nephrology. Liver enzymes remains borderline elevated. Bronchoscopy results are still pending. Objective - Vital Signs Vital signs: Vital Signs Temp 97.4 F L 12/21/17 05:00 Pulse 96 12/21/17 09:20 Resp 20 09/02/18 08:25 BP 116/73 12/21/17 05:00 Pulse Ox 90 L 12/21/17 05:00 Intake & Output 12/20/17 12/21/17 12/21/17 18:59 06:59 18:59 Intake Total 600 400 Balance 600 400 Intake: IV 600 Sodium Chloride 0.9% 1, 600 000 ml @ 75 mls/hr IV . [id number] [facility] Rx#:[id number] Oral 400 Other: Voiding Method Toilet Toilet # Voids 2 - Exam - Constitutional General appearance: average body habitus, no acute distress - EENT Eyes: EOMI, PERRLA ENT: hard of hearing Ears: bilateral: normal - Neck Neck: normal ROM Carotids: bilateral: upstroke normal Thyroid: left: enlarged, nodule - Respiratory Respiratory: bilateral: diminished, end expiratory wheeze - Cardiovascular Rhythm: regular Heart sounds: normal: S1, S2 - Gastrointestinal General gastrointestinal: normal bowel sounds - Integumentary Integumentary: normal turgor - Neurologic Neurologic: CNII-XII intact - Musculoskeletal Musculoskeletal: gait normal - Psychiatric Psychiatric: A&O x's 3, appropriate affect, intact judgment & insight - Labs CBC & Chem 7: 12/21/17 07:01 12/21/17 07:01 Labs: Abnormal Lab Results - Last 24 Hours (Table) 12/20/17 12/20/17 12/21/17 Range/Units 17:06 21:12 07:01 WBC (3.8-10.6) k/uL RBC (3.80-5.40) m/uL Hgb (11.4-16.0) gm/dL Hct (34.0-46.0) % Neutrophils # (1.3-7.7) k/uL Lymphocytes # (1.0-4.8) k/uL Chloride 114 H (98-107) mmol/L Carbon Dioxide 19 L (22-30) mmol/L BUN 81 H* (7-17) mg/dL Creatinine 3.27 H (0.52-1.04) mg/dL Glucose 142 H (74-99) mg/dL POC Glucose (mg/dL) 177 H 218 H (75-99) mg/dL AST 46 H (14-36) U/L ALT 59 H (9-52) U/L Total Protein 5.4 L (6.3-8.2) g/dL Albumin 2.9 L (3.5-5.0) g/dL 12/21/17 12/21/17 12/21/17 Range/Units 07:01 07:19 11:42 WBC 10.9 H (3.8-10.6) k/uL RBC 3.31 L (3.80-5.40) m/uL Hgb 10.2 L (11.4-16.0) gm/dL Hct 30.3 L (34.0-46.0) % Neutrophils # 9.8 H (1.3-7.7) k/uL Lymphocytes # 0.3 L (1.0-4.8) k/uL Chloride (98-107) mmol/L Carbon Dioxide (22-30) mmol/L BUN (7-17) mg/dL Creatinine (0.52-1.04) mg/dL Glucose (74-99) mg/dL POC Glucose (mg/dL) 158 H 135 H (75-99) mg/dL AST (14-36) U/L ALT (9-52) U/L Total Protein (6.3-8.2) g/dL Albumin (3.5-5.0) g/dL Microbiology - Last 24 Hours (Table) 12/15/17 15:30 Blood Culture - Preliminary Blood No Growth after 120 hours 12/18/17 11:30 Gram Stain - Final Bronchial Washings - Random Bronchial Washings Culture - Final 12/18/17 11:30 Gram Stain - Final Bronchial Washings - Left Bronchial Washings Culture - Final Assessment and Plan Assessment: #1 Acute renal failure of unclear etiology. No hydronephrosis per ultrasound. Presenting creatinine 6.15, currently 3.68. #2 Multiple pulmonary nodules along with cavitary masses. Left hilar soft tissue fullness and mediastinal adenopathy and upper abdominal lymphadenopathy with left adrenal nodularity. Neoplastic etiology with metastatic disease within the differential. Status post bronchoscopy with biopsies 12/18/2017 cultures and pathology are pending. #3 Chronic and ongoing tobacco dependence of greater than 40 years. 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 #5 History of right-sided breast cancer status post lumpectomy and radiation. #6 Large left thyroid nodule, negative biopsy in 2016. #7 Hypertension. #8 Hyperlipidemia. #9 Peripheral vascular disease with previous angioplasty of the left lower extremity. #10 Anxiety. Recommendation: Continue present supportive care measures, awaiting the final report from the bronchoscopy washings, brushings, and biopsies. This will likely be available next Friday. Continue to follow. Time with Patient: Less than 30
[2017-12-21] MEDS: ALPRAZolam 0.25 MG TAB PO PRN (15:36)
[2017-12-21] MEDS: LACTATED RINGERS 1,000 ML IV SCH (15:38)
--- NOTE | 2017-12-21 16:18 | P.PN ---
Subjective Progress Note Date: 12/21/17 Evelyn Flores is a 67 year old female who presented to [facility] to have a computed tomography scan of the chest was contrast BUN and creatinine were done prior to computed tomography scan and were significantly elevated, her BUN was 103, and creatinine 6.15, computed tomography scan was canceled and patient was sent to [facility] emergency room, she was evaluated in the emergency room she was given IV fluid and her creatinine came down slightly to 5.9, computed tomography scan of the chest without contrast was done and revealed multiple pulmonary nodules with a couple of cavitary masses patient also had evidence of lymphadenopathy in the chest and the upper abdomen, she also had a large left thyroid nodule, she was started on IV fluid and was admitted to the medical floor, pulmonary and nephrology and oncology consultation were requested. Patient has not been feeling well for the last 6 weeks, she had cough with minimal sputum production, she was given a course of antibiotic without any improvement, chest x-ray was done on 12/05/2017 and revealed evidence of right upper lobe lung mass computed tomography scan was recommended and this was scheduled for 12/15/2017 however patient was admitted due to severely elevated BUN and creatinine. Patient has a lifelong history of smoking, she has known history of hypertension , hyperlipidemia, anxiety disorder, and a thyroid nodule that was recently biopsied by Dr. Morales. At this time patient denies any pain or discomfort she reports having episodes of nausea and vomiting in the last 2 weeks she reports feeling full and then able to eat much, she reports significant weight loss in the last 6 weeks, she has been complaining of cough, she had minimal sputum production, she denies any hemoptysis, there is no abdominal pain no blood in the urine or in the stools. On 12/16/2017 patient is currently A & O 3 resting comfortably in bed. Patient does report some shortness of breath with activity. Patient denies chest pain. Denies nausea vomiting or diarrhea. Does reports she has very little appetite. Patient denies any urinary burning or frequency. On 12/17/2017 patient is currently alert and oriented 3 resting in bed comfortably. Patient's shortness of breath has improved. Patient being followed by pulmonary. Per pulmonary plan for bronchoscopy and biopsies tomorrow. IV steroids have been added per pulmonary. Patient denies chest pain at this time. Patient denies nausea vomiting or diarrhea. Patient denies any urinary burning or frequency On 12/18/2017 patient is currently alert and oriented X 3. Patient is currently resting comfortably in bed. Patient underwent bronchoscopy with biopsy without complication. Patient is currently on room air but does state she still gets winded upon activity. Patient denies chest pain or shortness of breath. Denies nausea vomiting or diarrhea. Denies any urinary or burning with urination On 12/19/2017 patient is currently alert and oriented 3. Patient remains short of breath after activity. Patient states she did not get much sleep last night. Patient denies chest pain. Patient denies nausea vomiting or diarrhea denies any urinary burning or frequency. On 12/20/2017 patient is currently alert and oriented 3. Patient remains short of breath with activity. Patient has chest pain or shortness of breath. Patient denies nausea vomiting or diarrhea. Denies any urinary burning or frequency On 12/21/2017 patient is alert and oriented 3 in no apparent distress, she had some episodes of confusion and hallucination that she thinks is related to steroid use she is still complaining of shortness of breath with any activity she complains of having poor taste in her mouth and poor appetite otherwise she denies any complaints there is no fever or chills no headache or dizziness no chest pain no nausea or vomiting no abdominal pain and no urinary symptoms Objective - Vital Signs Vital signs: Vital Signs Temp 98.1 F 12/21/17 13:00 Pulse 96 12/21/17 14:47 Resp 20 12/21/17 14:47 BP 127/83 12/21/17 13:00 Pulse Ox 96 12/21/17 13:00 Intake & Output 12/20/17 12/21/17 12/21/17 18:59 06:59 18:59 Intake Total 600 400 240 Balance 600 400 240 Intake: IV 600 Sodium Chloride 0.9% 1, 600 000 ml @ 75 mls/hr IV . [id number] [facility] Rx#:[id number] Oral 400 240 Other: Voiding Method Toilet Toilet # Voids 2 3 - Exam Head normocephalic Neck supple Lungs scattered crackles Heart regular rate and rhythm S1-S2, no rub or gallop Abdomen is soft nontender nondistended positive bowel sounds no hepatosplenomegaly Extremities no edema Neuro alert and orientated to 3 - Labs CBC & Chem 7: 12/21/17 07:01 12/21/17 07:01 Labs: Abnormal Lab Results - Last 24 Hours (Table) 12/20/17 12/20/17 12/21/17 Range/Units 17:06 21:12 07:01 WBC (3.8-10.6) k/uL RBC (3.80-5.40) m/uL Hgb (11.4-16.0) gm/dL Hct (34.0-46.0) % Neutrophils # (1.3-7.7) k/uL Lymphocytes # (1.0-4.8) k/uL Chloride 114 H (98-107) mmol/L Carbon Dioxide 19 L (22-30) mmol/L BUN 81 H* (7-17) mg/dL Creatinine 3.27 H (0.52-1.04) mg/dL Glucose 142 H (74-99) mg/dL POC Glucose (mg/dL) 177 H 218 H (75-99) mg/dL AST 46 H (14-36) U/L ALT 59 H (9-52) U/L Total Protein 5.4 L (6.3-8.2) g/dL Albumin 2.9 L (3.5-5.0) g/dL 12/21/17 12/21/17 12/21/17 Range/Units 07:01 07:19 11:42 WBC 10.9 H (3.8-10.6) k/uL RBC 3.31 L (3.80-5.40) m/uL Hgb 10.2 L (11.4-16.0) gm/dL Hct 30.3 L (34.0-46.0) % Neutrophils # 9.8 H (1.3-7.7) k/uL Lymphocytes # 0.3 L (1.0-4.8) k/uL Chloride (98-107) mmol/L Carbon Dioxide (22-30) mmol/L BUN (7-17) mg/dL Creatinine (0.52-1.04) mg/dL Glucose (74-99) mg/dL POC Glucose (mg/dL) 158 H 135 H (75-99) mg/dL AST (14-36) U/L ALT (9-52) U/L Total Protein (6.3-8.2) g/dL Albumin (3.5-5.0) g/dL Microbiology - Last 24 Hours (Table) 12/15/17 15:30 Blood Culture - Preliminary Blood No Growth after 120 hours Assessment and Plan Plan: #1 multiple pulmonary masses including 2 cavitary lesions. Pulmonary services have been consulted. Awaiting consult. Per pulmonary team planning biopsy and bronchoscopy tomorrow. Solu-Medrol 60 mg every 6 has been added. Patient underwent bronchoscopy with biopsies and Dr. Rojas. Awaiting biopsy results. Patient remains on IV steroids. Biopsies from 12/18/2017 Bronchoscopy cultures and pathology are pending #2 enlarged lymphadenopathy in the chest and upper abdomen. Oncology services . CA 2729 and CA 153 antigen ordered per oncology. CA 153 antigen 29.9 and CA 2729 elevated at 60.6. Oncology services are following #3 thyroid nodule with recent biopsy by Dr. Morales. Dr. Morales has been consulted for evaluation. #4 acute renal failure, last creatinine prior to this admission was in August 2017 and was 1.2. Creatinine 5.15 and bun 93. Nephrology following. Renal ultrasound completed showing fusiform lower abdomen aortic aneurysm measures up to 5.2 cm in diameter. The length is more than 8 cm. No hydronephrosis. Small left renal cortical cyst. We'll continue to monitor labs closely. Creatinine continued to trend down to 4.07 and bun 73. Per nephrology continue to monitor labs on a daily basis. Creatinine improving to 3.68 and bun 81. Her nephrology will bicarb has been increased to 1300 mg 3 times daily #5 underlying history of hypertension #6 underlying history of hyperlipidemia #7 evidence of COPD on computed tomography scan #8 tobacco abuse #9 underlying history of anxiety disorder #10 hypokalemia. Potassium replacement protocol. Will recheck potassium level and monitor closely. Repeat potassium 3.8 #11 abdominal aortic aneurysm. Renal ultrasound completed showing fusiform lower abdomen aortic aneurysm measuring up to 5.2 cm in diameter. The length is more than 8 cm. Patient to follow-up outpatient for further workup. #12 leukocytosis likely related to steroids. WBC increasing to 21.2. Blood culture currently negative. Patient does state she is coughing up sputum. Will order sputum sample WBC improving to 15.4 #13 insomnia. Melatonin added #14 hypomagnesemia. Magnesium 1.4. Replacement protocol. Continue to monitor closely. Magnesium 2.0 GI prophylaxis Pepcid and DVT prophylaxis SCDs. DVT prophylaxis heparin
[2017-12-21 17:09] LABS: Glucose,Whole Blood 200 mg/dL (75-99)
[2017-12-21 20:25] LABS: Glucose,Whole Blood 155 mg/dL (75-99)
[2017-12-21] MEDS: ATORVASTATIN 10 MG TAB PO SCH (20:38)
[2017-12-21] MEDS: MELATONIN 1 MG TAB PO PRN (23:07)
[2017-12-22] MEDS: methylPREDNISolone SOD SUCCI 125 MG/2 ML VIAL IV SCH ×2 (01:00→05:42)
[2017-12-22 07:38] LABS: Glucose,Whole Blood 136 mg/dL (75-99)
[2017-12-22 07:46] LABS: Albumin 3.1 g/dL (3.5-5.0); Potassium 3.5 mmol/L (3.5-5.1); Total Bilirubin 0.4 mg/dL (0.2-1.3); Total Protein 5.6 g/dL (6.3-8.2)
[2017-12-22] MEDS: INSULIN ASPART 100 UNIT/ML 1 ML 10 ML VIAL SQ SCH ×4 (07:47→21:21)
[2017-12-22] MEDS: SODIUM BICARBONATE TAB 650 MG TAB PO SCH ×3 (07:49→21:22)
[2017-12-22] MEDS: PENTOXIFYLLINE 400 MG TABLET.ER PO SCH ×3 (07:49→17:40)
[2017-12-22] MEDS: busPIRone HCl 5 MG TAB PO SCH ×3 (07:49→21:22)
[2017-12-22] MEDS: NYSTATIN 100,000 UNIT/ML SUSP 500,000 UNIT/5 ML CUP PO SCH ×4 (07:50→21:22)
[2017-12-22] MEDS: ASPIRIN 81 MG PO SCH (07:50)
[2017-12-22] MEDS: FAMOTIDINE 20 MG TAB PO SCH (07:50)
[2017-12-22] MEDS: HEPARIN SODIUM,PORCINE 5,000 UNIT/ML 1 ML VIAL SQ SCH ×2 (07:50→21:22)
[2017-12-22] MEDS: ATENOLOL 25 MG TAB PO SCH ×2 (07:50→21:22)
[2017-12-22 08:06] LABS: Basophils % (A) 0 %; Eosinophils % (A) 0 %; HCT 32.2 % (34.0-46.0); HGB 10.8 gm/dL (11.4-16.0); Lymphocytes # (A) 0.4 k/uL (1.0-4.8); Lymphocytes % (A) 3 %; MCH 30.5 pg (25.0-35.0); MCHC 33.6 g/dL (31.0-37.0); MCV 90.7 fL (80.0-100.0); Mean Platelet Volume 7.9; Monocytes # (A) 0.9 k/uL (0-1.0); Monocytes % (A) 6 %; Neutrophils # (A) 12.5 k/uL (1.3-7.7); Neutrophils % (A) 89 %; Platelet Count 199 k/uL (150-450); RBC 3.55 m/uL (3.80-5.40); RDW 13.8 % (11.5-15.5)
[2017-12-22] MEDS: IPRATROPIUM-ALBUTEROL 3 ML NEB INHALATION PRN ×2 (08:45→19:41)
[2017-12-22] MEDS: BUDESONIDE 1 MG/2 ML NEBU INHALATION SCH ×2 (08:45→19:42)
[2017-12-22] MEDS: FORMOTEROL FUMARATE 20 MCG/2 ML NEBU INHALATION SCH ×2 (08:45→19:42)
[2017-12-22] MEDS ORDERED: POTASSIUM CHLORIDE ER 20 MEQ TAB.ER PO STA (08:57)
--- NOTE | 2017-12-22 09:26 | P.PN ---
Subjective Patient is seen in follow for acute kidney injury. Creatinine was greater than 6 on admission and is down to 3.03 today. She is currently maintained on normal saline at 75 mL an hour. Patient was noted to have cavitary lesions in the lungs and underwent a bronchoscopy on December 18. Good urine output. Oral intake slowly improving. Feels anxious today. Also complaining of dyspnea. Vital signs are stable. General: The patient appeared well nourished and normally developed. HEENT: Head exam is unremarkable. Neck is without jugular venous distension. LUNGS: Lungs are clear to auscultation and percussion. Breath sounds decreased. HEART: Rate and Rhythm are regular. First and second heart sounds normal. No murmurs, rubs or gallops. ABDOMEN: Abdominal exam reveals normal bowel sounds. Non-tender and non- distended. No evidence of peritonitis. EXTREMITITES: No clubbing, cyanosis, or edema. Objective - Vital Signs Vital signs: Vital Signs Temp 97.7 F 12/22/17 05:00 Pulse 92 12/22/17 08:45 Resp 20 12/22/17 08:00 BP 115/78 12/22/17 05:00 Pulse Ox 90 L 12/22/17 05:00 Intake & Output 12/21/17 12/22/17 12/22/17 18:59 06:59 18:59 Intake Total 240 840 Balance 240 840 Weight 73.482 kg Intake: IV 300 Sodium Chloride 0.9% 1, 300 000 ml @ 75 mls/hr IV . [id number] [facility] Rx#:[id number] Intake, IV Titration 180 Amount Lactated Ringers 1,000 ml 180 @ 20 mls/hr IV .Q24H [facility] Rx#:[id number] Oral 240 360 Other: Voiding Method Toilet Toilet Toilet # Voids 3 2 # Bowel Movements 1 - Labs CBC & Chem 7: 12/22/17 06:29 12/22/17 06:29 Labs: Abnormal Lab Results - Last 24 Hours (Table) 12/21/17 12/21/17 12/21/17 Range/Units 11:42 17:08 20:23 WBC (3.8-10.6) k/uL RBC (3.80-5.40) m/uL Hgb (11.4-16.0) gm/dL Hct (34.0-46.0) % Neutrophils # (1.3-7.7) k/uL Lymphocytes # (1.0-4.8) k/uL Chloride (98-107) mmol/L BUN (7-17) mg/dL Creatinine (0.52-1.04) mg/dL Glucose (74-99) mg/dL POC Glucose (mg/dL) 135 H 200 H 155 H (75-99) mg/dL Total Protein (6.3-8.2) g/dL Albumin (3.5-5.0) g/dL 12/22/17 12/22/17 12/22/17 Range/Units 06:29 06:29 07:27 WBC 14.0 H (3.8-10.6) k/uL RBC 3.55 L (3.80-5.40) m/uL Hgb 10.8 L (11.4-16.0) gm/dL Hct 32.2 L (34.0-46.0) % Neutrophils # 12.5 H (1.3-7.7) k/uL Lymphocytes # 0.4 L (1.0-4.8) k/uL Chloride 112 H (98-107) mmol/L BUN 82 H* (7-17) mg/dL Creatinine 3.03 H (0.52-1.04) mg/dL Glucose 116 H (74-99) mg/dL POC Glucose (mg/dL) 136 H (75-99) mg/dL Total Protein 5.6 L (6.3-8.2) g/dL Albumin 3.1 L (3.5-5.0) g/dL Microbiology - Last 24 Hours (Table) 12/15/17 15:30 Blood Culture - Final Blood No Growth after 144 hours Assessment and Plan Plan: Assessment: 1. Nonoliguric acute kidney injury mostly prerenal secondary to severe intravascular volume depletion from poor oral intake and diuretics. Creatinine was greater than 6 on admission and is down to 3.03 today. No evidence of hydronephrosis noted on renal ultrasound. Urinalysis revealed trace proteinuria without RBCs. Electrophoresis studies negative. 2. Cavitary lung nodules status post bronchoscopy on December 18. Biopsy results pending. 3. Metabolic acidosis secondary to acute kidney injury. Improving. 4. Hypomagnesemia from poor oral intake. Improved post replacement. 5. Hypokalemia from poor oral intake. Plan: Hep-Lock IV fluids. Replace potassium. 40 mEq today. Encouraged oral intake. Check chest x-ray. Maintain oral bicarb. Repeat electrolytes in the morning.
[2017-12-22] MEDS: LACTATED RINGERS 1,000 ML IV SCH (10:26)
--- NOTE | 2017-12-22 10:34 | XR ---
EXAMINATION TYPE: XR chest 2V DATE OF EXAM: 12/22/2017 COMPARISON: 12/19/2017 HISTORY: 67 year-old female shortness of breath and cough TECHNIQUE: Frontal and lateral views FINDINGS: Heart remains borderline enlarged. Bilateral perihilar densities, left suprahilar density, and diffus e interstitial opacities with small pleural effusions and redemonstrated 2.2 cm right upper lobe nodu le. IMPRESSION: 1. Abnormal left perihilar soft tissue and right upper lobe nodule. Underlying neoplasm not excluded. Please refer to CT report 12/15/2017. 2. Diffuse interstitial opacities with small effusions. Superimposed atypical infections or interstit ial pulmonary edema can be considered. Again, refer to prior CT report as cavitary changes were seen at that time. Correlate with patient's interval workup.
--- NOTE | 2017-12-22 10:57 | P.PN ---
Subjective Progress Note Date: 12/22/17 Evelyn Flores is a 67 year old female who presented to [facility] to have a computed tomography scan of the chest was contrast BUN and creatinine were done prior to computed tomography scan and were significantly elevated, her BUN was 103, and creatinine 6.15, computed tomography scan was canceled and patient was sent to [facility] emergency room, she was evaluated in the emergency room she was given IV fluid and her creatinine came down slightly to 5.9, computed tomography scan of the chest without contrast was done and revealed multiple pulmonary nodules with a couple of cavitary masses patient also had evidence of lymphadenopathy in the chest and the upper abdomen, she also had a large left thyroid nodule, she was started on IV fluid and was admitted to the medical floor, pulmonary and nephrology and oncology consultation were requested. Patient has not been feeling well for the last 6 weeks, she had cough with minimal sputum production, she was given a course of antibiotic without any improvement, chest x-ray was done on 12/05/2017 and revealed evidence of right upper lobe lung mass computed tomography scan was recommended and this was scheduled for 12/15/2017 however patient was admitted due to severely elevated BUN and creatinine. Patient has a lifelong history of smoking, she has known history of hypertension , hyperlipidemia, anxiety disorder, and a thyroid nodule that was recently biopsied by Dr. Morales. At this time patient denies any pain or discomfort she reports having episodes of nausea and vomiting in the last 2 weeks she reports feeling full and then able to eat much, she reports significant weight loss in the last 6 weeks, she has been complaining of cough, she had minimal sputum production, she denies any hemoptysis, there is no abdominal pain no blood in the urine or in the stools. On 12/16/2017 patient is currently A & O 3 resting comfortably in bed. Patient does report some shortness of breath with activity. Patient denies chest pain. Denies nausea vomiting or diarrhea. Does reports she has very little appetite. Patient denies any urinary burning or frequency. On 12/17/2017 patient is currently alert and oriented 3 resting in bed comfortably. Patient's shortness of breath has improved. Patient being followed by pulmonary. Per pulmonary plan for bronchoscopy and biopsies tomorrow. IV steroids have been added per pulmonary. Patient denies chest pain at this time. Patient denies nausea vomiting or diarrhea. Patient denies any urinary burning or frequency On 12/18/2017 patient is currently alert and oriented X 3. Patient is currently resting comfortably in bed. Patient underwent bronchoscopy with biopsy without complication. Patient is currently on room air but does state she still gets winded upon activity. Patient denies chest pain or shortness of breath. Denies nausea vomiting or diarrhea. Denies any urinary or burning with urination On 12/19/2017 patient is currently alert and oriented 3. Patient remains short of breath after activity. Patient states she did not get much sleep last night. Patient denies chest pain. Patient denies nausea vomiting or diarrhea denies any urinary burning or frequency. On 12/20/2017 patient is currently alert and oriented 3. Patient remains short of breath with activity. Patient has chest pain or shortness of breath. Patient denies nausea vomiting or diarrhea. Denies any urinary burning or frequency On 12/21/2017 patient is alert and oriented 3 in no apparent distress, she had some episodes of confusion and hallucination that she thinks is related to steroid use she is still complaining of shortness of breath with any activity she complains of having poor taste in her mouth and poor appetite otherwise she denies any complaints there is no fever or chills no headache or dizziness no chest pain no nausea or vomiting no abdominal pain and no urinary symptoms On 12/22/2017 patient is alert and oriented in no distress complaining of anxiety and having poor sleep complaining of fatigue and shortness of breath with activity otherwise no complaints Objective - Vital Signs Vital signs: Vital Signs Temp 97.7 F 12/22/17 05:00 Pulse 92 12/22/17 08:45 Resp 20 12/22/17 08:00 BP 115/78 12/22/17 05:00 Pulse Ox 90 L 12/22/17 05:00 Intake & Output 12/21/17 12/22/17 12/22/17 18:59 06:59 18:59 Intake Total 240 840 Balance 240 840 Weight 73.482 kg Intake: IV 300 Sodium Chloride 0.9% 1, 300 000 ml @ 75 mls/hr IV . [id number] [facility] Rx#:[id number] Intake, IV Titration 180 Amount Lactated Ringers 1,000 ml 180 @ 20 mls/hr IV .Q24H [facility] Rx#:[id number] Oral 240 360 Other: Voiding Method Toilet Toilet Toilet # Voids 3 2 # Bowel Movements 1 - Exam Head normocephalic Neck supple Lungs scattered crackles Heart regular rate and rhythm S1-S2, no rub or gallop Abdomen is soft nontender nondistended positive bowel sounds no hepatosplenomegaly Extremities no edema Neuro alert and orientated to 3 - Labs CBC & Chem 7: 12/22/17 06:29 12/22/17 06:29 Labs: Abnormal Lab Results - Last 24 Hours (Table) 12/21/17 12/21/17 12/21/17 Range/Units 11:42 17:08 20:23 WBC (3.8-10.6) k/uL RBC (3.80-5.40) m/uL Hgb (11.4-16.0) gm/dL Hct (34.0-46.0) % Neutrophils # (1.3-7.7) k/uL Lymphocytes # (1.0-4.8) k/uL Chloride (98-107) mmol/L BUN (7-17) mg/dL Creatinine (0.52-1.04) mg/dL Glucose (74-99) mg/dL POC Glucose (mg/dL) 135 H 200 H 155 H (75-99) mg/dL Total Protein (6.3-8.2) g/dL Albumin (3.5-5.0) g/dL 12/22/17 12/22/17 12/22/17 Range/Units 06:29 06:29 07:27 WBC 14.0 H (3.8-10.6) k/uL RBC 3.55 L (3.80-5.40) m/uL Hgb 10.8 L (11.4-16.0) gm/dL Hct 32.2 L (34.0-46.0) % Neutrophils # 12.5 H (1.3-7.7) k/uL Lymphocytes # 0.4 L (1.0-4.8) k/uL Chloride 112 H (98-107) mmol/L BUN 82 H* (7-17) mg/dL Creatinine 3.03 H (0.52-1.04) mg/dL Glucose 116 H (74-99) mg/dL POC Glucose (mg/dL) 136 H (75-99) mg/dL Total Protein 5.6 L (6.3-8.2) g/dL Albumin 3.1 L (3.5-5.0) g/dL Microbiology - Last 24 Hours (Table) 12/15/17 15:30 Blood Culture - Final Blood No Growth after 144 hours Assessment and Plan Plan: #1 multiple pulmonary masses including 2 cavitary lesions. Pulmonary services have been consulted. Awaiting consult. Per pulmonary team planning biopsy and bronchoscopy tomorrow. Solu-Medrol 60 mg every 6 has been added. Patient underwent bronchoscopy with biopsies and Dr. Rojas. Awaiting biopsy results. Patient remains on IV steroids. Biopsies from 12/18/2017 Bronchoscopy cultures and pathology are pending #2 enlarged lymphadenopathy in the chest and upper abdomen. Oncology services . CA 2729 and CA 153 antigen ordered per oncology. CA 153 antigen 29.9 and CA 2729 elevated at 60.6. Oncology services are following #3 thyroid nodule with recent biopsy by Dr. Morales. Dr. Morales has been consulted for evaluation. #4 acute renal failure, last creatinine prior to this admission was in August 2017 and was 1.2. Creatinine 5.15 and bun 93. Nephrology following. Renal ultrasound completed showing fusiform lower abdomen aortic aneurysm measures up to 5.2 cm in diameter. The length is more than 8 cm. No hydronephrosis. Small left renal cortical cyst. We'll continue to monitor labs closely. Creatinine continued to trend down to 4.07 and bun 73. Per nephrology continue to monitor labs on a daily basis. Creatinine improving to 3.03 and bun 81. Her nephrology will bicarb has been increased to 1300 mg 3 times daily #5 underlying history of hypertension #6 underlying history of hyperlipidemia #7 evidence of COPD on computed tomography scan #8 tobacco abuse #9 underlying history of anxiety disorder #10 hypokalemia. Potassium replacement protocol. Will recheck potassium level and monitor closely. Repeat potassium 3.8 #11 abdominal aortic aneurysm. Renal ultrasound completed showing fusiform lower abdomen aortic aneurysm measuring up to 5.2 cm in diameter. The length is more than 8 cm. Patient to follow-up outpatient for further workup. #12 leukocytosis likely related to steroids. WBC increasing to 21.2. Blood culture currently negative. Patient does state she is coughing up sputum. Will order sputum sample WBC improving to 15.4 #13 insomnia. Melatonin added #14 hypomagnesemia. Magnesium 1.4. Replacement protocol. Continue to monitor closely. Magnesium 2.0 GI prophylaxis Pepcid and DVT prophylaxis SCDs. DVT prophylaxis heparin
[2017-12-22 11:32] LABS: Glucose,Whole Blood 142 mg/dL (75-99)
--- NOTE | 2017-12-22 13:24 | P.PN ---
Subjective Progress Note Date: 12/22/17 Principal diagnosis: Acute renal failure of unclear etiology, and multiple lung masses with lymphadenopathy This is a very pleasant 67-year-old female patient who follows with Dr. Mora as her primary care physician. She has a history of hypertension, hyperlipidemia, peripheral vascular disease with previous angioplasty of the left lower extremity, hearing disorder, right sided breast cancer status post lumpectomy and radiation treatment in 2005. She also has chronic and ongoing 40 + year smoking history. She had not been on any inhalers in the past. Approximately one month ago she started having increasing shortness of breath, cough and congestion. She was treated with antibiotics and nebulized treatments without much improvement. Follow-up chest x-ray revealed some abnormalities and she was scheduled for a CT angiogram of the chest to be performed yesterday. However her renal function was significantly elevated. She did undergo a computed tomography scan of the chest without contrast which revealed multiple pulmonary nodules measuring up to 2 cm. There is cavitary masses present in the left hilar region and left lower lobe. There is left hilar soft tissue fullness and mediastinal lymphadenopathy. There is also noted moderate emphysema/COPD. There is a large heterogenous left thyroid nodule with recent ultrasound revealing a large left lobe cystic-type thyroid nodule that was stable compared to previous. Renal ultrasound revealed no evidence of hydronephrosis. There is a small left renal cortical cysts. She does have a fusiform lower abdominal aortic aneurysm measuring 5.2 cm in diameter that is more than 8 cm in length. Initial creatinine 6.15. Today 5.15 the BUN of 93. Patient is seen today in consultation on the oncology unit. She is currently awake and alert in no acute distress. She has been feeling quite poorly especially the last several days without eating or drinking much. She's had approximately 30 pound weight loss over the past month since all of her symptoms began. She denies productive cough. No hemoptysis. The patient is seen again today 12/17/2017 in follow-up on the oncology unit. She is currently awake and alert in no acute distress. She is breathing quite a bit easier today as compared to yesterday. In general she is feeling better overall as well. Her renal function has improved current creatinine 4.33. Her pulmonary status has improved. She is less short of breath. Less bronchospastic and wheezy. Maintaining good O2 saturations in the mid to upper 90s on 2 L/m per nasal cannula. She is afebrile. Blood culture reveals no growth. White count 9.1. Hemoglobin 9.9. The patient is seen again today 12/18/2017 in follow-up on the oncology unit. She is awake and alert in no acute distress. She is breathing a bit better today as compared to yesterday. Maintaining good O2 saturations in the 90s on room air. She's been afebrile. Hemodynamically stable. Blood culture reveals no growth to date. White count 21.2. Hemoglobin 10.3. Creatinine 4.07. She did undergo bronchoscopy with biopsies with Dr. Rojas this morning. She tolerated the procedure well. Pathology is pending. The patient is seen again today 12/19/2017 in follow-up on the oncology unit. She is currently sitting up in bed having lunch. She is awake and alert in no acute distress. She is breathing a bit easier today as compared to yesterday but still dyspneic with exertion. 18 in good O2 saturations in the 90s on 2 L/ m per nasal cannula. Bronchial biopsies are pending. Cultures are pending. White count 15.4. Hemoglobin 10.0. Creatinine 3.86. The patient is seen again today on 12/20/2017 in follow-up on the oncology unit. She is currently sitting up in bed eating breakfast. She remains quite anxious and teary-eyed. She has short of breath with exertion. Still wheezing. She is maintaining O2 saturations in the 90s on 2 L/m per nasal cannula. She's been afebrile. Cultures reveal no growth thus far. Pathology is still pending. White count 15.6. Hemoglobin 10.5. Creatinine 3.68. Continued on sodium bicarb tablets. Reevaluated today on 12/21/2017, patient remains in the oncology unit, doing well , relatively asymptomatic except for intermittent cough and wheezing, feels generally weak. CBC is relatively normal, basic metabolic profile was reviewed BUN remains 81 creatinine is 3.27, and that being addressed by nephrology. Liver enzymes remains borderline elevated. Bronchoscopy results are still pending. Reevaluated today on 12/22/2017, patient is complaining of increased shortness of breath, intermittent cough and wheezing. Follow-up chest x-ray is basically about the same showing left perihilar soft tissue mass, right upper lobe nodule , and diffuse interstitial opacities with small effusions. Pathology and cytology is pending from her last bronchoscopy, hopefully we will be receiving some answers from the lab tomorrow. Labs were reviewed, WBC count is 14 hemoglobin 10.8 renal profile remains abnormal with BUN 82 creatinine 3.03. Objective - Vital Signs Vital signs: Vital Signs Temp 97.7 F 12/22/17 05:00 Pulse 92 12/22/17 08:45 Resp 20 12/22/17 08:00 BP 115/78 12/22/17 05:00 Pulse Ox 90 L 12/22/17 05:00 Intake & Output 12/21/17 12/22/17 12/22/17 18:59 06:59 18:59 Intake Total 240 840 Balance 240 840 Weight 73.482 kg Intake: IV 300 Sodium Chloride 0.9% 1, 300 000 ml @ 75 mls/hr IV . [id number] [facility] Rx#:[id number] Intake, IV Titration 180 Amount Lactated Ringers 1,000 ml 180 @ 20 mls/hr IV .Q24H [facility] Rx#:[id number] Oral 240 360 Other: Voiding Method Toilet Toilet Toilet # Voids 3 2 # Bowel Movements 1 - Exam - Constitutional General appearance: average body habitus, no acute distress - EENT Eyes: EOMI, PERRLA ENT: hard of hearing Ears: bilateral: normal - Neck Neck: normal ROM Carotids: bilateral: upstroke normal Thyroid: left: enlarged, nodule - Respiratory Respiratory: bilateral: diminished, end expiratory wheeze - Cardiovascular Rhythm: regular Heart sounds: normal: S1, S2 - Gastrointestinal General gastrointestinal: normal bowel sounds - Integumentary Integumentary: normal turgor - Neurologic Neurologic: CNII-XII intact - Musculoskeletal Musculoskeletal: gait normal - Psychiatric Psychiatric: A&O x's 3, appropriate affect, intact judgment & insight - Labs CBC & Chem 7: 12/22/17 06:29 12/22/17 06:29 Labs: Abnormal Lab Results - Last 24 Hours (Table) 12/21/17 12/21/17 12/22/17 Range/Units 17:08 20:23 06:29 WBC 14.0 H (3.8-10.6) k/uL RBC 3.55 L (3.80-5.40) m/uL Hgb 10.8 L (11.4-16.0) gm/dL Hct 32.2 L (34.0-46.0) % Neutrophils # 12.5 H (1.3-7.7) k/uL Lymphocytes # 0.4 L (1.0-4.8) k/uL Chloride (98-107) mmol/L BUN (7-17) mg/dL Creatinine (0.52-1.04) mg/dL Glucose (74-99) mg/dL POC Glucose (mg/dL) 200 H 155 H (75-99) mg/dL Total Protein (6.3-8.2) g/dL Albumin (3.5-5.0) g/dL 12/22/17 12/22/17 12/22/17 Range/Units 06:29 07:27 11:31 WBC (3.8-10.6) k/uL RBC (3.80-5.40) m/uL Hgb (11.4-16.0) gm/dL Hct (34.0-46.0) % Neutrophils # (1.3-7.7) k/uL Lymphocytes # (1.0-4.8) k/uL Chloride 112 H (98-107) mmol/L BUN 82 H* (7-17) mg/dL Creatinine 3.03 H (0.52-1.04) mg/dL Glucose 116 H (74-99) mg/dL POC Glucose (mg/dL) 136 H 142 H (75-99) mg/dL Total Protein 5.6 L (6.3-8.2) g/dL Albumin 3.1 L (3.5-5.0) g/dL Microbiology - Last 24 Hours (Table) 12/15/17 15:30 Blood Culture - Final Blood No Growth after 144 hours Assessment and Plan Assessment: #1 Acute renal failure of unclear etiology. No hydronephrosis per ultrasound. Presenting creatinine 6.15, currently 3.03 #2 Multiple pulmonary nodules along with cavitary masses. Left hilar soft tissue fullness and mediastinal adenopathy and upper abdominal lymphadenopathy with left adrenal nodularity. Neoplastic etiology with metastatic disease within the differential. Status post bronchoscopy with biopsies 12/18/2017 cultures and pathology are pending. Strongly suspect small cell lung cancer. #3 Chronic and ongoing tobacco dependence of greater than 40 years. 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 #5 History of right-sided breast cancer status post lumpectomy and radiation. #6 Large left thyroid nodule, negative biopsy in 2016. #7 Hypertension. #8 Hyperlipidemia. #9 Peripheral vascular disease with previous angioplasty of the left lower extremity. #10 Anxiety. Recommendation: Continue present supportive care measures, awaiting the final report from the bronchoscopy washings, brushings, and biopsies. Continue bronchodilators, antibiotics, and steroids. We'll continue to follow Time with Patient: Less than 30
--- NOTE | 2017-12-22 14:29 | US ---
EXAMINATION TYPE: US venous doppler duplex UE RT DATE OF EXAM: 12/22/2017 COMPARISON: NONE CLINICAL HISTORY: Edema RUE. Rt arm swelling SIDE PERFORMED: Right Right Arm: Negative for DVT, +positive for SVT within right cephalic at antecubital fossa and forearm / basilic vein unable to be visualized due to edema Multiple enlarged lymph nodes right lateral neck with largest AP measurement= 1.6 cm IMPRESSION: There is superficial thrombus in the cephalic vein. There are large right side cervical lymph nodes t hat measure up to 13 mm in length. No deep venous thrombosis.
--- NOTE | 2017-12-22 16:07 | P.PN ---
Subjective Progress Note Date: 12/22/17 Principal diagnosis: New Pulmonary Nodules and adenopathy Patient seen and examined today. Unable to eat oral thrush is severe, still awaiting path. She also complains of dizziness, hallucinations and blurred vision at times Objective - Vital Signs Vital signs: Vital Signs Temp 97.7 F 12/22/17 05:00 Pulse 92 12/22/17 08:45 Resp 20 12/22/17 08:00 BP 115/78 12/22/17 05:00 Pulse Ox 90 L 12/22/17 05:00 Intake & Output 12/21/17 12/22/17 12/22/17 18:59 06:59 18:59 Intake Total 240 840 Balance 240 840 Weight 73.482 kg Intake: IV 300 Sodium Chloride 0.9% 1, 300 000 ml @ 75 mls/hr IV . [id number] MIGUEL Rx#:[id number] Intake, IV Titration 180 Amount Lactated Ringers 1,000 ml 180 @ 20 mls/hr IV .Q24H MIGUEL Rx#:[id number] Oral 240 360 Other: Voiding Method Toilet Toilet Toilet # Voids 3 2 # Bowel Movements 1 - Exam - Constitutional General appearance: average body habitus, mild distress - EENT Eyes: EOMI, PERRLA ENT: hard of hearing Ears: bilateral: normal Mouth Severe Thrush tongue and posterior pharynx grade 3 - Neck Neck: normal ROM Carotids: bilateral: upstroke normal Thyroid: left: enlarged, nodule - Respiratory Respiratory: bilateral: diminished, rhonchi - Cardiovascular Rhythm: regular Heart sounds: normal: S1, S2 - Gastrointestinal General gastrointestinal: normal bowel sounds - Integumentary Integumentary: normal turgor - Neurologic Neurologic: CNII-XII intact - Musculoskeletal Musculoskeletal: gait normal - Psychiatric Psychiatric: A&O x's 3, appropriate affect, intact judgment & insight - Labs CBC & Chem 7: 12/22/17 06:29 12/22/17 06:29 Labs: Abnormal Lab Results - Last 24 Hours (Table) 12/21/17 12/21/17 12/21/17 Range/Units 11:42 17:08 20:23 WBC (3.8-10.6) k/uL RBC (3.80-5.40) m/uL Hgb (11.4-16.0) gm/dL Hct (34.0-46.0) % Neutrophils # (1.3-7.7) k/uL Lymphocytes # (1.0-4.8) k/uL Chloride (98-107) mmol/L BUN (7-17) mg/dL Creatinine (0.52-1.04) mg/dL Glucose (74-99) mg/dL POC Glucose (mg/dL) 135 H 200 H 155 H (75-99) mg/dL Total Protein (6.3-8.2) g/dL Albumin (3.5-5.0) g/dL 12/22/17 12/22/17 12/22/17 Range/Units 06:29 06:29 07:27 WBC 14.0 H (3.8-10.6) k/uL RBC 3.55 L (3.80-5.40) m/uL Hgb 10.8 L (11.4-16.0) gm/dL Hct 32.2 L (34.0-46.0) % Neutrophils # 12.5 H (1.3-7.7) k/uL Lymphocytes # 0.4 L (1.0-4.8) k/uL Chloride 112 H (98-107) mmol/L BUN 82 H* (7-17) mg/dL Creatinine 3.03 H (0.52-1.04) mg/dL Glucose 116 H (74-99) mg/dL POC Glucose (mg/dL) 136 H (75-99) mg/dL Total Protein 5.6 L (6.3-8.2) g/dL Albumin 3.1 L (3.5-5.0) g/dL Microbiology - Last 24 Hours (Table) 12/15/17 15:30 Blood Culture - Final Blood No Growth after 144 hours Assessment and Plan Plan: Assessment and Recommendations: 1. New Mediastinal Lymphadenopathy and Pulmonary Nodules: - Will need a tissue biopsy, likely surgical (to send further tests if possible ), for diagnsis - Pulmonary is following and will defer Bronchoscopy versus IR Needle Biopsy - Full Initial Staging once renal function improves - May benefit from MRI brain as well when renal function improves - Biopsy via Bronch 12/18/17 - Pending - Await Pathology and more recs to follow 2. Acute Renal Failure: - This maybe related to Dehydration and Dramatic reduction in PO intake - She has had a large weight loss and decreased po intake overall - Nephrology is following - Renal Function Mildly improving 3. Hypokalemia - Per Nephrology 4. Hx: Breast Cancer - Lumpectomy and radiation in 2005 - Unaware of type - Check Tumor Markers, Ca 27.29 is mildly elevated from normal range 5. Grade 3 oral thrush and inability to eat: - Add Diflucan as she requires systemic treatment - Re-education on mouth rinse after inhalers - Benefit of diflucan outweigh risks of inhaled interaction 6. Dizziness, intermittent confusion and hallucinations: - Medication versus other - COnsider possibility of metastatic disease - MRI of brain ordered Physician attestation: I have completed the full history and physical of this patient and agree with above dictation by Paula Bergeron, Dictated as a scribe.
[2017-12-22 17:00] LABS: Glucose,Whole Blood 111 mg/dL (75-99)
[2017-12-22] MEDS: FLUCONAZOLE 100 MG TAB PO SCH (17:39)
[2017-12-22] MEDS: methylPREDNISolone SOD SUCCI 40 MG/ML 1 ML VIAL IV SCH ×2 (17:39→23:46)
[2017-12-22 20:31] LABS: Glucose,Whole Blood 141 mg/dL (75-99)
[2017-12-22] MEDS: ATORVASTATIN 10 MG TAB PO SCH (21:22)
[2017-12-22] MEDS: MELATONIN 5 MG TABLET PO SCH (21:22)
[2017-12-23] MEDS: ALPRAZolam 0.25 MG TAB PO PRN (07:04)
[2017-12-23] MEDS: SODIUM BICARBONATE TAB 650 MG TAB PO SCH ×3 (08:01→21:07)
[2017-12-23] MEDS: FLUCONAZOLE 100 MG TAB PO SCH (08:01)
[2017-12-23] MEDS: ATENOLOL 25 MG TAB PO SCH ×2 (08:01→21:07)
[2017-12-23] MEDS: busPIRone HCl 5 MG TAB PO SCH ×3 (08:01→21:07)
[2017-12-23] MEDS: ASPIRIN 81 MG PO SCH (08:02)
[2017-12-23] MEDS: PENTOXIFYLLINE 400 MG TABLET.ER PO SCH ×3 (08:02→17:50)
[2017-12-23] MEDS: NYSTATIN 100,000 UNIT/ML SUSP 500,000 UNIT/5 ML CUP PO SCH ×4 (08:02→21:47)
[2017-12-23] MEDS: methylPREDNISolone SOD SUCCI 40 MG/ML 1 ML VIAL IV SCH ×2 (08:02→15:51)
[2017-12-23] MEDS: HEPARIN SODIUM,PORCINE 5,000 UNIT/ML 1 ML VIAL SQ SCH ×2 (08:02→21:07)
[2017-12-23] MEDS: FAMOTIDINE 20 MG TAB PO SCH (08:03)
[2017-12-23 08:09] LABS: Glucose,Whole Blood 189 mg/dL (75-99)
[2017-12-23] MEDS: INSULIN ASPART 100 UNIT/ML 1 ML 10 ML VIAL SQ SCH ×4 (08:10→21:06)
--- NOTE | 2017-12-23 08:18 | MR ---
EXAMINATION TYPE: MR brain wo con DATE OF EXAM: 12/23/2017 COMPARISON: NONE HISTORY: 67-year-old female confusion, concern for metastases. TECHNIQUE: Multiplanar, multisequence images of the brain and brainstem were acquired without IV con trast. Diffusion weighted imaging is performed. FINDINGS: No evidence for acute infarction, hemorrhage, mass, mass effect, midline shift, herniation, effacemen t of basal cisterns, or extra-axial fluid collection. There is focal increased T2/FLAIR signal at the right paramedian frontoparietal junction busch-white m atter interface at the vertex. Difficult to exclude small area of vasogenic edema here. Otherwise, T2/FLAIR weighted sequences show minimal scattered foci of white white matter change in th e subcortical regions. On axial FLAIR sequence, image 24, there is some plaque-like nodularity along the right perimedian an terior falx without correlate on T2 axial or coronal, probably representing a vessel. There is mild t o moderate generalized supratentorial volume loss. Secondary mild prominence to the ventricular syste m. Major intracranial flow voids are intact. There is an empty sella. Otherwise, midline structures demonstrate normal morphology. The craniocerv ical junction is normal. Contrast was not administered. Mild mucosal thickening ethmoid air cells. Globes are intact. IMPRESSION: 1. Small area of focal increased T2/FLAIR signal in the right paramedian frontoparietal junction busch -white matter interface at the vertex. Given the patient's history, difficult to exclude a small area of vasogenic edema here. Sequela of prior vascular or traumatic insult is the alternative considerat ion. Follow-up with contrast enhanced MRI can be considered especially if there is high clinical conc harika for brain metastases. 2. Otherwise, no acute intracranial abnormality seen. Chronic T2 bright white matter changes as described above.
[2017-12-23 08:37] LABS: Basophils % (A) 0 %; Eosinophils % (A) 0 %; HCT 31.5 % (34.0-46.0); HGB 10.4 gm/dL (11.4-16.0); Lymphocytes # (A) 0.3 k/uL (1.0-4.8); Lymphocytes % (A) 3 %; MCH 30.3 pg (25.0-35.0); MCHC 33.2 g/dL (31.0-37.0); MCV 91.2 fL (80.0-100.0); Mean Platelet Volume 7.1; Monocytes # (A) 0.5 k/uL (0-1.0); Monocytes % (A) 4 %; Neutrophils # (A) 11.1 k/uL (1.3-7.7); Neutrophils % (A) 92 %; Platelet Count 158 k/uL (150-450); RBC 3.45 m/uL (3.80-5.40); RDW 13.9 % (11.5-15.5); WBC 12.1 k/uL (3.8-10.6)
[2017-12-23 08:49] LABS: Albumin 3.1 g/dL (3.5-5.0); Calcium 8.8 mg/dL (8.4-10.2); Potassium 3.7 mmol/L (3.5-5.1); Total Bilirubin 0.5 mg/dL (0.2-1.3); Total Protein 5.4 g/dL (6.3-8.2)
[2017-12-23] MEDS: FORMOTEROL FUMARATE 20 MCG/2 ML NEBU INHALATION SCH ×2 (09:26→20:25)
[2017-12-23] MEDS: IPRATROPIUM-ALBUTEROL 3 ML NEB INHALATION PRN ×4 (09:26→20:25)
[2017-12-23] MEDS: BUDESONIDE 1 MG/2 ML NEBU INHALATION SCH ×2 (09:27→20:25)
--- NOTE | 2017-12-23 11:28 | P.PN ---
Subjective Progress Note Date: 12/23/17 Evelyn Flores is a 67 year old female who presented to [facility] to have a computed tomography scan of the chest was contrast BUN and creatinine were done prior to computed tomography scan and were significantly elevated, her BUN was 103, and creatinine 6.15, computed tomography scan was canceled and patient was sent to [facility] emergency room, she was evaluated in the emergency room she was given IV fluid and her creatinine came down slightly to 5.9, computed tomography scan of the chest without contrast was done and revealed multiple pulmonary nodules with a couple of cavitary masses patient also had evidence of lymphadenopathy in the chest and the upper abdomen, she also had a large left thyroid nodule, she was started on IV fluid and was admitted to the medical floor, pulmonary and nephrology and oncology consultation were requested. Patient has not been feeling well for the last 6 weeks, she had cough with minimal sputum production, she was given a course of antibiotic without any improvement, chest x-ray was done on 12/05/2017 and revealed evidence of right upper lobe lung mass computed tomography scan was recommended and this was scheduled for 12/15/2017 however patient was admitted due to severely elevated BUN and creatinine. Patient has a lifelong history of smoking, she has known history of hypertension , hyperlipidemia, anxiety disorder, and a thyroid nodule that was recently biopsied by Dr. Morales. At this time patient denies any pain or discomfort she reports having episodes of nausea and vomiting in the last 2 weeks she reports feeling full and then able to eat much, she reports significant weight loss in the last 6 weeks, she has been complaining of cough, she had minimal sputum production, she denies any hemoptysis, there is no abdominal pain no blood in the urine or in the stools. On 12/16/2017 patient is currently A & O 3 resting comfortably in bed. Patient does report some shortness of breath with activity. Patient denies chest pain. Denies nausea vomiting or diarrhea. Does reports she has very little appetite. Patient denies any urinary burning or frequency. On 12/17/2017 patient is currently alert and oriented 3 resting in bed comfortably. Patient's shortness of breath has improved. Patient being followed by pulmonary. Per pulmonary plan for bronchoscopy and biopsies tomorrow. IV steroids have been added per pulmonary. Patient denies chest pain at this time. Patient denies nausea vomiting or diarrhea. Patient denies any urinary burning or frequency On 12/18/2017 patient is currently alert and oriented X 3. Patient is currently resting comfortably in bed. Patient underwent bronchoscopy with biopsy without complication. Patient is currently on room air but does state she still gets winded upon activity. Patient denies chest pain or shortness of breath. Denies nausea vomiting or diarrhea. Denies any urinary or burning with urination On 12/19/2017 patient is currently alert and oriented 3. Patient remains short of breath after activity. Patient states she did not get much sleep last night. Patient denies chest pain. Patient denies nausea vomiting or diarrhea denies any urinary burning or frequency. On 12/20/2017 patient is currently alert and oriented 3. Patient remains short of breath with activity. Patient has chest pain or shortness of breath. Patient denies nausea vomiting or diarrhea. Denies any urinary burning or frequency On 12/21/2017 patient is alert and oriented 3 in no apparent distress, she had some episodes of confusion and hallucination that she thinks is related to steroid use she is still complaining of shortness of breath with any activity she complains of having poor taste in her mouth and poor appetite otherwise she denies any complaints there is no fever or chills no headache or dizziness no chest pain no nausea or vomiting no abdominal pain and no urinary symptoms On 12/22/2017 patient is alert and oriented in no distress complaining of anxiety and having poor sleep complaining of fatigue and shortness of breath with activity otherwise no complaints On 12/23/2017 patient is alert and oriented 3. Patient is currently resting comfortably in bed. Does state some improvement with shortness of breath. Patient has been started on Diflucan per oncology for thrush. Patient does state some improvement with being able to eat. At this time patient denies chest pain or shortness of breath. Denies nausea vomiting or diarrhea. Denies any urinary burning or frequency Objective - Vital Signs Vital signs: Vital Signs Temp 98 F 12/23/17 06:35 Pulse 84 12/23/17 09:48 Resp 16 12/23/17 09:27 BP 119/82 12/23/17 06:35 Pulse Ox 95 12/23/17 09:27 Intake & Output 12/22/17 12/23/17 12/23/17 18:59 06:59 18:59 Intake Total 240 250 Output Total 2 Balance 238 250 Intake: Oral 240 250 Output: Urine 2 Other: Voiding Method Toilet Toilet Toilet # Voids 1 - Exam Head normocephalic Neck supple Lungs scattered crackles Heart regular rate and rhythm S1-S2, no rub or gallop Abdomen is soft nontender nondistended positive bowel sounds no hepatosplenomegaly Extremities no edema Neuro alert and orientated to 3 - Labs CBC & Chem 7: 12/23/17 08:08 12/23/17 08:08 Labs: Abnormal Lab Results - Last 24 Hours (Table) 12/22/17 12/22/17 12/22/17 Range/Units 11:31 16:59 20:10 WBC (3.8-10.6) k/uL RBC (3.80-5.40) m/uL Hgb (11.4-16.0) gm/dL Hct (34.0-46.0) % Neutrophils # (1.3-7.7) k/uL Lymphocytes # (1.0-4.8) k/uL Chloride (98-107) mmol/L BUN (7-17) mg/dL Creatinine (0.52-1.04) mg/dL Glucose (74-99) mg/dL POC Glucose (mg/dL) 142 H 111 H 141 H (75-99) mg/dL Total Protein (6.3-8.2) g/dL Albumin (3.5-5.0) g/dL 12/23/17 12/23/17 12/23/17 Range/Units 08:02 08:08 08:08 WBC 12.1 H (3.8-10.6) k/uL RBC 3.45 L (3.80-5.40) m/uL Hgb 10.4 L (11.4-16.0) gm/dL Hct 31.5 L (34.0-46.0) % Neutrophils # 11.1 H (1.3-7.7) k/uL Lymphocytes # 0.3 L (1.0-4.8) k/uL Chloride 112 H (98-107) mmol/L BUN 84 H* (7-17) mg/dL Creatinine 2.71 H (0.52-1.04) mg/dL Glucose 156 H (74-99) mg/dL POC Glucose (mg/dL) 189 H (75-99) mg/dL Total Protein 5.4 L (6.3-8.2) g/dL Albumin 3.1 L (3.5-5.0) g/dL Assessment and Plan Assessment: #1 multiple pulmonary masses including 2 cavitary lesions. Pulmonary services have been consulted. Awaiting consult. Per pulmonary team planning biopsy and bronchoscopy tomorrow. Solu-Medrol 60 mg every 6 has been added. Patient underwent bronchoscopy with biopsies and Dr. Rojas. Awaiting biopsy results. Patient remains on IV steroids. Biopsies from 12/18/2017 Bronchoscopy cultures and pathology are pending #2 enlarged lymphadenopathy in the chest and upper abdomen. Oncology services . CA 2729 and CA 153 antigen ordered per oncology. CA 153 antigen 29.9 and CA 2729 elevated at 60.6. Oncology services are following. Brain MRI ordered per oncology. Brain MRI completed showing small area of focal increased T2/FLAIR signal in the right paramedian frontoparietal junction busch white matter interface at the vertex. Given the patient's history, difficult to exclude a small area of vasogenic edema here. [place] of prior vascular or traumatic insult is the alternative consideration. Follow-up with contrast enhanced MRI can be considered especially if there is high clinical concern for Travis brain metastasis. Otherwise no acute intracranial abnormality seen. Oncology service is following #3 thyroid nodule with recent biopsy by Dr. Morales. Dr. Morales has been consulted for evaluation. #4 acute renal failure, last creatinine prior to this admission was in August 2017 and was 1.2. Creatinine 5.15 and bun 93. Nephrology following. Renal ultrasound completed showing fusiform lower abdomen aortic aneurysm measures up to 5.2 cm in diameter. The length is more than 8 cm. No hydronephrosis. Small left renal cortical cyst. We'll continue to monitor labs closely. Creatinine continued to trend down to 4.07 and bun 73. Per nephrology continue to monitor labs on a daily basis. Creatinine improving to 3.03 and bun 81. Her nephrology will bicarb has been increased to 1300 mg 3 times daily. Per nephrology fluids have been hep-locked. Bun 84 and creatinine 2.71 #5 underlying history of hypertension #6 underlying history of hyperlipidemia #7 evidence of COPD on computed tomography scan #8 tobacco abuse #9 underlying history of anxiety disorder #10 hypokalemia. Potassium replacement protocol. Will recheck potassium level and monitor closely. Repeat potassium 3.8 #11 abdominal aortic aneurysm. Renal ultrasound completed showing fusiform lower abdomen aortic aneurysm measuring up to 5.2 cm in diameter. The length is more than 8 cm. Patient to follow-up outpatient for further workup. #12 leukocytosis likely related to steroids. WBC increasing to 21.2. Blood culture currently negative. Patient does state she is coughing up sputum. Will order sputum sample WBC improving to 15.4 #13 insomnia. Melatonin added #14 hypomagnesemia. Magnesium 1.4. Replacement protocol. Continue to monitor closely. Magnesium 2.0 #15 right arm swelling. Venous Doppler completed completed showing superficial thrombus in the cephalic vein. There is a large right-sided cervical lymph node that measures up to 13 mm in length. No deep vein thrombosis.. Likely related to infiltration of IV. Right arm swelling improving #16 oral Thrush. Diflucan 100 mg has been added per oncology. GI prophylaxis Pepcid and DVT prophylaxis SCDs. DVT prophylaxis heparin I performed an examination of the patient and discussed their management with the Nurse Practitioner. I have reviewed the Nurse Practitioner's notes and agree with the documented findings and plan of care
[2017-12-23 11:33] LABS: Glucose,Whole Blood 244 mg/dL (75-99)
--- NOTE | 2017-12-23 12:24 | P.PN ---
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 This is a very pleasant 67-year-old female patient who follows with Dr. Mora as her primary care physician. She has a history of hypertension, hyperlipidemia, peripheral vascular disease with previous angioplasty of the left lower extremity, hearing disorder, right sided breast cancer status post lumpectomy and radiation treatment in 2005. She also has chronic and ongoing 40 + year smoking history. She had not been on any inhalers in the past. Approximately one month ago she started having increasing shortness of breath, cough and congestion. She was treated with antibiotics and nebulized treatments without much improvement. Follow-up chest x-ray revealed some abnormalities and she was scheduled for a CT angiogram of the chest to be performed yesterday. However her renal function was significantly elevated. She did undergo a computed tomography scan of the chest without contrast which revealed multiple pulmonary nodules measuring up to 2 cm. There is cavitary masses present in the left hilar region and left lower lobe. There is left hilar soft tissue fullness and mediastinal lymphadenopathy. There is also noted moderate emphysema/COPD. There is a large heterogenous left thyroid nodule with recent ultrasound revealing a large left lobe cystic-type thyroid nodule that was stable compared to previous. Renal ultrasound revealed no evidence of hydronephrosis. There is a small left renal cortical cysts. She does have a fusiform lower abdominal aortic aneurysm measuring 5.2 cm in diameter that is more than 8 cm in length. Initial creatinine 6.15. Today 5.15 the BUN of 93. Patient is seen today in consultation on the oncology unit. She is currently awake and alert in no acute distress. She has been feeling quite poorly especially the last several days without eating or drinking much. She's had approximately 30 pound weight loss over the past month since all of her symptoms began. She denies productive cough. No hemoptysis. The patient is seen again today 12/17/2017 in follow-up on the oncology unit. She is currently awake and alert in no acute distress. She is breathing quite a bit easier today as compared to yesterday. In general she is feeling better overall as well. Her renal function has improved current creatinine 4.33. Her pulmonary status has improved. She is less short of breath. Less bronchospastic and wheezy. Maintaining good O2 saturations in the mid to upper 90s on 2 L/m per nasal cannula. She is afebrile. Blood culture reveals no growth. White count 9.1. Hemoglobin 9.9. The patient is seen again today 12/18/2017 in follow-up on the oncology unit. She is awake and alert in no acute distress. She is breathing a bit better today as compared to yesterday. Maintaining good O2 saturations in the 90s on room air. She's been afebrile. Hemodynamically stable. Blood culture reveals no growth to date. White count 21.2. Hemoglobin 10.3. Creatinine 4.07. She did undergo bronchoscopy with biopsies with Dr. Rojsa this morning. She tolerated the procedure well. Pathology is pending. The patient is seen again today 12/19/2017 in follow-up on the oncology unit. She is currently sitting up in bed having lunch. She is awake and alert in no acute distress. She is breathing a bit easier today as compared to yesterday but still dyspneic with exertion. 18 in good O2 saturations in the 90s on 2 L/ m per nasal cannula. Bronchial biopsies are pending. Cultures are pending. White count 15.4. Hemoglobin 10.0. Creatinine 3.86. The patient is seen again today on 12/20/2017 in follow-up on the oncology unit. She is currently sitting up in bed eating breakfast. She remains quite anxious and teary-eyed. She has short of breath with exertion. Still wheezing. She is maintaining O2 saturations in the 90s on 2 L/m per nasal cannula. She's been afebrile. Cultures reveal no growth thus far. Pathology is still pending. White count 15.6. Hemoglobin 10.5. Creatinine 3.68. Continued on sodium bicarb tablets. Reevaluated today on 12/21/2017, patient remains in the oncology unit, doing well , relatively asymptomatic except for intermittent cough and wheezing, feels generally weak. CBC is relatively normal, basic metabolic profile was reviewed BUN remains 81 creatinine is 3.27, and that being addressed by nephrology. Liver enzymes remains borderline elevated. Bronchoscopy results are still pending. Reevaluated today on 12/22/2017, patient is complaining of increased shortness of breath, intermittent cough and wheezing. Follow-up chest x-ray is basically about the same showing left perihilar soft tissue mass, right upper lobe nodule , and diffuse interstitial opacities with small effusions. Pathology and cytology is pending from her last bronchoscopy, hopefully we will be receiving some answers from the lab tomorrow. Labs were reviewed, WBC count is 14 hemoglobin 10.8 renal profile remains abnormal with BUN 82 creatinine 3.03. On 12/23/2017 patient seen in follow-up. Still has some wheezing, intermittent cough, and shortness of breath. She feels a bit less congested, and feels like she should be able to start bringing up some sputum. 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 Oncology report of the brushing and Andre needle biopsy pending. She remains on 2 L per nasal cannula, pulse ox is 95%. Renal profile is slightly improved, B1 is 84, creatinine is 2.71. WBC is 12.1, hemoglobin is 10.4. Cultures are negative thus far. Including the bronchial wash cultures. He went for MRI of the brain this morning showed small area of focal increased T2/Flair signal in the right paramedian frontoparietal junction busch-white matter interface, difficult to exclude a small area of vasogenic edema, but no acute intracranial abnormality. Oncology is following. Objective - Vital Signs Vital signs: Vital Signs Temp 98 F 12/23/17 06:35 Pulse 84 12/23/17 09:48 Resp 16 12/23/17 09:27 BP 119/82 12/23/17 06:35 Pulse Ox 95 12/23/17 09:27 Intake & Output 12/22/17 12/23/17 12/23/17 18:59 06:59 18:59 Intake Total 240 250 Output Total 2 Balance 238 250 Intake: Oral 240 250 Output: Urine 2 Other: Voiding Method Toilet Toilet Toilet # Voids 1 - Exam - Constitutional General appearance: average body habitus, no acute distress - EENT Eyes: EOMI, PERRLA ENT: hard of hearing Ears: bilateral: normal - Neck Neck: normal ROM Carotids: bilateral: upstroke normal Thyroid: left: enlarged, nodule - Respiratory Respiratory: bilateral: diminished, end expiratory wheeze - Cardiovascular Rhythm: regular Heart sounds: normal: S1, S2 - Gastrointestinal General gastrointestinal: normal bowel sounds - Integumentary Integumentary: normal turgor - Neurologic Neurologic: CNII-XII intact - Musculoskeletal Musculoskeletal: gait normal - Psychiatric Psychiatric: A&O x's 3, appropriate affect, intact judgment & insight - Labs CBC & Chem 7: 12/23/17 08:08 12/23/17 08:08 Labs: Abnormal Lab Results - Last 24 Hours (Table) 12/22/17 12/22/17 12/23/17 Range/Units 16:59 20:10 08:02 WBC (3.8-10.6) k/uL RBC (3.80-5.40) m/uL Hgb (11.4-16.0) gm/dL Hct (34.0-46.0) % Neutrophils # (1.3-7.7) k/uL Lymphocytes # (1.0-4.8) k/uL Chloride (98-107) mmol/L BUN (7-17) mg/dL Creatinine (0.52-1.04) mg/dL Glucose (74-99) mg/dL POC Glucose (mg/dL) 111 H 141 H 189 H (75-99) mg/dL Total Protein (6.3-8.2) g/dL Albumin (3.5-5.0) g/dL 12/23/17 12/23/17 12/23/17 Range/Units 08:08 08:08 11:27 WBC 12.1 H (3.8-10.6) k/uL RBC 3.45 L (3.80-5.40) m/uL Hgb 10.4 L (11.4-16.0) gm/dL Hct 31.5 L (34.0-46.0) % Neutrophils # 11.1 H (1.3-7.7) k/uL Lymphocytes # 0.3 L (1.0-4.8) k/uL Chloride 112 H (98-107) mmol/L BUN 84 H* (7-17) mg/dL Creatinine 2.71 H (0.52-1.04) mg/dL Glucose 156 H (74-99) mg/dL POC Glucose (mg/dL) 244 H (75-99) mg/dL Total Protein 5.4 L (6.3-8.2) g/dL Albumin 3.1 L (3.5-5.0) g/dL Assessment and Plan Plan: Assessment: #1 Acute renal failure of unclear etiology. No hydronephrosis per ultrasound. Presenting creatinine 6.15, currently 2.71 #2 Multiple pulmonary nodules along with cavitary masses. Left hilar soft tissue fullness and mediastinal adenopathy and upper abdominal lymphadenopathy with left adrenal nodularity. Neoplastic etiology with metastatic disease within the differential. Status post bronchoscopy with biopsies 12/18/2017 cultures and lingular transbronchial biopsy was positive for synchronous squamous cell and small cell carcinoma #3 Chronic and ongoing tobacco dependence of greater than 40 years. 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 #5 History of right-sided breast cancer status post lumpectomy and radiation. #6 Large left thyroid nodule, negative biopsy in 2015. #7 Hypertension. #8 Hyperlipidemia. #9 Peripheral vascular disease with previous angioplasty of the left lower extremity. #10 Anxiety. Recommendation: Continue current medical treatment, lingular transbronchial biopsy was positive for synchronous squamous cell and small cell carcinoma, results of the lung needle biopsy and the brushings are pending. Oncology is following. I performed a history & physical examination of the patient and discussed their management with my nurse practitioner, Rita Hopkins. I reviewed the nurse practitioner's note and agree with the documented findings and plan of care. Lung sounds are positive for diffuse wheezes and scattered rhonchi throughout the lung pederson. The findings and the impression was discussed with the patient. I attest to the documentation by the nurse practitioner. Time with Patient: Less than 30
[2017-12-23] MEDS ORDERED: FUROSEMIDE 10 MG/ML 4 ML VIAL IV STA (15:31)
--- NOTE | 2017-12-23 16:00 | PN ---
PROGRESS NOTE Patient is seen for followup for acute kidney injury. Renal function continues to improve on a daily basis. Serum creatinine is down to 2.71 from 6.15 on initial admission. Currently patient is not on any IV fluids. She is complaining of some swelling in the legs and the upper extremities, particularly her right arm. On examination, blood pressure was 153/73, heart rate 98 per minute. She is afebrile. EXAMINATION OF THE HEART: S1, S2. EXAMINATION OF LUNGS: Bilateral breath sounds are heard. ABDOMEN: Soft, non-tender, obese. Examination of lower extremities shows edema 1+ bilaterally, 2+ edema in right upper extremity. ADVERTISING SPECIALIST exam is grossly intact. Labs show sodium 143, potassium 3.7, chloride 112, BUN 84, serum creatinine 2.7, hemoglobin 10.4 g/dL. ASSESSMENT: 1. Acute kidney injury, acute tubular necrosis, currently improving with renal function continuously improving. Patient is not on any IV fluids. I will add gentle diuresis. 2. Mild volume overload at low-dose Lasix. 3. Cavitary lung nodules, status post lung biopsy. 4. Metabolic acidosis secondary to renal failure, currently improving. 5. Hypokalemia, status post IV fluids. PLAN: Lasix x1. There is no evidence of DVT in the right upper arm. Repeat labs in a.m. Continue to avoid nephrotoxic agents. MMODL / IJN: [id number] /
--- NOTE | 2017-12-23 16:21 | P.CONS ---
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 She was hospitalized on 12/15 with abnormal labs and CXR from her PCP. On admission, she was found in ARF with a Cr of 6. She had a CT chest w/ out which showed scattered pulmonary nodules with multiple enlarged mediastinal lymph nodes. Bronch performed on 12/18 revealed abnormal mucosa in the left lingula and LLL. Biopsies of this area as well as the precarinal adenopathy was consistent with small cell carcinoma with squamous cell carcinoma. The patient underwent MRI of the brain on 12/23/2017 w/out contrast. This was significant for a small area of abnormal flair signal along the right paramedian area. Her current Cr is 2.7 and this has been improving. She notes that she hasn't felt well for several months. She has lost 30 pounds over the past 3 months. She has significant fatigue as well as increased dyspnea on exertion. She also has had some difficulty with swallowing although there was a noted thrush infection in the chart. Review of Systems Constitutional: Denies chills, Denies fever Eyes: bilateral blurred vision Ears: deny: decreased hearing Ears, nose, mouth and throat: Reports odynophagia Cardiovascular: Reports dyspnea on exertion, Reports leg edema, Denies chest pain Respiratory: Reports cough, Reports dyspnea, Reports wheezing Gastrointestinal: Denies abdominal pain Musculoskeletal: Denies arm numbness/tingling, Denies myalgias Neurological: Denies balance difficulties, Denies confusion, Denies double vision, Denies headaches Psychiatric: Denies anxiety, Denies confusion Past Medical History Past Medical History: Cancer, Hearing Disorder / Deafness, Hyperlipidemia, Hypertension, Pneumonia, Vascular Disorder Additional Past Medical History / Comment(s): 2 times pneumonia 2010, breast cancer right breast - lumpectomy 2005 History of Any Multi-Drug Resistant Organisms: None Reported Past Surgical History: Appendectomy, Breast Surgery, Section, Hysterectomy Additional Past Surgical History / Comment(s): 2 times , salpingectomy and oopherectomy, angioplasty on left leg, lumpectomy 2005 Past Anesthesia/Blood Transfusion Reactions: No Reported Reaction, Previous Problems w/ Anesthesia Additional Past Anesthesia/Blood Transfusion Reaction / Comm: slow to wake up after anaesthesia Past Psychological History: Anxiety Smoking Status: Current every day smoker Past Alcohol Use History: None Reported Past Drug Use History: None Reported - Past Family History Mother Additional Family Medical History / Comment(s): diverticulitis, Sister(s) Family Medical History: Diabetes Mellitus Father Family Medical History: Coronary Artery Disease (CAD), Diabetes Mellitus Additional Family Medical History / Comment(s): CABG and carotid endarterectomy Medications and Allergies Home Medications Medication Instructions Recorded Confirmed Type ALPRAZolam [Xanax] 0.25 mg PO BID PRN 07/19/15 12/15/17 History Aspirin 81 mg PO DAILY 07/19/15 12/15/17 History Atenolol 25 mg PO BID 07/19/15 12/15/17 History Losartan/Hydrochlorothiazide 1 tab PO DAILY 07/19/15 12/15/17 History [Losartan-Hctz 50-12.5 mg Tab] Pentoxifylline [TRENtal] 400 mg PO AC-TID 07/19/15 12/15/17 History Simvastatin [Zocor] 20 mg PO HS 07/19/15 12/15/17 History amLODIPine BESYLATE [Norvasc] 2.5 mg PO DAILY 07/19/15 12/15/17 History Ergocalciferol [Vitamin D2] 50,000 unit PO FR 12/15/17 12/15/17 History busPIRone HCL 15 mg PO TID 12/15/17 12/15/17 History Allergies Allergy/AdvReac Type Severity Reaction Status Date / Time No Known Allergies Allergy Verified 12/15/17 13:40 Physical Exam Vitals: Vital Signs Temp Pulse Pulse Resp BP Pulse Ox 12/23/17 14:59 98 F 98 16 153/73 95 12/23/17 12:58 84 12/23/17 12:47 88 12/23/17 09:48 84 12/23/17 09:36 80 12/23/17 09:27 77 16 95 12/23/17 06:35 98 F 83 17 119/82 94 L 12/22/17 21:00 98.5 F 84 17 117/76 94 L 12/22/17 20:10 92 12/22/17 19:57 92 12/22/17 19:56 92 09/03/18 19:42 92 12/22/17 15:49 88 18 Intake and Output 12/23/17 12/23/17 12/23/17 06:59 14:59 22:59 Other: Voiding Method Toilet # Voids 1 2 - Constitutional General appearance: obese - EENT Eyes: EOMI, PERRLA - Neck Neck: lymphadenopathy (left SCF node palpable 1.5 cm) - Respiratory Respiratory: bilateral: wheezing (exp/inspiratory wheezing), negative: CTA - Cardiovascular Rhythm: regular - Gastrointestinal General gastrointestinal: no tenderness - Integumentary Integumentary: no calor, no cellulitis - Neurologic Neurologic: CNII-XII intact - Musculoskeletal Musculoskeletal: strength equal bilaterally - Psychiatric Psychiatric: A&O x's 3, appropriate affect Results CBC & Chem 7: 12/23/17 08:08 12/23/17 08:08 Labs: Abnormal Lab Results - Last 24 Hours (Table) 12/22/17 12/22/17 12/23/17 Range/Units 16:59 20:10 08:02 WBC (3.8-10.6) k/uL RBC (3.80-5.40) m/uL Hgb (11.4-16.0) gm/dL Hct (34.0-46.0) % Neutrophils # (1.3-7.7) k/uL Lymphocytes # (1.0-4.8) k/uL Chloride (98-107) mmol/L BUN (7-17) mg/dL Creatinine (0.52-1.04) mg/dL Glucose (74-99) mg/dL POC Glucose (mg/dL) 111 H 141 H 189 H (75-99) mg/dL Total Protein (6.3-8.2) g/dL Albumin (3.5-5.0) g/dL 12/23/17 12/23/17 12/23/17 Range/Units 08:08 08:08 11:27 WBC 12.1 H (3.8-10.6) k/uL RBC 3.45 L (3.80-5.40) m/uL Hgb 10.4 L (11.4-16.0) gm/dL Hct 31.5 L (34.0-46.0) % Neutrophils # 11.1 H (1.3-7.7) k/uL Lymphocytes # 0.3 L (1.0-4.8) k/uL Chloride 112 H (98-107) mmol/L BUN 84 H* (7-17) mg/dL Creatinine 2.71 H (0.52-1.04) mg/dL Glucose 156 H (74-99) mg/dL POC Glucose (mg/dL) 244 H (75-99) mg/dL Total Protein 5.4 L (6.3-8.2) g/dL Albumin 3.1 L (3.5-5.0) g/dL CT scan - chest: report reviewed, image reviewed MRI - head: report reviewed, image reviewed Assessment and Plan Plan: 1. Small cell/Squamous cell lung cancer: Imaging worrisome for extensive small cell lung cancer - numerous pulmonary nodules, mediastinal adenopathy. When Cr back to baseline, would complete CT Chest/Abd/Pelvis with contrast for staging. Patient will likely require chemotherapy. 2. Concern for brain metastases: Non-contrast MRI showed a small area of edema /flair signal, but was otherwise not very impressive. Concern for underlying BET TAKER disease is present. The patient should have an MRI w/ contrast. Provided all of her lesions are small, and she is asymptomatic, she can proceed with initiation of chemotherapy and will have whole-brain RT later. Time with Patient: Greater than 30
[2017-12-23 17:13] LABS: Glucose,Whole Blood 140 mg/dL (75-99)
--- NOTE | 2017-12-23 19:38 | P.PN ---
Subjective Progress Note Date: 12/23/17 Principal diagnosis: New Pulmonary Nodules and adenopathy Patient seen and examined today. 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 Objective - Vital Signs Vital signs: Vital Signs Temp 98 F 12/23/17 14:59 Pulse 90 12/23/17 16:31 Resp 16 12/23/17 14:59 BP 153/73 12/23/17 14:59 Pulse Ox 95 12/23/17 14:59 Intake & Output 12/22/17 12/23/17 12/23/17 18:59 06:59 18:59 Intake Total 240 250 Output Total 2 Balance 238 250 Intake: Oral 240 250 Output: Urine 2 Other: Voiding Method Toilet Toilet Toilet # Voids 1 2 - Exam - Constitutional General appearance: average body habitus, mild distress - EENT Eyes: EOMI, PERRLA ENT: hard of hearing Ears: bilateral: normal Mouth Severe Thrush tongue and posterior pharynx grade 3 - Has greatly improved and decreased grade 1, able to eat - Neck Neck: normal ROM Carotids: bilateral: upstroke normal Thyroid: left: enlarged, nodule - Respiratory Respiratory: bilateral: diminished, rhonchi and expiratory wheezes to ausculation - Cardiovascular Rhythm: regular Heart sounds: normal: S1, S2 - Gastrointestinal General gastrointestinal: normal bowel sounds - Integumentary Integumentary: normal turgor - Neurologic Neurologic: CNII-XII intact - Musculoskeletal Musculoskeletal: gait normal - Psychiatric Psychiatric: A&O x's 3, appropriate affect, intact judgment & insight - Labs CBC & Chem 7: 12/23/17 08:08 12/23/17 08:08 Labs: Abnormal Lab Results - Last 24 Hours (Table) 12/22/17 12/23/17 12/23/17 Range/Units 20:10 08:02 08:08 WBC 12.1 H (3.8-10.6) k/uL RBC 3.45 L (3.80-5.40) m/uL Hgb 10.4 L (11.4-16.0) gm/dL Hct 31.5 L (34.0-46.0) % Neutrophils # 11.1 H (1.3-7.7) k/uL Lymphocytes # 0.3 L (1.0-4.8) k/uL Chloride (98-107) mmol/L BUN (7-17) mg/dL Creatinine (0.52-1.04) mg/dL Glucose (74-99) mg/dL POC Glucose (mg/dL) 141 H 189 H (75-99) mg/dL Total Protein (6.3-8.2) g/dL Albumin (3.5-5.0) g/dL 12/23/17 12/23/17 12/23/17 Range/Units 08:08 11:27 17:08 WBC (3.8-10.6) k/uL RBC (3.80-5.40) m/uL Hgb (11.4-16.0) gm/dL Hct (34.0-46.0) % Neutrophils # (1.3-7.7) k/uL Lymphocytes # (1.0-4.8) k/uL Chloride 112 H (98-107) mmol/L BUN 84 H* (7-17) mg/dL Creatinine 2.71 H (0.52-1.04) mg/dL Glucose 156 H (74-99) mg/dL POC Glucose (mg/dL) 244 H 140 H (75-99) mg/dL Total Protein 5.4 L (6.3-8.2) g/dL Albumin 3.1 L (3.5-5.0) g/dL Assessment and Plan Plan: Assessment and Recommendations: 1. New Mediastinal Lymphadenopathy and Pulmonary Nodules: - Will need a tissue biopsy, likely surgical (to send further tests if possible ), for diagnsis - Pulmonary is following and will defer Bronchoscopy versus IR Needle Biopsy - Full Initial Staging once renal function improves - May benefit from MRI brain as well when renal function improves - Biopsy via Bronch 12/18/17 - - Reviewed pathology with patient. Treatment will be chemotherapy as small cell carcinoma is usually very sensistive to chemotherapy. Although patients renal function is slowly improving and still subpar, will discuss with Dr. Landry and follow-up in am regarding treatment plan recommendations. 2. Acute Renal Failure: - This maybe related to Dehydration and Dramatic reduction in PO intake - She has had a large weight loss and decreased po intake overall - Nephrology is following - Renal Function Mildly improving - Will need to await renal function to improve for full contrasted staging exams and chemotherapy most likely 3. Hypokalemia - Per Nephrology 4. Hx: Breast Cancer - Lumpectomy and radiation in 2006 - Unaware of type - Check Tumor Markers, Ca 27.29 is mildly elevated from normal range 5. Grade 3 oral thrush and inability to eat: Improving - Add Diflucan as she requires systemic treatment - Re-education on mouth rinse after inhalers - Benefit of diflucan outweigh risks of inhaled interaction 6. Dizziness, intermittent confusion and hallucinations: - Medication versus other - COnsider possibility of metastatic disease - MRI of brain ordered and completed. Reviewed and identified possible early met, radiation oncology to consult regarding MRI. PLan to re-evalute 4 weeks with another MRI, likely begin treatment for squamous cell/small cell carcinoma of lung first.
[2017-12-23 20:06] LABS: Glucose,Whole Blood 196 mg/dL (75-99)
[2017-12-23] MEDS: ATORVASTATIN 10 MG TAB PO SCH (21:07)
[2017-12-23] MEDS: MELATONIN 5 MG TABLET PO SCH (22:29)
[2017-12-24 07:14] LABS: Glucose,Whole Blood 203 mg/dL (75-99)
[2017-12-24] MEDS: BUDESONIDE 1 MG/2 ML NEBU INHALATION SCH (07:31)
[2017-12-24] MEDS: FORMOTEROL FUMARATE 20 MCG/2 ML NEBU INHALATION SCH (07:31)
[2017-12-24] MEDS: IPRATROPIUM-ALBUTEROL 3 ML NEB INHALATION PRN ×3 (07:31→16:12)
[2017-12-24 08:37] LABS: Basophils % (A) 0 %; Eosinophils # (A) 0.1 k/uL (0-0.7); Eosinophils % (A) 0 %; HCT 30.4 % (34.0-46.0); HGB 10.1 gm/dL (11.4-16.0); Lymphocytes # (A) 0.4 k/uL (1.0-4.8); Lymphocytes % (A) 3 %; MCH 30.3 pg (25.0-35.0); MCHC 33.2 g/dL (31.0-37.0); MCV 91.3 fL (80.0-100.0); Mean Platelet Volume 7.2; Monocytes # (A) 0.5 k/uL (0-1.0); Monocytes % (A) 4 %; Neutrophils # (A) 11.8 k/uL (1.3-7.7); Neutrophils % (A) 92 %; Platelet Count 152 k/uL (150-450); RBC 3.33 m/uL (3.80-5.40); RDW 13.9 % (11.5-15.5); WBC 12.9 k/uL (3.8-10.6)
[2017-12-24 08:54] LABS: Albumin 3.1 g/dL (3.5-5.0); Calcium 8.6 mg/dL (8.4-10.2); Potassium 3.8 mmol/L (3.5-5.1); Total Bilirubin 0.5 mg/dL (0.2-1.3); Total Protein 5.3 g/dL (6.3-8.2)
[2017-12-24] MEDS: INSULIN ASPART 100 UNIT/ML 1 ML 10 ML VIAL SQ SCH ×4 (09:01→20:53)
[2017-12-24] MEDS: PENTOXIFYLLINE 400 MG TABLET.ER PO SCH ×3 (09:02→17:19)
[2017-12-24] MEDS: methylPREDNISolone SOD SUCCI 40 MG/ML 1 ML VIAL IV SCH ×2 (09:02)
[2017-12-24] MEDS: busPIRone HCl 5 MG TAB PO SCH ×3 (09:03→20:53)
[2017-12-24] MEDS: HEPARIN SODIUM,PORCINE 5,000 UNIT/ML 1 ML VIAL SQ SCH ×2 (09:03→20:53)
[2017-12-24] MEDS: FLUCONAZOLE 100 MG TAB PO SCH (09:03)
[2017-12-24] MEDS: ATENOLOL 25 MG TAB PO SCH ×2 (09:03→20:52)
[2017-12-24] MEDS: SODIUM BICARBONATE TAB 650 MG TAB PO SCH ×3 (09:03→20:53)
[2017-12-24] MEDS: FAMOTIDINE 20 MG TAB PO SCH (09:04)
[2017-12-24] MEDS: ASPIRIN 81 MG PO SCH (09:04)
[2017-12-24] MEDS: NYSTATIN 100,000 UNIT/ML SUSP 500,000 UNIT/5 ML CUP PO SCH ×4 (09:04→20:54)
--- NOTE | 2017-12-24 11:10 | P.PN ---
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 This is a very pleasant 67-year-old female patient who follows with Dr. Mora as her primary care physician. She has a history of hypertension, hyperlipidemia, peripheral vascular disease with previous angioplasty of the left lower extremity, hearing disorder, right sided breast cancer status post lumpectomy and radiation treatment in 2005. She also has chronic and ongoing 40 + year smoking history. She had not been on any inhalers in the past. Approximately one month ago she started having increasing shortness of breath, cough and congestion. She was treated with antibiotics and nebulized treatments without much improvement. Follow-up chest x-ray revealed some abnormalities and she was scheduled for a CT angiogram of the chest to be performed yesterday. However her renal function was significantly elevated. She did undergo a computed tomography scan of the chest without contrast which revealed multiple pulmonary nodules measuring up to 2 cm. There is cavitary masses present in the left hilar region and left lower lobe. There is left hilar soft tissue fullness and mediastinal lymphadenopathy. There is also noted moderate emphysema/COPD. There is a large heterogenous left thyroid nodule with recent ultrasound revealing a large left lobe cystic-type thyroid nodule that was stable compared to previous. Renal ultrasound revealed no evidence of hydronephrosis. There is a small left renal cortical cysts. She does have a fusiform lower abdominal aortic aneurysm measuring 5.2 cm in diameter that is more than 8 cm in length. Initial creatinine 6.15. Today 5.15 the BUN of 93. Patient is seen today in consultation on the oncology unit. She is currently awake and alert in no acute distress. She has been feeling quite poorly especially the last several days without eating or drinking much. She's had approximately 30 pound weight loss over the past month since all of her symptoms began. She denies productive cough. No hemoptysis. The patient is seen again today 12/17/2017 in follow-up on the oncology unit. She is currently awake and alert in no acute distress. She is breathing quite a bit easier today as compared to yesterday. In general she is feeling better overall as well. Her renal function has improved current creatinine 4.33. Her pulmonary status has improved. She is less short of breath. Less bronchospastic and wheezy. Maintaining good O2 saturations in the mid to upper 90s on 2 L/m per nasal cannula. She is afebrile. Blood culture reveals no growth. White count 9.1. Hemoglobin 9.9. The patient is seen again today 12/18/2017 in follow-up on the oncology unit. She is awake and alert in no acute distress. She is breathing a bit better today as compared to yesterday. Maintaining good O2 saturations in the 90s on room air. She's been afebrile. Hemodynamically stable. Blood culture reveals no growth to date. White count 21.2. Hemoglobin 10.3. Creatinine 4.07. She did undergo bronchoscopy with biopsies with Dr. Rojas this morning. She tolerated the procedure well. Pathology is pending. The patient is seen again today 12/19/2017 in follow-up on the oncology unit. She is currently sitting up in bed having lunch. She is awake and alert in no acute distress. She is breathing a bit easier today as compared to yesterday but still dyspneic with exertion. 18 in good O2 saturations in the 90s on 2 L/ m per nasal cannula. Bronchial biopsies are pending. Cultures are pending. White count 15.4. Hemoglobin 10.0. Creatinine 3.86. The patient is seen again today on 12/20/2017 in follow-up on the oncology unit. She is currently sitting up in bed eating breakfast. She remains quite anxious and teary-eyed. She has short of breath with exertion. Still wheezing. She is maintaining O2 saturations in the 90s on 2 L/m per nasal cannula. She's been afebrile. Cultures reveal no growth thus far. Pathology is still pending. White count 15.6. Hemoglobin 10.5. Creatinine 3.68. Continued on sodium bicarb tablets. Reevaluated today on 12/21/2017, patient remains in the oncology unit, doing well , relatively asymptomatic except for intermittent cough and wheezing, feels generally weak. CBC is relatively normal, basic metabolic profile was reviewed BUN remains 81 creatinine is 3.27, and that being addressed by nephrology. Liver enzymes remains borderline elevated. Bronchoscopy results are still pending. Reevaluated today on 12/22/2017, patient is complaining of increased shortness of breath, intermittent cough and wheezing. Follow-up chest x-ray is basically about the same showing left perihilar soft tissue mass, right upper lobe nodule , and diffuse interstitial opacities with small effusions. Pathology and cytology is pending from her last bronchoscopy, hopefully we will be receiving some answers from the lab tomorrow. Labs were reviewed, WBC count is 14 hemoglobin 10.8 renal profile remains abnormal with BUN 82 creatinine 3.03. On 12/23/2017 patient seen in follow-up. Still has some wheezing, intermittent cough, and shortness of breath. She feels a bit less congested, and feels like she should be able to start bringing up some sputum. 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 Oncology report of the brushing and Andre needle biopsy pending. She remains on 2 L per nasal cannula, pulse ox is 95%. Renal profile is slightly improved, B1 is 84, creatinine is 2.71. WBC is 12.1, hemoglobin is 10.4. Cultures are negative thus far. Including the bronchial wash cultures. He went for MRI of the brain this morning showed small area of focal increased T2/Flair signal in the right paramedian frontoparietal junction busch-white matter interface, difficult to exclude a small area of vasogenic edema, but no acute intracranial abnormality. Oncology is following. On 12/24/2017 patient seen in follow-up on oncology floor. Yesterday transbronchial biopsy of the lingula was positive for synchronous small cell carcinoma and squamous cell carcinoma. Cytology on the Andre needle aspirate showed malignant cell population consistent with small cell carcinoma, transcranial lung core biopsy was positive for malignant neoplasm consistent with small cell carcinoma. BAL of the lingula showed minimally cellular specimen consisting of blood with scattered reactive bronchial lining cells, nondiagnostic. Rash tip of the lingula shows severe squamous atypia consistent with squamous cell carcinoma. Cannot exclude small cell carcinoma. Left lower lung BAL could not exclude small cell carcinoma, brush tip and brushings smears of the left lower lobe could not exclude squamous cell carcinoma. Patient was seen by medical oncology, and radiation oncology. MRI of the brain showed possible small early metastasis. On today's exam patient is less bronchospastic , however patient has scattered rhonchi, but no distress, nonproductive cough. Today's lab work showed CBC of 12.9, no significant change from yesterday, renal profile continues to improve, BUN is 83, creatinine is 2.36. Objective - Vital Signs Vital signs: Vital Signs Temp 96.4 F L 12/24/17 05:00 Pulse 88 12/24/17 08:09 Resp 16 12/24/17 05:00 BP 114/59 12/24/17 05:00 Pulse Ox 93 L 12/24/17 05:00 Intake & Output 12/23/17 12/24/17 12/24/17 18:59 06:59 18:59 Intake Total 1180 1690 Balance 1180 1690 Weight 73.482 kg Intake: Oral 1180 1690 Other: Voiding Method Toilet Toilet Toilet # Voids 2 2 - Exam - Constitutional General appearance: average body habitus, no acute distress. - EENT Eyes: EOMI, PERRLA ENT: hard of hearing Ears: bilateral: normal - Neck Neck: normal ROM Carotids: bilateral: upstroke normal Thyroid: left: enlarged, nodule - Respiratory Respiratory: bilateral: diminished, with scattered rhonchi - Cardiovascular Rhythm: regular Heart sounds: normal: S1, S2 - Gastrointestinal General gastrointestinal: normal bowel sounds - Integumentary Integumentary: normal turgor - Neurologic Neurologic: CNII-XII intact - Musculoskeletal Musculoskeletal: gait normal - Psychiatric Psychiatric: A&O x's 3, appropriate affect, intact judgment & insight - Labs CBC & Chem 7: 12/24/17 08:05 12/24/17 08:05 Labs: Abnormal Lab Results - Last 24 Hours (Table) 12/23/17 12/23/17 12/23/17 Range/Units 11:27 17:08 20:04 WBC (3.8-10.6) k/uL RBC (3.80-5.40) m/uL Hgb (11.4-16.0) gm/dL Hct (34.0-46.0) % Neutrophils # (1.3-7.7) k/uL Lymphocytes # (1.0-4.8) k/uL BUN (7-17) mg/dL Creatinine (0.52-1.04) mg/dL Glucose (74-99) mg/dL POC Glucose (mg/dL) 244 H 140 H 196 H (75-99) mg/dL Total Protein (6.3-8.2) g/dL Albumin (3.5-5.0) g/dL 12/24/17 12/24/17 12/24/17 Range/Units 07:10 08:05 08:05 WBC 12.9 H (3.8-10.6) k/uL RBC 3.33 L (3.80-5.40) m/uL Hgb 10.1 L (11.4-16.0) gm/dL Hct 30.4 L (34.0-46.0) % Neutrophils # 11.8 H (1.3-7.7) k/uL Lymphocytes # 0.4 L (1.0-4.8) k/uL BUN 83 H (7-17) mg/dL Creatinine 2.36 H (0.52-1.04) mg/dL Glucose 162 H (74-99) mg/dL POC Glucose (mg/dL) 203 H (75-99) mg/dL Total Protein 5.3 L (6.3-8.2) g/dL Albumin 3.1 L (3.5-5.0) g/dL Assessment and Plan Plan: Assessment: #1 Acute renal failure of unclear etiology. No hydronephrosis per ultrasound. Presenting creatinine 6.15, currently 2.36 #2 Multiple pulmonary nodules along with cavitary masses. Left hilar soft tissue fullness and mediastinal adenopathy and upper abdominal lymphadenopathy with left adrenal nodularity. Neoplastic etiology with metastatic disease within the differential. Status post bronchoscopy with biopsies 12/18/2017 cultures and lingular transbronchial biopsy was positive for synchronous squamous cell and small cell carcinoma #3 Chronic and ongoing tobacco dependence of greater than 40 years. 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 #5 History of right-sided breast cancer status post lumpectomy and radiation. #6 Large left thyroid nodule, negative biopsy in 2016. #7 Hypertension. #8 Hyperlipidemia. #9 Peripheral vascular disease with previous angioplasty of the left lower extremity. #10 Anxiety. Recommendation: Court to Pulmicort breathing treatments, we will decrease the prednisone down to 20 mg daily, continue nebulized bronchodilators. We will see the patient on as-needed basis, medical oncology and radiation oncology following. I performed a history & physical examination of the patient and discussed their management with my nurse practitioner, Rita Hopkins. I reviewed the nurse practitioner's note and agree with the documented findings and plan of care. Lung sounds are positive forscattered rhonchi throughout the lung pederson. The findings and the impression was discussed with the patient. I attest to the documentation by the nurse practitioner. Time with Patient: Less than 30
[2017-12-24 11:33] LABS: Glucose,Whole Blood 136 mg/dL (75-99)
--- NOTE | 2017-12-24 13:37 | P.PN ---
Subjective Progress Note Date: 12/24/17 Evelyn Flores is a 67 year old female who presented to [facility] to have a computed tomography scan of the chest was contrast BUN and creatinine were done prior to computed tomography scan and were significantly elevated, her BUN was 103, and creatinine 6.15, computed tomography scan was canceled and patient was sent to [facility] emergency room, she was evaluated in the emergency room she was given IV fluid and her creatinine came down slightly to 5.9, computed tomography scan of the chest without contrast was done and revealed multiple pulmonary nodules with a couple of cavitary masses patient also had evidence of lymphadenopathy in the chest and the upper abdomen, she also had a large left thyroid nodule, she was started on IV fluid and was admitted to the medical floor, pulmonary and nephrology and oncology consultation were requested. Patient has not been feeling well for the last 6 weeks, she had cough with minimal sputum production, she was given a course of antibiotic without any improvement, chest x-ray was done on 12/05/2017 and revealed evidence of right upper lobe lung mass computed tomography scan was recommended and this was scheduled for 12/15/2017 however patient was admitted due to severely elevated BUN and creatinine. Patient has a lifelong history of smoking, she has known history of hypertension , hyperlipidemia, anxiety disorder, and a thyroid nodule that was recently biopsied by Dr. Morales. At this time patient denies any pain or discomfort she reports having episodes of nausea and vomiting in the last 2 weeks she reports feeling full and then able to eat much, she reports significant weight loss in the last 6 weeks, she has been complaining of cough, she had minimal sputum production, she denies any hemoptysis, there is no abdominal pain no blood in the urine or in the stools. On 12/16/2017 patient is currently A & O 3 resting comfortably in bed. Patient does report some shortness of breath with activity. Patient denies chest pain. Denies nausea vomiting or diarrhea. Does reports she has very little appetite. Patient denies any urinary burning or frequency. On 12/17/2017 patient is currently alert and oriented 3 resting in bed comfortably. Patient's shortness of breath has improved. Patient being followed by pulmonary. Per pulmonary plan for bronchoscopy and biopsies tomorrow. IV steroids have been added per pulmonary. Patient denies chest pain at this time. Patient denies nausea vomiting or diarrhea. Patient denies any urinary burning or frequency On 12/18/2017 patient is currently alert and oriented X 3. Patient is currently resting comfortably in bed. Patient underwent bronchoscopy with biopsy without complication. Patient is currently on room air but does state she still gets winded upon activity. Patient denies chest pain or shortness of breath. Denies nausea vomiting or diarrhea. Denies any urinary or burning with urination On 12/19/2017 patient is currently alert and oriented 3. Patient remains short of breath after activity. Patient states she did not get much sleep last night. Patient denies chest pain. Patient denies nausea vomiting or diarrhea denies any urinary burning or frequency. On 12/20/2017 patient is currently alert and oriented 3. Patient remains short of breath with activity. Patient has chest pain or shortness of breath. Patient denies nausea vomiting or diarrhea. Denies any urinary burning or frequency On 12/21/2017 patient is alert and oriented 3 in no apparent distress, she had some episodes of confusion and hallucination that she thinks is related to steroid use she is still complaining of shortness of breath with any activity she complains of having poor taste in her mouth and poor appetite otherwise she denies any complaints there is no fever or chills no headache or dizziness no chest pain no nausea or vomiting no abdominal pain and no urinary symptoms On 12/22/2017 patient is alert and oriented in no distress complaining of anxiety and having poor sleep complaining of fatigue and shortness of breath with activity otherwise no complaints On 12/23/2017 patient is alert and oriented 3. Patient is currently resting comfortably in bed. Does state some improvement with shortness of breath. Patient has been started on Diflucan per oncology for thrush. Patient does state some improvement with being able to eat. At this time patient denies chest pain or shortness of breath. Denies nausea vomiting or diarrhea. Denies any urinary burning or frequency On 12/24/2017 patient is alert and oriented 3 currently eating her lunch sitting up in bed. Patient states she has been up walking the halls without oxygen. Patient states she does feel short of breath today. She said she hasn' t had an in-depth discussion with oncology services for treatment plan. At this time patient denies chest pain or shortness of breath. Denies any urinary burning or frequency. Denies nausea vomiting or diarrhea. Objective - Vital Signs Vital signs: Vital Signs Temp 97.9 F 12/24/17 12:21 Pulse 80 12/24/17 12:21 Resp 19 12/24/17 12:21 BP 131/86 12/24/17 12:21 Pulse Ox 94 L 12/24/17 12:21 Intake & Output 12/23/17 12/24/17 12/24/17 18:59 06:59 18:59 Intake Total 1180 1690 Balance 1180 1690 Weight 73.482 kg Intake: Oral 1180 1690 Other: Voiding Method Toilet Toilet Toilet # Voids 2 2 - Exam Head normocephalic Neck supple Lungs diminished bilaterally Heart regular rate and rhythm S1-S2, no rub or gallop Abdomen is soft nontender nondistended positive bowel sounds no hepatosplenomegaly Extremities no edema Neuro alert and orientated to 3 - Labs CBC & Chem 7: 12/24/17 08:05 12/24/17 08:05 Labs: Abnormal Lab Results - Last 24 Hours (Table) 12/23/17 12/23/17 12/24/17 Range/Units 17:08 20:04 07:10 WBC (3.8-10.6) k/uL RBC (3.80-5.40) m/uL Hgb (11.4-16.0) gm/dL Hct (34.0-46.0) % Neutrophils # (1.3-7.7) k/uL Lymphocytes # (1.0-4.8) k/uL BUN (7-17) mg/dL Creatinine (0.52-1.04) mg/dL Glucose (74-99) mg/dL POC Glucose (mg/dL) 140 H 196 H 203 H (75-99) mg/dL Total Protein (6.3-8.2) g/dL Albumin (3.5-5.0) g/dL 12/24/17 12/24/17 12/24/17 Range/Units 08:05 08:05 11:29 WBC 12.9 H (3.8-10.6) k/uL RBC 3.33 L (3.80-5.40) m/uL Hgb 10.1 L (11.4-16.0) gm/dL Hct 30.4 L (34.0-46.0) % Neutrophils # 11.8 H (1.3-7.7) k/uL Lymphocytes # 0.4 L (1.0-4.8) k/uL BUN 83 H (7-17) mg/dL Creatinine 2.36 H (0.52-1.04) mg/dL Glucose 162 H (74-99) mg/dL POC Glucose (mg/dL) 136 H (75-99) mg/dL Total Protein 5.3 L (6.3-8.2) g/dL Albumin 3.1 L (3.5-5.0) g/dL Assessment and Plan Assessment: #1 multiple pulmonary masses including 2 cavitary lesions. Pulmonary services have been consulted. Awaiting consult. Per pulmonary team planning biopsy and bronchoscopy tomorrow. Solu-Medrol 60 mg every 6 has been added. Patient underwent bronchoscopy with biopsies and Dr. Rojas. Awaiting biopsy results. Patient remains on IV steroids. Biopsies from 12/18/2017 Bronchoscopy cultures and pathology are pending. 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 Patient remains on 20 mg of prednisone. #2 enlarged lymphadenopathy in the chest and upper abdomen. Oncology services . CA 2729 and CA 153 antigen ordered per oncology. CA 153 antigen 29.9 and CA 2729 elevated at 60.6. Oncology services are following. Brain MRI ordered per oncology. Brain MRI completed showing small area of focal increased T2/FLAIR signal in the right paramedian frontoparietal junction busch white matter interface at the vertex. Given the patient's history, difficult to exclude a small area of vasogenic edema here. [place] of prior vascular or traumatic insult is the alternative consideration. Follow-up with contrast enhanced MRI can be considered especially if there is high clinical concern for Travis brain metastasis. Otherwise no acute intracranial abnormality seen. Oncology service is following. Per oncology. Pathology with patient. Treatment will be chemotherapy as long cell carcinomas usually very sensitive chemotherapy. Per oncology will need to wait until renal function to improve for full contrasted staging exams and chemotherapy. Per oncology of membrane reviewed -5 possibly early metastases, radiation oncology to consult regarding MRI. Plan to reevaluate 4 weeks with MRI, likely begin treatment for squamous cell/small cell carcinoma of lung first. #3 thyroid nodule with recent biopsy by Dr. Morales. Dr. Morales has been consulted for evaluation. #4 acute renal failure, last creatinine prior to this admission was in August 2017 and was 1.2. Creatinine 5.15 and bun 93. Nephrology following. Renal ultrasound completed showing fusiform lower abdomen aortic aneurysm measures up to 5.2 cm in diameter. The length is more than 8 cm. No hydronephrosis. Small left renal cortical cyst. We'll continue to monitor labs closely. Creatinine continued to trend down to 4.07 and bun 73. Per nephrology continue to monitor labs on a daily basis. Creatinine improving to 3.03 and bun 81. Her nephrology will bicarb has been increased to 1300 mg 3 times daily. Per nephrology fluids have been hep-locked. Bun 83 and creatinine 2.36 #5 underlying history of hypertension #6 underlying history of hyperlipidemia #7 evidence of COPD on computed tomography scan #8 tobacco abuse #9 underlying history of anxiety disorder #10 hypokalemia. Potassium replacement protocol. Will recheck potassium level and monitor closely. Repeat potassium 3.8 #11 abdominal aortic aneurysm. Renal ultrasound completed showing fusiform lower abdomen aortic aneurysm measuring up to 5.2 cm in diameter. The length is more than 8 cm. Patient to follow-up outpatient for further workup. #12 leukocytosis likely related to steroids. WBC increasing to 21.2. Blood culture currently negative. Patient does state she is coughing up sputum. Will order sputum sample WBC improving to 15.4 #13 insomnia. Melatonin added #14 hypomagnesemia. Magnesium 1.4. Replacement protocol. Continue to monitor closely. Magnesium 2.0 #15 right arm swelling. Venous Doppler completed completed showing superficial thrombus in the cephalic vein. There is a large right-sided cervical lymph node that measures up to 13 mm in length. No deep vein thrombosis.. Likely related to infiltration of IV. Right arm swelling improving #16 oral Thrush. Diflucan 100 mg has been added per oncology. GI prophylaxis Pepcid and DVT prophylaxis SCDs. DVT prophylaxis heparin I performed an examination of the patient and discussed their management with the Nurse Practitioner. I have reviewed the Nurse Practitioner's notes and agree with the documented findings and plan of care
--- NOTE | 2017-12-24 16:35 | PN ---
PROGRESS NOTE Patient is seen for followup for acute kidney injury. Her renal function continues to improve. She did get the results of the biopsy which shows 2 types of lung cancer. It is squamous cell and small cell lung cancer. Plans are for initiating radiation therapy and chemotherapy as well. The patient denies any significant complaints. On examination this morning blood pressure was 131/86, heart rate 80 per minute. She is afebrile. Examination of the heart: S1, S2. Examination of the lungs: Bilateral breath sounds are heard. Abdomen is soft, nontender. Exam of lower extremities shows edema trace bilaterally. Edema in her right upper extremity is improved. LABS: Show sodium 143, potassium 3.8, chloride 107, BUN 83, serum creatinine 2.36, hemoglobin 10.1 g/dL. ASSESSMENT: 1. Acute kidney injury with the continued improvement in renal function, status post 1 dose of Lasix yesterday with improvement in edema. The patient is not on any nephrotoxic medications. I am not sure what chemotherapy is being considered. However, if it is possible, I would like to wait till renal function continues to improve further if the nephrotoxic chemotherapeutic agent will be used. 2. Lung cancer with the pathology showing small cell and non-small cell cancer, being followed by oncology with plans for radiation therapy and possibly chemotherapy as well. 3. Chronic obstructive pulmonary disease with exacerbation, currently significantly improved. 4. Hypertension, currently stable. PLAN: Repeat labs in a.m. Avoid nephrotoxic agents. MMODL / IJN: [id number] /
--- NOTE | 2017-12-24 17:19 | P.PN ---
Subjective Progress Note Date: 12/24/17 Principal diagnosis: New Pulmonary Nodules and adenopathy Patient seen and examined today. 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 Reviewed with patient and . Objective - Vital Signs Vital signs: Vital Signs Temp 97.9 F 12/24/17 12:21 Pulse 90 12/24/17 16:25 Resp 19 12/24/17 12:21 BP 131/86 12/24/17 12:21 Pulse Ox 94 L 12/24/17 12:21 Intake & Output 12/23/17 12/24/17 12/24/17 18:59 06:59 18:59 Intake Total 1180 1690 Balance 1180 1690 Weight 73.482 kg Intake: Oral 1180 1690 Other: Voiding Method Toilet Toilet Toilet # Voids 2 2 3 - Exam - Constitutional General appearance: average body habitus, mild distress - EENT Eyes: EOMI, PERRLA ENT: hard of hearing Ears: bilateral: normal Mouth Severe Thrush tongue and posterior pharynx grade 3 - Has greatly improved and decreased grade 1, able to eat - Neck Neck: normal ROM Carotids: bilateral: upstroke normal Thyroid: left: enlarged, nodule - Respiratory Respiratory: bilateral: diminished, rhonchi and expiratory wheezes to ausculation - Cardiovascular Rhythm: regular Heart sounds: normal: S1, S2 - Gastrointestinal General gastrointestinal: normal bowel sounds - Integumentary Integumentary: normal turgor - Neurologic Neurologic: CNII-XII intact - Musculoskeletal Musculoskeletal: gait normal - Psychiatric Psychiatric: A&O x's 3, appropriate affect, intact judgment & insight - Labs CBC & Chem 7: 12/24/17 08:05 12/24/17 08:05 Labs: Abnormal Lab Results - Last 24 Hours (Table) 12/23/17 12/24/17 12/24/17 Range/Units 20:04 07:10 08:05 WBC 12.9 H (3.8-10.6) k/uL RBC 3.33 L (3.80-5.40) m/uL Hgb 10.1 L (11.4-16.0) gm/dL Hct 30.4 L (34.0-46.0) % Neutrophils # 11.8 H (1.3-7.7) k/uL Lymphocytes # 0.4 L (1.0-4.8) k/uL BUN (7-17) mg/dL Creatinine (0.52-1.04) mg/dL Glucose (74-99) mg/dL POC Glucose (mg/dL) 196 H 203 H (75-99) mg/dL Total Protein (6.3-8.2) g/dL Albumin (3.5-5.0) g/dL 12/24/17 12/24/17 Range/Units 08:05 11:29 WBC (3.8-10.6) k/uL RBC (3.80-5.40) m/uL Hgb (11.4-16.0) gm/dL Hct (34.0-46.0) % Neutrophils # (1.3-7.7) k/uL Lymphocytes # (1.0-4.8) k/uL BUN 83 H (7-17) mg/dL Creatinine 2.36 H (0.52-1.04) mg/dL Glucose 162 H (74-99) mg/dL POC Glucose (mg/dL) 136 H (75-99) mg/dL Total Protein 5.3 L (6.3-8.2) g/dL Albumin 3.1 L (3.5-5.0) g/dL Assessment and Plan Plan: Assessment and Recommendations: 1. New Mediastinal Lymphadenopathy and Pulmonary Nodules: - Will need a tissue biopsy, likely surgical (to send further tests if possible ), for diagnsis - Pulmonary is following and will defer Bronchoscopy versus IR Needle Biopsy - Full Initial Staging once renal function improves - May benefit from MRI brain as well when renal function improves - Biopsy via Bronch 12/18/17 - - Reviewed pathology with patient. Treatment will be chemotherapy as small cell carcinoma is usually very sensistive to chemotherapy. Although patients renal function is slowly improving and still subpar, will discuss with Dr. Landry and follow-up in am regarding treatment plan recommendations. 2. Acute Renal Failure: - This maybe related to Dehydration and Dramatic reduction in PO intake - She has had a large weight loss and decreased po intake overall - Nephrology is following - Renal Function Mildly improving - Will need to await renal function to improve for full contrasted staging exams and chemotherapy most likely 3. Hypokalemia - Per Nephrology 4. Hx: Breast Cancer - Lumpectomy and radiation in 2006 - Unaware of type - Check Tumor Markers, Ca 27.29 is mildly elevated from normal range 5. Grade 3 oral thrush and inability to eat: Improving - Add Diflucan as she requires systemic treatment - Re-education on mouth rinse after inhalers - Benefit of diflucan outweigh risks of inhaled interaction 6. Dizziness, intermittent confusion and hallucinations: - Medication versus other - COnsider possibility of metastatic disease - MRI of brain ordered and completed. Reviewed and identified possible early met, radiation oncology to consult regarding MRI. PLan to re-evalute 4 weeks with another MRI, likely begin treatment for squamous cell/small cell carcinoma of lung first. Oncology Plan - Continue to await recovery of renal function, probable first cycle of chemotherapy in hospital if symptoms of breathing persist. If symptoms improve and patient is ready for discharge will consider outpatient treatment, although high risk for progression, cancer sensistive to chemotherapy, and high risk for dehydration. Monitor 24 hours and re-evaluate for in patient need for chemotherapy versus out patient - COntinue to work with PT to improve performance status. Time with Patient: Greater than 30 (Counseling and coordinating care on plan for probable treatment of new cancer diagnosis)
[2017-12-24 17:27] LABS: Glucose,Whole Blood 257 mg/dL (75-99)
[2017-12-24] MEDS: SYMBICORT 160-4.5 MCG INHALER INHALATION SCH (19:45)
[2017-12-24 19:59] LABS: Glucose,Whole Blood 137 mg/dL (75-99)
[2017-12-24] MEDS: ATORVASTATIN 10 MG TAB PO SCH (20:53)
[2017-12-24] MEDS: MELATONIN 5 MG TABLET PO SCH (20:53)
[2017-12-25] MEDS: SYMBICORT 160-4.5 MCG INHALER INHALATION SCH ×2 (07:02→20:30)
[2017-12-25 07:11] LABS: Glucose,Whole Blood 134 mg/dL (75-99)
[2017-12-25] MEDS: INSULIN ASPART 100 UNIT/ML 1 ML 10 ML VIAL SQ SCH ×4 (07:43→20:19)
[2017-12-25 07:44] LABS: Basophils % (A) 0 %; Eosinophils # (A) 0.1 k/uL (0-0.7); Eosinophils % (A) 1 %; HCT 30.6 % (34.0-46.0); HGB 10.3 gm/dL (11.4-16.0); Lymphocytes # (A) 0.8 k/uL (1.0-4.8); Lymphocytes % (A) 6 %; MCH 30.8 pg (25.0-35.0); MCHC 33.8 g/dL (31.0-37.0); MCV 91.2 fL (80.0-100.0); Mean Platelet Volume 7.6; Monocytes % (A) 7 %; Neutrophils # (A) 11.6 k/uL (1.3-7.7); Neutrophils % (A) 85 %; Platelet Count 139 k/uL (150-450); RBC 3.36 m/uL (3.80-5.40); RDW 13.7 % (11.5-15.5); WBC 13.6 k/uL (3.8-10.6)
[2017-12-25] MEDS: predniSONE 20 MG TAB PO SCH (07:44)
[2017-12-25] MEDS: FAMOTIDINE 20 MG TAB PO SCH (07:44)
[2017-12-25] MEDS: FLUCONAZOLE 100 MG TAB PO SCH (07:44)
[2017-12-25] MEDS: PENTOXIFYLLINE 400 MG TABLET.ER PO SCH ×3 (07:44→17:30)
[2017-12-25] MEDS: ATENOLOL 25 MG TAB PO SCH ×2 (07:44→20:36)
[2017-12-25] MEDS: busPIRone HCl 5 MG TAB PO SCH ×3 (07:45→22:25)
[2017-12-25] MEDS: ASPIRIN 81 MG PO SCH (07:45)
[2017-12-25] MEDS: NYSTATIN 100,000 UNIT/ML SUSP 500,000 UNIT/5 ML CUP PO SCH ×4 (07:45→20:36)
[2017-12-25] MEDS: SODIUM BICARBONATE TAB 650 MG TAB PO SCH (07:45)
[2017-12-25] MEDS: HEPARIN SODIUM,PORCINE 5,000 UNIT/ML 1 ML VIAL SQ SCH ×2 (07:45→20:36)
[2017-12-25 07:58] LABS: Calcium 8.6 mg/dL (8.4-10.2); Potassium 3.4 mmol/L (3.5-5.1); Total Bilirubin 0.6 mg/dL (0.2-1.3); Total Protein 5.2 g/dL (6.3-8.2)
--- NOTE | 2017-12-25 11:18 | P.PN ---
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 This is a very pleasant 67-year-old female patient who follows with Dr. Mora as her primary care physician. She has a history of hypertension, hyperlipidemia, peripheral vascular disease with previous angioplasty of the left lower extremity, hearing disorder, right sided breast cancer status post lumpectomy and radiation treatment in 2005. She also has chronic and ongoing 40 + year smoking history. She had not been on any inhalers in the past. Approximately one month ago she started having increasing shortness of breath, cough and congestion. She was treated with antibiotics and nebulized treatments without much improvement. Follow-up chest x-ray revealed some abnormalities and she was scheduled for a CT angiogram of the chest to be performed yesterday. However her renal function was significantly elevated. She did undergo a computed tomography scan of the chest without contrast which revealed multiple pulmonary nodules measuring up to 2 cm. There is cavitary masses present in the left hilar region and left lower lobe. There is left hilar soft tissue fullness and mediastinal lymphadenopathy. There is also noted moderate emphysema/COPD. There is a large heterogenous left thyroid nodule with recent ultrasound revealing a large left lobe cystic-type thyroid nodule that was stable compared to previous. Renal ultrasound revealed no evidence of hydronephrosis. There is a small left renal cortical cysts. She does have a fusiform lower abdominal aortic aneurysm measuring 5.2 cm in diameter that is more than 8 cm in length. Initial creatinine 6.15. Today 5.15 the BUN of 93. Patient is seen today in consultation on the oncology unit. She is currently awake and alert in no acute distress. She has been feeling quite poorly especially the last several days without eating or drinking much. She's had approximately 30 pound weight loss over the past month since all of her symptoms began. She denies productive cough. No hemoptysis. The patient is seen again today 12/17/2017 in follow-up on the oncology unit. She is currently awake and alert in no acute distress. She is breathing quite a bit easier today as compared to yesterday. In general she is feeling better overall as well. Her renal function has improved current creatinine 4.33. Her pulmonary status has improved. She is less short of breath. Less bronchospastic and wheezy. Maintaining good O2 saturations in the mid to upper 90s on 2 L/m per nasal cannula. She is afebrile. Blood culture reveals no growth. White count 9.1. Hemoglobin 9.9. The patient is seen again today 12/18/2017 in follow-up on the oncology unit. She is awake and alert in no acute distress. She is breathing a bit better today as compared to yesterday. Maintaining good O2 saturations in the 90s on room air. She's been afebrile. Hemodynamically stable. Blood culture reveals no growth to date. White count 21.2. Hemoglobin 10.3. Creatinine 4.07. She did undergo bronchoscopy with biopsies with Dr. Rojas this morning. She tolerated the procedure well. Pathology is pending. The patient is seen again today 12/19/2017 in follow-up on the oncology unit. She is currently sitting up in bed having lunch. She is awake and alert in no acute distress. She is breathing a bit easier today as compared to yesterday but still dyspneic with exertion. 18 in good O2 saturations in the 90s on 2 L/ m per nasal cannula. Bronchial biopsies are pending. Cultures are pending. White count 15.4. Hemoglobin 10.0. Creatinine 3.86. The patient is seen again today on 12/20/2017 in follow-up on the oncology unit. She is currently sitting up in bed eating breakfast. She remains quite anxious and teary-eyed. She has short of breath with exertion. Still wheezing. She is maintaining O2 saturations in the 90s on 2 L/m per nasal cannula. She's been afebrile. Cultures reveal no growth thus far. Pathology is still pending. White count 15.6. Hemoglobin 10.5. Creatinine 3.68. Continued on sodium bicarb tablets. Reevaluated today on 12/21/2017, patient remains in the oncology unit, doing well , relatively asymptomatic except for intermittent cough and wheezing, feels generally weak. CBC is relatively normal, basic metabolic profile was reviewed BUN remains 81 creatinine is 3.27, and that being addressed by nephrology. Liver enzymes remains borderline elevated. Bronchoscopy results are still pending. Reevaluated today on 12/22/2017, patient is complaining of increased shortness of breath, intermittent cough and wheezing. Follow-up chest x-ray is basically about the same showing left perihilar soft tissue mass, right upper lobe nodule , and diffuse interstitial opacities with small effusions. Pathology and cytology is pending from her last bronchoscopy, hopefully we will be receiving some answers from the lab tomorrow. Labs were reviewed, WBC count is 14 hemoglobin 10.8 renal profile remains abnormal with BUN 82 creatinine 3.03. On 12/23/2017 patient seen in follow-up. Still has some wheezing, intermittent cough, and shortness of breath. She feels a bit less congested, and feels like she should be able to start bringing up some sputum. 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 Oncology report of the brushing and Andre needle biopsy pending. She remains on 2 L per nasal cannula, pulse ox is 95%. Renal profile is slightly improved, B1 is 84, creatinine is 2.71. WBC is 12.1, hemoglobin is 10.4. Cultures are negative thus far. Including the bronchial wash cultures. He went for MRI of the brain this morning showed small area of focal increased T2/Flair signal in the right paramedian frontoparietal junction busch-white matter interface, difficult to exclude a small area of vasogenic edema, but no acute intracranial abnormality. Oncology is following. On 12/24/2017 patient seen in follow-up on oncology floor. Yesterday transbronchial biopsy of the lingula was positive for synchronous small cell carcinoma and squamous cell carcinoma. Cytology on the Andre needle aspirate showed malignant cell population consistent with small cell carcinoma, transcranial lung core biopsy was positive for malignant neoplasm consistent with small cell carcinoma. BAL of the lingula showed minimally cellular specimen consisting of blood with scattered reactive bronchial lining cells, nondiagnostic. Rash tip of the lingula shows severe squamous atypia consistent with squamous cell carcinoma. Cannot exclude small cell carcinoma. Left lower lung BAL could not exclude small cell carcinoma, brush tip and brushings smears of the left lower lobe could not exclude squamous cell carcinoma. Patient was seen by medical oncology, and radiation oncology. MRI of the brain showed possible small early metastasis. On today's exam patient is less bronchospastic , however patient has scattered rhonchi, but no distress, nonproductive cough. Today's lab work showed CBC of 12.9, no significant change from yesterday, renal profile continues to improve, BUN is 83, creatinine is 2.36. On 12/25/2017 patient seen in follow-up on oncology floor. She is awake and alert, sitting up at the edge of the bed, in no acute distress, she states she started to bring up some sputum, did not note the color. Lung sounds are positive for diffuse rhonchi, and wheezes. Pulse ox on 2 L per nasal cannula is 90-93%. Vital signs are stable. Transbronchial biopsy of the lingula as well as cytology of the needle aspirate and brush smears of the left lower lung were positive for synchronous small cell carcinoma and squamous cell carcinoma. Medical oncology is awaiting improvement of the renal profile to initiate chemotherapy. His labs were reviewed, shows diminished at 13.6, hemoglobin 10.3 , potassium 3.4, CO2 is 31, BUN 74, creatinine is 2.2. Diuretics remain on hold , patient developed some swelling in her right upper and bilateral lower extremities, left greater than the right, denies any calf tenderness, any redness or tenderness. Venous Doppler study of bilateral lower extremities is completed, and the results of pending at this time. Bronchial washing cultures are negative thus far. Objective - Vital Signs Vital signs: Vital Signs Temp 98 F 12/25/17 07:50 Pulse 76 12/25/17 07:50 Resp 20 12/25/17 07:50 BP 141/84 12/25/17 07:50 Pulse Ox 90 L 12/25/17 07:50 Intake & Output 12/24/17 12/25/17 12/25/17 18:59 06:59 18:59 Intake Total 150 Balance 150 Weight 73.482 kg 73.482 kg Intake: Oral 150 Other: Voiding Method Toilet Toilet Toilet # Voids 3 1 # Bowel Movements 1 - Exam - Constitutional General appearance: average body habitus, no acute distress. - EENT Eyes: EOMI, PERRLA ENT: hard of hearing Ears: bilateral: normal - Neck Neck: normal ROM Carotids: bilateral: upstroke normal Thyroid: left: enlarged, nodule - Respiratory Respiratory: bilateral: diminished, with scattered rhonchi - Cardiovascular Rhythm: regular Heart sounds: normal: S1, S2, Mild right upper extremity edema, bilateral lower extremity edema, left greater than the right - Gastrointestinal General gastrointestinal: normal bowel sounds - Integumentary Integumentary: normal turgor - Neurologic Neurologic: CNII-XII intact - Musculoskeletal Musculoskeletal: gait normal - Psychiatric Psychiatric: A&O x's 3, appropriate affect, intact judgment & insight - Labs CBC & Chem 7: 12/25/17 07:13 12/25/17 07:13 Labs: Abnormal Lab Results - Last 24 Hours (Table) 12/24/17 12/24/17 12/24/17 Range/Units 11:29 17:25 19:58 WBC (3.8-10.6) k/uL RBC (3.80-5.40) m/uL Hgb (11.4-16.0) gm/dL Hct (34.0-46.0) % Plt Count (150-450) k/uL Neutrophils # (1.3-7.7) k/uL Lymphocytes # (1.0-4.8) k/uL Potassium (3.5-5.1) mmol/L Carbon Dioxide (22-30) mmol/L BUN (7-17) mg/dL Creatinine (0.52-1.04) mg/dL Glucose (74-99) mg/dL POC Glucose (mg/dL) 136 H 257 H 137 H (75-99) mg/dL Total Protein (6.3-8.2) g/dL Albumin (3.5-5.0) g/dL 12/25/17 12/25/17 12/25/17 Range/Units 06:59 07:13 07:13 WBC 13.6 H (3.8-10.6) k/uL RBC 3.36 L (3.80-5.40) m/uL Hgb 10.3 L (11.4-16.0) gm/dL Hct 30.6 L (34.0-46.0) % Plt Count 139 L (150-450) k/uL Neutrophils # 11.6 H (1.3-7.7) k/uL Lymphocytes # 0.8 L (1.0-4.8) k/uL Potassium 3.4 L (3.5-5.1) mmol/L Carbon Dioxide 31 H (22-30) mmol/L BUN 74 H (7-17) mg/dL Creatinine 2.20 H (0.52-1.04) mg/dL Glucose 112 H (74-99) mg/dL POC Glucose (mg/dL) 134 H (75-99) mg/dL Total Protein 5.2 L (6.3-8.2) g/dL Albumin 3.0 L (3.5-5.0) g/dL Assessment and Plan Plan: Assessment: #1 Acute renal failure of unclear etiology. No hydronephrosis per ultrasound. Presenting creatinine 6.15, currently 2.20 #2 Multiple pulmonary nodules along with cavitary masses. Left hilar soft tissue fullness and mediastinal adenopathy and upper abdominal lymphadenopathy with left adrenal nodularity. Neoplastic etiology with metastatic disease within the differential. Status post bronchoscopy with biopsies 12/18/2017 cultures and lingular transbronchial biopsy was positive for synchronous squamous cell and small cell carcinoma. Left lower lung BAL could not exclude small cell carcinoma, brush tip and brushings smears of the left lower lobe could not exclude squamous cell carcinoma. #3 Chronic and ongoing tobacco dependence of greater than 40 years. 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 #5 History of right-sided breast cancer status post lumpectomy and radiation. #6 Large left thyroid nodule, negative biopsy in 2016. #7 Hypertension. #8 Hyperlipidemia. #9 Peripheral vascular disease with previous angioplasty of the left lower extremity. #10 Anxiety. Recommendation: Continue current medical treatment, continue Symbicort, DuoNeb, oral prednisone. Bronchial wash cultures remain negative, urine and look cultures are negative. Vital signs are stable, renal profile continues to improve. Activity as tolerated, will continue to follow. I performed a history & physical examination of the patient and discussed their management with my nurse practitioner, Rita Hopkins. I reviewed the nurse practitioner's note and agree with the documented findings and plan of care. Lung sounds are positive forscattered rhonchi throughout the lung pederson. The findings and the impression was discussed with the patient. I attest to the documentation by the nurse practitioner. Time with Patient: Less than 30
--- NOTE | 2017-12-25 11:33 | US ---
EXAMINATION TYPE: US venous doppler duplex LE BI DATE OF EXAM: 12/25/2017 9:15 AM COMPARISON: NONE CLINICAL HISTORY: edema, hypercoaguable with malignancy. Edema bilateral legs, worse on the left SIDE PERFORMED: bilateral TECHNIQUE: The lower extremity deep venous system is examined utilizing real time linear array sonog micky with graded compression, doppler sonography and color-flow sonography. VESSELS IMAGED: External Iliac Vein (EIV) Common Femoral Vein Deep Femoral Vein Greater Saphenous Vein * Femoral Vein Popliteal Vein Small Saphenous Vein * Proximal Calf Veins (* superficial vessels) Right Leg: No evidence of DVT Left Leg: No evidence of DVT IMPRESSION: 1. Lower extremity ultrasound negative for deep venous thrombosis.
[2017-12-25 11:41] LABS: Glucose,Whole Blood 179 mg/dL (75-99)
[2017-12-25] MEDS ORDERED: POTASSIUM CHLORIDE ER 20 MEQ TAB.ER PO STA (12:24)
--- NOTE | 2017-12-25 12:35 | P.PN ---
Subjective Progress Note Date: 12/25/17 Evelyn Flores is a 67 year old female who presented to [facility] to have a computed tomography scan of the chest was contrast BUN and creatinine were done prior to computed tomography scan and were significantly elevated, her BUN was 103, and creatinine 6.15, computed tomography scan was canceled and patient was sent to [facility] emergency room, she was evaluated in the emergency room she was given IV fluid and her creatinine came down slightly to 5.9, computed tomography scan of the chest without contrast was done and revealed multiple pulmonary nodules with a couple of cavitary masses patient also had evidence of lymphadenopathy in the chest and the upper abdomen, she also had a large left thyroid nodule, she was started on IV fluid and was admitted to the medical floor, pulmonary and nephrology and oncology consultation were requested. Patient has not been feeling well for the last 6 weeks, she had cough with minimal sputum production, she was given a course of antibiotic without any improvement, chest x-ray was done on 12/05/2017 and revealed evidence of right upper lobe lung mass computed tomography scan was recommended and this was scheduled for 12/15/2017 however patient was admitted due to severely elevated BUN and creatinine. Patient has a lifelong history of smoking, she has known history of hypertension , hyperlipidemia, anxiety disorder, and a thyroid nodule that was recently biopsied by Dr. Morales. At this time patient denies any pain or discomfort she reports having episodes of nausea and vomiting in the last 2 weeks she reports feeling full and then able to eat much, she reports significant weight loss in the last 6 weeks, she has been complaining of cough, she had minimal sputum production, she denies any hemoptysis, there is no abdominal pain no blood in the urine or in the stools. On 12/16/2017 patient is currently A & O 3 resting comfortably in bed. Patient does report some shortness of breath with activity. Patient denies chest pain. Denies nausea vomiting or diarrhea. Does reports she has very little appetite. Patient denies any urinary burning or frequency. On 12/17/2017 patient is currently alert and oriented 3 resting in bed comfortably. Patient's shortness of breath has improved. Patient being followed by pulmonary. Per pulmonary plan for bronchoscopy and biopsies tomorrow. IV steroids have been added per pulmonary. Patient denies chest pain at this time. Patient denies nausea vomiting or diarrhea. Patient denies any urinary burning or frequency On 12/18/2017 patient is currently alert and oriented X 3. Patient is currently resting comfortably in bed. Patient underwent bronchoscopy with biopsy without complication. Patient is currently on room air but does state she still gets winded upon activity. Patient denies chest pain or shortness of breath. Denies nausea vomiting or diarrhea. Denies any urinary or burning with urination On 12/19/2017 patient is currently alert and oriented 3. Patient remains short of breath after activity. Patient states she did not get much sleep last night. Patient denies chest pain. Patient denies nausea vomiting or diarrhea denies any urinary burning or frequency. On 12/20/2017 patient is currently alert and oriented 3. Patient remains short of breath with activity. Patient has chest pain or shortness of breath. Patient denies nausea vomiting or diarrhea. Denies any urinary burning or frequency On 12/21/2017 patient is alert and oriented 3 in no apparent distress, she had some episodes of confusion and hallucination that she thinks is related to steroid use she is still complaining of shortness of breath with any activity she complains of having poor taste in her mouth and poor appetite otherwise she denies any complaints there is no fever or chills no headache or dizziness no chest pain no nausea or vomiting no abdominal pain and no urinary symptoms On 12/22/2017 patient is alert and oriented in no distress complaining of anxiety and having poor sleep complaining of fatigue and shortness of breath with activity otherwise no complaints On 12/23/2017 patient is alert and oriented 3. Patient is currently resting comfortably in bed. Does state some improvement with shortness of breath. Patient has been started on Diflucan per oncology for thrush. Patient does state some improvement with being able to eat. At this time patient denies chest pain or shortness of breath. Denies nausea vomiting or diarrhea. Denies any urinary burning or frequency On 12/24/2017 patient is alert and oriented 3 currently eating her lunch sitting up in bed. Patient states she has been up walking the halls without oxygen. Patient states she does feel short of breath today. She said she hasn' t had an in-depth discussion with oncology services for treatment plan. At this time patient denies chest pain or shortness of breath. Denies any urinary burning or frequency. Denies nausea vomiting or diarrhea. On 12/25/2017 patient is alert and oriented 3 currently sitting up in bed. at bedside. Patient has remained on room air today. Patient states that she is a little bit more short of breath today than yesterday. At this time patient denies chest pain or shortness of breath. Denies nausea vomiting or diarrhea. Denies any urinary burning or frequency Objective - Vital Signs Vital signs: Vital Signs Temp 98 F 12/25/17 07:50 Pulse 76 12/25/17 07:50 Resp 20 12/25/17 07:50 BP 141/84 12/25/17 07:50 Pulse Ox 90 L 12/25/17 07:50 Intake & Output 12/24/17 12/25/17 12/25/17 18:59 06:59 18:59 Intake Total 150 Balance 150 Weight 73.482 kg 73.482 kg Intake: Oral 150 Other: Voiding Method Toilet Toilet Toilet # Voids 3 1 # Bowel Movements 1 - Exam Head normocephalic Neck supple Lungs diminished bilaterally Heart regular rate and rhythm S1-S2, no rub or gallop Abdomen is soft nontender nondistended positive bowel sounds no hepatosplenomegaly Extremities no edema Neuro alert and orientated to 3 - Labs CBC & Chem 7: 12/25/17 07:13 12/25/17 07:13 Labs: Abnormal Lab Results - Last 24 Hours (Table) 12/24/17 12/24/17 12/25/17 Range/Units 17:25 19:58 06:59 WBC (3.8-10.6) k/uL RBC (3.80-5.40) m/uL Hgb (11.4-16.0) gm/dL Hct (34.0-46.0) % Plt Count (150-450) k/uL Neutrophils # (1.3-7.7) k/uL Lymphocytes # (1.0-4.8) k/uL Potassium (3.5-5.1) mmol/L Carbon Dioxide (22-30) mmol/L BUN (7-17) mg/dL Creatinine (0.52-1.04) mg/dL Glucose (74-99) mg/dL POC Glucose (mg/dL) 257 H 137 H 134 H (75-99) mg/dL Total Protein (6.3-8.2) g/dL Albumin (3.5-5.0) g/dL 12/25/17 12/25/17 12/25/17 Range/Units 07:13 07:13 11:37 WBC 13.6 H (3.8-10.6) k/uL RBC 3.36 L (3.80-5.40) m/uL Hgb 10.3 L (11.4-16.0) gm/dL Hct 30.6 L (34.0-46.0) % Plt Count 139 L (150-450) k/uL Neutrophils # 11.6 H (1.3-7.7) k/uL Lymphocytes # 0.8 L (1.0-4.8) k/uL Potassium 3.4 L (3.5-5.1) mmol/L Carbon Dioxide 31 H (22-30) mmol/L BUN 74 H (7-17) mg/dL Creatinine 2.20 H (0.52-1.04) mg/dL Glucose 112 H (74-99) mg/dL POC Glucose (mg/dL) 179 H (75-99) mg/dL Total Protein 5.2 L (6.3-8.2) g/dL Albumin 3.0 L (3.5-5.0) g/dL Assessment and Plan Assessment: #1 multiple pulmonary masses including 2 cavitary lesions. Pulmonary services have been consulted. Awaiting consult. Per pulmonary team planning biopsy and bronchoscopy tomorrow. Solu-Medrol 60 mg every 6 has been added. Patient underwent bronchoscopy with biopsies and Dr. Rojas. Awaiting biopsy results. Patient remains on IV steroids. Biopsies from 12/18/2017 Bronchoscopy cultures and pathology are pending. 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 Patient remains on 20 mg of prednisone. #2 enlarged lymphadenopathy in the chest and upper abdomen. Oncology services . CA 2729 and CA 153 antigen ordered per oncology. CA 153 antigen 29.9 and CA 2729 elevated at 60.6. Oncology services are following. Brain MRI ordered per oncology. Brain MRI completed showing small area of focal increased T2/FLAIR signal in the right paramedian frontoparietal junction busch white matter interface at the vertex. Given the patient's history, difficult to exclude a small area of vasogenic edema here. [place] of prior vascular or traumatic insult is the alternative consideration. Follow-up with contrast enhanced MRI can be considered especially if there is high clinical concern for Travis brain metastasis. Otherwise no acute intracranial abnormality seen. Oncology service is following. Per oncology. Pathology with patient. Treatment will be chemotherapy as long cell carcinomas usually very sensitive chemotherapy. Per oncology will need to wait until renal function to improve for full contrasted staging exams and chemotherapy. Per oncology of membrane reviewed -5 possibly early metastases, radiation oncology to consult regarding MRI. Plan to reevaluate 4 weeks with MRI, likely begin treatment for squamous cell/small cell carcinoma of lung first. Discussed case with Paula CLOTHES MARKER per oncology. We'll plan for inpatient chemotherapy versus outpatient due to patient's likelihood of becoming dehydrated. Per patient possibility starting Friday for chemotherapy inpatient. #3 thyroid nodule with recent biopsy by Dr. Morales. Dr. Morales has been consulted for evaluation. #4 acute renal failure, last creatinine prior to this admission was in August 2017 and was 1.2. Creatinine 5.15 and bun 93. Nephrology following. Renal ultrasound completed showing fusiform lower abdomen aortic aneurysm measures up to 5.2 cm in diameter. The length is more than 8 cm. No hydronephrosis. Small left renal cortical cyst. We'll continue to monitor labs closely. Creatinine continued to trend down to 4.07 and bun 73. Per nephrology continue to monitor labs on a daily basis. Creatinine improving to 3.03 and bun 81. Per nephrology bicarb has been increased to 1300 mg 3 times daily. Per nephrology fluids have been hep-locked. Bun 74 and creatinine 2.20 #5 underlying history of hypertension #6 underlying history of hyperlipidemia #7 evidence of COPD on computed tomography scan #8 tobacco abuse #9 underlying history of anxiety disorder #10 hypokalemia. Potassium replacement protocol. Will recheck potassium level and monitor closely. Repeat potassium 3.8 #11 abdominal aortic aneurysm. Renal ultrasound completed showing fusiform lower abdomen aortic aneurysm measuring up to 5.2 cm in diameter. The length is more than 8 cm. Patient to follow-up outpatient for further workup. #12 leukocytosis likely related to steroids. WBC increasing to 21.2. Blood culture currently negative. Patient does state she is coughing up sputum. Will order sputum sample WBC improving to 13.6 #13 insomnia. Melatonin added #14 hypomagnesemia. Magnesium 1.4. Replacement protocol. Continue to monitor closely. Magnesium 2.0 #15 right arm swelling. Venous Doppler completed completed showing superficial thrombus in the cephalic vein. There is a large right-sided cervical lymph node that measures up to 13 mm in length. No deep vein thrombosis.. Likely related to infiltration of IV. Right arm swelling improving #16 oral Thrush. Diflucan 100 mg has been added per oncology. #17 left lower leg swelling. Venous Doppler completed showing no evidence of DVT in right or left leg. GI prophylaxis Pepcid and DVT prophylaxis SCDs. DVT prophylaxis heparin I performed an examination of the patient and discussed their management with the Nurse Practitioner. I have reviewed the Nurse Practitioner's notes and agree with the documented findings and plan of care
--- NOTE | 2017-12-25 12:40 | P.PN ---
Subjective Patient is seen in follow for acute kidney injury. Creatinine was greater than 6 on admission and is down to 2.2 today. She is off IVFs. Patient was noted to have cavitary lesions in the lungs and underwent a bronchoscopy on December 18 with results positive for squamous and small cell carcinoma. Good urine output. Oral intake slowly improving. Vital signs are stable. General: The patient appeared well nourished and normally developed. HEENT: Head exam is unremarkable. Neck is without jugular venous distension. LUNGS: Lungs are clear to auscultation and percussion. Breath sounds decreased. HEART: Rate and Rhythm are regular. First and second heart sounds normal. No murmurs, rubs or gallops. ABDOMEN: Abdominal exam reveals normal bowel sounds. Non-tender and non- distended. No evidence of peritonitis. EXTREMITITES: No clubbing, cyanosis, or edema. Objective - Vital Signs Vital signs: Vital Signs Temp 98 F 12/25/17 07:50 Pulse 76 12/25/17 07:50 Resp 20 12/25/17 07:50 BP 141/84 12/25/17 07:50 Pulse Ox 90 L 12/25/17 07:50 Intake & Output 12/24/17 12/25/17 12/25/17 18:59 06:59 18:59 Intake Total 150 Balance 150 Weight 73.482 kg 73.482 kg Intake: Oral 150 Other: Voiding Method Toilet Toilet Toilet # Voids 3 1 # Bowel Movements 1 - Labs CBC & Chem 7: 12/25/17 07:13 12/25/17 07:13 Labs: Abnormal Lab Results - Last 24 Hours (Table) 12/24/17 12/24/17 12/25/17 Range/Units 17:25 19:58 06:59 WBC (3.8-10.6) k/uL RBC (3.80-5.40) m/uL Hgb (11.4-16.0) gm/dL Hct (34.0-46.0) % Plt Count (150-450) k/uL Neutrophils # (1.3-7.7) k/uL Lymphocytes # (1.0-4.8) k/uL Potassium (3.5-5.1) mmol/L Carbon Dioxide (22-30) mmol/L BUN (7-17) mg/dL Creatinine (0.52-1.04) mg/dL Glucose (74-99) mg/dL POC Glucose (mg/dL) 257 H 137 H 134 H (75-99) mg/dL Total Protein (6.3-8.2) g/dL Albumin (3.5-5.0) g/dL 12/25/17 12/25/17 12/25/17 Range/Units 07:13 07:13 11:37 WBC 13.6 H (3.8-10.6) k/uL RBC 3.36 L (3.80-5.40) m/uL Hgb 10.3 L (11.4-16.0) gm/dL Hct 30.6 L (34.0-46.0) % Plt Count 139 L (150-450) k/uL Neutrophils # 11.6 H (1.3-7.7) k/uL Lymphocytes # 0.8 L (1.0-4.8) k/uL Potassium 3.4 L (3.5-5.1) mmol/L Carbon Dioxide 31 H (22-30) mmol/L BUN 74 H (7-17) mg/dL Creatinine 2.20 H (0.52-1.04) mg/dL Glucose 112 H (74-99) mg/dL POC Glucose (mg/dL) 179 H (75-99) mg/dL Total Protein 5.2 L (6.3-8.2) g/dL Albumin 3.0 L (3.5-5.0) g/dL Assessment and Plan Plan: Assessment: 1. Nonoliguric acute kidney injury mostly prerenal secondary to severe intravascular volume depletion from poor oral intake and diuretics. Creatinine was greater than 6 on admission and is down to 2.2 today. No evidence of hydronephrosis noted on renal ultrasound. Urinalysis revealed trace proteinuria without RBCs. Electrophoresis studies negative. 2. Cavitary lung nodules status post bronchoscopy on December 18. Biopsy results positive for squamous and small cell lung cancer. Oncology following. 3. Metabolic acidosis secondary to acute kidney injury. Resolved. 4. Hypomagnesemia from poor oral intake. Improved post replacement. 5. Hypokalemia from poor oral intake. Plan: Replace potassium. 40 mEq today. Encouraged oral intake. Discontinue oral bicarb. Repeat electrolytes in the morning, including magnesium.
[2017-12-25 17:33] LABS: Glucose,Whole Blood 171 mg/dL (75-99)
--- NOTE | 2017-12-25 18:19 | P.PN ---
Subjective Progress Note Date: 12/25/17 Principal diagnosis: New Pulmonary Nodules and adenopathy Patient seen and examined today. 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 Reviewed with patient and . Plan will likely be first treatment of chemotherapy as inpatient as she is high risk dehydration and will benefit from gentle hydration post carboplatin, this will be ordered for Friday pending her renal function continues to improve. Objective - Vital Signs Vital signs: Vital Signs Temp 98 F 12/25/17 13:54 Pulse 87 12/25/17 13:54 Resp 20 12/25/17 13:54 BP 143/91 12/25/17 13:54 Pulse Ox 91 L 12/25/17 13:54 Intake & Output 12/24/17 12/25/17 12/25/17 18:59 06:59 18:59 Intake Total 150 250 Balance 150 250 Weight 73.482 kg 73.482 kg Intake: Oral 150 250 Other: Voiding Method Toilet Toilet Toilet # Voids 3 1 2 # Bowel Movements 1 - Exam - Constitutional General appearance: average body habitus, mild distress - EENT Eyes: EOMI, PERRLA ENT: hard of hearing Ears: bilateral: normal Mouth Severe Thrush tongue and posterior pharynx grade 3 - Has greatly improved and decreased grade 1, able to eat - Neck Neck: normal ROM Carotids: bilateral: upstroke normal Thyroid: left: enlarged, nodule - Respiratory Respiratory: bilateral: diminished, rhonchi and expiratory wheezes to ausculation - Cardiovascular Rhythm: regular Heart sounds: normal: S1, S2 - Gastrointestinal General gastrointestinal: normal bowel sounds - Integumentary Integumentary: normal turgor - Neurologic Neurologic: CNII-XII intact - Musculoskeletal Musculoskeletal: gait normal - Psychiatric Psychiatric: A&O x's 3, appropriate affect, intact judgment & insight - Labs CBC & Chem 7: 12/25/17 07:13 12/25/17 07:13 Labs: Abnormal Lab Results - Last 24 Hours (Table) 12/24/17 12/25/17 12/25/17 Range/Units 19:58 06:59 07:13 WBC 13.6 H (3.8-10.6) k/uL RBC 3.36 L (3.80-5.40) m/uL Hgb 10.3 L (11.4-16.0) gm/dL Hct 30.6 L (34.0-46.0) % Plt Count 139 L (150-450) k/uL Neutrophils # 11.6 H (1.3-7.7) k/uL Lymphocytes # 0.8 L (1.0-4.8) k/uL Potassium (3.5-5.1) mmol/L Carbon Dioxide (22-30) mmol/L BUN (7-17) mg/dL Creatinine (0.52-1.04) mg/dL Glucose (74-99) mg/dL POC Glucose (mg/dL) 137 H 134 H (75-99) mg/dL Total Protein (6.3-8.2) g/dL Albumin (3.5-5.0) g/dL 12/25/17 12/25/17 12/25/17 Range/Units 07:13 11:37 17:31 WBC (3.8-10.6) k/uL RBC (3.80-5.40) m/uL Hgb (11.4-16.0) gm/dL Hct (34.0-46.0) % Plt Count (150-450) k/uL Neutrophils # (1.3-7.7) k/uL Lymphocytes # (1.0-4.8) k/uL Potassium 3.4 L (3.5-5.1) mmol/L Carbon Dioxide 31 H (22-30) mmol/L BUN 74 H (7-17) mg/dL Creatinine 2.20 H (0.52-1.04) mg/dL Glucose 112 H (74-99) mg/dL POC Glucose (mg/dL) 179 H 171 H (75-99) mg/dL Total Protein 5.2 L (6.3-8.2) g/dL Albumin 3.0 L (3.5-5.0) g/dL Assessment and Plan Plan: Assessment and Recommendations: 1. New Mediastinal Lymphadenopathy and Pulmonary Nodules: - Will need a tissue biopsy, likely surgical (to send further tests if possible ), for diagnsis - Pulmonary is following and will defer Bronchoscopy versus IR Needle Biopsy - Full Initial Staging once renal function improves - May benefit from MRI brain as well when renal function improves - Biopsy via Bronch 8/30/18 - - Reviewed pathology with patient. Treatment will be chemotherapy as small cell carcinoma is usually very sensistive to chemotherapy. Although patients renal function is slowly improving and still subpar, will discuss with Dr. Landry and follow-up in am regarding treatment plan recommendations. 2. Acute Renal Failure: - This maybe related to Dehydration and Dramatic reduction in PO intake - She has had a large weight loss and decreased po intake overall - Nephrology is following - Renal Function Mildly improving - Will need to await renal function to improve for full contrasted staging exams and chemotherapy most likely 3. Hypokalemia - Per Nephrology 4. Hx: Breast Cancer - Lumpectomy and radiation in 2005 - Unaware of type - Check Tumor Markers, Ca 27.29 is mildly elevated from normal range 5. Grade 3 oral thrush and inability to eat: Improving - Add Diflucan as she requires systemic treatment - Re-education on mouth rinse after inhalers - Benefit of diflucan outweigh risks of inhaled interaction 6. Dizziness, intermittent confusion and hallucinations: - Medication versus other - COnsider possibility of metastatic disease - MRI of brain ordered and completed. Reviewed and identified possible early met, radiation oncology to consult regarding MRI. PLan to re-evalute 4 weeks with another MRI, likely begin treatment for squamous cell/small cell carcinoma of lung first. Oncology Plan - Continue to await recovery of renal function, probable first cycle of chemotherapy in hospital if symptoms of breathing persist. If symptoms improve and patient is ready for discharge will consider outpatient treatment, although high risk for progression, cancer sensistive to chemotherapy, and high risk for dehydration. Monitor 24 hours and re-evaluate for in patient need for chemotherapy versus out patient - COntinue to work with PT to improve performance status. - Plan inpatient chemotherapy with carboplatin and FREE [employer]ANCE [employer]DEL 16 on friday as long as creatinine less than 2
[2017-12-25 20:09] LABS: Glucose,Whole Blood 120 mg/dL (75-99)
[2017-12-25] MEDS: ATORVASTATIN 10 MG TAB PO SCH (20:36)
[2017-12-25] MEDS: MELATONIN 5 MG TABLET PO SCH (22:26)
[2017-12-26 06:31] LABS: Glucose,Whole Blood 126 mg/dL (75-99)
[2017-12-26] MEDS: INSULIN ASPART 100 UNIT/ML 1 ML 10 ML VIAL SQ SCH ×4 (07:14→22:53)
[2017-12-26] MEDS: SYMBICORT 160-4.5 MCG INHALER INHALATION SCH ×2 (07:19→19:13)
[2017-12-26 07:49] LABS: Calcium 8.4 mg/dL (8.4-10.2); Magnesium 1.2 mg/dL (1.6-2.3); Potassium 3.8 mmol/L (3.5-5.1); Total Bilirubin 0.6 mg/dL (0.2-1.3); Total Protein 5.2 g/dL (6.3-8.2)
[2017-12-26] MEDS: NYSTATIN 100,000 UNIT/ML SUSP 500,000 UNIT/5 ML CUP PO SCH ×4 (07:50→22:52)
[2017-12-26 07:53] LABS: Basophils % (A) 0 %; Eosinophils # (A) 0.1 k/uL (0-0.7); Eosinophils % (A) 1 %; HCT 30.9 % (34.0-46.0); HGB 10.1 gm/dL (11.4-16.0); Lymphocytes % (A) 8 %; MCH 29.8 pg (25.0-35.0); MCHC 32.6 g/dL (31.0-37.0); MCV 91.7 fL (80.0-100.0); Mean Platelet Volume 7.9; Monocytes # (A) 0.8 k/uL (0-1.0); Monocytes % (A) 7 %; Neutrophils # (A) 9.8 k/uL (1.3-7.7); Neutrophils % (A) 83 %; Platelet Count 130 k/uL (150-450); RBC 3.38 m/uL (3.80-5.40); RDW 13.6 % (11.5-15.5); WBC 11.8 k/uL (3.8-10.6)
[2017-12-26] MEDS: FLUCONAZOLE 100 MG TAB PO SCH ×2 (07:53→07:55)
[2017-12-26] MEDS: predniSONE 20 MG TAB PO SCH (07:54)
[2017-12-26] MEDS: PENTOXIFYLLINE 400 MG TABLET.ER PO SCH ×3 (07:55→17:55)
[2017-12-26] MEDS: ASPIRIN 81 MG PO SCH (07:55)
[2017-12-26] MEDS: HEPARIN SODIUM,PORCINE 5,000 UNIT/ML 1 ML VIAL SQ SCH ×2 (07:55→22:52)
[2017-12-26] MEDS: ATENOLOL 25 MG TAB PO SCH ×2 (07:55→22:52)
[2017-12-26] MEDS: FAMOTIDINE 20 MG TAB PO SCH (07:55)
[2017-12-26] MEDS: busPIRone HCl 5 MG TAB PO SCH ×3 (07:55→22:51)
[2017-12-26] MEDS: ERGOCALCIFEROL 50,000 UNIT CAP PO SCH (07:55)
[2017-12-26 11:55] LABS: Glucose,Whole Blood 164 mg/dL (75-99)
--- NOTE | 2017-12-26 13:48 | P.PN ---
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 This is a very pleasant 67-year-old female patient who follows with Dr. Mora as her primary care physician. She has a history of hypertension, hyperlipidemia, peripheral vascular disease with previous angioplasty of the left lower extremity, hearing disorder, right sided breast cancer status post lumpectomy and radiation treatment in 2005. She also has chronic and ongoing 40 + year smoking history. She had not been on any inhalers in the past. Approximately one month ago she started having increasing shortness of breath, cough and congestion. She was treated with antibiotics and nebulized treatments without much improvement. Follow-up chest x-ray revealed some abnormalities and she was scheduled for a CT angiogram of the chest to be performed yesterday. However her renal function was significantly elevated. She did undergo a computed tomography scan of the chest without contrast which revealed multiple pulmonary nodules measuring up to 2 cm. There is cavitary masses present in the left hilar region and left lower lobe. There is left hilar soft tissue fullness and mediastinal lymphadenopathy. There is also noted moderate emphysema/COPD. There is a large heterogenous left thyroid nodule with recent ultrasound revealing a large left lobe cystic-type thyroid nodule that was stable compared to previous. Renal ultrasound revealed no evidence of hydronephrosis. There is a small left renal cortical cysts. She does have a fusiform lower abdominal aortic aneurysm measuring 5.2 cm in diameter that is more than 8 cm in length. Initial creatinine 6.15. Today 5.15 the BUN of 93. Patient is seen today in consultation on the oncology unit. She is currently awake and alert in no acute distress. She has been feeling quite poorly especially the last several days without eating or drinking much. She's had approximately 30 pound weight loss over the past month since all of her symptoms began. She denies productive cough. No hemoptysis. The patient is seen again today 12/17/2017 in follow-up on the oncology unit. She is currently awake and alert in no acute distress. She is breathing quite a bit easier today as compared to yesterday. In general she is feeling better overall as well. Her renal function has improved current creatinine 4.33. Her pulmonary status has improved. She is less short of breath. Less bronchospastic and wheezy. Maintaining good O2 saturations in the mid to upper 90s on 2 L/m per nasal cannula. She is afebrile. Blood culture reveals no growth. White count 9.1. Hemoglobin 9.9. The patient is seen again today 12/18/2017 in follow-up on the oncology unit. She is awake and alert in no acute distress. She is breathing a bit better today as compared to yesterday. Maintaining good O2 saturations in the 90s on room air. She's been afebrile. Hemodynamically stable. Blood culture reveals no growth to date. White count 21.2. Hemoglobin 10.3. Creatinine 4.07. She did undergo bronchoscopy with biopsies with Dr. Rojas this morning. She tolerated the procedure well. Pathology is pending. The patient is seen again today 12/19/2017 in follow-up on the oncology unit. She is currently sitting up in bed having lunch. She is awake and alert in no acute distress. She is breathing a bit easier today as compared to yesterday but still dyspneic with exertion. 18 in good O2 saturations in the 90s on 2 L/ m per nasal cannula. Bronchial biopsies are pending. Cultures are pending. White count 15.4. Hemoglobin 10.0. Creatinine 3.86. The patient is seen again today on 12/20/2017 in follow-up on the oncology unit. She is currently sitting up in bed eating breakfast. She remains quite anxious and teary-eyed. She has short of breath with exertion. Still wheezing. She is maintaining O2 saturations in the 90s on 2 L/m per nasal cannula. She's been afebrile. Cultures reveal no growth thus far. Pathology is still pending. White count 15.6. Hemoglobin 10.5. Creatinine 3.68. Continued on sodium bicarb tablets. Reevaluated today on 12/21/2017, patient remains in the oncology unit, doing well , relatively asymptomatic except for intermittent cough and wheezing, feels generally weak. CBC is relatively normal, basic metabolic profile was reviewed BUN remains 81 creatinine is 3.27, and that being addressed by nephrology. Liver enzymes remains borderline elevated. Bronchoscopy results are still pending. Reevaluated today on 12/22/2017, patient is complaining of increased shortness of breath, intermittent cough and wheezing. Follow-up chest x-ray is basically about the same showing left perihilar soft tissue mass, right upper lobe nodule , and diffuse interstitial opacities with small effusions. Pathology and cytology is pending from her last bronchoscopy, hopefully we will be receiving some answers from the lab tomorrow. Labs were reviewed, WBC count is 14 hemoglobin 10.8 renal profile remains abnormal with BUN 82 creatinine 3.03. On 12/23/2017 patient seen in follow-up. Still has some wheezing, intermittent cough, and shortness of breath. She feels a bit less congested, and feels like she should be able to start bringing up some sputum. 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 Oncology report of the brushing and Andre needle biopsy pending. She remains on 2 L per nasal cannula, pulse ox is 95%. Renal profile is slightly improved, B1 is 84, creatinine is 2.71. WBC is 12.1, hemoglobin is 10.4. Cultures are negative thus far. Including the bronchial wash cultures. He went for MRI of the brain this morning showed small area of focal increased T2/Flair signal in the right paramedian frontoparietal junction busch-white matter interface, difficult to exclude a small area of vasogenic edema, but no acute intracranial abnormality. Oncology is following. On 12/24/2017 patient seen in follow-up on oncology floor. Yesterday transbronchial biopsy of the lingula was positive for synchronous small cell carcinoma and squamous cell carcinoma. Cytology on the Andre needle aspirate showed malignant cell population consistent with small cell carcinoma, transcranial lung core biopsy was positive for malignant neoplasm consistent with small cell carcinoma. BAL of the lingula showed minimally cellular specimen consisting of blood with scattered reactive bronchial lining cells, nondiagnostic. Rash tip of the lingula shows severe squamous atypia consistent with squamous cell carcinoma. Cannot exclude small cell carcinoma. Left lower lung BAL could not exclude small cell carcinoma, brush tip and brushings smears of the left lower lobe could not exclude squamous cell carcinoma. Patient was seen by medical oncology, and radiation oncology. MRI of the brain showed possible small early metastasis. On today's exam patient is less bronchospastic , however patient has scattered rhonchi, but no distress, nonproductive cough. Today's lab work showed CBC of 12.9, no significant change from yesterday, renal profile continues to improve, BUN is 83, creatinine is 2.36. On 12/25/2017 patient seen in follow-up on oncology floor. She is awake and alert, sitting up at the edge of the bed, in no acute distress, she states she started to bring up some sputum, did not note the color. Lung sounds are positive for diffuse rhonchi, and wheezes. Pulse ox on 2 L per nasal cannula is 90-93%. Vital signs are stable. Transbronchial biopsy of the lingula as well as cytology of the needle aspirate and brush smears of the left lower lung were positive for synchronous small cell carcinoma and squamous cell carcinoma. Medical oncology is awaiting improvement of the renal profile to initiate chemotherapy. His labs were reviewed, shows diminished at 13.6, hemoglobin 10.3 , potassium 3.4, CO2 is 31, BUN 74, creatinine is 2.2. Diuretics remain on hold , patient developed some swelling in her right upper and bilateral lower extremities, left greater than the right, denies any calf tenderness, any redness or tenderness. Venous Doppler study of bilateral lower extremities is completed, and the results of pending at this time. Bronchial washing cultures are negative thus far. On 12/26/2017 patient seen in follow-up in oncology floor. She is awake and alert, she is feeling better today, less short of breath, she is tolerating ambulation, she was able to take a shower, and she states her congestion is breaking up, and patient is able to expectorate some phlegm. Lung sounds are still positive for diffuse wheezing particularly over left lung. Patient remains on oral prednisone, and nebulized bronchodilators, in addition to Symbicort. She states she she is breathing easier today, today's labs were reviewed, shows WBC of 11.8, hemoglobin is 10.1, CO2 of 33, B1 is 74, and creatinine is 1.95, and renal profile is improving. Appetite remains somewhat poor, but patient aching an effort to increase her oral intake. I'll signs are stable, patient is on room air, pulse ox is 95%. Bronchial wash cultures are negative so far. Objective - Vital Signs Vital signs: Vital Signs Temp 97.8 F 12/26/17 05:00 Pulse 82 12/26/17 05:00 Resp 20 12/26/17 05:00 BP 114/76 12/26/17 05:00 Pulse Ox 95 12/26/17 05:00 Intake & Output 12/25/17 12/26/17 12/26/17 18:59 06:59 18:59 Intake Total 250 600 360 Balance 250 600 360 Weight 73.482 kg Intake: Oral 250 600 360 Other: Voiding Method Toilet Toilet Toilet # Voids 2 1 # Bowel Movements 1 - Exam - Constitutional General appearance: average body habitus, no acute distress. - EENT Eyes: EOMI, PERRLA ENT: hard of hearing Ears: bilateral: normal - Neck Neck: normal ROM Carotids: bilateral: upstroke normal Thyroid: left: enlarged, nodule - Respiratory Respiratory: Diffuse wheezing, more so on the left side - Cardiovascular Rhythm: regular Heart sounds: normal: S1, S2, Mild right upper extremity edema, bilateral lower extremity edema, left greater than the right - Gastrointestinal General gastrointestinal: normal bowel sounds - Integumentary Integumentary: normal turgor - Neurologic Neurologic: CNII-XII intact - Musculoskeletal Musculoskeletal: gait normal - Psychiatric Psychiatric: A&O x's 3, appropriate affect, intact judgment & insight - Labs CBC & Chem 7: 12/26/17 06:45 12/26/17 06:45 Labs: Abnormal Lab Results - Last 24 Hours (Table) 12/25/17 12/25/17 12/26/17 Range/Units 17:31 20:07 06:30 WBC (3.8-10.6) k/uL RBC (3.80-5.40) m/uL Hgb (11.4-16.0) gm/dL Hct (34.0-46.0) % Plt Count (150-450) k/uL Neutrophils # (1.3-7.7) k/uL Carbon Dioxide (22-30) mmol/L BUN (7-17) mg/dL Creatinine (0.52-1.04) mg/dL Glucose (74-99) mg/dL POC Glucose (mg/dL) 171 H 120 H 126 H (75-99) mg/dL Magnesium (1.6-2.3) mg/dL Total Protein (6.3-8.2) g/dL Albumin (3.5-5.0) g/dL 09/07/18 09/07/18 09/07/18 Range/Units 06:45 06:45 11:49 WBC 11.8 H (3.8-10.6) k/uL RBC 3.38 L (3.80-5.40) m/uL Hgb 10.1 L (11.4-16.0) gm/dL Hct 30.9 L (34.0-46.0) % Plt Count 130 L (150-450) k/uL Neutrophils # 9.8 H (1.3-7.7) k/uL Carbon Dioxide 33 H (22-30) mmol/L BUN 74 H (7-17) mg/dL Creatinine 1.95 H (0.52-1.04) mg/dL Glucose 107 H (74-99) mg/dL POC Glucose (mg/dL) 164 H (75-99) mg/dL Magnesium 1.2 L (1.6-2.3) mg/dL Total Protein 5.2 L (6.3-8.2) g/dL Albumin 3.0 L (3.5-5.0) g/dL Assessment and Plan Plan: Assessment: #1 Acute renal failure of unclear etiology. No hydronephrosis per ultrasound. Presenting creatinine 6.15, currently 2.20 #2 Multiple pulmonary nodules along with cavitary masses. Left hilar soft tissue fullness and mediastinal adenopathy and upper abdominal lymphadenopathy with left adrenal nodularity. Neoplastic etiology with metastatic disease within the differential. Status post bronchoscopy with biopsies 12/18/2017 cultures and lingular transbronchial biopsy was positive for synchronous squamous cell and small cell carcinoma. Left lower lung BAL could not exclude small cell carcinoma, brush tip and brushings smears of the left lower lobe could not exclude squamous cell carcinoma. #3 Chronic and ongoing tobacco dependence of greater than 40 years. 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 #5 History of right-sided breast cancer status post lumpectomy and radiation. #6 Large left thyroid nodule, negative biopsy in 2016. #7 Hypertension. #8 Hyperlipidemia. #9 Peripheral vascular disease with previous angioplasty of the left lower extremity. #10 Anxiety. Recommendation: Continue current medical treatment, renal profile is improving, patient reports her breathing is improving, less short of breath, is able to tolerate ambulation. Continue with oral prednisone, nebulized bronchodilators and Symbicort. Anticipate starting chemotherapy once there is further improvement in the renal profile by medical oncology. Case was discussed with radiation oncologist Dr Toledo, who may consider radiation to the brain if patient becomes more symptomatic in regards to possibility of metastasis to the brain. I performed a history & physical examination of the patient and discussed their management with my nurse practitioner, Rita Hopkins. I reviewed the nurse practitioner's note and agree with the documented findings and plan of care. Lung sounds are positive forscattered rhonchi throughout the lung pederson. The findings and the impression was discussed with the patient. I attest to the documentation by the nurse practitioner. Time with Patient: Less than 30
[2017-12-26] MEDS ORDERED: LIDOCAINE 1% INJ 10MG/ML (20 ML MDV) ONE (14:26)
[2017-12-26] MEDS ORDERED: LIDOCAINE 1% INJ 10MG/ML (20 ML MDV) SQ ONE (14:49)
--- NOTE | 2017-12-26 15:01 | P.PN ---
Subjective Progress Note Date: 12/26/17 Evelyn Flores is a 67 year old female who presented to [facility] to have a computed tomography scan of the chest was contrast BUN and creatinine were done prior to computed tomography scan and were significantly elevated, her BUN was 103, and creatinine 6.15, computed tomography scan was canceled and patient was sent to [facility] emergency room, she was evaluated in the emergency room she was given IV fluid and her creatinine came down slightly to 5.9, computed tomography scan of the chest without contrast was done and revealed multiple pulmonary nodules with a couple of cavitary masses patient also had evidence of lymphadenopathy in the chest and the upper abdomen, she also had a large left thyroid nodule, she was started on IV fluid and was admitted to the medical floor, pulmonary and nephrology and oncology consultation were requested. Patient has not been feeling well for the last 6 weeks, she had cough with minimal sputum production, she was given a course of antibiotic without any improvement, chest x-ray was done on 12/05/2017 and revealed evidence of right upper lobe lung mass computed tomography scan was recommended and this was scheduled for 12/15/2017 however patient was admitted due to severely elevated BUN and creatinine. Patient has a lifelong history of smoking, she has known history of hypertension , hyperlipidemia, anxiety disorder, and a thyroid nodule that was recently biopsied by Dr. Morales. At this time patient denies any pain or discomfort she reports having episodes of nausea and vomiting in the last 2 weeks she reports feeling full and then able to eat much, she reports significant weight loss in the last 6 weeks, she has been complaining of cough, she had minimal sputum production, she denies any hemoptysis, there is no abdominal pain no blood in the urine or in the stools. On 12/16/2017 patient is currently A & O 3 resting comfortably in bed. Patient does report some shortness of breath with activity. Patient denies chest pain. Denies nausea vomiting or diarrhea. Does reports she has very little appetite. Patient denies any urinary burning or frequency. On 12/17/2017 patient is currently alert and oriented 3 resting in bed comfortably. Patient's shortness of breath has improved. Patient being followed by pulmonary. Per pulmonary plan for bronchoscopy and biopsies tomorrow. IV steroids have been added per pulmonary. Patient denies chest pain at this time. Patient denies nausea vomiting or diarrhea. Patient denies any urinary burning or frequency On 12/18/2017 patient is currently alert and oriented X 3. Patient is currently resting comfortably in bed. Patient underwent bronchoscopy with biopsy without complication. Patient is currently on room air but does state she still gets winded upon activity. Patient denies chest pain or shortness of breath. Denies nausea vomiting or diarrhea. Denies any urinary or burning with urination On 12/19/2017 patient is currently alert and oriented 3. Patient remains short of breath after activity. Patient states she did not get much sleep last night. Patient denies chest pain. Patient denies nausea vomiting or diarrhea denies any urinary burning or frequency. On 12/20/2017 patient is currently alert and oriented 3. Patient remains short of breath with activity. Patient has chest pain or shortness of breath. Patient denies nausea vomiting or diarrhea. Denies any urinary burning or frequency On 12/21/2017 patient is alert and oriented 3 in no apparent distress, she had some episodes of confusion and hallucination that she thinks is related to steroid use she is still complaining of shortness of breath with any activity she complains of having poor taste in her mouth and poor appetite otherwise she denies any complaints there is no fever or chills no headache or dizziness no chest pain no nausea or vomiting no abdominal pain and no urinary symptoms On 12/22/2017 patient is alert and oriented in no distress complaining of anxiety and having poor sleep complaining of fatigue and shortness of breath with activity otherwise no complaints On 12/23/2017 patient is alert and oriented 3. Patient is currently resting comfortably in bed. Does state some improvement with shortness of breath. Patient has been started on Diflucan per oncology for thrush. Patient does state some improvement with being able to eat. At this time patient denies chest pain or shortness of breath. Denies nausea vomiting or diarrhea. Denies any urinary burning or frequency On 12/24/2017 patient is alert and oriented 3 currently eating her lunch sitting up in bed. Patient states she has been up walking the halls without oxygen. Patient states she does feel short of breath today. She said she hasn' t had an in-depth discussion with oncology services for treatment plan. At this time patient denies chest pain or shortness of breath. Denies any urinary burning or frequency. Denies nausea vomiting or diarrhea. On 12/25/2017 patient is alert and oriented 3 currently sitting up in bed. at bedside. Patient has remained on room air today. Patient states that she is a little bit more short of breath today than yesterday. At this time patient denies chest pain or shortness of breath. Denies nausea vomiting or diarrhea. Denies any urinary burning or frequency 12/26/2017 patient creatinine is down to 1.95 she is scheduled to start chemotherapy this evening. Dopplers of the lower extremities are negative for DVT. Patient has no new complaints. Right arm remains swollen. Right upper extremity Doppler negative for DVT positive for SVT within the right cephalic vein Objective - Vital Signs Vital signs: Vital Signs Temp 98 F 12/26/17 13:00 Pulse 78 12/26/17 13:00 Resp 16 12/26/17 13:00 BP 126/84 12/26/17 13:00 Pulse Ox 92 L 12/26/17 13:00 Intake & Output 12/25/17 12/26/17 12/26/17 18:59 06:59 18:59 Intake Total 250 600 360 Balance 250 600 360 Weight 73.482 kg Intake: Oral 250 600 360 Other: Voiding Method Toilet Toilet Toilet # Voids 2 1 2 # Bowel Movements 1 - Exam Head normocephalic Neck supple Lungs clear to auscultation bilaterally no wheezing or crackles Heart regular rate and rhythm S1-S2, no rub or gallop Abdomen is soft nontender nondistended positive bowel sounds no hepatosplenomegaly Extremities right arm swollen and weepy Neuro alert and orientated to 3 - Labs CBC & Chem 7: 12/26/17 06:45 12/26/17 06:45 Labs: Abnormal Lab Results - Last 24 Hours (Table) 12/25/17 12/25/17 12/26/17 Range/Units 17:31 20:07 06:30 WBC (3.8-10.6) k/uL RBC (3.80-5.40) m/uL Hgb (11.4-16.0) gm/dL Hct (34.0-46.0) % Plt Count (150-450) k/uL Neutrophils # (1.3-7.7) k/uL Carbon Dioxide (22-30) mmol/L BUN (7-17) mg/dL Creatinine (0.52-1.04) mg/dL Glucose (74-99) mg/dL POC Glucose (mg/dL) 171 H 120 H 126 H (75-99) mg/dL Magnesium (1.6-2.3) mg/dL Total Protein (6.3-8.2) g/dL Albumin (3.5-5.0) g/dL 12/26/17 12/26/17 12/26/17 Range/Units 06:45 06:45 11:49 WBC 11.8 H (3.8-10.6) k/uL RBC 3.38 L (3.80-5.40) m/uL Hgb 10.1 L (11.4-16.0) gm/dL Hct 30.9 L (34.0-46.0) % Plt Count 130 L (150-450) k/uL Neutrophils # 9.8 H (1.3-7.7) k/uL Carbon Dioxide 33 H (22-30) mmol/L BUN 74 H (7-17) mg/dL Creatinine 1.95 H (0.52-1.04) mg/dL Glucose 107 H (74-99) mg/dL POC Glucose (mg/dL) 164 H (75-99) mg/dL Magnesium 1.2 L (1.6-2.3) mg/dL Total Protein 5.2 L (6.3-8.2) g/dL Albumin 3.0 L (3.5-5.0) g/dL Assessment and Plan Assessment: #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 Oncology following closely #2 possible early brain metastasis: Patient will undergo treatment of the lung cancer first. And oncology will reevaluate in 4 weeks for a possible [place] MRI of the brain. #3 thyroid nodule with recent biopsy by Dr. Morales. #4 acute renal failure: Likely prerenal secondary to severe intravascular volume depletion from poor oral intake and diuretics. Followed closely by nephrology. Kidney function showing improvement. Patient will be able to proceed with chemotherapy. #5 underlying history of hypertension #6 underlying history of hyperlipidemia #7 evidence of COPD on computed tomography scan #8 tobacco abuse #9 underlying history of anxiety disorder #10 hypokalemia. Potassium replacement protocol. Will recheck potassium level and monitor closely. Repeat potassium 3.8 #11 abdominal aortic aneurysm. Renal ultrasound completed showing fusiform lower abdomen aortic aneurysm measuring up to 5.2 cm in diameter. The length is more than 8 cm. Patient to follow-up outpatient for further workup. #12 leukocytosis likely related to steroids. #13 insomnia. Melatonin added #14 hypomagnesemia. Magnesium 1.2. We'll give magnesium sulfate 2 g IV 1. Repeat magnesium in a.m. #15 SVT of the right arm: Keep arm elevated. Likely related to infiltration of the IV. #16 oral Thrush. Diflucan 100 mg has been added per oncology. #17 left lower leg swelling. Venous Doppler completed showing no evidence of DVT in right or left leg. GI prophylaxis Pepcid and DVT prophylaxis SCDs. DVT prophylaxis heparin I performed an examination of the patient and discussed their management with the physician Documentation Writer. I have reviewed the Physician Documentation Writer's notes and agree with the documented findings and plan of care
--- NOTE | 2017-12-26 15:22 | IR ---
EXAMINATION TYPE: IR cvc insert >=5 years DATE OF EXAM: 12/26/2017 COMPARISON: NONE CLINICAL HISTORY: Lung carcinoma Needs long-term intravenous access for antibiotics. PROCEDURE: After informed consent, the skin overlying the right cephalic vein was localized with ultrasound and noted to be compressible and patent. An ultrasound image was obtained and submitted on the patient's chart. The overlying skin was prepped and draped and Lidocaine was used for local anesthesia. A sk in hanna was made with a scalpel. Access was gained to the vein under ultrasound guidance with a 21 g auge needle and a 0.018 inch wire was advanced. Access site was dilated with Peel-Away sheath and ca theter tailored to the appropriate length and advanced such that the distal tip is at the cavoatrial junction. Spot image was obtained verifying placement. Catheter was fixed to the skin with suture a nd a sterile dressing was placed following hemostasis. Catheter was aspirated and flushed with salin e. Patient was discharged in stable condition without complication.Maximal barrier technique is util ized. Ultrasound image is documented on the chart. Ultrasound used with sterile technique. Fluoro time and fluoroscopic images submitted to document procedure: 0.2 minutes fluoroscopy time, 19 intraoperative C-arm images IMPRESSION: STATUS POST ULTRASOUND AND FLUOROSCOPIC GUIDED PICC LINE PLACEMENT, READY FOR USE. THIS PROCEDURE WAS PERFORMED BY THE UNDERSIGNED.
[2017-12-26] MEDS: MAGNESIUM SULFATE-D5W PMX 1 GM in DEXTROSE/WATER 1 100ML.BAG IVPB SCH ×2 (16:01→17:53)
--- NOTE | 2017-12-26 16:31 | PN ---
PROGRESS NOTE Patient is seen for followup for acute kidney injury. She is currently in shower. The patient states she feels well. She denies any significant complaints. Blood pressure this morning 114/76, heart rate 82 per minute. She is afebrile. Examination shows trace edema bilateral lower extremities. The lungs are not heard. LAB DATA: Reviewed showed sodium 143, potassium 3.8, BUN 74, serum creatinine 1.95, hemoglobin 10.1 g/dL. ASSESSMENT: 1. Acute kidney injury, acute tubular necrosis, nonoliguric, currently improving. 2. Lung cancer squamous cell, small cell and squamous cell. The patient will be starting chemotherapy. 3. Possible early brain metastasis. 4. Chronic obstructive pulmonary disease with exacerbation, currently significantly improved. PLAN: Encourage increased oral intake. Currently patient is not on any nephrotoxic medications. Monitor renal profile closely and monitor for rhabdomyolysis if renal function worsens. MMODL / IJN: [id number] /
[2017-12-26 17:17] LABS: Glucose,Whole Blood 180 mg/dL (75-99)
--- NOTE | 2017-12-26 19:39 | P.PN ---
Subjective Progress Note Date: 12/26/17 Principal diagnosis: New Pulmonary Nodules and adenopathy Patient seen and examined today. 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 Reviewed with patient and . Creatinine is less than 2 today and chemotherapy will be initated. Long discussion with patient and family today Objective - Vital Signs Vital signs: Vital Signs Temp 98 F 12/26/17 13:00 Pulse 78 12/26/17 13:00 Resp 16 12/26/17 13:00 BP 126/84 12/26/17 13:00 Pulse Ox 92 L 12/26/17 13:00 Intake & Output 12/26/17 12/26/17 12/27/17 06:59 18:59 06:59 Intake Total 600 360 Balance 600 360 Weight 73.482 kg Intake: Oral 600 360 Other: Voiding Method Toilet Toilet # Voids 1 2 - Exam - Constitutional General appearance: average body habitus, mild distress - EENT Eyes: EOMI, PERRLA ENT: hard of hearing Ears: bilateral: normal Mouth Severe Thrush tongue and posterior pharynx grade 3 - Has greatly improved and decreased grade 1, able to eat - Neck Neck: normal ROM Carotids: bilateral: upstroke normal Thyroid: left: enlarged, nodule - Respiratory Respiratory: bilateral: diminished, rhonchi and expiratory wheezes to ausculation - Cardiovascular Rhythm: regular Heart sounds: normal: S1, S2 - Gastrointestinal General gastrointestinal: normal bowel sounds - Integumentary Integumentary: normal turgor - Neurologic Neurologic: CNII-XII intact - Musculoskeletal Musculoskeletal: gait normal - Psychiatric Psychiatric: A&O x's 3, appropriate affect, intact judgment & insight - Labs CBC & Chem 7: 12/26/17 06:45 12/26/17 06:45 Labs: Abnormal Lab Results - Last 24 Hours (Table) 12/25/17 12/26/17 12/26/17 Range/Units 20:07 06:30 06:45 WBC 11.8 H (3.8-10.6) k/uL RBC 3.38 L (3.80-5.40) m/uL Hgb 10.1 L (11.4-16.0) gm/dL Hct 30.9 L (34.0-46.0) % Plt Count 130 L (150-450) k/uL Neutrophils # 9.8 H (1.3-7.7) k/uL Carbon Dioxide (22-30) mmol/L BUN (7-17) mg/dL Creatinine (0.52-1.04) mg/dL Glucose (74-99) mg/dL POC Glucose (mg/dL) 120 H 126 H (75-99) mg/dL Magnesium (1.6-2.3) mg/dL Total Protein (6.3-8.2) g/dL Albumin (3.5-5.0) g/dL 12/26/17 12/26/17 12/26/17 Range/Units 06:45 11:49 17:16 WBC (3.8-10.6) k/uL RBC (3.80-5.40) m/uL Hgb (11.4-16.0) gm/dL Hct (34.0-46.0) % Plt Count (150-450) k/uL Neutrophils # (1.3-7.7) k/uL Carbon Dioxide 33 H (22-30) mmol/L BUN 74 H (7-17) mg/dL Creatinine 1.95 H (0.52-1.04) mg/dL Glucose 107 H (74-99) mg/dL POC Glucose (mg/dL) 164 H 180 H (75-99) mg/dL Magnesium 1.2 L (1.6-2.3) mg/dL Total Protein 5.2 L (6.3-8.2) g/dL Albumin 3.0 L (3.5-5.0) g/dL Assessment and Plan Plan: Assessment and Recommendations: 1. New Mediastinal Lymphadenopathy and Pulmonary Nodules: - Will need a tissue biopsy, likely surgical (to send further tests if possible ), for diagnsis - Pulmonary is following and will defer Bronchoscopy versus IR Needle Biopsy - Full Initial Staging once renal function improves - May benefit from MRI brain as well when renal function improves - Biopsy via Bronch 12/18/17 - - Reviewed pathology with patient. Treatment will be chemotherapy as small cell carcinoma is usually very sensistive to chemotherapy. Although patients renal function is slowly improving and still subpar, will discuss with Dr. Landry and follow-up in am regarding treatment plan recommendations. 2. Acute Renal Failure: - This maybe related to Dehydration and Dramatic reduction in PO intake - She has had a large weight loss and decreased po intake overall - Nephrology is following - Renal Function Mildly improving 3. Hypokalemia - Per Nephrology 4. Hx: Breast Cancer - Lumpectomy and radiation in 2006 - Unaware of type - Check Tumor Markers, Ca 27.29 is mildly elevated from normal range 5. Grade 3 oral thrush and inability to eat: Improving - Add Diflucan as she requires systemic treatment - Re-education on mouth rinse after inhalers - Benefit of diflucan outweigh risks of inhaled interaction 6. Dizziness, intermittent confusion and hallucinations: - Medication versus other - COnsider possibility of metastatic disease - MRI of brain ordered and completed. Reviewed and identified possible early met, radiation oncology to consult regarding MRI. PLan to re-evalute 4 weeks with another MRI, likely begin treatment for squamous cell/small cell carcinoma of lung first. Oncology Plan - Continue to await recovery of renal function, probable first cycle of chemotherapy in hospital if symptoms of breathing persist. If symptoms improve and patient is ready for discharge will consider outpatient treatment, although high risk for progression, cancer sensistive to chemotherapy, and high risk for dehydration. Monitor 24 hours and re-evaluate for in patient need for chemotherapy versus out patient - Continue to work with PT to improve performance status. - Plan inpatient chemotherapy with carboplatin and [employer] 16 on friday as long as creatinine less than 2 - Greater than 40 minutes face to face with patient and reviewing risks and benefits of chemo and plan for treatment with goal of control of disease. Physician Attestation: I have completed the full history and physical of this patient and agree with above dictation, dictated as scribe
[2017-12-26 20:06] LABS: Glucose,Whole Blood 144 mg/dL (75-99)
[2017-12-26] MEDS ORDERED: SODIUM CHLORIDE 0.9% IV ONE (21:00)
[2017-12-26] MEDS ORDERED: CARBOPLATIN IV ONE (21:00)
[2017-12-26] MEDS ORDERED: FAMOTIDINE 20 MG/2 ML VIAL IVP SCH (21:00)
[2017-12-26] MEDS: DEXAMETHASONE SOD PHOSPHATE 10 MG/ML 1 ML VIAL IV SCH (22:46)
[2017-12-26] MEDS: MELATONIN 5 MG TABLET PO SCH (22:51)
[2017-12-26] MEDS: ONDANSETRON 16 MG in SODIUM CHLORIDE 0.9% 50 ML IVPB SCH (22:52)
[2017-12-26] MEDS: ATORVASTATIN 10 MG TAB PO SCH (22:52)
[2017-12-26] MEDS: ETOPOSIDE 180 MG in SODIUM CHLORIDE 0.9% 500 ML IV SCH (23:54)
[2017-12-27 07:06] LABS: Basophils % (A) 0 %; Eosinophils % (A) 0 %; HCT 29.6 % (34.0-46.0); HGB 9.6 gm/dL (11.4-16.0); Lymphocytes # (A) 0.4 k/uL (1.0-4.8); Lymphocytes % (A) 4 %; MCH 29.9 pg (25.0-35.0); MCHC 32.3 g/dL (31.0-37.0); MCV 92.7 fL (80.0-100.0); Monocytes # (A) 0.3 k/uL (0-1.0); Monocytes % (A) 3 %; Neutrophils % (A) 93 %; Platelet Count 104 k/uL (150-450); RBC 3.19 m/uL (3.80-5.40); RDW 13.8 % (11.5-15.5); WBC 10.7 k/uL (3.8-10.6)
[2017-12-27 07:23] LABS: Albumin 2.8 g/dL (3.5-5.0); Calcium 7.8 mg/dL (8.4-10.2); Magnesium 1.6 mg/dL (1.6-2.3); Potassium 4.5 mmol/L (3.5-5.1); Total Bilirubin 0.5 mg/dL (0.2-1.3)
[2017-12-27 07:29] LABS: Glucose,Whole Blood 176 mg/dL (75-99)
[2017-12-27] MEDS: NYSTATIN 100,000 UNIT/ML SUSP 500,000 UNIT/5 ML CUP PO SCH ×4 (07:51→20:53)
[2017-12-27] MEDS: PENTOXIFYLLINE 400 MG TABLET.ER PO SCH ×3 (07:51→17:25)
[2017-12-27] MEDS: HEPARIN SODIUM,PORCINE 5,000 UNIT/ML 1 ML VIAL SQ SCH ×2 (07:51→20:53)
[2017-12-27] MEDS: predniSONE 20 MG TAB PO SCH (07:51)
[2017-12-27] MEDS: busPIRone HCl 5 MG TAB PO SCH ×3 (07:51→20:53)
[2017-12-27] MEDS: ASPIRIN 81 MG PO SCH (07:51)
[2017-12-27] MEDS: FAMOTIDINE 20 MG TAB PO SCH (07:51)
[2017-12-27] MEDS: ATENOLOL 25 MG TAB PO SCH ×2 (07:51→20:53)
[2017-12-27] MEDS: INSULIN ASPART 100 UNIT/ML 1 ML 10 ML VIAL SQ SCH ×4 (07:52→20:55)
[2017-12-27] MEDS: SYMBICORT 160-4.5 MCG INHALER INHALATION SCH (08:38)
[2017-12-27 12:02] LABS: Glucose,Whole Blood 216 mg/dL (75-99)
--- NOTE | 2017-12-27 13:15 | P.PN ---
Subjective Progress Note Date: 12/27/17 Principal diagnosis: Multiple pulmonary nodules, adenopathy This is a very pleasant 67-year-old female patient who follows with Dr. Mora as her primary care physician. She has a history of hypertension, hyperlipidemia, peripheral vascular disease with previous angioplasty of the left lower extremity, hearing disorder, right sided breast cancer status post lumpectomy and radiation treatment in 2005. She also has chronic and ongoing 40 + year smoking history. She had not been on any inhalers in the past. Approximately one month ago she started having increasing shortness of breath, cough and congestion. She was treated with antibiotics and nebulized treatments without much improvement. Follow-up chest x-ray revealed some abnormalities and she was scheduled for a CT angiogram of the chest to be performed yesterday. However her renal function was significantly elevated. She did undergo a computed tomography scan of the chest without contrast which revealed multiple pulmonary nodules measuring up to 2 cm. There is cavitary masses present in the left hilar region and left lower lobe. There is left hilar soft tissue fullness and mediastinal lymphadenopathy. There is also noted moderate emphysema/COPD. There is a large heterogenous left thyroid nodule with recent ultrasound revealing a large left lobe cystic-type thyroid nodule that was stable compared to previous. Renal ultrasound revealed no evidence of hydronephrosis. There is a small left renal cortical cysts. She does have a fusiform lower abdominal aortic aneurysm measuring 5.2 cm in diameter that is more than 8 cm in length. Initial creatinine 6.15. Today 5.15 the BUN of 93. Patient is seen today in consultation on the oncology unit. She is currently awake and alert in no acute distress. She has been feeling quite poorly especially the last several days without eating or drinking much. She's had approximately 30 pound weight loss over the past month since all of her symptoms began. She denies productive cough. No hemoptysis. The patient is seen again today 12/17/2017 in follow-up on the oncology unit. She is currently awake and alert in no acute distress. She is breathing quite a bit easier today as compared to yesterday. In general she is feeling better overall as well. Her renal function has improved current creatinine 4.33. Her pulmonary status has improved. She is less short of breath. Less bronchospastic and wheezy. Maintaining good O2 saturations in the mid to upper 90s on 2 L/m per nasal cannula. She is afebrile. Blood culture reveals no growth. White count 9.1. Hemoglobin 9.9. The patient is seen again today 12/18/2017 in follow-up on the oncology unit. She is awake and alert in no acute distress. She is breathing a bit better today as compared to yesterday. Maintaining good O2 saturations in the 90s on room air. She's been afebrile. Hemodynamically stable. Blood culture reveals no growth to date. White count 21.2. Hemoglobin 10.3. Creatinine 4.07. She did undergo bronchoscopy with biopsies with Dr. Rojas this morning. She tolerated the procedure well. Pathology is pending. The patient is seen again today 12/19/2017 in follow-up on the oncology unit. She is currently sitting up in bed having lunch. She is awake and alert in no acute distress. She is breathing a bit easier today as compared to yesterday but still dyspneic with exertion. 18 in good O2 saturations in the 90s on 2 L/ m per nasal cannula. Bronchial biopsies are pending. Cultures are pending. White count 15.4. Hemoglobin 10.0. Creatinine 3.86. The patient is seen again today on 12/20/2017 in follow-up on the oncology unit. She is currently sitting up in bed eating breakfast. She remains quite anxious and teary-eyed. She has short of breath with exertion. Still wheezing. She is maintaining O2 saturations in the 90s on 2 L/m per nasal cannula. She's been afebrile. Cultures reveal no growth thus far. Pathology is still pending. White count 15.6. Hemoglobin 10.5. Creatinine 3.68. Continued on sodium bicarb tablets. Reevaluated today on 12/21/2017, patient remains in the oncology unit, doing well , relatively asymptomatic except for intermittent cough and wheezing, feels generally weak. CBC is relatively normal, basic metabolic profile was reviewed BUN remains 81 creatinine is 3.27, and that being addressed by nephrology. Liver enzymes remains borderline elevated. Bronchoscopy results are still pending. Reevaluated today on 12/22/2017, patient is complaining of increased shortness of breath, intermittent cough and wheezing. Follow-up chest x-ray is basically about the same showing left perihilar soft tissue mass, right upper lobe nodule , and diffuse interstitial opacities with small effusions. Pathology and cytology is pending from her last bronchoscopy, hopefully we will be receiving some answers from the lab tomorrow. Labs were reviewed, WBC count is 14 hemoglobin 10.8 renal profile remains abnormal with BUN 82 creatinine 3.03. On 12/23/2017 patient seen in follow-up. Still has some wheezing, intermittent cough, and shortness of breath. She feels a bit less congested, and feels like she should be able to start bringing up some sputum. 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 Oncology report of the brushing and Andre needle biopsy pending. She remains on 2 L per nasal cannula, pulse ox is 95%. Renal profile is slightly improved, B1 is 84, creatinine is 2.71. WBC is 12.1, hemoglobin is 10.4. Cultures are negative thus far. Including the bronchial wash cultures. He went for MRI of the brain this morning showed small area of focal increased T2/Flair signal in the right paramedian frontoparietal junction busch-white matter interface, difficult to exclude a small area of vasogenic edema, but no acute intracranial abnormality. Oncology is following. On 12/24/2017 patient seen in follow-up on oncology floor. Yesterday transbronchial biopsy of the lingula was positive for synchronous small cell carcinoma and squamous cell carcinoma. Cytology on the Andre needle aspirate showed malignant cell population consistent with small cell carcinoma, transcranial lung core biopsy was positive for malignant neoplasm consistent with small cell carcinoma. BAL of the lingula showed minimally cellular specimen consisting of blood with scattered reactive bronchial lining cells, nondiagnostic. Rash tip of the lingula shows severe squamous atypia consistent with squamous cell carcinoma. Cannot exclude small cell carcinoma. Left lower lung BAL could not exclude small cell carcinoma, brush tip and brushings smears of the left lower lobe could not exclude squamous cell carcinoma. Patient was seen by medical oncology, and radiation oncology. MRI of the brain showed possible small early metastasis. On today's exam patient is less bronchospastic , however patient has scattered rhonchi, but no distress, nonproductive cough. Today's lab work showed CBC of 12.9, no significant change from yesterday, renal profile continues to improve, BUN is 83, creatinine is 2.36. On 12/25/2017 patient seen in follow-up on oncology floor. She is awake and alert, sitting up at the edge of the bed, in no acute distress, she states she started to bring up some sputum, did not note the color. Lung sounds are positive for diffuse rhonchi, and wheezes. Pulse ox on 2 L per nasal cannula is 90-93%. Vital signs are stable. Transbronchial biopsy of the lingula as well as cytology of the needle aspirate and brush smears of the left lower lung were positive for synchronous small cell carcinoma and squamous cell carcinoma. Medical oncology is awaiting improvement of the renal profile to initiate chemotherapy. His labs were reviewed, shows diminished at 13.6, hemoglobin 10.3 , potassium 3.4, CO2 is 31, BUN 74, creatinine is 2.2. Diuretics remain on hold , patient developed some swelling in her right upper and bilateral lower extremities, left greater than the right, denies any calf tenderness, any redness or tenderness. Venous Doppler study of bilateral lower extremities is completed, and the results of pending at this time. Bronchial washing cultures are negative thus far. On 12/26/2017 patient seen in follow-up in oncology floor. She is awake and alert, she is feeling better today, less short of breath, she is tolerating ambulation, she was able to take a shower, and she states her congestion is breaking up, and patient is able to expectorate some phlegm. Lung sounds are still positive for diffuse wheezing particularly over left lung. Patient remains on oral prednisone, and nebulized bronchodilators, in addition to Symbicort. She states she she is breathing easier today, today's labs were reviewed, shows WBC of 11.8, hemoglobin is 10.1, CO2 of 33, B1 is 74, and creatinine is 1.95, and renal profile is improving. Appetite remains somewhat poor, but patient aching an effort to increase her oral intake. I'll signs are stable, patient is on room air, pulse ox is 95%. Bronchial wash cultures are negative so far. The patient is seen again today 12/27/2017 in follow-up on the oncology floor. She is currently sitting up at the bedside. She is awake and alert in no acute distress. She continues with a loose productive cough. She is maintaining O2 saturations in the 90s on room air. She's been afebrile. Hemodynamically stable. She did receive a dose of chemotherapy last evening including carboplatin last evening. WBCs 10.7, hemoglobin 9.6, platelet count 104,000, creatinine 1.72. Objective - Vital Signs Vital signs: Vital Signs Temp 97.4 F L 12/27/17 07:45 Pulse 77 12/27/17 07:45 Resp 18 12/27/17 07:45 BP 127/86 12/27/17 07:45 Pulse Ox 92 L 12/27/17 07:45 Intake & Output 12/26/17 12/27/17 12/27/17 18:59 06:59 18:59 Intake Total 360 1290 160 Balance 360 1290 160 Weight 73.482 kg Intake: IV 990 160 CARBOplatin 150 mg 250 CARBOplatin 100 mg In Sodium Chloride 0.9% 250 ml @ 550 mls/hr IV ONCE ONE Rx#:[id number] Etoposide 180 mg In 500 Sodium Chloride 0.9% 500 ml @ 509 mls/hr IV Q24H [facility] Rx#:[id number] ns@20 240 160 Intake, IV Titration 300 Amount CARBOplatin 150 mg 250 CARBOplatin 100 mg In Sodium Chloride 0.9% 250 ml @ 550 mls/hr IV ONCE ONE Rx#:[id number] Ondansetron 16 mg In 50 Sodium Chloride 0.9% 50 ml @ 100 mls/hr IVPB Q24H [facility] Rx#:[id number] Oral 360 Other: Voiding Method Toilet Toilet # Voids 2 - Exam - Constitutional General appearance: average body habitus, no acute distress - EENT Eyes: EOMI, PERRLA ENT: hard of hearing Ears: bilateral: normal - Neck Neck: normal ROM Carotids: bilateral: upstroke normal Thyroid: left: enlarged, nodule - Respiratory Respiratory: bilateral: diminished, end expiratory wheeze - Cardiovascular Rhythm: regular Heart sounds: normal: S1, S2 - Gastrointestinal General gastrointestinal: normal bowel sounds - Integumentary Integumentary: normal turgor - Neurologic Neurologic: CNII-XII intact - Musculoskeletal Musculoskeletal: gait normal - Psychiatric Psychiatric: A&O x's 3, appropriate affect, intact judgment & insight - Labs CBC & Chem 7: 12/27/17 06:50 12/27/17 06:50 Labs: Abnormal Lab Results - Last 24 Hours (Table) 12/26/17 12/26/17 12/27/17 Range/Units 17:16 20:04 06:50 WBC 10.7 H (3.8-10.6) k/uL RBC 3.19 L (3.80-5.40) m/uL Hgb 9.6 L (11.4-16.0) gm/dL Hct 29.6 L (34.0-46.0) % Plt Count 104 L (150-450) k/uL Neutrophils # 10.0 H (1.3-7.7) k/uL Lymphocytes # 0.4 L (1.0-4.8) k/uL Carbon Dioxide (22-30) mmol/L BUN (7-17) mg/dL Creatinine (0.52-1.04) mg/dL Glucose (74-99) mg/dL POC Glucose (mg/dL) 180 H 144 H (75-99) mg/dL Calcium (8.4-10.2) mg/dL Total Protein (6.3-8.2) g/dL Albumin (3.5-5.0) g/dL 12/27/17 12/27/17 12/27/17 Range/Units 06:50 07:27 12:00 WBC (3.8-10.6) k/uL RBC (3.80-5.40) m/uL Hgb (11.4-16.0) gm/dL Hct (34.0-46.0) % Plt Count (150-450) k/uL Neutrophils # (1.3-7.7) k/uL Lymphocytes # (1.0-4.8) k/uL Carbon Dioxide 32 H (22-30) mmol/L BUN 65 H (7-17) mg/dL Creatinine 1.72 H (0.52-1.04) mg/dL Glucose 167 H (74-99) mg/dL POC Glucose (mg/dL) 176 H 216 H (75-99) mg/dL Calcium 7.8 L (8.4-10.2) mg/dL Total Protein 5.0 L (6.3-8.2) g/dL Albumin 2.8 L (3.5-5.0) g/dL Assessment and Plan Assessment: Impression: #1 Acute renal failure of unclear etiology. No hydronephrosis per ultrasound. Presenting creatinine 6.15, currently 1.72. #2 Multiple pulmonary nodules along with cavitary masses. Left hilar soft tissue fullness and mediastinal adenopathy and upper abdominal lymphadenopathy with left adrenal nodularity. Found to be positive for both small cell lung cancer and squamous cell lung cancer. Brain MRI was also was suspicious for a small area of suspected metastasis. She was initiated on carboplatin last evening. #3 Chronic and ongoing tobacco dependence of greater than 40 years. 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 #5 History of right-sided breast cancer status post lumpectomy and radiation. #6 Large left thyroid nodule, negative biopsy in 2016. #7 Hypertension. #8 Hyperlipidemia. #9 Peripheral vascular disease with previous angioplasty of the left lower extremity. #10 Anxiety. Plan: The patient was seen and evaluated by Dr. Wayne. She is currently stable from the pulmonary standpoint though her lungs still continue with bilateral wheezing and scattered rhonchi. She has been initiated on carboplatin last evening. No history of side effects noted as far. We will continue to follow and make further recommendations based on her clinical status. I, the cosigning physician, performed a history & physical examination of the patient. Lungs sounds with bilateral end expiratory wheeze, scattered rhonchi. Maintaining good O2 saturations in the 90s on 2 L/m per nasal cannula. I discussed the assessment and plan of care with my nurse practitioner, Patricia Baca. I attest to the above note as dictated by her.
--- NOTE | 2017-12-27 14:10 | P.PN ---
Subjective Progress Note Date: 12/27/17 Principal diagnosis: New Pulmonary Nodules and adenopathy Patient seen and examined today. Mucocytis has improved Status Post day one of carbo and METAL MODEL MAKER 16, renal function improved today. She is highly anxious, otherwise doing well Objective - Vital Signs Vital signs: Vital Signs Temp 97.6 F 12/27/17 13:00 Pulse 76 12/27/17 13:00 Resp 18 12/27/17 13:00 BP 124/72 12/27/17 13:00 Pulse Ox 94 L 12/27/17 13:00 Intake & Output 12/26/17 12/27/17 12/27/17 18:59 06:59 18:59 Intake Total 360 1290 160 Balance 360 1290 160 Weight 73.482 kg Intake: IV 990 160 CARBOplatin 150 mg 250 CARBOplatin 100 mg In Sodium Chloride 0.9% 250 ml @ 550 mls/hr IV ONCE ONE Rx#:[id number] Etoposide 180 mg In 500 Sodium Chloride 0.9% 500 ml @ 509 mls/hr IV Q24H [facility] Rx#:[id number] ns@20 240 160 Intake, IV Titration 300 Amount CARBOplatin 150 mg 250 CARBOplatin 100 mg In Sodium Chloride 0.9% 250 ml @ 550 mls/hr IV ONCE ONE Rx#:[id number] Ondansetron 16 mg In 50 Sodium Chloride 0.9% 50 ml @ 100 mls/hr IVPB Q24H [facility] Rx#:[id number] Oral 360 Other: Voiding Method Toilet Toilet # Voids 2 - Exam - Constitutional General appearance: average body habitus, mild distress - EENT Eyes: EOMI, PERRLA ENT: hard of hearing Ears: bilateral: normal Mouth Severe Thrush tongue and posterior pharynx grade 3 - Has greatly improved and decreased grade 1, able to eat - Neck Neck: normal ROM Carotids: bilateral: upstroke normal Thyroid: left: enlarged, nodule - Respiratory Respiratory: bilateral: diminished, rhonchi and expiratory wheezes to ausculation - Cardiovascular Rhythm: regular Heart sounds: normal: S1, S2 - Gastrointestinal General gastrointestinal: normal bowel sounds - Integumentary Integumentary: normal turgor - Neurologic Neurologic: CNII-XII intact - Musculoskeletal Musculoskeletal: gait normal - Psychiatric Psychiatric: A&O x's 3, appropriate affect, intact judgment & insight - Labs CBC & Chem 7: 12/27/17 06:50 12/27/17 06:50 Labs: Abnormal Lab Results - Last 24 Hours (Table) 12/26/17 12/26/17 12/27/17 Range/Units 17:16 20:04 06:50 WBC 10.7 H (3.8-10.6) k/uL RBC 3.19 L (3.80-5.40) m/uL Hgb 9.6 L (11.4-16.0) gm/dL Hct 29.6 L (34.0-46.0) % Plt Count 104 L (150-450) k/uL Neutrophils # 10.0 H (1.3-7.7) k/uL Lymphocytes # 0.4 L (1.0-4.8) k/uL Carbon Dioxide (22-30) mmol/L BUN (7-17) mg/dL Creatinine (0.52-1.04) mg/dL Glucose (74-99) mg/dL POC Glucose (mg/dL) 180 H 144 H (75-99) mg/dL Calcium (8.4-10.2) mg/dL Total Protein (6.3-8.2) g/dL Albumin (3.5-5.0) g/dL 12/27/17 12/27/17 12/27/17 Range/Units 06:50 07:27 12:00 WBC (3.8-10.6) k/uL RBC (3.80-5.40) m/uL Hgb (11.4-16.0) gm/dL Hct (34.0-46.0) % Plt Count (150-450) k/uL Neutrophils # (1.3-7.7) k/uL Lymphocytes # (1.0-4.8) k/uL Carbon Dioxide 32 H (22-30) mmol/L BUN 65 H (7-17) mg/dL Creatinine 1.72 H (0.52-1.04) mg/dL Glucose 167 H (74-99) mg/dL POC Glucose (mg/dL) 176 H 216 H (75-99) mg/dL Calcium 7.8 L (8.4-10.2) mg/dL Total Protein 5.0 L (6.3-8.2) g/dL Albumin 2.8 L (3.5-5.0) g/dL Assessment and Plan Plan: Assessment and Recommendations: 1. New Mediastinal Lymphadenopathy and Pulmonary Nodules: - Will need a tissue biopsy, likely surgical (to send further tests if possible ), for diagnsis - Pulmonary is following and will defer Bronchoscopy versus IR Needle Biopsy - Full Initial Staging once renal function improves - May benefit from MRI brain as well when renal function improves - Biopsy via Bronch 12/18/17 - - Reviewed pathology with patient. Treatment will be chemotherapy as small cell carcinoma is usually very sensistive to chemotherapy. Although patients renal function is slowly improving and still subpar, will discuss with Dr. Landry and follow-up in am regarding treatment plan recommendations. 2. Acute Renal Failure: - This maybe related to Dehydration and Dramatic reduction in PO intake - She has had a large weight loss and decreased po intake overall - Nephrology is following - Renal Function Mildly improving 3. Hypokalemia - Per Nephrology 4. Hx: Breast Cancer - Lumpectomy and radiation in 2005 5. Grade 3 oral thrush and inability to eat: Improving - Add Diflucan as she requires systemic treatment - Re-education on mouth rinse after inhalers - Benefit of diflucan outweigh risks of inhaled interaction 6. Dizziness, intermittent confusion and hallucinations: - Medication versus other - COnsider possibility of metastatic disease - MRI of brain ordered and completed. Reviewed and identified possible early met, radiation oncology to consult regarding MRI. PLan to re-evalute 4 weeks with another MRI, likely begin treatment for squamous cell/small cell carcinoma of lung first. Oncology Plan - Continue to await recovery of renal function, probable first cycle of chemotherapy in hospital if symptoms of breathing persist. If symptoms improve and patient is ready for discharge will consider outpatient treatment, although high risk for progression, cancer sensistive to chemotherapy, and high risk for dehydration. Monitor 24 hours and re-evaluate for in patient need for chemotherapy versus out patient - Continue to work with PT to improve performance status. - Plan inpatient chemotherapy with carboplatin and METAL MODEL MAKER 16 - Started Friday tolerated well. Monitor renal function closely - Monitor Anxiety closely, ?psych consult to assist
--- NOTE | 2017-12-27 14:17 | P.PN ---
Subjective Progress Note Date: 12/27/17 Evelyn Flores is a 67 year old female who presented to [facility] to have a computed tomography scan of the chest was contrast BUN and creatinine were done prior to computed tomography scan and were significantly elevated, her BUN was 103, and creatinine 6.15, computed tomography scan was canceled and patient was sent to [facility] emergency room, she was evaluated in the emergency room she was given IV fluid and her creatinine came down slightly to 5.9, computed tomography scan of the chest without contrast was done and revealed multiple pulmonary nodules with a couple of cavitary masses patient also had evidence of lymphadenopathy in the chest and the upper abdomen, she also had a large left thyroid nodule, she was started on IV fluid and was admitted to the medical floor, pulmonary and nephrology and oncology consultation were requested. Patient has not been feeling well for the last 6 weeks, she had cough with minimal sputum production, she was given a course of antibiotic without any improvement, chest x-ray was done on 12/05/2017 and revealed evidence of right upper lobe lung mass computed tomography scan was recommended and this was scheduled for 12/15/2017 however patient was admitted due to severely elevated BUN and creatinine. Patient has a lifelong history of smoking, she has known history of hypertension , hyperlipidemia, anxiety disorder, and a thyroid nodule that was recently biopsied by Dr. Morales. At this time patient denies any pain or discomfort she reports having episodes of nausea and vomiting in the last 2 weeks she reports feeling full and then able to eat much, she reports significant weight loss in the last 6 weeks, she has been complaining of cough, she had minimal sputum production, she denies any hemoptysis, there is no abdominal pain no blood in the urine or in the stools. On 12/16/2017 patient is currently A & O 3 resting comfortably in bed. Patient does report some shortness of breath with activity. Patient denies chest pain. Denies nausea vomiting or diarrhea. Does reports she has very little appetite. Patient denies any urinary burning or frequency. On 12/17/2017 patient is currently alert and oriented 3 resting in bed comfortably. Patient's shortness of breath has improved. Patient being followed by pulmonary. Per pulmonary plan for bronchoscopy and biopsies tomorrow. IV steroids have been added per pulmonary. Patient denies chest pain at this time. Patient denies nausea vomiting or diarrhea. Patient denies any urinary burning or frequency On 12/18/2017 patient is currently alert and oriented X 3. Patient is currently resting comfortably in bed. Patient underwent bronchoscopy with biopsy without complication. Patient is currently on room air but does state she still gets winded upon activity. Patient denies chest pain or shortness of breath. Denies nausea vomiting or diarrhea. Denies any urinary or burning with urination On 12/19/2017 patient is currently alert and oriented 3. Patient remains short of breath after activity. Patient states she did not get much sleep last night. Patient denies chest pain. Patient denies nausea vomiting or diarrhea denies any urinary burning or frequency. On 12/20/2017 patient is currently alert and oriented 3. Patient remains short of breath with activity. Patient has chest pain or shortness of breath. Patient denies nausea vomiting or diarrhea. Denies any urinary burning or frequency On 12/21/2017 patient is alert and oriented 3 in no apparent distress, she had some episodes of confusion and hallucination that she thinks is related to steroid use she is still complaining of shortness of breath with any activity she complains of having poor taste in her mouth and poor appetite otherwise she denies any complaints there is no fever or chills no headache or dizziness no chest pain no nausea or vomiting no abdominal pain and no urinary symptoms On 12/22/2017 patient is alert and oriented in no distress complaining of anxiety and having poor sleep complaining of fatigue and shortness of breath with activity otherwise no complaints On 12/23/2017 patient is alert and oriented 3. Patient is currently resting comfortably in bed. Does state some improvement with shortness of breath. Patient has been started on Diflucan per oncology for thrush. Patient does state some improvement with being able to eat. At this time patient denies chest pain or shortness of breath. Denies nausea vomiting or diarrhea. Denies any urinary burning or frequency On 12/24/2017 patient is alert and oriented 3 currently eating her lunch sitting up in bed. Patient states she has been up walking the halls without oxygen. Patient states she does feel short of breath today. She said she hasn' t had an in-depth discussion with oncology services for treatment plan. At this time patient denies chest pain or shortness of breath. Denies any urinary burning or frequency. Denies nausea vomiting or diarrhea. On 12/25/2017 patient is alert and oriented 3 currently sitting up in bed. at bedside. Patient has remained on room air today. Patient states that she is a little bit more short of breath today than yesterday. At this time patient denies chest pain or shortness of breath. Denies nausea vomiting or diarrhea. Denies any urinary burning or frequency 12/26/2017 patient creatinine is down to 1.95 she is scheduled to start chemotherapy this evening. Dopplers of the lower extremities are negative for DVT. Patient has no new complaints. Right arm remains swollen. Right upper extremity Doppler negative for DVT positive for SVT within the right cephalic vein 12/27/2017 patient is alert and oriented 3 in no apparent distress she was started on chemotherapy yesterday she is reporting no new symptoms no evidence of side effects she is complaining of cough was minimal sputum production no hemoptysis she is also complaining of shortness of breath with activity otherwise she denies any complaints. Objective - Vital Signs Vital signs: Vital Signs Temp 97.6 F 12/27/17 13:00 Pulse 76 12/27/17 13:00 Resp 18 12/27/17 13:00 BP 124/72 12/27/17 13:00 Pulse Ox 94 L 12/27/17 13:00 Intake & Output 12/26/17 12/27/17 12/27/17 18:59 06:59 18:59 Intake Total 360 1290 160 Balance 360 1290 160 Weight 73.482 kg Intake: IV 990 160 CARBOplatin 150 mg 250 CARBOplatin 100 mg In Sodium Chloride 0.9% 250 ml @ 550 mls/hr IV ONCE ONE Rx#:[id number] Etoposide 180 mg In 500 Sodium Chloride 0.9% 500 ml @ 509 mls/hr IV Q24H [facility] Rx#:[id number] ns@20 240 160 Intake, IV Titration 300 Amount CARBOplatin 150 mg 250 CARBOplatin 100 mg In Sodium Chloride 0.9% 250 ml @ 550 mls/hr IV ONCE ONE Rx#:[id number] Ondansetron 16 mg In 50 Sodium Chloride 0.9% 50 ml @ 100 mls/hr IVPB Q24H [facility] Rx#:[id number] Oral 360 Other: Voiding Method Toilet Toilet # Voids 2 - Exam Head normocephalic and atraumatic Neck supple no JVD no goiter Lungs scattered crackles in both lung pederson with wheezing Heart regular rate and rhythm S1-S2, no rub or gallop Abdomen is soft nontender nondistended positive bowel sounds no hepatosplenomegaly Extremities 1+ edema bilaterally in the lower extremities plus right arm is swollen Neuro alert and orientated to 3 - Labs CBC & Chem 7: 12/27/17 06:50 12/27/17 06:50 Labs: Abnormal Lab Results - Last 24 Hours (Table) 12/26/17 12/26/17 12/27/17 Range/Units 17:16 20:04 06:50 WBC 10.7 H (3.8-10.6) k/uL RBC 3.19 L (3.80-5.40) m/uL Hgb 9.6 L (11.4-16.0) gm/dL Hct 29.6 L (34.0-46.0) % Plt Count 104 L (150-450) k/uL Neutrophils # 10.0 H (1.3-7.7) k/uL Lymphocytes # 0.4 L (1.0-4.8) k/uL Carbon Dioxide (22-30) mmol/L BUN (7-17) mg/dL Creatinine (0.52-1.04) mg/dL Glucose (74-99) mg/dL POC Glucose (mg/dL) 180 H 144 H (75-99) mg/dL Calcium (8.4-10.2) mg/dL Total Protein (6.3-8.2) g/dL Albumin (3.5-5.0) g/dL 12/27/17 12/27/17 12/27/17 Range/Units 06:50 07:27 12:00 WBC (3.8-10.6) k/uL RBC (3.80-5.40) m/uL Hgb (11.4-16.0) gm/dL Hct (34.0-46.0) % Plt Count (150-450) k/uL Neutrophils # (1.3-7.7) k/uL Lymphocytes # (1.0-4.8) k/uL Carbon Dioxide 32 H (22-30) mmol/L BUN 65 H (7-17) mg/dL Creatinine 1.72 H (0.52-1.04) mg/dL Glucose 167 H (74-99) mg/dL POC Glucose (mg/dL) 176 H 216 H (75-99) mg/dL Calcium 7.8 L (8.4-10.2) mg/dL Total Protein 5.0 L (6.3-8.2) g/dL Albumin 2.8 L (3.5-5.0) g/dL Assessment and Plan Plan: #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 Oncology following closely #2 possible early brain metastasis: Patient will undergo treatment of the lung cancer first. And oncology will reevaluate in 4 weeks for a possible MRI of the brain. #3 thyroid nodule with recent biopsy by Dr. Morales. #4 acute renal failure: Likely prerenal secondary to severe intravascular volume depletion from poor oral intake and diuretics. Followed closely by nephrology. Kidney function showing improvement. Patient will be able to proceed with chemotherapy. #5 underlying history of hypertension #6 underlying history of hyperlipidemia #7 evidence of COPD on computed tomography scan #8 tobacco abuse #9 underlying history of anxiety disorder #10 hypokalemia. Potassium replacement protocol. Will recheck potassium level and monitor closely. Repeat potassium 3.8 #11 abdominal aortic aneurysm. Renal ultrasound completed showing fusiform lower abdomen aortic aneurysm measuring up to 5.2 cm in diameter. The length is more than 8 cm. Patient to follow-up outpatient for further workup. #12 leukocytosis likely related to steroids. #13 insomnia. Melatonin added #14 hypomagnesemia. Magnesium 1.2. We'll give magnesium sulfate 2 g IV 1. Repeat magnesium in a.m. #15 SVT of the right arm: Keep arm elevated. Likely related to infiltration of the IV. #16 oral Thrush. Diflucan 100 mg has been added per oncology. #17 left lower leg swelling. Venous Doppler completed showing no evidence of DVT in right or left leg. GI prophylaxis Pepcid and DVT prophylaxis SCDs. DVT prophylaxis heparin
[2017-12-27] MEDS ORDERED: ONDANSETRON 4 MG/2 ML VIAL IVP PRN (14:55)
[2017-12-27] MEDS ORDERED: FUROSEMIDE 10 MG/ML 4 ML VIAL IV STA (16:25)
[2017-12-27 17:31] LABS: Glucose,Whole Blood 124 mg/dL (75-99)
[2017-12-27 20:50] LABS: Glucose,Whole Blood 190 mg/dL (75-99)
[2017-12-27] MEDS: DEXAMETHASONE SOD PHOSPHATE 10 MG/ML 1 ML VIAL IV SCH (20:53)
[2017-12-27] MEDS: ATORVASTATIN 10 MG TAB PO SCH (20:53)
[2017-12-27] MEDS: MELATONIN 5 MG TABLET PO SCH (20:53)
--- NOTE | 2017-12-27 21:52 | PN ---
PROGRESS NOTE The patient is seen for followup for acute kidney injury. Her renal function has been improving. The patient was started on chemotherapy which she received yesterday. Serum creatinine is down to 1.72. The patient tolerated the chemotherapy well. PHYSICAL EXAMINATION: Blood pressure was 127/86, heart rate 77 per minute she is afebrile. Examination of the heart S1, S2. Examination lungs bilateral breath sounds are heard. Abdomen is soft, nontender. Examination lower extremities shows edema 1+ bilaterally, more in the left lower extremity. [employer]PER exam is grossly intact. LABS: Sodium 142, potassium 4.5, chloride 106, BUN 65, serum creatinine 1.72, hemoglobin 9.6 g/dL. ASSESSMENT: 1. Acute kidney injury, acute tubular necrosis, currently continuing to improve. 2. Small cell lung cancer and squamous cell cancer, started on chemotherapy. 3. Mild volume overload. Will give Lasix x1. 4. Anemia, multifactorial. PLAN: IV Lasix x1. Continue to monitor the renal function. MMODL / IJN: [id number] /
[2017-12-27] MEDS: ONDANSETRON 16 MG in SODIUM CHLORIDE 0.9% 50 ML IVPB SCH (22:10)
[2017-12-27] MEDS: ETOPOSIDE 180 MG in SODIUM CHLORIDE 0.9% 500 ML IV SCH (22:10)
[2017-12-28 07:30] LABS: Glucose,Whole Blood 173 mg/dL (75-99)
[2017-12-28] MEDS: SYMBICORT 160-4.5 MCG INHALER INHALATION SCH ×3 (07:37→20:55)
[2017-12-28] MEDS: HEPARIN SODIUM,PORCINE 5,000 UNIT/ML 1 ML VIAL SQ SCH ×2 (08:02→20:36)
[2017-12-28] MEDS: PENTOXIFYLLINE 400 MG TABLET.ER PO SCH ×3 (08:03→16:51)
[2017-12-28] MEDS: INSULIN ASPART 100 UNIT/ML 1 ML 10 ML VIAL SQ SCH ×4 (08:03→20:34)
[2017-12-28] MEDS: ASPIRIN 81 MG PO SCH (08:03)
[2017-12-28] MEDS: ATENOLOL 25 MG TAB PO SCH ×2 (08:03→20:36)
[2017-12-28] MEDS: busPIRone HCl 5 MG TAB PO SCH ×3 (08:04→20:35)
[2017-12-28] MEDS: predniSONE 20 MG TAB PO SCH (08:04)
[2017-12-28] MEDS: NYSTATIN 100,000 UNIT/ML SUSP 500,000 UNIT/5 ML CUP PO SCH ×3 (08:04→16:52)
[2017-12-28] MEDS: FAMOTIDINE 20 MG TAB PO SCH (08:04)
[2017-12-28] MEDS: FLUCONAZOLE 100 MG TAB PO SCH (08:04)
[2017-12-28] MEDS: ALPRAZolam 0.25 MG TAB PO PRN ×2 (08:16→22:45)
[2017-12-28 09:25] LABS: Basophils % (A) 0 %; Eosinophils % (A) 0 %; HCT 30.1 % (34.0-46.0); HGB 9.8 gm/dL (11.4-16.0); Lymphocytes # (A) 0.4 k/uL (1.0-4.8); Lymphocytes % (A) 3 %; MCH 30.4 pg (25.0-35.0); MCHC 32.5 g/dL (31.0-37.0); MCV 93.3 fL (80.0-100.0); Mean Platelet Volume 7.1; Monocytes # (A) 0.4 k/uL (0-1.0); Monocytes % (A) 3 %; Neutrophils # (A) 12.6 k/uL (1.3-7.7); Neutrophils % (A) 93 %; RBC 3.23 m/uL (3.80-5.40); RDW 13.8 % (11.5-15.5); WBC 13.5 k/uL (3.8-10.6)
[2017-12-28 09:37] LABS: Albumin 3.1 g/dL (3.5-5.0); Calcium 7.9 mg/dL (8.4-10.2); Potassium 4.3 mmol/L (3.5-5.1); Total Bilirubin 0.5 mg/dL (0.2-1.3); Total Protein 5.3 g/dL (6.3-8.2)
[2017-12-28 10:07] LABS: Platelet Count 94 k/uL (150-450)
[2017-12-28 10:08] LABS: Hypersegmented Neutrophils Present
[2017-12-28 11:31] LABS: Glucose,Whole Blood 172 mg/dL (75-99)
--- NOTE | 2017-12-28 11:34 | P.PN ---
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 This is a very pleasant 67-year-old female patient who follows with Dr. Mora as her primary care physician. She has a history of hypertension, hyperlipidemia, peripheral vascular disease with previous angioplasty of the left lower extremity, hearing disorder, right sided breast cancer status post lumpectomy and radiation treatment in 2005. She also has chronic and ongoing 40 + year smoking history. She had not been on any inhalers in the past. Approximately one month ago she started having increasing shortness of breath, cough and congestion. She was treated with antibiotics and nebulized treatments without much improvement. Follow-up chest x-ray revealed some abnormalities and she was scheduled for a CT angiogram of the chest to be performed yesterday. However her renal function was significantly elevated. She did undergo a computed tomography scan of the chest without contrast which revealed multiple pulmonary nodules measuring up to 2 cm. There is cavitary masses present in the left hilar region and left lower lobe. There is left hilar soft tissue fullness and mediastinal lymphadenopathy. There is also noted moderate emphysema/COPD. There is a large heterogenous left thyroid nodule with recent ultrasound revealing a large left lobe cystic-type thyroid nodule that was stable compared to previous. Renal ultrasound revealed no evidence of hydronephrosis. There is a small left renal cortical cysts. She does have a fusiform lower abdominal aortic aneurysm measuring 5.2 cm in diameter that is more than 8 cm in length. Initial creatinine 6.15. Today 5.15 the BUN of 93. Patient is seen today in consultation on the oncology unit. She is currently awake and alert in no acute distress. She has been feeling quite poorly especially the last several days without eating or drinking much. She's had approximately 30 pound weight loss over the past month since all of her symptoms began. She denies productive cough. No hemoptysis. The patient is seen again today 12/17/2017 in follow-up on the oncology unit. She is currently awake and alert in no acute distress. She is breathing quite a bit easier today as compared to yesterday. In general she is feeling better overall as well. Her renal function has improved current creatinine 4.33. Her pulmonary status has improved. She is less short of breath. Less bronchospastic and wheezy. Maintaining good O2 saturations in the mid to upper 90s on 2 L/m per nasal cannula. She is afebrile. Blood culture reveals no growth. White count 9.1. Hemoglobin 9.9. The patient is seen again today 12/18/2017 in follow-up on the oncology unit. She is awake and alert in no acute distress. She is breathing a bit better today as compared to yesterday. Maintaining good O2 saturations in the 90s on room air. She's been afebrile. Hemodynamically stable. Blood culture reveals no growth to date. White count 21.2. Hemoglobin 10.3. Creatinine 4.07. She did undergo bronchoscopy with biopsies with Dr. Rojas this morning. She tolerated the procedure well. Pathology is pending. The patient is seen again today 12/19/2017 in follow-up on the oncology unit. She is currently sitting up in bed having lunch. She is awake and alert in no acute distress. She is breathing a bit easier today as compared to yesterday but still dyspneic with exertion. 18 in good O2 saturations in the 90s on 2 L/ m per nasal cannula. Bronchial biopsies are pending. Cultures are pending. White count 15.4. Hemoglobin 10.0. Creatinine 3.86. The patient is seen again today on 12/20/2017 in follow-up on the oncology unit. She is currently sitting up in bed eating breakfast. She remains quite anxious and teary-eyed. She has short of breath with exertion. Still wheezing. She is maintaining O2 saturations in the 90s on 2 L/m per nasal cannula. She's been afebrile. Cultures reveal no growth thus far. Pathology is still pending. White count 15.6. Hemoglobin 10.5. Creatinine 3.68. Continued on sodium bicarb tablets. Reevaluated today on 12/21/2017, patient remains in the oncology unit, doing well , relatively asymptomatic except for intermittent cough and wheezing, feels generally weak. CBC is relatively normal, basic metabolic profile was reviewed BUN remains 81 creatinine is 3.27, and that being addressed by nephrology. Liver enzymes remains borderline elevated. Bronchoscopy results are still pending. Reevaluated today on 12/22/2017, patient is complaining of increased shortness of breath, intermittent cough and wheezing. Follow-up chest x-ray is basically about the same showing left perihilar soft tissue mass, right upper lobe nodule , and diffuse interstitial opacities with small effusions. Pathology and cytology is pending from her last bronchoscopy, hopefully we will be receiving some answers from the lab tomorrow. Labs were reviewed, WBC count is 14 hemoglobin 10.8 renal profile remains abnormal with BUN 82 creatinine 3.03. On 12/23/2017 patient seen in follow-up. Still has some wheezing, intermittent cough, and shortness of breath. She feels a bit less congested, and feels like she should be able to start bringing up some sputum. 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 Oncology report of the brushing and Andre needle biopsy pending. She remains on 2 L per nasal cannula, pulse ox is 95%. Renal profile is slightly improved, B1 is 84, creatinine is 2.71. WBC is 12.1, hemoglobin is 10.4. Cultures are negative thus far. Including the bronchial wash cultures. He went for MRI of the brain this morning showed small area of focal increased T2/Flair signal in the right paramedian frontoparietal junction busch-white matter interface, difficult to exclude a small area of vasogenic edema, but no acute intracranial abnormality. Oncology is following. On 12/24/2017 patient seen in follow-up on oncology floor. Yesterday transbronchial biopsy of the lingula was positive for synchronous small cell carcinoma and squamous cell carcinoma. Cytology on the Andre needle aspirate showed malignant cell population consistent with small cell carcinoma, transcranial lung core biopsy was positive for malignant neoplasm consistent with small cell carcinoma. BAL of the lingula showed minimally cellular specimen consisting of blood with scattered reactive bronchial lining cells, nondiagnostic. Rash tip of the lingula shows severe squamous atypia consistent with squamous cell carcinoma. Cannot exclude small cell carcinoma. Left lower lung BAL could not exclude small cell carcinoma, brush tip and brushings smears of the left lower lobe could not exclude squamous cell carcinoma. Patient was seen by medical oncology, and radiation oncology. MRI of the brain showed possible small early metastasis. On today's exam patient is less bronchospastic , however patient has scattered rhonchi, but no distress, nonproductive cough. Today's lab work showed CBC of 12.9, no significant change from yesterday, renal profile continues to improve, BUN is 83, creatinine is 2.36. On 12/25/2017 patient seen in follow-up on oncology floor. She is awake and alert, sitting up at the edge of the bed, in no acute distress, she states she started to bring up some sputum, did not note the color. Lung sounds are positive for diffuse rhonchi, and wheezes. Pulse ox on 2 L per nasal cannula is 90-93%. Vital signs are stable. Transbronchial biopsy of the lingula as well as cytology of the needle aspirate and brush smears of the left lower lung were positive for synchronous small cell carcinoma and squamous cell carcinoma. Medical oncology is awaiting improvement of the renal profile to initiate chemotherapy. His labs were reviewed, shows diminished at 13.6, hemoglobin 10.3 , potassium 3.4, CO2 is 31, BUN 74, creatinine is 2.2. Diuretics remain on hold , patient developed some swelling in her right upper and bilateral lower extremities, left greater than the right, denies any calf tenderness, any redness or tenderness. Venous Doppler study of bilateral lower extremities is completed, and the results of pending at this time. Bronchial washing cultures are negative thus far. On 12/26/2017 patient seen in follow-up in oncology floor. She is awake and alert, she is feeling better today, less short of breath, she is tolerating ambulation, she was able to take a shower, and she states her congestion is breaking up, and patient is able to expectorate some phlegm. Lung sounds are still positive for diffuse wheezing particularly over left lung. Patient remains on oral prednisone, and nebulized bronchodilators, in addition to Symbicort. She states she she is breathing easier today, today's labs were reviewed, shows WBC of 11.8, hemoglobin is 10.1, CO2 of 33, B1 is 74, and creatinine is 1.95, and renal profile is improving. Appetite remains somewhat poor, but patient aching an effort to increase her oral intake. I'll signs are stable, patient is on room air, pulse ox is 95%. Bronchial wash cultures are negative so far. On 12/28/2017 patient seen in follow-up on oncology floor. No acute distress, denies worsening shortness of breath, room air pulse ox is 92-94%, patient is afebrile, patient had received her first dose of chemotherapy yesterday, tolerated it well. Had a couple episodes of vomiting, she thinks she may have eaten too fast, after not eating very much for a number of days. No nausea or vomiting today, lung sounds reveal use wheezes over left lung, but appears to be a bit less bronchospastic compared to previous exams. On nebulized bronchodilators, Symbicort and prednisone. Patient had a right upper arm PICC line placed. Today's labs revealed a CBC of 13.5, alone of 9.8, electrolytes were within normal limits, creatinine is 1.7, with BUN of 66. They will renal profile, slightly improved. Blood cultures, urine culture and bronchial wash cultures remain negative. No acute complaints otherwise, continue current medical treatment. Objective - Vital Signs Vital signs: Vital Signs Temp 97.1 F L 12/28/17 08:18 Pulse 80 12/28/17 08:30 Resp 18 12/28/17 08:30 BP 135/65 12/28/17 08:18 Pulse Ox 92 L 12/28/17 08:18 Intake & Output 12/27/17 12/28/17 12/28/17 18:59 06:59 18:59 Intake Total 160 820 Balance 160 820 Intake: IV 160 820 Etoposide 180 mg In 500 Sodium Chloride 0.9% 500 ml @ 509 mls/hr IV Q24H [facility], [facility] Rx#:[id number] ns@20 160 320 Other: Voiding Method Toilet Toilet - Exam - Constitutional General appearance: average body habitus, no acute distress. - EENT Eyes: EOMI, PERRLA ENT: hard of hearing Ears: bilateral: normal - Neck Neck: normal ROM Carotids: bilateral: upstroke normal Thyroid: left: enlarged, nodule - Respiratory Respiratory: Diffuse wheezing, more so on the left side - Cardiovascular Rhythm: regular Heart sounds: normal: S1, S2, Mild right upper extremity edema, bilateral lower extremity edema, left greater than the right - Gastrointestinal General gastrointestinal: normal bowel sounds - Integumentary Integumentary: normal turgor - Neurologic Neurologic: CNII-XII intact - Musculoskeletal Musculoskeletal: gait normal - Psychiatric Psychiatric: A&O x's 3, appropriate affect, intact judgment & insight - Labs CBC & Chem 7: 12/28/17 08:56 12/28/17 08:56 Labs: Abnormal Lab Results - Last 24 Hours (Table) 12/27/17 12/27/17 12/27/17 Range/Units 12:00 17:18 20:48 WBC (3.8-10.6) k/uL RBC (3.80-5.40) m/uL Hgb (11.4-16.0) gm/dL Hct (34.0-46.0) % Plt Count (150-450) k/uL Neutrophils # (1.3-7.7) k/uL Lymphocytes # (1.0-4.8) k/uL BUN (7-17) mg/dL Creatinine (0.52-1.04) mg/dL Glucose (74-99) mg/dL POC Glucose (mg/dL) 216 H 124 H 190 H (75-99) mg/dL Calcium (8.4-10.2) mg/dL Total Protein (6.3-8.2) g/dL Albumin (3.5-5.0) g/dL 12/28/17 12/28/17 12/28/17 Range/Units 07:28 08:56 08:56 WBC 13.5 H (3.8-10.6) k/uL RBC 3.23 L (3.80-5.40) m/uL Hgb 9.8 L (11.4-16.0) gm/dL Hct 30.1 L (34.0-46.0) % Plt Count 94 L (150-450) k/uL Neutrophils # 12.6 H (1.3-7.7) k/uL Lymphocytes # 0.4 L (1.0-4.8) k/uL BUN 66 H (7-17) mg/dL Creatinine 1.70 H (0.52-1.04) mg/dL Glucose 213 H (74-99) mg/dL POC Glucose (mg/dL) 173 H (75-99) mg/dL Calcium 7.9 L (8.4-10.2) mg/dL Total Protein 5.3 L (6.3-8.2) g/dL Albumin 3.1 L (3.5-5.0) g/dL Assessment and Plan Plan: Assessment: #1 Acute renal failure of unclear etiology. No hydronephrosis per ultrasound. Presenting creatinine 6.15, currently 2.20 #2 Multiple pulmonary nodules along with cavitary masses. Left hilar soft tissue fullness and mediastinal adenopathy and upper abdominal lymphadenopathy with left adrenal nodularity. Neoplastic etiology with metastatic disease within the differential. Status post bronchoscopy with biopsies 12/18/2017 cultures and lingular transbronchial biopsy was positive for synchronous squamous cell and small cell carcinoma. Left lower lung BAL could not exclude small cell carcinoma, brush tip and brushings smears of the left lower lobe could not exclude squamous cell carcinoma. #3 Chronic and ongoing tobacco dependence of greater than 40 years. 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 #5 History of right-sided breast cancer status post lumpectomy and radiation. #6 Large left thyroid nodule, negative biopsy in 2016. #7 Hypertension. #8 Hyperlipidemia. #9 Peripheral vascular disease with previous angioplasty of the left lower extremity. #10 Anxiety. Recommendation: Patient remains stable from pulmonary perspective, continue with current dose oral prednisone, nebulized bronchodilators, and Symbicort. No worsening shortness of breath. Received first dose of MANAGEMENT SME 16 and carboplatinum, tolerated well. Renal function remains stable, may be slightly improved. We'll continue to follow. I performed a history & physical examination of the patient and discussed their management with my nurse practitioner, Rita Hopkins. I reviewed the nurse practitioner's note and agree with the documented findings and plan of care. Lung sounds are positive forscattered rhonchi throughout the lung pederson. The findings and the impression was discussed with the patient. I attest to the documentation by the nurse practitioner. Time with Patient: Less than 30
--- NOTE | 2017-12-28 15:04 | PN ---
PROGRESS NOTE Patient is seen for followup for acute kidney injury. She has received 1 dose of IV Lasix as patient was complaining of increased swelling yesterday. She was nauseated this morning and has received Zofran. The patient had chemotherapy 2 days ago. EXAMINATION: Currently, blood pressure was 135/65, heart rate 80 per minute. She is afebrile. Examination of the heart: S1, S2. Examination of the lungs: Bilateral breath sounds are heard. Abdomen is soft, nontender, obese. Examination lower extremity shows edema 2+ bilaterally. RESEARCH AND DEVELOPMENT MANAGER exam is grossly intact. LABS: Show sodium 140, potassium 4.3, BUN 66, serum creatinine 1.7, hemoglobin 9.8 g/dL. ASSESSMENT: 1. Acute kidney injury. Renal function has been improving. The creatinine now down to 1.7 from 6.15. I will maintain her on oral Lasix for lower extremity edema. 2. Lung cancer, squamous cell and small cell cancer, status post chemotherapy with possible early brain METS. PLAN: Add low-dose oral loop diuretics. Repeat labs in a.m. MMODL / IJN: [id number] /
[2017-12-28] MEDS: FUROSEMIDE 40 MG TAB PO SCH (16:52)
[2017-12-28 16:58] LABS: Glucose,Whole Blood 85 mg/dL (75-99)
[2017-12-28] MEDS: ALLOPURINOL 300 MG TAB PO SCH (19:55)
[2017-12-28 20:01] LABS: Glucose,Whole Blood 241 mg/dL (75-99)
[2017-12-28] MEDS: DEXAMETHASONE SOD PHOSPHATE 10 MG/ML 1 ML VIAL IV SCH (20:36)
[2017-12-28] MEDS: ATORVASTATIN 10 MG TAB PO SCH (20:36)
--- NOTE | 2017-12-28 21:37 | PN ---
PROGRESS NOTE DATE OF SERVICE: CHIEF COMPLAINT: Evelyn is seen today as a followup. She feels tired. She is short of breath, but better. Her nausea is better. No vomiting. No melena, hematochezia or hematuria. Her medication reviewed in her electronic record. PHYSICAL EXAMINATION: She is alert, oriented x3. No distress. VITAL SIGNS: Temperature 97.1, afebrile; pulse 80 regular, respiration 18, blood pressure 155/65. HEENT: Normocephalic, atraumatic. NECK: Supple. CHEST: Equal expansion bilaterally. LUNGS: Scattered wheezes in all pederson. HEART: Regular rate and rhythm. ABDOMEN: Soft. No significant tenderness. EXTREMITIES: Reveal 1+ edema. SKIN: No significant bruise or petechiae. LABORATORY DATA: WBC of 13.5, hemoglobin 9.8, hematocrit 30.1, platelets are 94. Sodium 140, potassium 4.3, chloride 102, CO2 is 28, BUN is 66, creatinine 1.7. IMPRESSION: 1. Lung carcinoma. The patient has evidence of metastatic disease. The recent biopsy reveals synchronous squamous cell and small cell lung carcinoma. The patient already started on systemic chemotherapy with carboplatin and etoposide today. Today she will be receiving daily 3 of etoposide. She is tolerating the chemotherapy reasonably well. 2. Renal failure. Her kidney function has improved. 3. Hyperuricemia. Her uric acid was elevated last week. 4. Other comorbidities appear to be improving. RECOMMENDATION: 1. We will proceed with day 3 today of cycle #1 of carboplatin and G[employer] INSPECTOR HELPER-16. 2. Add allopurinol. 3. Continue supportive care. 4. From oncology standpoint the patient could be discharged home early next week and she will follow up with Dr. Landry in the outpatient setting. The above was discussed with the patient and family at bedside and answered all questions. MMODL / IJN: [id number] /
[2017-12-28] MEDS: ONDANSETRON 16 MG in SODIUM CHLORIDE 0.9% 50 ML IVPB SCH (21:47)
[2017-12-28] MEDS: ETOPOSIDE 180 MG in SODIUM CHLORIDE 0.9% 500 ML IV SCH (22:12)
[2017-12-28] MEDS: MELATONIN 5 MG TABLET PO SCH (22:45)
[2017-12-29] MEDS: NYSTATIN 100,000 UNIT/ML SUSP 500,000 UNIT/5 ML CUP PO SCH ×5 (02:44→22:11)
[2017-12-29 07:16] LABS: Glucose,Whole Blood 171 mg/dL (75-99)
[2017-12-29] MEDS: SYMBICORT 160-4.5 MCG INHALER INHALATION SCH ×2 (07:44→20:40)
[2017-12-29 08:08] LABS: Calcium 7.7 mg/dL (8.4-10.2); Potassium 4.9 mmol/L (3.5-5.1); Total Bilirubin 0.6 mg/dL (0.2-1.3); Total Protein 5.2 g/dL (6.3-8.2)
[2017-12-29 08:12] LABS: Basophils % (A) 0 %; Eosinophils % (A) 0 %; Lymphocytes # (A) 0.3 k/uL (1.0-4.8); Lymphocytes % (A) 2 %; MCH 31.1 pg (25.0-35.0); MCHC 33.2 g/dL (31.0-37.0); MCV 93.5 fL (80.0-100.0); Mean Platelet Volume 7.3; Monocytes # (A) 0.3 k/uL (0-1.0); Monocytes % (A) 2 %; Neutrophils % (A) 95 %; RBC 3.21 m/uL (3.80-5.40); RDW 13.5 % (11.5-15.5); WBC 13.7 k/uL (3.8-10.6)
[2017-12-29 08:14] LABS: Platelet Count 83 k/uL (150-450)
[2017-12-29] MEDS: INSULIN ASPART 100 UNIT/ML 1 ML 10 ML VIAL SQ SCH ×4 (08:19→21:46)
[2017-12-29] MEDS: HEPARIN SODIUM,PORCINE 5,000 UNIT/ML 1 ML VIAL SQ SCH ×2 (08:20→21:46)
[2017-12-29] MEDS: busPIRone HCl 5 MG TAB PO SCH ×3 (08:20→21:46)
[2017-12-29] MEDS: FUROSEMIDE 40 MG TAB PO SCH (08:21)
[2017-12-29] MEDS: ATENOLOL 25 MG TAB PO SCH ×2 (08:21→22:11)
[2017-12-29] MEDS: FLUCONAZOLE 100 MG TAB PO SCH (08:21)
[2017-12-29] MEDS: FAMOTIDINE 20 MG TAB PO SCH (08:21)
[2017-12-29] MEDS: predniSONE 20 MG TAB PO SCH (08:21)
[2017-12-29] MEDS: ASPIRIN 81 MG PO SCH (08:21)
[2017-12-29] MEDS: PENTOXIFYLLINE 400 MG TABLET.ER PO SCH ×3 (08:21→17:07)
[2017-12-29] MEDS: ALLOPURINOL 300 MG TAB PO SCH (09:14)
--- NOTE | 2017-12-29 11:05 | P.PN ---
Subjective Progress Note Date: 12/29/17 Evelyn Flores is a 67 year old female who presented to [facility] to have a computed tomography scan of the chest was contrast BUN and creatinine were done prior to computed tomography scan and were significantly elevated, her BUN was 103, and creatinine 6.15, computed tomography scan was canceled and patient was sent to [facility] emergency room, she was evaluated in the emergency room she was given IV fluid and her creatinine came down slightly to 5.9, computed tomography scan of the chest without contrast was done and revealed multiple pulmonary nodules with a couple of cavitary masses patient also had evidence of lymphadenopathy in the chest and the upper abdomen, she also had a large left thyroid nodule, she was started on IV fluid and was admitted to the medical floor, pulmonary and nephrology and oncology consultation were requested. Patient has not been feeling well for the last 6 weeks, she had cough with minimal sputum production, she was given a course of antibiotic without any improvement, chest x-ray was done on 12/05/2017 and revealed evidence of right upper lobe lung mass computed tomography scan was recommended and this was scheduled for 12/15/2017 however patient was admitted due to severely elevated BUN and creatinine. Patient has a lifelong history of smoking, she has known history of hypertension , hyperlipidemia, anxiety disorder, and a thyroid nodule that was recently biopsied by Dr. Morales. At this time patient denies any pain or discomfort she reports having episodes of nausea and vomiting in the last 2 weeks she reports feeling full and then able to eat much, she reports significant weight loss in the last 6 weeks, she has been complaining of cough, she had minimal sputum production, she denies any hemoptysis, there is no abdominal pain no blood in the urine or in the stools. On 12/16/2017 patient is currently A & O 3 resting comfortably in bed. Patient does report some shortness of breath with activity. Patient denies chest pain. Denies nausea vomiting or diarrhea. Does reports she has very little appetite. Patient denies any urinary burning or frequency. On 12/17/2017 patient is currently alert and oriented 3 resting in bed comfortably. Patient's shortness of breath has improved. Patient being followed by pulmonary. Per pulmonary plan for bronchoscopy and biopsies tomorrow. IV steroids have been added per pulmonary. Patient denies chest pain at this time. Patient denies nausea vomiting or diarrhea. Patient denies any urinary burning or frequency On 12/18/2017 patient is currently alert and oriented X 3. Patient is currently resting comfortably in bed. Patient underwent bronchoscopy with biopsy without complication. Patient is currently on room air but does state she still gets winded upon activity. Patient denies chest pain or shortness of breath. Denies nausea vomiting or diarrhea. Denies any urinary or burning with urination On 12/19/2017 patient is currently alert and oriented 3. Patient remains short of breath after activity. Patient states she did not get much sleep last night. Patient denies chest pain. Patient denies nausea vomiting or diarrhea denies any urinary burning or frequency. On 12/20/2017 patient is currently alert and oriented 3. Patient remains short of breath with activity. Patient has chest pain or shortness of breath. Patient denies nausea vomiting or diarrhea. Denies any urinary burning or frequency On 12/21/2017 patient is alert and oriented 3 in no apparent distress, she had some episodes of confusion and hallucination that she thinks is related to steroid use she is still complaining of shortness of breath with any activity she complains of having poor taste in her mouth and poor appetite otherwise she denies any complaints there is no fever or chills no headache or dizziness no chest pain no nausea or vomiting no abdominal pain and no urinary symptoms On 12/22/2017 patient is alert and oriented in no distress complaining of anxiety and having poor sleep complaining of fatigue and shortness of breath with activity otherwise no complaints On 12/23/2017 patient is alert and oriented 3. Patient is currently resting comfortably in bed. Does state some improvement with shortness of breath. Patient has been started on Diflucan per oncology for thrush. Patient does state some improvement with being able to eat. At this time patient denies chest pain or shortness of breath. Denies nausea vomiting or diarrhea. Denies any urinary burning or frequency On 12/24/2017 patient is alert and oriented 3 currently eating her lunch sitting up in bed. Patient states she has been up walking the halls without oxygen. Patient states she does feel short of breath today. She said she hasn' t had an in-depth discussion with oncology services for treatment plan. At this time patient denies chest pain or shortness of breath. Denies any urinary burning or frequency. Denies nausea vomiting or diarrhea. On 12/25/2017 patient is alert and oriented 3 currently sitting up in bed. at bedside. Patient has remained on room air today. Patient states that she is a little bit more short of breath today than yesterday. At this time patient denies chest pain or shortness of breath. Denies nausea vomiting or diarrhea. Denies any urinary burning or frequency 12/26/2017 patient creatinine is down to 1.95 she is scheduled to start chemotherapy this evening. Dopplers of the lower extremities are negative for DVT. Patient has no new complaints. Right arm remains swollen. Right upper extremity Doppler negative for DVT positive for SVT within the right cephalic vein 12/27/2017 patient is alert and oriented 3 in no apparent distress she was started on chemotherapy yesterday she is reporting no new symptoms no evidence of side effects she is complaining of cough was minimal sputum production no hemoptysis she is also complaining of shortness of breath with activity otherwise she denies any complaints. 12/29/2017 patient is alert and oriented 3. Patient is currently sitting up in chair. Patient states that her appetite has improved. At this time Patient states breathing is improving. Patient denies chest pain. Patient denies nausea vomiting or diarrhea. Patient denies any urinary burning or frequency Objective - Vital Signs Vital signs: Vital Signs Temp 98.1 F 12/29/17 05:00 Pulse 76 12/29/17 05:00 Resp 18 12/29/17 05:00 BP 122/72 12/29/17 05:00 Pulse Ox 91 L 12/29/17 05:00 Intake & Output 12/28/17 12/29/17 12/29/17 18:59 06:59 18:59 Intake Total 240 400 Balance 240 400 Intake: Oral 240 200 Other 200 Other: Voiding Method Toilet Toilet Toilet # Voids 3 2 - Exam Head normocephalic Neck supple Lungs diminished bilaterally Heart regular rate and rhythm S1-S2, no rub or gallop Abdomen is soft nontender nondistended positive bowel sounds no hepatosplenomegaly Extremities. +1 edema bilaterally lower extremities. 1+ right upper extremity. Neuro alert and orientated to 3 - Labs CBC & Chem 7: 12/29/17 07:38 12/29/17 07:38 Labs: Abnormal Lab Results - Last 24 Hours (Table) 12/28/17 12/28/17 12/28/17 Range/Units 08:56 11:30 20:00 WBC (3.8-10.6) k/uL RBC (3.80-5.40) m/uL Hgb (11.4-16.0) gm/dL Hct (34.0-46.0) % Plt Count (150-450) k/uL Neutrophils # (1.3-7.7) k/uL Lymphocytes # (1.0-4.8) k/uL Carbon Dioxide (22-30) mmol/L BUN (7-17) mg/dL Creatinine (0.52-1.04) mg/dL Glucose (74-99) mg/dL POC Glucose (mg/dL) 172 H 241 H (75-99) mg/dL Uric Acid 8.0 H (3.7-7.4) mg/dL Calcium (8.4-10.2) mg/dL Total Protein (6.3-8.2) g/dL Albumin (3.5-5.0) g/dL 12/29/17 12/29/17 12/29/17 Range/Units 07:15 07:38 07:38 WBC 13.7 H (3.8-10.6) k/uL RBC 3.21 L (3.80-5.40) m/uL Hgb 10.0 L (11.4-16.0) gm/dL Hct 30.0 L (34.0-46.0) % Plt Count 83 L (150-450) k/uL Neutrophils # 13.0 H (1.3-7.7) k/uL Lymphocytes # 0.3 L (1.0-4.8) k/uL Carbon Dioxide 31 H (22-30) mmol/L BUN 63 H (7-17) mg/dL Creatinine 1.79 H (0.52-1.04) mg/dL Glucose 150 H (74-99) mg/dL POC Glucose (mg/dL) 171 H (75-99) mg/dL Uric Acid (3.7-7.4) mg/dL Calcium 7.7 L (8.4-10.2) mg/dL Total Protein 5.2 L (6.3-8.2) g/dL Albumin 3.0 L (3.5-5.0) g/dL Assessment and Plan Assessment: #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 Oncology following closely #2 possible early brain metastasis: Patient will undergo treatment of the lung cancer first. And oncology will reevaluate in 4 weeks for a possible MRI of the brain. #3 thyroid nodule with recent biopsy by Dr. Morales. #4 acute renal failure: Likely prerenal secondary to severe intravascular volume depletion from poor oral intake and diuretics. Followed closely by nephrology. Kidney function showing improvement. Patient will be able to proceed with chemotherapy. Bun 63, creatinine slightly increasing to 1.79 #5 underlying history of hypertension #6 underlying history of hyperlipidemia #7 evidence of COPD on computed tomography scan #8 tobacco abuse #9 underlying history of anxiety disorder #10 hypokalemia. Potassium replacement protocol. Will recheck potassium level and monitor closely. Repeat potassium 3.8 #11 abdominal aortic aneurysm. Renal ultrasound completed showing fusiform lower abdomen aortic aneurysm measuring up to 5.2 cm in diameter. The length is more than 8 cm. Patient to follow-up outpatient for further workup. #12 leukocytosis likely related to steroids. #13 insomnia. Melatonin added #14 hypomagnesemia. Magnesium 1.2. We'll give magnesium sulfate 2 g IV 1. Repeat magnesium in a.m. #15 SVT of the right arm: Keep arm elevated. Likely related to infiltration of the IV. #16 oral Thrush. Diflucan 100 mg has been added per oncology. #17 left lower leg swelling. Venous Doppler completed showing no evidence of DVT in right or left leg. #18. Thrombocytopenia platelets 83. Continue to monitor closely GI prophylaxis Pepcid and DVT prophylaxis SCDs. DVT prophylaxis heparin I performed an examination of the patient and discussed their management with the Nurse Practitioner. I have reviewed the Nurse Practitioner's notes and agree with the documented findings and plan of care
[2017-12-29 11:52] LABS: Glucose,Whole Blood 244 mg/dL (75-99)
--- NOTE | 2017-12-29 12:07 | CDI ---
Last Revision, March 2017 Documentation Clarification Form Date: 12/29/2017 11:57:39 AM From: Christy RomeCummins, [facility], CCDS Admit Date: 12/15/2017 4:48:00 PM Patient Name: Evelyn Flores Visit Number: [id number] Discharge Date: ATTENTION: The Clinical Documentation Specialists (CDI) and [facility] Coding Staff appreciate your assistance in clarifying documentation. Please respond to the clarification below the line at the bottom and electronically sign. The CDI & [facility] Coding staff will review the response and follow-up if needed. Please note: Queries are made part of the Legal Health Record. If you have any questions, please contact the author of this message via ITS. Dr. Anna Guerra MD: A diagnosis of anemia lacks specificity to accurately reflect your patients severity of condition and clarification is needed. History/Risk Factors: Breast CA status post right breast lumpectomy 2005, Smoker , Hypertension. Clinical indicators: Newly diagnosed squamous cell/small cell CA of the lung, possible early brain mets, mets to mediastinal & intra-abdominal & intrathoracic lymph nodes; dehydration & volume depletion, started chemotherapy on 12/26. Hemoglobin: 12.1 - 9.9 - 10.1 - 9.6, currently 10.0 Hematocrit: 36.3 - 29.3 - 30.6 - 29.6, currently 30.0 Per the 12/29 progress note: CLARA. Renal function staying the same with creatinine at 1.7 the last 3 days. Previous creatinine was 0.9 mg/dL prior to the CLARA. Treatment: H/H, IV fl bolus 12/15, IV MagSulf, IV Solumedrol, IV Lasix, Chemo: carboplatin started 12/26. In order to capture the severity of condition, please clarify the type of anemia and etiology if known: Chronic blood loss anemia Iron deficiency anemia Hemolytic anemia Drug induced anemia Anemia due to malignancy Nutritional anemia Anemia of chronic kidney disease Unable to determine Other, please specify Anemia due to malignancy MTDD
[2017-12-29] MEDS: SALT AND SODA MOUTHWASH 1,000 ML PO SCH ×4 (13:03→23:49)
--- NOTE | 2017-12-29 13:36 | P.PN ---
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 This is a very pleasant 67-year-old female patient who follows with Dr. Mora as her primary care physician. She has a history of hypertension, hyperlipidemia, peripheral vascular disease with previous angioplasty of the left lower extremity, hearing disorder, right sided breast cancer status post lumpectomy and radiation treatment in 2005. She also has chronic and ongoing 40 + year smoking history. She had not been on any inhalers in the past. Approximately one month ago she started having increasing shortness of breath, cough and congestion. She was treated with antibiotics and nebulized treatments without much improvement. Follow-up chest x-ray revealed some abnormalities and she was scheduled for a CT angiogram of the chest to be performed yesterday. However her renal function was significantly elevated. She did undergo a computed tomography scan of the chest without contrast which revealed multiple pulmonary nodules measuring up to 2 cm. There is cavitary masses present in the left hilar region and left lower lobe. There is left hilar soft tissue fullness and mediastinal lymphadenopathy. There is also noted moderate emphysema/COPD. There is a large heterogenous left thyroid nodule with recent ultrasound revealing a large left lobe cystic-type thyroid nodule that was stable compared to previous. Renal ultrasound revealed no evidence of hydronephrosis. There is a small left renal cortical cysts. She does have a fusiform lower abdominal aortic aneurysm measuring 5.2 cm in diameter that is more than 8 cm in length. Initial creatinine 6.15. Today 5.15 the BUN of 93. Patient is seen today in consultation on the oncology unit. She is currently awake and alert in no acute distress. She has been feeling quite poorly especially the last several days without eating or drinking much. She's had approximately 30 pound weight loss over the past month since all of her symptoms began. She denies productive cough. No hemoptysis. The patient is seen again today 12/17/2017 in follow-up on the oncology unit. She is currently awake and alert in no acute distress. She is breathing quite a bit easier today as compared to yesterday. In general she is feeling better overall as well. Her renal function has improved current creatinine 4.33. Her pulmonary status has improved. She is less short of breath. Less bronchospastic and wheezy. Maintaining good O2 saturations in the mid to upper 90s on 2 L/m per nasal cannula. She is afebrile. Blood culture reveals no growth. White count 9.1. Hemoglobin 9.9. The patient is seen again today 12/18/2017 in follow-up on the oncology unit. She is awake and alert in no acute distress. She is breathing a bit better today as compared to yesterday. Maintaining good O2 saturations in the 90s on room air. She's been afebrile. Hemodynamically stable. Blood culture reveals no growth to date. White count 21.2. Hemoglobin 10.3. Creatinine 4.07. She did undergo bronchoscopy with biopsies with Dr. Rojas this morning. She tolerated the procedure well. Pathology is pending. The patient is seen again today 12/19/2017 in follow-up on the oncology unit. She is currently sitting up in bed having lunch. She is awake and alert in no acute distress. She is breathing a bit easier today as compared to yesterday but still dyspneic with exertion. 18 in good O2 saturations in the 90s on 2 L/ m per nasal cannula. Bronchial biopsies are pending. Cultures are pending. White count 15.4. Hemoglobin 10.0. Creatinine 3.86. The patient is seen again today on 12/20/2017 in follow-up on the oncology unit. She is currently sitting up in bed eating breakfast. She remains quite anxious and teary-eyed. She has short of breath with exertion. Still wheezing. She is maintaining O2 saturations in the 90s on 2 L/m per nasal cannula. She's been afebrile. Cultures reveal no growth thus far. Pathology is still pending. White count 15.6. Hemoglobin 10.5. Creatinine 3.68. Continued on sodium bicarb tablets. Reevaluated today on 12/21/2017, patient remains in the oncology unit, doing well , relatively asymptomatic except for intermittent cough and wheezing, feels generally weak. CBC is relatively normal, basic metabolic profile was reviewed BUN remains 81 creatinine is 3.27, and that being addressed by nephrology. Liver enzymes remains borderline elevated. Bronchoscopy results are still pending. Reevaluated today on 12/22/2017, patient is complaining of increased shortness of breath, intermittent cough and wheezing. Follow-up chest x-ray is basically about the same showing left perihilar soft tissue mass, right upper lobe nodule , and diffuse interstitial opacities with small effusions. Pathology and cytology is pending from her last bronchoscopy, hopefully we will be receiving some answers from the lab tomorrow. Labs were reviewed, WBC count is 14 hemoglobin 10.8 renal profile remains abnormal with BUN 82 creatinine 3.03. On 12/23/2017 patient seen in follow-up. Still has some wheezing, intermittent cough, and shortness of breath. She feels a bit less congested, and feels like she should be able to start bringing up some sputum. 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 Oncology report of the brushing and Andre needle biopsy pending. She remains on 2 L per nasal cannula, pulse ox is 95%. Renal profile is slightly improved, B1 is 84, creatinine is 2.71. WBC is 12.1, hemoglobin is 10.4. Cultures are negative thus far. Including the bronchial wash cultures. He went for MRI of the brain this morning showed small area of focal increased T2/Flair signal in the right paramedian frontoparietal junction busch-white matter interface, difficult to exclude a small area of vasogenic edema, but no acute intracranial abnormality. Oncology is following. On 12/24/2017 patient seen in follow-up on oncology floor. Yesterday transbronchial biopsy of the lingula was positive for synchronous small cell carcinoma and squamous cell carcinoma. Cytology on the Andre needle aspirate showed malignant cell population consistent with small cell carcinoma, transcranial lung core biopsy was positive for malignant neoplasm consistent with small cell carcinoma. BAL of the lingula showed minimally cellular specimen consisting of blood with scattered reactive bronchial lining cells, nondiagnostic. Rash tip of the lingula shows severe squamous atypia consistent with squamous cell carcinoma. Cannot exclude small cell carcinoma. Left lower lung BAL could not exclude small cell carcinoma, brush tip and brushings smears of the left lower lobe could not exclude squamous cell carcinoma. Patient was seen by medical oncology, and radiation oncology. MRI of the brain showed possible small early metastasis. On today's exam patient is less bronchospastic , however patient has scattered rhonchi, but no distress, nonproductive cough. Today's lab work showed CBC of 12.9, no significant change from yesterday, renal profile continues to improve, BUN is 83, creatinine is 2.36. On 12/25/2017 patient seen in follow-up on oncology floor. She is awake and alert, sitting up at the edge of the bed, in no acute distress, she states she started to bring up some sputum, did not note the color. Lung sounds are positive for diffuse rhonchi, and wheezes. Pulse ox on 2 L per nasal cannula is 90-93%. Vital signs are stable. Transbronchial biopsy of the lingula as well as cytology of the needle aspirate and brush smears of the left lower lung were positive for synchronous small cell carcinoma and squamous cell carcinoma. Medical oncology is awaiting improvement of the renal profile to initiate chemotherapy. His labs were reviewed, shows diminished at 13.6, hemoglobin 10.3 , potassium 3.4, CO2 is 31, BUN 74, creatinine is 2.2. Diuretics remain on hold , patient developed some swelling in her right upper and bilateral lower extremities, left greater than the right, denies any calf tenderness, any redness or tenderness. Venous Doppler study of bilateral lower extremities is completed, and the results of pending at this time. Bronchial washing cultures are negative thus far. On 12/26/2017 patient seen in follow-up in oncology floor. She is awake and alert, she is feeling better today, less short of breath, she is tolerating ambulation, she was able to take a shower, and she states her congestion is breaking up, and patient is able to expectorate some phlegm. Lung sounds are still positive for diffuse wheezing particularly over left lung. Patient remains on oral prednisone, and nebulized bronchodilators, in addition to Symbicort. She states she she is breathing easier today, today's labs were reviewed, shows WBC of 11.8, hemoglobin is 10.1, CO2 of 33, B1 is 74, and creatinine is 1.95, and renal profile is improving. Appetite remains somewhat poor, but patient aching an effort to increase her oral intake. I'll signs are stable, patient is on room air, pulse ox is 95%. Bronchial wash cultures are negative so far. On 12/28/2017 patient seen in follow-up on oncology floor. No acute distress, denies worsening shortness of breath, room air pulse ox is 92-94%, patient is afebrile, patient had received her first dose of chemotherapy yesterday, tolerated it well. Had a couple episodes of vomiting, she thinks she may have eaten too fast, after not eating very much for a number of days. No nausea or vomiting today, lung sounds reveal use wheezes over left lung, but appears to be a bit less bronchospastic compared to previous exams. On nebulized bronchodilators, Symbicort and prednisone. Patient had a right upper arm PICC line placed. Today's labs revealed a CBC of 13.5, alone of 9.8, electrolytes were within normal limits, creatinine is 1.7, with BUN of 66. They will renal profile, slightly improved. Blood cultures, urine culture and bronchial wash cultures remain negative. No acute complaints otherwise, continue current medical treatment. On 12/29/2017 patient seen in follow-up on oncology floor. Patient received a second round of chemo last night, tolerated it well, from pulmonary standpoint she remains stable. Lung sounds are positive for some scattered wheezes, a few rhonchi. Overall patient states her breathing has improved, and she is able to take deep breaths. Vital signs are stable, pulse ox on 2 L per nasal cannula is 91%, patient is afebrile, on a milligram of prednisone daily, and nebulized bronchodilators, continue with current plan of treatment, bronchial wash cultures remain negative Objective - Vital Signs Vital signs: Vital Signs Temp 98.1 F 12/29/17 05:00 Pulse 76 12/29/17 05:00 Resp 18 12/29/17 05:00 BP 122/72 12/29/17 05:00 Pulse Ox 91 L 12/29/17 05:00 Intake & Output 12/28/17 12/29/17 12/29/17 18:59 06:59 18:59 Intake Total 240 400 Balance 240 400 Intake: Oral 240 200 Other 200 Other: Voiding Method Toilet Toilet Toilet # Voids 3 2 - Exam - Constitutional General appearance: average body habitus, no acute distress. - EENT Eyes: EOMI, PERRLA ENT: hard of hearing Ears: bilateral: normal - Neck Neck: normal ROM Carotids: bilateral: upstroke normal Thyroid: left: enlarged, nodule - Respiratory Respiratory: Diffuse wheezing, more so on the left side - Cardiovascular Rhythm: regular Heart sounds: normal: S1, S2, Mild right upper extremity edema, bilateral lower extremity edema, left greater than the right - Gastrointestinal General gastrointestinal: normal bowel sounds - Integumentary Integumentary: normal turgor - Neurologic Neurologic: CNII-XII intact - Musculoskeletal Musculoskeletal: gait normal - Psychiatric Psychiatric: A&O x's 3, appropriate affect, intact judgment & insight - Labs CBC & Chem 7: 12/29/17 07:38 12/29/17 07:38 Labs: Abnormal Lab Results - Last 24 Hours (Table) 12/28/17 12/28/17 12/29/17 Range/Units 08:56 20:00 07:15 WBC (3.8-10.6) k/uL RBC (3.80-5.40) m/uL Hgb (11.4-16.0) gm/dL Hct (34.0-46.0) % Plt Count (150-450) k/uL Neutrophils # (1.3-7.7) k/uL Lymphocytes # (1.0-4.8) k/uL Carbon Dioxide (22-30) mmol/L BUN (7-17) mg/dL Creatinine (0.52-1.04) mg/dL Glucose (74-99) mg/dL POC Glucose (mg/dL) 241 H 171 H (75-99) mg/dL Uric Acid 8.0 H (3.7-7.4) mg/dL Calcium (8.4-10.2) mg/dL Total Protein (6.3-8.2) g/dL Albumin (3.5-5.0) g/dL 12/29/17 12/29/17 12/29/17 Range/Units 07:38 07:38 11:51 WBC 13.7 H (3.8-10.6) k/uL RBC 3.21 L (3.80-5.40) m/uL Hgb 10.0 L (11.4-16.0) gm/dL Hct 30.0 L (34.0-46.0) % Plt Count 83 L (150-450) k/uL Neutrophils # 13.0 H (1.3-7.7) k/uL Lymphocytes # 0.3 L (1.0-4.8) k/uL Carbon Dioxide 31 H (22-30) mmol/L BUN 63 H (7-17) mg/dL Creatinine 1.79 H (0.52-1.04) mg/dL Glucose 150 H (74-99) mg/dL POC Glucose (mg/dL) 244 H (75-99) mg/dL Uric Acid (3.7-7.4) mg/dL Calcium 7.7 L (8.4-10.2) mg/dL Total Protein 5.2 L (6.3-8.2) g/dL Albumin 3.0 L (3.5-5.0) g/dL Assessment and Plan Plan: Assessment: #1 Acute renal failure of unclear etiology. No hydronephrosis per ultrasound. Presenting creatinine 6.15, currently 1.79 #2 Multiple pulmonary nodules along with cavitary masses. Left hilar soft tissue fullness and mediastinal adenopathy and upper abdominal lymphadenopathy with left adrenal nodularity. Neoplastic etiology with metastatic disease within the differential. Status post bronchoscopy with biopsies 12/18/2017 cultures and lingular transbronchial biopsy was positive for synchronous squamous cell and small cell carcinoma. Left lower lung BAL could not exclude small cell carcinoma, brush tip and brushings smears of the left lower lobe could not exclude squamous cell carcinoma. #3 Chronic and ongoing tobacco dependence of greater than 40 years. 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 #5 History of right-sided breast cancer status post lumpectomy and radiation. #6 Large left thyroid nodule, negative biopsy in 2016. #7 Hypertension. #8 Hyperlipidemia. #9 Peripheral vascular disease with previous angioplasty of the left lower extremity. #10 Anxiety. Recommendation: Continue current , continue oral prednisone, and nebulized bronchodilators, overall patient states her breathing is easier, she is able to take deeper breaths. Tolerating chemotherapy so far. Remains stable from pulmonary standpoint, we will follow on as-needed basis. Thank you for this consultation. I performed a history & physical examination of the patient and discussed their management with my nurse practitioner, Rita Hopkins. I reviewed the nurse practitioner's note and agree with the documented findings and plan of care. Lung sounds are positive forscattered rhonchi throughout the lung pederson. The findings and the impression was discussed with the patient. I attest to the documentation by the nurse practitioner. Time with Patient: Less than 30
--- NOTE | 2017-12-29 15:49 | P.PN ---
Subjective Progress Note Date: 12/29/17 Principal diagnosis: newly diagnosed Mrs. Flores is a very pleasant lady who is status post first cycle of palliative carboplatin and etoposide for newly diagnosed squamous cell/small cell lung cancer. Patient states improvement in her appetite, no nausea, shortness of breath, hemoptysis, bleeding, changes in bowel or bladder habits. She does have some lower extremity swelling, not severe or painful, she is ambulating independently, she feels like she has a little more energy. Objective - Vital Signs Vital signs: Vital Signs Temp 98.1 F 12/29/17 05:00 Pulse 76 12/29/17 05:00 Resp 18 12/29/17 05:00 BP 122/72 12/29/17 05:00 Pulse Ox 91 L 12/29/17 05:00 Intake & Output 12/28/17 12/29/17 12/29/17 18:59 06:59 18:59 Intake Total 240 400 Balance 240 400 Intake: Oral 240 200 Other 200 Other: Voiding Method Toilet Toilet Toilet # Voids 3 2 - Constitutional General appearance: Present: cooperative, no acute distress, obese - EENT Eyes: Present: anicteric sclerae ENT: Present: normal oropharynx - Respiratory Details: respirations even and unlabored, patient visualized ambulating independently without distress - Cardiovascular Rhythm: regular - Peripheral edema leg Peripheral Edema: bilateral: 1+ - Gastrointestinal General gastrointestinal: Present: soft - Integumentary Integumentary: Present: normal - Neurologic Neurologic: Present: CNII-XII intact - Musculoskeletal Musculoskeletal: Present: strength equal bilaterally - Psychiatric Psychiatric: Present: A&O x's 3, appropriate affect, intact judgment & insight - Labs CBC & Chem 7: 12/29/17 07:38 12/29/17 07:38 Labs: Abnormal Lab Results - Last 24 Hours (Table) 12/28/17 12/28/17 12/29/17 Range/Units 08:56 20:00 07:15 WBC (3.8-10.6) k/uL RBC (3.80-5.40) m/uL Hgb (11.4-16.0) gm/dL Hct (34.0-46.0) % Plt Count (150-450) k/uL Neutrophils # (1.3-7.7) k/uL Lymphocytes # (1.0-4.8) k/uL Carbon Dioxide (22-30) mmol/L BUN (7-17) mg/dL Creatinine (0.52-1.04) mg/dL Glucose (74-99) mg/dL POC Glucose (mg/dL) 241 H 171 H (75-99) mg/dL Uric Acid 8.0 H (3.7-7.4) mg/dL Calcium (8.4-10.2) mg/dL Total Protein (6.3-8.2) g/dL Albumin (3.5-5.0) g/dL 12/29/17 12/29/17 12/29/17 Range/Units 07:38 07:38 11:51 WBC 13.7 H (3.8-10.6) k/uL RBC 3.21 L (3.80-5.40) m/uL Hgb 10.0 L (11.4-16.0) gm/dL Hct 30.0 L (34.0-46.0) % Plt Count 83 L (150-450) k/uL Neutrophils # 13.0 H (1.3-7.7) k/uL Lymphocytes # 0.3 L (1.0-4.8) k/uL Carbon Dioxide 31 H (22-30) mmol/L BUN 63 H (7-17) mg/dL Creatinine 1.79 H (0.52-1.04) mg/dL Glucose 150 H (74-99) mg/dL POC Glucose (mg/dL) 244 H (75-99) mg/dL Uric Acid (3.7-7.4) mg/dL Calcium 7.7 L (8.4-10.2) mg/dL Total Protein 5.2 L (6.3-8.2) g/dL Albumin 3.0 L (3.5-5.0) g/dL Microbiology - Last 24 Hours (Table) 12/18/17 11:30 Fungal Culture - Preliminary Bronchial Washings - Left 12/18/17 11:30 Fungal Culture - Preliminary Bronchial Washings - Random Assessment and Plan (1) Metastatic primary lung cancer Narrative/Plan: Diagnosed with extensive small cell/squamous cell lung carcinoma. Patient has received first cycle of carboplatin and etoposide 3 days. Patient has done very well with treatment, and fact she states she feels better than she has in a long time. Patient is okay to be discharged from a hematology/oncology standpoint with follow-up in 1 week in our office to be scheduled for treatment follow-up evaluation. Anti-emetic prescribed and sent patient pharmacy. Current Visit: Yes Status: Acute Priority: High Code(s): C34.90 - MALIGNANT NEOPLASM OF UNSP PART OF UNSP BRONCHUS OR LUNG SNOMED Code(s): 68569668
[2017-12-29 17:01] LABS: Glucose,Whole Blood 130 mg/dL (75-99)
--- NOTE | 2017-12-29 17:53 | PN ---
PROGRESS NOTE Patient is seen for followup for acute kidney injury. She is currently maintained on chemotherapy. Renal function has been progressively improved improving. However, over the last 3 days serum creatinine has been at 1.7 mg/dL. The patient has had fair urine output. She is currently not on any nephrotoxic medications. She is complaining of mild swelling in the lower extremities for which oral diuretics were added. Nausea is improved. PHYSICAL EXAMINATION: Blood pressure this morning was 122/72, heart rate 76 per minute. Patient is afebrile. Examination of the heart: S1, S2. Examination of the lungs: Bilateral breath sounds are heard. Abdomen is soft, nontender. Examination lower extremity shows edema 1+ bilaterally. LABS: Show sodium 141, potassium 4.9, chloride 103, CO2 is 31, BUN 63, serum creatinine 1.79. The albumin was 3.0. ASSESSMENT: 1. Acute kidney injury. Renal function currently staying the same with creatinine at 1.7 for the last 3 days. 2. Squamous cell and small cell lung cancer, status post chemotherapy. She will be discharged and will follow up as outpatient. We need to follow her up as well for acute kidney injury. Previous creatinine was 0.9 mg/dL prior to the acute kidney injury. 3. Mild hypervolemia, maintained on oral Lasix. PLAN: Patient can be discharged from nephrology standpoint as well. We will need to monitor her renal function as outpatient and adjust the dose of diuretics depending on her volume status. MMODL / IJN: [id number] /
[2017-12-29 20:20] LABS: Glucose,Whole Blood 165 mg/dL (75-99)
[2017-12-29] MEDS: MELATONIN 5 MG TABLET PO SCH (21:46)
[2017-12-29] MEDS: ATORVASTATIN 10 MG TAB PO SCH (21:46)
[2017-12-29] MEDS: ALPRAZolam 0.25 MG TAB PO PRN (21:47)
[2017-12-30] MEDS: SALT AND SODA MOUTHWASH 1,000 ML PO SCH ×2 (05:49→12:16)
[2017-12-30 07:26] LABS: Glucose,Whole Blood 105 mg/dL (75-99)
[2017-12-30] MEDS: SYMBICORT 160-4.5 MCG INHALER INHALATION SCH (07:42)
[2017-12-30] MEDS: PENTOXIFYLLINE 400 MG TABLET.ER PO SCH ×2 (08:57→12:22)
[2017-12-30] MEDS: INSULIN ASPART 100 UNIT/ML 1 ML 10 ML VIAL SQ SCH ×2 (08:57→12:55)
[2017-12-30] MEDS: busPIRone HCl 5 MG TAB PO SCH (08:57)
[2017-12-30] MEDS: ATENOLOL 25 MG TAB PO SCH (08:58)
[2017-12-30] MEDS: FLUCONAZOLE 100 MG TAB PO SCH (08:58)
[2017-12-30] MEDS: FUROSEMIDE 40 MG TAB PO SCH (08:58)
[2017-12-30] MEDS: ASPIRIN 81 MG PO SCH (08:58)
[2017-12-30] MEDS: FAMOTIDINE 20 MG TAB PO SCH (08:58)
[2017-12-30] MEDS: NYSTATIN 100,000 UNIT/ML SUSP 500,000 UNIT/5 ML CUP PO SCH ×2 (08:58→12:22)
[2017-12-30] MEDS: ALLOPURINOL 300 MG TAB PO SCH (08:58)
[2017-12-30] MEDS: predniSONE 20 MG TAB PO SCH (08:59)
[2017-12-30 09:07] LABS: Basophils % (A) 0 %; Eosinophils % (A) 0 %; HCT 31.7 % (34.0-46.0); HGB 10.4 gm/dL (11.4-16.0); Lymphocytes # (A) 0.8 k/uL (1.0-4.8); Lymphocytes % (A) 6 %; MCHC 32.7 g/dL (31.0-37.0); MCV 94.9 fL (80.0-100.0); Mean Platelet Volume 7.4; Monocytes # (A) 0.2 k/uL (0-1.0); Monocytes % (A) 1 %; Neutrophils # (A) 11.1 k/uL (1.3-7.7); Neutrophils % (A) 92 %; RBC 3.35 m/uL (3.80-5.40); RDW 13.7 % (11.5-15.5)
[2017-12-30 09:10] LABS: Platelet Count 85 k/uL (150-450)
[2017-12-30 09:17] LABS: Albumin 3.3 g/dL (3.5-5.0); Calcium 8.4 mg/dL (8.4-10.2); Magnesium 1.2 mg/dL (1.6-2.3); Potassium 4.3 mmol/L (3.5-5.1); Total Bilirubin 0.8 mg/dL (0.2-1.3); Total Protein 5.6 g/dL (6.3-8.2)
[2017-12-30 11:11] LABS: Glucose,Whole Blood 197 mg/dL (75-99)
[2017-12-30 12:16] VITALS: BP 106/59; PULSE 83; RESP 20; TEMP 97.9
[2017-12-30] MEDS: MAGNESIUM SULFATE-D5W PMX 1 GM in DEXTROSE/WATER 1 100ML.BAG IVPB SCH ×3 (12:16→14:24)
--- NOTE | 2017-12-30 13:24 | P.DS ---
Providers Date of admission: 12/15/17 16:48 Expected date of discharge: 12/30/17 Attending physician: Diana Mora Consults: 12/15/17 17:02 Consult Physician Urgent Consulting Provider: Anna Guerra Consult Reason/Comments: Acute kidney failure Do you want consulting provider notified?: Yes 12/15/17 18:38 Consult Physician Routine Consulting Provider: Anaya Wayne Consult Reason/Comments: lung masses Do you want consulting provider notified?: Yes 12/15/17 18:39 Consult Physician Routine Consulting Provider: Mauri Dunn Consult Reason/Comments: lung masses Do you want consulting provider notified?: Yes 12/19/17 13:10 Consult Physician Routine Consulting Provider: Jadiel Garcia Consult Reason/Comments: thryoid nodule Do you want consulting provider notified?: Yes 12/23/17 11:22 Consult Physician Urgent Consulting Provider: Walker Toledo Consult Reason/Comments: small cell/squamous new diagnosis ? 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 Oncology following closely. Patient to follow-up closely outpatient with oncology services follow-up appointment in one week. Patient has been cleared for discharge from oncology #2 possible early brain metastasis: Patient will undergo treatment of the lung cancer first. And oncology will reevaluate in 4 weeks for a possible MRI of the brain. #3 thyroid nodule with recent biopsy by Dr. Morales. #4 acute renal failure: Likely prerenal secondary to severe intravascular volume depletion from poor oral intake and diuretics. Followed closely by nephrology. Kidney function showing improvement. Patient will be able to proceed with chemotherapy. Bun 59, creatinine slightly increasing to 1.75. Per nephrology maintain on oral Lasix 40 mg. Patient has been cleared for discharge from nephrology standpoint. We'll continue to monitor renal function outpatient per nephrology. #5 underlying history of hypertension #6 underlying history of hyperlipidemia #7 evidence of COPD on computed tomography scan #8 tobacco abuse #9 underlying history of anxiety disorder #10 hypokalemia. Potassium replacement protocol. Will recheck potassium level and monitor closely. Repeat potassium 3.8 #11 abdominal aortic aneurysm. Renal ultrasound completed showing fusiform lower abdomen aortic aneurysm measuring up to 5.2 cm in diameter. The length is more than 8 cm. Patient to follow-up outpatient for further workup. Patient to follow-up closely with primary care provider. #12 leukocytosis likely related to steroids. #13 insomnia. Melatonin added #14 hypomagnesemia. Magnesium 1.2. We'll give magnesium sulfate 2 g IV 1. Magnesium 1.2 replace per protocol. Patient will be monitored closely in the outpatient setting #15 SVT of the right arm: Keep arm elevated. Likely related to infiltration of the IV. #16 oral Thrush. Nystatin has been ordered per oncology. #17 left lower leg swelling. Venous Doppler completed showing no evidence of DVT in right or left leg. #18. Thrombocytopenia platelets 85. Continue to monitor closely. Aspirin discontinued upon discharge Hospital course Evelyn Flores is a 67 year old female who presented to [facility] to have a computed tomography scan of the chest was contrast BUN and creatinine were done prior to computed tomography scan and were significantly elevated, her BUN was 103, and creatinine 6.15, computed tomography scan was canceled and patient was sent to [facility] emergency room, she was evaluated in the emergency room she was given IV fluid and her creatinine came down slightly to 5.9, computed tomography scan of the chest without contrast was done and revealed multiple pulmonary nodules with a couple of cavitary masses patient also had evidence of lymphadenopathy in the chest and the upper abdomen, she also had a large left thyroid nodule, she was started on IV fluid and was admitted to the medical floor, pulmonary and nephrology and oncology consultation were requested. Patient has not been feeling well for the last 6 weeks, she had cough with minimal sputum production, she was given a course of antibiotic without any improvement, chest x-ray was done on 12/05/2017 and revealed evidence of right upper lobe lung mass computed tomography scan was recommended and this was scheduled for 12/15/2017 however patient was admitted due to severely elevated BUN and creatinine. Patient has a lifelong history of smoking, she has known history of hypertension , hyperlipidemia, anxiety disorder, and a thyroid nodule that was recently biopsied by Dr. Morales. At this time patient denies any pain or discomfort she reports having episodes of nausea and vomiting in the last 2 weeks she reports feeling full and then able to eat much, she reports significant weight loss in the last 6 weeks, she has been complaining of cough, she had minimal sputum production, she denies any hemoptysis, there is no abdominal pain no blood in the urine or in the stools. On 12/16/2017 patient is currently A & O 3 resting comfortably in bed. Patient does report some shortness of breath with activity. Patient denies chest pain. Denies nausea vomiting or diarrhea. Does reports she has very little appetite. Patient denies any urinary burning or frequency. On 12/17/2017 patient is currently alert and oriented 3 resting in bed comfortably. Patient's shortness of breath has improved. Patient being followed by pulmonary. Per pulmonary plan for bronchoscopy and biopsies tomorrow. IV steroids have been added per pulmonary. Patient denies chest pain at this time. Patient denies nausea vomiting or diarrhea. Patient denies any urinary burning or frequency On 12/18/2017 patient is currently alert and oriented X 3. Patient is currently resting comfortably in bed. Patient underwent bronchoscopy with biopsy without complication. Patient is currently on room air but does state she still gets winded upon activity. Patient denies chest pain or shortness of breath. Denies nausea vomiting or diarrhea. Denies any urinary or burning with urination On 12/19/2017 patient is currently alert and oriented 3. Patient remains short of breath after activity. Patient states she did not get much sleep last night. Patient denies chest pain. Patient denies nausea vomiting or diarrhea denies any urinary burning or frequency. On 12/20/2017 patient is currently alert and oriented 3. Patient remains short of breath with activity. Patient has chest pain or shortness of breath. Patient denies nausea vomiting or diarrhea. Denies any urinary burning or frequency On 12/21/2017 patient is alert and oriented 3 in no apparent distress, she had some episodes of confusion and hallucination that she thinks is related to steroid use she is still complaining of shortness of breath with any activity she complains of having poor taste in her mouth and poor appetite otherwise she denies any complaints there is no fever or chills no headache or dizziness no chest pain no nausea or vomiting no abdominal pain and no urinary symptoms On 12/22/2017 patient is alert and oriented in no distress complaining of anxiety and having poor sleep complaining of fatigue and shortness of breath with activity otherwise no complaints On 12/23/2017 patient is alert and oriented 3. Patient is currently resting comfortably in bed. Does state some improvement with shortness of breath. Patient has been started on Diflucan per oncology for thrush. Patient does state some improvement with being able to eat. At this time patient denies chest pain or shortness of breath. Denies nausea vomiting or diarrhea. Denies any urinary burning or frequency On 12/24/2017 patient is alert and oriented 3 currently eating her lunch sitting up in bed. Patient states she has been up walking the halls without oxygen. Patient states she does feel short of breath today. She said she hasn' t had an in-depth discussion with oncology services for treatment plan. At this time patient denies chest pain or shortness of breath. Denies any urinary burning or frequency. Denies nausea vomiting or diarrhea. On 12/25/2017 patient is alert and oriented 3 currently sitting up in bed. at bedside. Patient has remained on room air today. Patient states that she is a little bit more short of breath today than yesterday. At this time patient denies chest pain or shortness of breath. Denies nausea vomiting or diarrhea. Denies any urinary burning or frequency 12/26/2017 patient creatinine is down to 1.95 she is scheduled to start chemotherapy this evening. Dopplers of the lower extremities are negative for DVT. Patient has no new complaints. Right arm remains swollen. Right upper extremity Doppler negative for DVT positive for SVT within the right cephalic vein 12/27/2017 patient is alert and oriented 3 in no apparent distress she was started on chemotherapy yesterday she is reporting no new symptoms no evidence of side effects she is complaining of cough was minimal sputum production no hemoptysis she is also complaining of shortness of breath with activity otherwise she denies any complaints. 12/29/2017 patient is alert and oriented 3. Patient is currently sitting up in chair. Patient states that her appetite has improved. At this time Patient states breathing is improving. Patient denies chest pain. Patient denies nausea vomiting or diarrhea. Patient denies any urinary burning or frequency On 12/30/2017 patient is alert and oriented 3. Patient to go home. Patient states he her appetite and energy improved. Patient has finished first round of chemotherapy. Patient has been cleared for discharge from oncology and nephrology services. Patient to follow-up a closely outpatient with consulting providers and primary care provider. I performed an examination of the patient and discussed their management with the Nurse Practitioner. I have reviewed the Nurse Practitioner's notes and agree with the documented findings and plan of care Patient Condition at Discharge: Stable Plan - Discharge Summary Discharge Rx Participant: No New Discharge Prescriptions: New Prochlorperazine [Compazine] 10 mg PO Q6H PRN #50 tab PRN Reason: Nausea Nystatin 500,000 unit PO TID #240 oral.susp Allopurinol [Zyloprim] 300 mg PO DAILY #30 tab Furosemide [Lasix] 40 mg PO DAILY #30 tab Continue ALPRAZolam [Xanax] 0.25 mg PO BID PRN PRN Reason: Anxiety Pentoxifylline [TRENtal] 400 mg PO AC-TID Atenolol 25 mg PO BID Simvastatin [Zocor] 20 mg PO HS Aspirin 81 mg PO DAILY Ergocalciferol [Vitamin D2 (DRISDOL)] 50,000 unit PO FR busPIRone HCL 15 mg PO TID Discontinued amLODIPine BESYLATE [Norvasc] 2.5 mg PO DAILY Losartan/Hydrochlorothiazide [Losartan-Hctz 50-12.5 mg Tab] 1 tab PO DAILY Discharge Medication List ALPRAZolam [Xanax] 0.25 mg PO BID PRN 07/19/15 [History] Atenolol 25 mg PO BID 07/19/15 [History] Pentoxifylline [TRENtal] 400 mg PO AC-TID 07/19/15 [History] Simvastatin [Zocor] 20 mg PO HS 07/19/15 [History] Ergocalciferol [Vitamin D2 (DRISDOL)] 50,000 unit PO FR 12/15/17 [History] busPIRone HCL 15 mg PO TID 12/15/17 [History] Prochlorperazine [Compazine] 10 mg PO Q6H PRN #50 tab 12/29/17 [Rx] Albuterol Inhaler [Ventolin Hfa Inhaler] 1 - 2 puff INHALATION RT-Q6H PRN #1 inhaler 12/30/17 [Rx] Allopurinol [Zyloprim] 300 mg PO DAILY #30 tab 12/30/17 [Rx] Furosemide [Lasix] 40 mg PO DAILY #30 tab 12/30/17 [Rx] Nystatin 500,000 unit PO TID #240 oral.susp 12/30/17 [Rx] Follow up Appointment(s)/Referral(s): Anna Guerra MD [STAFF PHYSICIAN] - 1 Week Paula Bergeron ANPBC [Nurse Practitioner] - 01/06/18 10:30 am (This appointment is at the [facility] office, behind [facility]. This is for follow-up after chemotherapy) Walker Toledo MD [STAFF PHYSICIAN] - 01/16/18 10:00 am (to see Dr Toledo at [facility] on the 1st floor on Friday at 10am. If this appointment conflicts with another appt, please call and change appt.) Diana Mora MD [Primary Care Provider] - 1-2 days Activity/Diet/Wound Care/Special Instructions: Diet renal Activity as tolerated Care Plan Goals (MU): pt wants pneumonia vaccine if able at dc Discharge Disposition: HOME SELF-CARE
--- NOTE | 2017-12-30 22:14 | PN ---
PROGRESS NOTE Patient is seen for followup for acute kidney injury. Currently, she is in the restroom. Patient will be discharged today. She has had a fairly good night. No complaints of nausea. PHYSICAL EXAMINATION: On examination today, blood pressure was 106/59, heart rate 83 per minute. Patient is afebrile. She is currently in a restroom. Therefore, exam is not performed. LAB: Show sodium 141, potassium 4.3, serum creatinine 1.75, magnesium 1.2, hemoglobin 10.4 g/dL. ASSESSMENT: 1. Acute kidney injury, acute tubular necrosis, currently significantly improved. However, serum creatinine over the past few days had been staying at 1.7. We will continue to monitor as outpatient. Currently, she is not on any nephrotoxic agents. I will continue with the current dose of Lasix. 2. Squamous cell cancer and small cell cancer of the lung, maintained on chemotherapy. 3. Mild volume overload. Continue with current dose of Lasix. PLAN: Follow up as outpatient in about 1-2 weeks. Continue with current dose of Lasix and monitor renal function closely while on chemotherapy. MMODL / IJN: [id number] /
[2017-12-31 08:33] LABS: Hemoglobin A1C 6.6 % (4.0-6.0)
--- NOTE | 2017-12-31 09:43 | P.PN ---
Subjective Progress Note Date: 12/30/17 Principal diagnosis: newly diagnosed Pt seen in f/u s/p 1st cycle of carbo/NAIL [employer] for mixed squamous/small cell lung malignancy. She feels good after treatment, no fevers, oral irritation, nausea , SOB, diarrhea, constipation or swelling. She is anxious to go home. Objective - Vital Signs Vital signs: Vital Signs Temp 97.9 F 12/30/17 12:15 Pulse 83 12/30/17 12:15 Resp 20 12/30/17 12:15 BP 106/59 12/30/17 12:15 Pulse Ox 93 L 12/30/17 12:15 Intake & Output 12/30/17 12/31/17 12/31/17 18:59 06:59 18:59 Intake Total 200 Balance 200 Weight 73.482 kg Intake: Intake, IV Titration 200 Amount Magnesium Sulfate-D5w Pmx 200 1 gm In Dextrose/Water 1 100ml.bag @ 100 mls/hr IVPB Q1H [facility] Rx#: [id number] Other: Voiding Method Toilet - Constitutional General appearance: Present: cooperative, no acute distress, obese - EENT Eyes: Present: anicteric sclerae - Respiratory Respiratory: bilateral: diminished - Cardiovascular Rhythm: regular - Peripheral edema foot Peripheral Edema: bilateral: 2+ - Gastrointestinal General gastrointestinal: Present: soft - Integumentary Integumentary: Present: normal - Neurologic Neurologic: Present: CNII-XII intact - Musculoskeletal Musculoskeletal: Present: strength equal bilaterally - Psychiatric Psychiatric: Present: A&O x's 3, appropriate affect, intact judgment & insight - Labs CBC & Chem 7: 12/30/17 08:39 12/30/17 08:39 Labs: Abnormal Lab Results - Last 24 Hours (Table) 12/30/17 12/30/17 Range/Units 08:39 11:10 POC Glucose (mg/dL) 197 H (75-99) mg/dL Hemoglobin A1c 6.6 H (4.0-6.0) % Assessment and Plan (1) Metastatic primary lung cancer Narrative/Plan: Diagnosed with extensive small cell/squamous cell lung carcinoma. Patient has received first cycle of carboplatin and etoposide 3 days. Patient has done very well with treatment. Patient is okay to be discharged from a hematology/oncology standpoint with follow-up in 1 week in our office is scheduled for treatment follow-up evaluation. Anti-emetic and antifungal prescribed and sent patient pharmacy. Status: Acute Priority: High Code(s): C34.90 - MALIGNANT NEOPLASM OF UNSP PART OF UNSP BRONCHUS OR LUNG SNOMED Code(s): 20781770
== END 2017-12-30 16:20 | disposition home or self-care (01) | DRG 166 ==
LOC: EC 13:34 → 5MS5E 16:48 → 5ONC 17:47
PROVIDERS: ADMIT Internal Medicine; ATTEND Internal Medicine
PROC: 07D78ZX Extraction of Thorax Lymphatic, Via Natural or Artificial Opening Endoscopic, Diagnostic (ICD-10-PCS; 2017-12-18)
PROC: 0B9H8ZX Drainage of Lung Lingula, Via Natural or Artificial Opening Endoscopic, Diagnostic (ICD-10-PCS; principal; 2017-12-18 10:30)
PROC: 0BBH8ZX Excision of Lung Lingula, Via Natural or Artificial Opening Endoscopic, Diagnostic (ICD-10-PCS; 2017-12-18 10:30)
PROC: 0BDJ8ZX Extraction of Left Lower Lung Lobe, Via Natural or Artificial Opening Endoscopic, Diagnostic (ICD-10-PCS; 2017-12-18 10:30)
PROC: 0BDH8ZX Extraction of Lung Lingula, Via Natural or Artificial Opening Endoscopic, Diagnostic (ICD-10-PCS; 2017-12-18 10:30)
PROC: 02HV33Z Insertion of Infusion Device into Superior Vena Cava, Percutaneous Approach (ICD-10-PCS; 2017-12-26)
PROC: 3E03305 Introduction of Other Antineoplastic into Peripheral Vein, Percutaneous Approach (ICD-10-PCS; 2017-12-26)
DX: C34.12 Malignant neoplasm of upper lobe, left bronchus or lung (principal); N17.0 Acute kidney failure with tubular necrosis; E87.2 Acidosis; R44.3 Hallucinations, unspecified; B37.0 Candidal stomatitis; I82.611 Acute embolism and thrombosis of superficial veins of right upper extremity; C34.32 Malignant neoplasm of lower lobe, left bronchus or lung; C79.31 Secondary malignant neoplasm of brain; D69.6 Thrombocytopenia, unspecified; E83.42 Hypomagnesemia; E87.70 Fluid overload, unspecified; J43.9 Emphysema, unspecified; D72.829 Elevated white blood cell count, unspecified; T38.0X5A Adverse effect of glucocorticoids and synthetic analogues, initial encounter; E86.9 Volume depletion, unspecified; G47.00 Insomnia, unspecified; E87.6 Hypokalemia; D63.0 Anemia in neoplastic disease; I71.4 Abdominal aortic aneurysm, without rupture; E04.1 Nontoxic single thyroid nodule; E78.5 Hyperlipidemia, unspecified; H91.90 Unspecified hearing loss, unspecified ear; F41.9 Anxiety disorder, unspecified; I10 Essential (primary) hypertension; R59.0 Localized enlarged lymph nodes; R60.0 Localized edema; E79.0 Hyperuricemia without signs of inflammatory arthritis and tophaceous disease; E66.9 Obesity, unspecified; Z68.28 Body mass index [BMI] 28.0-28.9, adult; F17.210 Nicotine dependence, cigarettes, uncomplicated; Z71.6 Tobacco abuse counseling; Z79.82 Long term (current) use of aspirin; Z79.899 Other long term (current) drug therapy; Z87.01 Personal history of pneumonia (recurrent); Z85.3 Personal history of malignant neoplasm of breast; Z90.49 Acquired absence of other specified parts of digestive tract; Z90.710 Acquired absence of both cervix and uterus; Z92.3 Personal history of irradiation; Z98.62 Peripheral vascular angioplasty status; Z92.21 Personal history of antineoplastic chemotherapy; Z83.79 Family history of other diseases of the digestive system; Z83.3 Family history of diabetes mellitus; Z82.49 Family history of ischemic heart disease and other diseases of the circulatory system
CPT/HCPCS: 31623; 31624; 31625; 31633; 36569; 70551; 71045; 71046; 71250; 76770; 76937; 77001; 80053; 81001; 82565; 83036; 83615; 83735; 84132; 84520; 84550; 85025; 86300; 86334; 86335; 87040; 87070; 87086; 87102; 87116; 87205; 87206; 87252; 87496; 87498; 87502; 87529; 87634; 87798; 88104; 88108; 88173; 88305; 88341; 88342; 89050; 93970; 94640; 94760; 96360; 96361; 99285

== ENCOUNTER → 2018-01-07 | Outpatient (CLI) | payer BC ==
--- NOTE | 2018-01-08 06:36 | MR ---
EXAMINATION TYPE: MR brain wo/w con DATE OF EXAM: 01/07/2018 COMPARISON: MRI brain December 23, 2017. HISTORY: Lung cancer and prior abnormal imaging per order. TECHNIQUE: Multiplanar, multisequence images of the brain and brainstem is performed without and with IV contras t, utilizing 6.5 mL intravenous Gadavist . FINDINGS: Diffusion weighted images demonstrate no evidence of a recent infarct or other diffusion ab normality. There is no worrisome extra-axial fluid collection. There is mild ventricular and sulcal prominence consistent with mild diffuse age-related cerebral atrophy. A few scattered tiny foci of T2 hyperintensity is seen throughout the white matter bilaterally. Simil ar prior exam there is increased T2/FLAIR signal in the right paramedian frontal parietal junction ne ar axial image 25 best appreciated on FLAIR images. No definitive enhancing intraparenchymal mass is identified at this level. Midline structures demonstrate normal morphology. The craniocervical junction appears within normal limits. Post contrast images demonstrate no abnormal intraparenchymal masses. The dural venous sinus es appear patent. The visualized sinuses are clear and the globes are intact. IMPRESSION: No suspicious enhancing intraparenchymal masses are seen on today's study. Mild diffuse a ge-related cerebral atrophy and mild nonspecific white matter changes noted.
== END | disposition home or self-care (01) ==
LOC: RADMRIMAIN 20:22
PROVIDERS: ATTEND Internal Medicine Hematology & Oncology
DX: G31.1 Senile degeneration of brain, not elsewhere classified (principal); R90.82 White matter disease, unspecified; C34.82 Malignant neoplasm of overlapping sites of left bronchus and lung
CPT/HCPCS: 82565; 70553; 36415; A9581

== ENCOUNTER → 2018-01-22 | Outpatient (CLI) | payer BC ==
[2018-01-22 15:33] LABS: Albumin 3.3 g/dL (3.5-5.0); Calcium 9.4 mg/dL (8.4-10.2); Potassium 4.8 mmol/L (3.5-5.1); Total Bilirubin 0.4 mg/dL (0.2-1.3); Total Protein 6.1 g/dL (6.3-8.2)
== END | disposition home or self-care (01) ==
LOC: LABWHC1 14:16
PROVIDERS: ATTEND Nurse Practitioner Family
DX: N18.3 Chronic kidney disease, stage 3 (moderate) (principal)
CPT/HCPCS: 36415; 80053

== ENCOUNTER → 2018-02-17 | Outpatient (CLI) | payer BC ==
--- NOTE | 2018-02-18 07:27 | CT ---
EXAMINATION TYPE: CT ChestAbdPelvis w con DATE OF EXAM: 02/17/2018 COMPARISON: 12/15/2017 HISTORY: Follow up lung cancer. CT DLP: 1632.7 mGycm CONTRAST: CT scan of the chest, abdomen and pelvis is performed with Oral Contrast and with IV Contrast, patien t injected with 80 mL of Isovue 300. CT Chest: LUNGS: 1. Cavitary left lower lobe pulmonary mass measures 3.7 cm versus 3.75 cm previously. 2. Cavitary left hilar mass currently measures 2 cm versus 1.9 cm previously. 3. New left lower lobe mass measures 3 cm versus not present previously. There are adjacent pulmonary nodules noted measuring up to 1.7 cm versus 1.8 cm previously. 4. Spiculated right upper lobe nodules which are adjacent to each other measure 1.4 cm versus 1.4 cm and 1 cm versus 1.7 cm previously. 5. Right upper lobe nodule measured 6 mm previously 4 versus 4.6 mm currently. Left upper lobe nodule measured 7 mm previously and is not present on today's study. New patchy infiltrate right lower lobe may reflect pneumonia or aspiration. Mild upper lobe emphysema tous changes noted. MEDIASTINUM: Marked improvement in the prevascular space adenopathy with an 8 mm lymph node remaining . Marked improvement in right paratracheal adenopathy with a 9 mm lymph node remaining. Marked precar inal adenopathy improvement with lymph node noted to measure 1 cm. Marked improvement in subcarinal a denopathy with current measurement measuring 1.1 cm. Stable left thyroid nodule. Left suprahilar fernando opathy or mass has markedly improved as well. HILAR STRUCTURES: No evidence for mass. No hilar adenopathy is appreciated. OTHER: No significant abnormality. CONTRAST CT ABDOMEN AND PELVIS FINDINGS: LIVER/GB: No calcified gallstones. No space occupying hepatic lesion. Biliary tree is of normal ca liber. PANCREAS: No inflammation. No distinct mass. SPLEEN: No splenic enlargement. No lesion seen. ADRENALS: Stable left adrenal mass. Right adrenal gland is unremarkable. KIDNEYS/BLADDER: No hydronephrosis. No nephrolithiasis. No distinct solid renal mass. Simple cyst lower pole left kidney is unchanged. BOWEL: Normal appendix. Normal bowel caliber. No inflammation. GENITAL ORGANS: No gross abnormality. LYMPH NODES: No greater than 1cm abdominal or pelvic lymph nodes are appreciated. AORTA: Infrarenal abdominal aortic aneurysm measures 4.7 cm. OSSEOUS STRUCTURES: No significant abnormality is seen. OTHER: No significant additional abnormality is seen. IMPRESSION: 1. Pulmonary nodules and masses as outlined above. 2. Marked improvement in mediastinal and left suprahilar mass/adenopathy. 3. Stable left adrenal mass.
== END ==
LOC: RADCTMAIN 13:35
PROVIDERS: ATTEND Internal Medicine Hematology & Oncology
DX: C34.82 Malignant neoplasm of overlapping sites of left bronchus and lung (principal); E27.9 Disorder of adrenal gland, unspecified
CPT/HCPCS: 82565; 84520; 71260; 74177; Q9967

== ENCOUNTER → 2018-04-06 | Outpatient (CLI) | payer BC ==
--- NOTE | 2018-04-06 13:34 | CT ---
EXAMINATION TYPE: CT ChestAbdPelvis w con DATE OF EXAM: 04/06/2018 COMPARISON: CT chest abdomen and pelvis February 17, 2018. Older chest CT December 15, 2017 HISTORY: Lung CA, observation for mets currently on chemotherapy. CT DLP: 1493.1 mGycm. Automated Exposure Control for Dose Reduction was Utilized. CONTRAST: CT scan of the thorax, abdomen and pelvis is performed with IV Contrast, patient injected with 80 mL of Isovue 300. FINDINGS: LUNGS: Spiculated nodules laterally right upper lobe are redemonstrated axial image 18 and 19. More a nterior one is improved from December 15 study measuring 7 x 6 mm axial image 18 slightly improved from most recent prior. More inferior posterior lesion measures 14 x 11 mm current study image 19 not sig nificant change from most recent prior felt larger versus older study. Some surrounding groundglass o pacity is redemonstrated. There is background mild to moderate emphysematous change most prominent in the apices. There is pers istent masslike consolidation posteriorly in the right lower lobe which is slightly denser near axial image 33 versus most recent prior. Left lung shows masslike consolidation with more central cavitation axial image 30, thickened irregul ar wall anteriorly axial image 30 is redemonstrated. There is extension into left hilar region toscano l image 60 with lower lobe bronchial mass effect redemonstrated. There is left suprahilar spiculated lesion that is stable or more prominent versus prior measuring 2.4 x 2.4 cm on axial image 21. There is additional linear scarring or atelectasis inferomedially in the left lung base that is slightly mo re masslike medial inferior base axial image 43. No significant change from most recent CT. No significant pleural effusion or pneumothorax is noted bilaterally. No suspicious new nodules or ma sses are clearly seen. MEDIASTINUM: There are no greater than 1 cm hilar or mediastinal lymph nodes on current study. Allie carmen improvement in prevascular and subcarinal mediastinal adenopathy since November 2017 study. No cardio megaly or pericardial effusion is seen. Coronary artery calcification is redemonstrated which is not ed marker for coronary artery disease. Roughly 2.8 cm partially calcified left thyroid nodule axial i mage 7 is not significantly changed from prior studies. OTHER: Postsurgical change right breast is redemonstrated with clips and dystrophic calcification the re is stable right-sided Mediport catheter via subclavian approach. LIVER/GB: No significant abnormality is appreciated. PANCREAS: No significant abnormality is seen. SPLEEN: No significant abnormality is seen. ADRENALS: Low dense left adrenal mass measuring 2.5 x 1.5 cm on study image 52 is felt fairly stable from most recent CT slightly improved from older CT. KIDNEYS: A few simple appearing cysts scattered throughout the left kidney are redemonstrated. BOWEL: No significant abnormality is seen. GENITAL ORGANS: Uterus is surgically absent or markedly atrophic. Scattered pelvic phleboliths are pr esent. LYMPH NODES: No greater than 1cm abdominal or pelvic lymph nodes are appreciated. OSSEOUS STRUCTURES: Stable slight grade 1 anterolisthesis of L2 on L3 and L3 on L4. Mild multilevel d isc space narrowing is seen. There is moderate multilevel spurring in the upper to mid thoracic spine . OTHER: There is redemonstration of chronic dissection and aneurysmal change of the infrarenal abdomin al aorta. Length of aneurysm is roughly 6 cm coronal image 38. Calcified linear septation or dissecti on is again seen. There is significant intramural thrombus along the anterior aspect redemonstrated. Aneurysm measures up to 4.7 cm axial image 71 not significantly changed from prior. No extension into common iliac arteries is seen. IMPRESSION: Overall mixed response felt present as detailed above.
== END | disposition home or self-care (01) ==
LOC: RADCTMAIN 11:16
PROVIDERS: ATTEND Internal Medicine Hematology & Oncology
DX: Z03.89 Encounter for observation for other suspected diseases and conditions ruled out (principal); C34.82 Malignant neoplasm of overlapping sites of left bronchus and lung
CPT/HCPCS: 82565; 84520; 36415 ×2; 71260; 74177; Q9967

== ENCOUNTER → 2018-06-23 | Outpatient (CLI) | payer BC ==
--- NOTE | 2018-06-24 06:17 | MR ---
EXAMINATION TYPE: MR brain wo/w con DATE OF EXAM: 06/23/2018 COMPARISON: Prior MRI brain January 07, 2018. HISTORY: Mets, history of breast and lung cancer. TECHNIQUE: Multiplanar, multisequence images of the brain and brainstem is performed without and with IV contras t, utilizing 7.5 mL intravenous Gadavist . FINDINGS: Diffusion weighted images demonstrate no evidence of a recent infarct or other diffusion ab normality. There is no worrisome extra-axial fluid collection. There is redemonstration of mild vent ricular and sulcal prominence. There are few scattered small foci of T2 hyperintensity redemonstrated throughout the white matter bilaterally. Similar to prior studies there is more focal increased T2 h yperintense signal right paramedian frontal parietal junction axial image 52 seen best on FLAIR seque nces without enhancement or enhancing mass on postcontrast images not significantly changed from prio r studies. Midline structures demonstrate normal morphology. The craniocervical junction appears within normal limits. Post contrast images demonstrate new round low T1 and T2 heterogeneous enhancing anterior le ft frontal medial intraparenchymal lesion series 602 image 51 measuring 10 mm transversely by 9 mm AP diameter by 13 mm craniocaudal diameter postcontrast coronal image 6. There is also new enhancing an terior superior temporal lobe metastatic focus measuring 7 x 5 x 7 mm axial image 29 series 602 and s agittal postcontrast image 19. The dural venous sinuses appear patent. The visualized sinuses are ysabel ar and the globes are intact. IMPRESSION: 1. Interval development of 2 metastatic foci as detailed above. 2. Background mild diffuse age-related cerebral atrophy and mild chronic small vessel ischemic change redemonstrated without significant interval change.
== END ==
LOC: RADMRIMAIN 11:19
PROVIDERS: ATTEND Radiology Radiation Oncology
DX: G31.1 Senile degeneration of brain, not elsewhere classified (principal); I67.82 Cerebral ischemia; C34.11 Malignant neoplasm of upper lobe, right bronchus or lung; Z85.3 Personal history of malignant neoplasm of breast
CPT/HCPCS: 70553; A9585

== ENCOUNTER → 2018-06-25 | Outpatient (CLI) | payer BC ==
--- NOTE | 2018-06-25 14:33 | CT ---
EXAMINATION TYPE: CT ChestAbdPelvis w con DATE OF EXAM: 06/25/2018 COMPARISON: 06/07/2017 and 02/17/2018 HISTORY: 67-year-old female Breast and lung cancer follow up. TECHNIQUE: Contiguous axial scanning of the chest, abdomen, and pelvis performed with IV Contrast, pa tient injected with 80 mL of Isovue M300. Delayed images through the kidneys were obtained. Coronal/s agittal reconstructions performed. CT DLP: 1964 mGycm Automated exposure control for dose reduction was used. FINDINGS: Chest: Postsurgical changes related surgical clips and calcifications in the right breast. There is heterogeneous, partially calcified large left thyroid nodule measuring 3.0 cm is similar. Heart normal size with trace anterior basilar pericardial fluid. Extensive coronary vessel calcificat ions are present. Borderline ectatic ascending aorta 3.5 cm. Moderate atherosclerotic arch calcifications and mildly to rtuous descending thoracic aorta. There has been interval enlargement of left perihilar mass extending up into the left upper lobe with new left upper lobe collapse due to upper lobe bronchus cut off and associated moderate left pleural effusion. The left upper lobe mass is estimated to measure 5.0 x 2.7 cm versus 2.4 cm, previously. The left hilar mass is now estimated to measure 3.4 x 2.5 cm versus 2.4 cm, previously. There is pers istent severe narrowing of the left lower lobe bronchus after the takeoff of the superior segment bra [facility]. Cavitary lesion of the left lower lobe nodular fluid level and measures 4.9 x 4.5 cm versus 3.7 x 2.8 cm, previously. There is patchy opacity extending to the periphery of the left base from this c avitary lesion. Again, moderate size left pleural effusion. Some of the effusion is loculated against the collapsed left upper lobe. Right upper lobe nodules measure 1.3 cm versus 1.4 cm, previously and shows slight improvement. There has also been improvement in the previous focal consolidation posterior right lower lobe with some m inimal residual hazy density here. Background of moderate centrilobular emphysema. ABDOMEN: No focal liver lesion identified. No biliary ductal dilatation. Portal venous system appears patent. Gallbladder, right adrenal gland, right kidney, spleen, and pancreas appear within normal limits. Stable mass of the left adrenal gland measuring 2.5 x 1.5 cm, unchanged. Stable cysts within the left kidney. No dilated small bowel, free fluid, or free air. Oral contrast p rogressed to the cecum. Minimal scattered stool. Occasional sigmoid diverticulosis and redundant sigm oid colon. Moderate atherosclerotic changes abdominal aorta with redemonstrated fusiform infrarenal AAA now tony uring about 5.2 cm versus 4.9 cm, previously. Pelvis: Bladder urine distended. Uterus surgically absent. Pelvic phleboliths. Left ovary is visualized, some what prominent for a postmenopausal patient but stable measuring 2.8 x 1.9 cm. No abnormal fluid rtang ection in the pelvis or pelvic lymphadenopathy. Bones: Grade 1 anterolisthesis at both L3-L4 and L4-L5. Accentuated mid thoracic kyphosis. IMPRESSION: 1. INTERVAL MIXED FINDINGS BUT WITH OVERALL PROGRESSION: 2. ENLARGING LEFT SUPRAHILAR/LEFT UPPER LOBE MASS (5.0 CM VERSUS 2.4 CM, PREVIOUSLY) NOW CUTTING OFF THE LEFT UPPER LOBE BRONCHUS AND RESULTING IN LEFT UPPER LOBE COLLAPSE. ENLARGING LEFT HILAR MASS (3. 4 CM VERSUS 2.4 CM, PREVIOUSLY) CONTINUES TO SIGNIFICANTLY NARROW THE LEFT BRONCHUS BASALIS. ALSO, EN LARGING LEFT LOWER LOBE CAVITARY LESION (4.9 CM VERSUS 3.7 CM, PREVIOUSLY. A NEW AIR-FLUID LEVEL WITH IN COULD REPRESENT SUPERINFECTION. CLINICALLY CORRELATE. 3. NEW MODERATE LEFT PLEURAL EFFUSION. SOME OF THE PLEURAL EFFUSION IS LOCULATED AGAINST THE COLLAPSE D LEFT UPPER LOBE. 4. RIGHT UPPER LOBE NODULES ARE STABLE TO SLIGHTLY SMALLER. PREVIOUS CONSOLIDATION POSTERIOR RIGHT LO WER LOBE SHOWS IMPROVEMENT. LEFT ADRENAL MASS IS STABLE. 5. THE PATIENT'S LARGE AAA IS A FEW MILLIMETERS LARGER (5.2 CM VERSUS 4.9 CM, PREVIOUSLY ON 8). APPROPRIATE FOLLOW-UP RECOMMENDED. 6. POST LUMPECTOMY CHANGES RIGHT BREAST, COPD, AND REDEMONSTRATED LARGE 3 CM LEFT THYROID NODULE.
== END | disposition home or self-care (01) ==
LOC: RADPROMAIN 10:26
PROVIDERS: ATTEND Internal Medicine Hematology & Oncology
DX: J98.11 Atelectasis (principal); J90 Pleural effusion, not elsewhere classified; E27.8 Other specified disorders of adrenal gland; I71.4 Abdominal aortic aneurysm, without rupture; J44.9 Chronic obstructive pulmonary disease, unspecified; E04.1 Nontoxic single thyroid nodule; C34.82 Malignant neoplasm of overlapping sites of left bronchus and lung; Z90.11 Acquired absence of right breast and nipple
CPT/HCPCS: 82565; 84520; 71260; 74177; 36415; Q9967

== ENCOUNTER 2018-08-05 09:07 | Day surgery (SDC) | payer BC ==
[2018-08-03 15:58] VITALS: BMI 30.6
[~2018-08-05 09:07] MED LIST: HEPARIN SODIUM,PORCINE 5,000 UNIT/ML 1 ML VIAL SQ ONE; LACTATED RINGERS 1,000 ML IV SCH; LIDOCAINE 1% 20 ML VIAL (10MG/ML) FOR IV START INTRADERMA PRN; Pre Op ABX Message 1 EACH MISC MISCELLANE ONE
[2018-08-05] MEDS ORDERED: ONDANSETRON 4 MG/2 ML VIAL IVP ONE (09:55)
[2018-08-05 10:07] LABS: Glucose,Whole Blood 131 mg/dL (75-99)
[2018-08-05] MEDS ORDERED: HEPARIN SODIUM,PORCINE 100 UNIT/ML 5 ML VIAL IV ONE ×2 (11:01)
--- NOTE | 2018-08-05 11:01 | P.GSHP ---
History of Present Illness H&P Date: 08/05/18 Chief Complaint: Lung cancer 67-year-old female recently diagnosed with lung cancer. Cancer involving the left lung. Patient already went through one round of chemotherapy through a PICC line. He is here today for Port-A-Cath placement. The next Chemotherapy 2-3 weeks. Past Medical History Past Medical History: Cancer, Hyperlipidemia, Hypertension, Pneumonia, Vascular Disorder Additional Past Medical History / Comment(s): breast cancer right breast- radiation tx finished 1 week ago , kidneys shut down 12/2017-"ok now", hiatal hernia, dry skin, hx brain cancer History of Any Multi-Drug Resistant Organisms: None Reported Past Surgical History: Appendectomy, Breast Surgery, Section, Hysterectomy Additional Past Surgical History / Comment(s): x2, salpingectomy and oopherectomy, angioplasty on left leg, rt breast lumpectomy, lump removed from left shoulder and left axilla, Past Anesthesia/Blood Transfusion Reactions: Previous Problems w/ Anesthesia, Motion Sickness Additional Past Anesthesia/Blood Transfusion Reaction / Comment(s): slow to wake up after anesthesia x1, claustrophobia Smoking Status: Former smoker - Past Family History Mother Family Medical History: No Reported History Additional Family Medical History / Comment(s): . Sister(s) Family Medical History: Diabetes Mellitus Father Family Medical History: Coronary Artery Disease (CAD), Diabetes Mellitus Additional Family Medical History / Comment(s): CABG and carotid endarterectomy Medications and Allergies Home Medications Medication Instructions Recorded Confirmed Type ALPRAZolam [Xanax] 0.25 mg PO BID PRN 07/19/15 08/03/18 History Atenolol 12.5 mg PO BID 07/19/15 08/03/18 History Pentoxifylline [TRENtal] 400 mg PO TID 07/19/15 08/05/18 History Ergocalciferol [Vitamin D2 50,000 unit PO FR 12/15/17 08/05/18 History (DRISDOL)] busPIRone HCL 15 mg PO TID 12/15/17 08/03/18 History Allopurinol [Zyloprim] 300 mg PO DAILY #30 tab 12/30/17 08/05/18 Rx Furosemide [Lasix] 40 mg PO DAILY #30 tab 12/30/17 08/05/18 Rx Albuterol Inhaler [Ventolin Hfa 1 - 2 puff INHALATION Q6HR PRN 08/03/18 08/05/18 History Inhaler] Albuterol Nebulized [Ventolin 2.5 mg INHALATION BID 08/03/18 08/05/18 History Nebulized] Pantoprazole [Protonix] 40 mg PO DAILY 08/03/18 08/05/18 History Simvastatin [Zocor] 20 mg PO HS 08/03/18 08/05/18 History Allergies Allergy/AdvReac Type Severity Reaction Status Date / Time No Known Allergies Allergy Verified 08/03/18 15:38 Surgical - Exam Vital Signs Temp Pulse Resp BP Pulse Ox 97.7 F 101 H 18 107/59 94 L 08/05/18 09:27 08/05/18 09:27 08/05/18 09:27 08/05/18 09:27 08/05/18 09:27 Physical exam: General: Well-developed, well-nourished HEENT: Normocephalic, sclerae nonicteric Abdomen: Nontender, nondistended Extremities: No edema Neuro: Alert and oriented Results - Labs Abnormal Lab Results - Last 24 Hours (Table) 08/05/18 Range/Units 09:48 POC Glucose (mg/dL) 131 H (75-99) mg/dL Assessment and Plan (1) Metastatic primary lung cancer Narrative/Plan: Will proceed with Port-A-Cath placement at this time. Risks of bleeding, infection, DVT, pneumothorax, catheter malfunction, anesthesia related complications were discussed. The patient understands and wishes to proceed. Current Visit: No Status: Acute Priority: High Code(s): C34.90 - MALIGNANT NEOPLASM OF UNSP PART OF UNSP BRONCHUS OR LUNG SNOMED Code(s): 03783087
[2018-08-05] MEDS ORDERED: LIDOCAINE (PF) 10 MG/ML 2 ML VIAL SQ ONE ×2 (11:02)
[2018-08-05] MEDS ORDERED: HYDROmorphone (PF) 1 MG/ML ONE (11:09)
[2018-08-05] MEDS ORDERED: LIDOCAINE 1% INJ 10MG/ML (20 ML MDV) ONE (11:09)
[2018-08-05] MEDS ORDERED: ceFAZolin 1,000 MG VIAL ONE (11:09)
[2018-08-05] MEDS ORDERED: fentaNYL (PF) 50 MCG/ML 2 ML AMP ONE (11:09)
[2018-08-05] MEDS ORDERED: MIDAZOLAM 2 MG/2 ML VIAL ONE (11:09)
[2018-08-05] MEDS ORDERED: PROPOFOL 10 MG/ML 20 ML VIAL IV ONE (11:09)
[2018-08-05] MEDS ORDERED: SODIUM CHLORIDE 0.9% 50 ML with ceFAZolin 2,000 MG IV ONE ×2 (11:36)
[2018-08-05] MEDS ORDERED: NALOXONE 0.4 MG/ML 1 ML VIAL IV PRN (12:00)
[2018-08-05] MEDS ORDERED: HYDROcodone/APAP 5-325MG 1 EACH TAB PO PRN (12:00)
--- NOTE | 2018-08-05 12:01 | P.PCN ---
Date of Procedure: 08/05/18 Procedure(s) Performed: PREOPERATIVE DIAGNOSIS: Lung cancer POSTOPERATIVE DIAGNOSIS: Same PROCEDURE: Port-A-Cath placement SURGEON: J Carlos EBL: Minimal ANESTHESIA: Sedation COMPLICATIONS: None OPERATIVE PROCEDURE: Patient was brought and placed on the operative table in the supine position. The patient was sedated per anesthesia that time. The chest and neck were prepped and draped in usual sterile fashion. The ultrasound probe was used to identify the location of the right internal jugular vein. The skin was localized with lidocaine. The Seldinger needle was advanced into the IJ under ultrasound guidance. The wire was advanced through the needle under fluoroscopic guidance into the superior vena cava. A port pocket was created in the right infraclavicular location. The catheter was tunneled from the wire entrance site to the port pocket. The port was then connected to the catheter. The dilator introducer was threaded over the guidewire. The guidewire and dilator were then removed. The catheter was advanced through the introducer and introducer was then removed. The tip was seen to be in the right atrial junction. Port was flushed with both saline and a Hep-Lock solution. There was good flow both in and out of the port. The port was sutured in underlying tissues using 3-0 silk sutures. The subcutaneous tissues were reapproximated using 3-0 Vicryl sutures and the skin at both locations using 4-0 Monocryl sutures. Skin glue and sterile dressings then applied. DISPOSITION: Stable to recovery room
[2018-08-05 12:14] VITALS: TEMP 97.1
--- NOTE | 2018-08-05 12:18 | FL ---
EXAMINATION TYPE: FL guided central line placemt HISTORY: Fluoroscopy time Impression: 1. Fluoroscopy support provided to the referring physician. 6 seconds of fluoroscopy provided.
[2018-08-05 12:19] VITALS: RESP 16
--- NOTE | 2018-08-05 12:41 | XR ---
EXAMINATION TYPE: XR chest 1V portable DATE OF EXAM: 08/05/2018 COMPARISON: 12/22/2017 HISTORY: Line placement TECHNIQUE: Single frontal view of the chest is obtained. FINDINGS: Irregularity right upper lobe mass noted measuring 1 cm. Mediport catheter seen the tip ov erlying the cavoatrial junction. There is persistent and increasing left-sided consolidation and pleu ral effusion. No pneumothorax. Atherosclerotic change of aorta. Interstitium remains increased. Scler otic density overlying the left humeral head is incidentally noted. IMPRESSION: 1. Mediport catheter seen the tip overlying the cavoatrial junction and no sizable pneumothorax. 2. Increasing left sided consolidation and pleural effusion. Perihilar mass appears obscured.
[2018-08-05 13:43] VITALS: BP 111/67; PULSE 88
== END 2018-08-05 13:50 | disposition home or self-care (01) ==
LOC: OR 09:07
PROVIDERS: ATTEND Surgery
DX: C34.90 Malignant neoplasm of unspecified part of unspecified bronchus or lung (principal); C50.911 Malignant neoplasm of unspecified site of right female breast; E78.5 Hyperlipidemia, unspecified; J90 Pleural effusion, not elsewhere classified; I11.0 Hypertensive heart disease with heart failure; I50.9 Heart failure, unspecified; K44.9 Diaphragmatic hernia without obstruction or gangrene; Z98.62 Peripheral vascular angioplasty status; F41.9 Anxiety disorder, unspecified; K21.9 Gastro-esophageal reflux disease without esophagitis; J45.909 Unspecified asthma, uncomplicated; Z85.841 Personal history of malignant neoplasm of brain; Z87.891 Personal history of nicotine dependence; Z92.3 Personal history of irradiation; Z79.899 Other long term (current) drug therapy
CPT/HCPCS: 77001; 71045; 36561; C1788; J2250; J2001 ×2; J1644; J1642; J2405; J0690; J3010; J1170; J2704

== ENCOUNTER 2018-08-12 15:33 | Inpatient (IN) | payer BC, MEDICARE ==
[2018-08-12] MEDS ORDERED: ACETAMINOPHEN TAB 500 MG TAB PO STA (16:27)
[2018-08-12] MEDS ORDERED: IBUPROFEN 600 MG TAB PO STA (16:27)
--- NOTE | 2018-08-12 17:05 | XR ---
EXAMINATION TYPE: XR chest 2V DATE OF EXAM: 08/12/2018 COMPARISON: 08/05/2018 HISTORY: Fever. Lung cancer. TECHNIQUE: Frontal and lateral views of the chest are obtained. FINDINGS: There is extensive infiltrate in the left lung with some shift of the heart to the left si de. There is slight elevated left diaphragm. The right lung shows irregular 1 cm nodular infiltrate l ateral right upper lobe. There is right central venous catheter with the tip in the superior vena cav a. IMPRESSION: Extensive pneumonic infiltrate around the left pulmonary hilum with volume loss. There i s slight improved aeration of the left lung compared to last exam. Right upper lobe nodular infiltrat e unchanged. Left pleural fluid decreased compared to old exam.
--- NOTE | 2018-08-12 17:33 | ED ---
General Adult HPI - General Chief complaint: Nausea/Vomiting/Diarrhea Stated complaint: Nausea vomiting fever CA PT Time Seen by Provider: 08/12/18 16:27 Source: patient, RN notes reviewed, old records reviewed Mode of arrival: wheelchair Limitations: no limitations - History of Present Illness Initial comments: Patient is 67-year-old female with history of small cell lung cancer presents emergency department today for evaluation for fever, chills, vomiting and diarrhea. Patient is undergoing chemotherapy and her last treatment was July 27. Patient states that she saw her stud driver yesterday. She was feeling somewhat ill at that time. The nausea and vomiting became more severe today. Patient has had some reactions like this to correct her previous chemo. Patient states that she's not had any recent Motrin or Tylenol. She's been unable to keep anything for medications down due to the nausea and vomiting. She denies any specific abdominal pain. - Related Data Home Medications Medication Instructions Recorded Confirmed ALPRAZolam [Xanax] 0.25 mg PO BID PRN 07/19/15 08/12/18 Atenolol 12.5 mg PO BID 07/19/15 08/12/18 Pentoxifylline [TRENtal] 400 mg PO TID 07/19/15 08/12/18 Ergocalciferol [Vitamin D2 50,000 unit PO FR 12/15/17 08/12/18 (DRISDOL)] busPIRone HCL 15 mg PO TID 12/15/17 08/12/18 Albuterol Inhaler [Ventolin Hfa 1 - 2 puff INHALATION RT-Q6H PRN 08/03/18 08/12/18 Inhaler] Albuterol Nebulized [Ventolin 2.5 mg INHALATION RT-BID 08/03/18 08/12/18 Nebulized] Pantoprazole [Protonix] 40 mg PO DAILY 08/03/18 08/12/18 Simvastatin [Zocor] 20 mg PO HS 08/03/18 08/12/18 Loperamide [Imodium] 2 mg PO BID 08/12/18 08/12/18 Loratadine [Claritin] 10 mg PO DAILY 08/12/18 08/12/18 Meclizine [Antivert] 25 mg PO DAILY 08/12/18 08/12/18 Prochlorperazine [Compazine] 10 mg PO Q6H PRN 08/12/18 08/12/18 Previous Rx's Medication Instructions Recorded Furosemide [Lasix] 40 mg PO DAILY #30 tab 12/30/17 Hydrocodone/Acetaminophen [[place] 1 tab PO Q6HR PRN 3 Days #5 tab 08/05/18 5-325] Allergies Allergy/AdvReac Type Severity Reaction Status Date / Time No Known Allergies Allergy Verified 08/12/18 16:53 Review of Systems ROS Statement: Those systems with pertinent positive or pertinent negative responses have been documented in the HPI. ROS Other: All systems not noted in ROS Statement are negative. Past Medical History Past Medical History: Cancer, Hyperlipidemia, Hypertension, Pneumonia, Vascular Disorder Additional Past Medical History / Comment(s): breast cancer right breast- radiation tx finished 1 week ago , kidneys shut down 12/2017-"ok now", hiatal hernia, dry skin, hx brain cancer, small cell lung History of Any Multi-Drug Resistant Organisms: None Reported Past Surgical History: Appendectomy, Breast Surgery, Section, Hysterectomy Additional Past Surgical History / Comment(s): x2, salpingectomy and oopherectomy, angioplasty on left leg, rt breast lumpectomy, lump removed from left shoulder and left axilla, port on right side Past Anesthesia/Blood Transfusion Reactions: Previous Problems w/ Anesthesia, Motion Sickness Additional Past Anesthesia/Blood Transfusion Reaction / Comment(s): slow to wake up after anesthesia x1, claustrophobia Past Psychological History: Anxiety Smoking Status: Former smoker Past Alcohol Use History: None Reported Past Drug Use History: None Reported - Past Family History Mother Family Medical History: No Reported History Additional Family Medical History / Comment(s): . Sister(s) Family Medical History: Diabetes Mellitus Father Family Medical History: Coronary Artery Disease (CAD), Diabetes Mellitus Additional Family Medical History / Comment(s): CABG and carotid endarterectomy General Exam - General Exam Comments Initial Comments: 67-year-old female. Patient appears in moderate discomfort. Limitations: no limitations General appearance: alert, in no apparent distress Head exam: Present: atraumatic, normocephalic, normal inspection Eye exam: Present: normal appearance, PERRL, EOMI. Absent: scleral icterus, conjunctival injection, periorbital swelling ENT exam: Present: normal exam, mucous membranes moist Neck exam: Present: normal inspection. Absent: tenderness, meningismus, lymphadenopathy Respiratory exam: Present: decreased breath sounds (Increase left lower lung breath sounds.). Absent: normal lung sounds bilaterally, respiratory distress, wheezes, rales, rhonchi, stridor Cardiovascular Exam: Present: regular rate, normal rhythm, normal heart sounds. Absent: systolic murmur, diastolic murmur, rubs, gallop, clicks GI/Abdominal exam: Present: soft, normal bowel sounds. Absent: distended, tenderness, guarding, rebound, rigid Extremities exam: Present: normal inspection, full ROM, normal capillary refill. Absent: tenderness, pedal edema, joint swelling, calf tenderness Back exam: Present: normal inspection Neurological exam: Present: alert, oriented X3, CN II-XII intact Psychiatric exam: Present: normal affect, normal mood Skin exam: Present: warm, dry, intact, normal color. Absent: rash Course Vital Signs 08/12/18 15:49 Temperature 99.9 F H Pulse Rate 120 H Respiratory 18 Rate Blood Pressure 101/64 O2 Sat by Pulse 95 Oximetry Medical Decision Making - Medical Decision Making Skyler is a 67-year-old female presents emergency department today complains of nausea vomiting fevers and chills. Currently on chemotherapy treatment for small cell lung cancer. Patient last chemo was July 27. Port placed on Friday last week. Patient was given IV fluids labwork obtained. Skyler is found to be severely neutropenic he had 0.2 WBCs. Chest x-ray shows evidence of pneumonic infiltrate. Patient was started on Zosyn and vancomycin for broad-spectrum coverage. Blood cultures are completed. She was given 2 L bolus Motrin and Tylenol. At this time Patient will be admitted under Dr. Guerra with consults to patient's oncologist and stud driver. - Lab Data Result diagrams: 08/12/18 17:30 08/12/18 17:30 Lab Results 08/12/18 08/12/18 08/12/18 Range/Units 17:30 17:30 17:30 WBC 0.2 L* (3.8-10.6) k/uL RBC 2.93 L (3.80-5.40) m/uL Hgb 8.9 L (11.4-16.0) gm/dL Hct 26.1 L (34.0-46.0) % MCV 89.1 (80.0-100.0) fL MCH 30.4 (25.0-35.0) pg MCHC 34.1 (31.0-37.0) g/dL RDW 17.7 H (11.5-15.5) % Plt Count 32 L (150-450) k/uL Neutrophils # [facility] Differential Comment Anisocytosis Slight PT (9.0-12.0) sec INR (<1.2) APTT (22.0-30.0) sec Sodium 133 L (137-145) mmol/L Potassium 3.6 (3.5-5.1) mmol/L Chloride 93 L (98-107) mmol/L Carbon Dioxide 24 (22-30) mmol/L Anion Gap 16 mmol/L BUN 24 H (7-17) mg/dL Creatinine 1.20 H (0.52-1.04) mg/dL Est GFR (CKD-EPI)AfAm 55 (>60 ml/min/1.73 sqM) Est GFR (CKD-EPI)NonAf 48 (>60 ml/min/1.73 sqM) Glucose 152 H (74-99) mg/dL Plasma Lactic Acid Burton 1.5 (0.7-2.0) mmol/L Calcium 9.1 (8.4-10.2) mg/dL Total Bilirubin 1.2 (0.2-1.3) mg/dL AST 13 L (14-36) U/L ALT 11 (9-52) U/L Alkaline Phosphatase 126 (38-126) U/L Total Protein 6.4 (6.3-8.2) g/dL Albumin 4.1 (3.5-5.0) g/dL 08/12/18 Range/Units 17:30 WBC (3.8-10.6) k/uL RBC (3.80-5.40) m/uL Hgb (11.4-16.0) gm/dL Hct (34.0-46.0) % MCV (80.0-100.0) fL MCH (25.0-35.0) pg MCHC (31.0-37.0) g/dL RDW (11.5-15.5) % Plt Count (150-450) k/uL Neutrophils # Differential Comment Anisocytosis PT 10.3 (9.0-12.0) sec INR 1.0 (<1.2) APTT 16.6 L (22.0-30.0) sec Sodium (137-145) mmol/L Potassium (3.5-5.1) mmol/L Chloride (98-107) mmol/L Carbon Dioxide (22-30) mmol/L Anion Gap mmol/L BUN (7-17) mg/dL Creatinine (0.52-1.04) mg/dL Est GFR (CKD-EPI)AfAm (>60 ml/min/1.73 sqM) Est GFR (CKD-EPI)NonAf (>60 ml/min/1.73 sqM) Glucose (74-99) mg/dL Plasma Lactic Acid Burton (0.7-2.0) mmol/L Calcium (8.4-10.2) mg/dL Total Bilirubin (0.2-1.3) mg/dL AST (14-36) U/L ALT (9-52) U/L Alkaline Phosphatase (38-126) U/L Total Protein (6.3-8.2) g/dL Albumin (3.5-5.0) g/dL - Radiology Data Radiology results: report reviewed Extensive pneumonic infiltrate around the left pulmonary hilum with volume loss. Slight improved aeration of the left lung compared to last exam. Right upper lobe nodular infiltrate unchanged. Left pleural fluid decreased compared to last exam. Disposition Clinical Impression: Sepsis, Fever and neutropenia, Pneumonia, Metastatic primary lung cancer Disposition: ADMITTED IP TO THIS [facility] Condition: Stable Is patient prescribed a controlled substance at d/c from ED?: No Referrals: Diana Mora MD [Primary Care Provider] - 1-2 days Time of Disposition: 18:34
[2018-08-12] MEDS: SODIUM CHLORIDE 0.9% 500 ML 500 ML IV SCH ×3 (17:48→21:19)
[2018-08-12 17:52] LABS: Anisocytosis Slight; HCT 26.1 % (34.0-46.0); HGB 8.9 gm/dL (11.4-16.0); MCH 30.4 pg (25.0-35.0); MCHC 34.1 g/dL (31.0-37.0); MCV 89.1 fL (80.0-100.0); Mean Platelet Volume 8.5; RBC 2.93 m/uL (3.80-5.40); RDW 17.7 % (11.5-15.5)
[2018-08-12 17:55] LABS: WBC 0.2 k/uL (3.8-10.6)
[2018-08-12 17:56] LABS: Albumin 4.1 g/dL (3.5-5.0); Calcium 9.1 mg/dL (8.4-10.2); Potassium 3.6 mmol/L (3.5-5.1); Total Bilirubin 1.2 mg/dL (0.2-1.3); Total Protein 6.4 g/dL (6.3-8.2)
[2018-08-12 17:59] LABS: Platelet Count 32 k/uL (150-450)
[2018-08-12] MEDS ORDERED: METOCLOPRAMIDE 5 MG/ML 2 ML VIAL IVP STA (18:06)
[2018-08-12] MEDS ORDERED: diphenhydrAMINE 50 MG/ML 1 ML VIAL IVP STA (18:06)
[2018-08-12] MEDS ORDERED: PIPERACILLIN-TAZOBACTAM 3.375 GM in SODIUM CHLORIDE 0.9% 100 ML IVPB STA (18:07)
[2018-08-12] MEDS ORDERED: VANCOMYCIN IV PER PHARMACY 1 EACH MISC MISCELLANE PRN (18:09)
[2018-08-12 18:14] LABS: Prothrombin Time 10.3 sec (9.0-12.0)
[2018-08-12] MEDS ORDERED: VANCOMYCIN 1,500 MG in SODIUM CHLORIDE 0.9% 250 ML IVPB STA (18:16)
[2018-08-12 18:18] LABS: Partial Thromboplastin Time 16.6 sec (22.0-30.0)
[2018-08-12] MEDS ORDERED: MORPHINE SULFATE 4 MG/ML SYRINGE IVP STA (18:20)
[2018-08-12] MEDS ORDERED: IBUPROFEN 400 MG TAB PO PRN (18:35)
[2018-08-12] MEDS ORDERED: MORPHINE SULFATE 4 MG/ML SYRINGE IV PRN (18:35)
[2018-08-12] MEDS ORDERED: NALOXONE 0.4 MG/ML 1 ML VIAL IV PRN (18:35)
[2018-08-12] MEDS ORDERED: KETOROLAC 30 MG/ML 1 ML VIAL IVP PRN (18:35)
[2018-08-12 20:39] LABS: Appearance,Urine Clear (Clear); Bacteria,Urine Rare /hpf; Bilirubin,Urine Negative (Negative); Blood,Urine Trace (Negative); Color,Urine Yellow; Glucose,Urine (UA) Negative (Negative); Ketones,Urine Negative (Negative); Leukocyte Esterase,Urine Negative (Negative); Mucus,Urine Rare /hpf; Nitrite,Urine Negative (Negative); PH, Urine 5.5 (5.0-8.0); Protein,Urine 1+ (Negative); RBC,Urine 1 /hpf (0-5); Specific Gravity,Urine 1.014 (1.001-1.035); Squamous Epithelial Cell,Urine 1 /hpf (0-4); Urobilinogen,Urine <2.0 mg/dL (<2.0); WBC,Urine 1 /hpf (0-5)
[2018-08-12 21:13] VITALS: BMI 30.1
[2018-08-12] MEDS: SODIUM CHLORIDE 0.9% 1,000 ML IV SCH (21:56)
[2018-08-12] MEDS ORDERED: ALBUTEROL NEBULIZED 2.5 MG/3 ML INHALATION PRN (22:10)
[2018-08-12] MEDS ORDERED: PROCHLORPERAZINE 5 MG TAB PO PRN (22:10)
[2018-08-12] MEDS: ALPRAZolam 0.25 MG TAB PO PRN (23:00)
[2018-08-12] MEDS: ATORVASTATIN 10 MG TAB PO SCH (23:00)
[2018-08-12] MEDS: busPIRone HCl 10 MG TAB PO SCH (23:00)
[2018-08-12] MEDS: PENTOXIFYLLINE 400 MG TABLET.ER PO SCH (23:17)
[2018-08-13] MEDS: ONDANSETRON 4 MG/2 ML VIAL IVP PRN ×2 (00:18→17:02)
[2018-08-13 07:25] LABS: Anisocytosis Slight; HCT 20.7 % (34.0-46.0); MCH 30.9 pg (25.0-35.0); MCHC 33.9 g/dL (31.0-37.0); MCV 91.1 fL (80.0-100.0); Mean Platelet Volume 10.7; RBC 2.27 m/uL (3.80-5.40); RDW 17.4 % (11.5-15.5)
[2018-08-13 07:53] LABS: WBC 0.1 k/uL (3.8-10.6)
[2018-08-13 07:54] LABS: Platelet Count 15 k/uL (150-450)
[2018-08-13 07:57] LABS: Albumin 2.8 g/dL (3.5-5.0); Calcium 7.7 mg/dL (8.4-10.2); Total Bilirubin 0.8 mg/dL (0.2-1.3); Total Protein 4.8 g/dL (6.3-8.2)
[2018-08-13] MEDS ORDERED: ALBUTEROL NEBULIZED 2.5 MG/3 ML INHALATION SCH (08:00)
[2018-08-13] MEDS ORDERED: Potassium Replacement Protocol 1 EACH MISC MISCELLANE PRN (08:08)
[2018-08-13] MEDS: busPIRone HCl 10 MG TAB PO SCH ×3 (08:58→21:40)
[2018-08-13] MEDS: LOPERAMIDE 2 MG CAP PO SCH ×2 (08:58→20:39)
[2018-08-13] MEDS: MECLIZINE 25 MG TAB PO SCH (08:59)
[2018-08-13] MEDS: ATENOLOL 25 MG TAB PO SCH ×2 (09:00→20:40)
[2018-08-13] MEDS: ALPRAZolam 0.25 MG TAB PO PRN (09:00)
[2018-08-13] MEDS: POTASSIUM CHLORIDE ER 20 MEQ TAB.ER PO SCH ×2 (09:00→09:02)
[2018-08-13] MEDS ORDERED: FUROSEMIDE 40 MG TAB PO SCH (09:00)
[2018-08-13] MEDS: LORATADINE 10 MG TAB PO SCH (09:01)
[2018-08-13] MEDS: PENTOXIFYLLINE 400 MG TABLET.ER PO SCH ×3 (09:01→21:41)
[2018-08-13] MEDS: PANTOPRAZOLE 40 MG/10 ML VIAL IV SCH (09:01)
[2018-08-13] MEDS ORDERED: SODIUM CHLORIDE 0.9% 500 ML 500 ML IV ONE (10:55)
--- NOTE | 2018-08-13 10:56 | P.NPCON ---
History of Present Illness - Reason for Consult acute renal failure - History of Present Illness Reason for consultation: Acute kidney injury History of present illness: Patient is a 67-year-old female seen in renal consultation for acute kidney injury. Patient has history of small cell lung cancer and is maintained on chemotherapy as an outpatient. Last chemotherapy was on July 27. Patient had developed severe acute kidney injury in November 2019. At that time her creatinine was 6.15. Subsequently her renal function has been improving and she is being following up with us in the office. Creatinine this admission was 1.2 and is up to 1.39 today. Patient did receive 2 doses of ibuprofen in the ER. She is also maintained on diuretics. Patient presented to the hospital with nausea and vomiting which has been going on for the last 2 days. Patient states his symptoms were progressively getting worse and she decided to come to the hospital. She also complains of diarrhea. Denies cough. Oral intake has been poor. Patient is noted to have pancytopenia. No active bleeding. Potassium level is 3.0 which is being replaced. Good urine output. No hematuria or dysuria. Blood pressure has been in the systolic 90s to 100s. Vital signs are stable. General: The patient appeared well nourished and normally developed. HEENT: Head exam is unremarkable. Neck is without jugular venous distension. LUNGS: Lungs are clear to auscultation and percussion. Breath sounds decreased. HEART: Rate and Rhythm are regular. First and second heart sounds normal. No murmurs, rubs or gallops. ABDOMEN: Abdominal exam reveals normal bowel sounds. Non-tender and non- distended. No evidence of peritonitis. EXTREMITITES: No clubbing, cyanosis, or edema. Past Medical History Past Medical History: Cancer, Hyperlipidemia, Hypertension, Pneumonia, Vascular Disorder Additional Past Medical History / Comment(s): breast cancer right breast- radiation tx finished 1 week ago , kidneys shut down 12/2017-"ok now", hiatal hernia, dry skin, hx brain cancer, small cell lung History of Any Multi-Drug Resistant Organisms: None Reported Past Surgical History: Appendectomy, Breast Surgery, Section, Hysterectomy Additional Past Surgical History / Comment(s): x2, salpingectomy and oopherectomy, angioplasty on left leg, rt breast lumpectomy, lump removed from left shoulder and left axilla, port on right side Past Anesthesia/Blood Transfusion Reactions: Previous Problems w/ Anesthesia, Motion Sickness Additional Past Anesthesia/Blood Transfusion Reaction / Comment(s): slow to wake up after anesthesia x1, claustrophobia Past Psychological History: Anxiety Additional Psychological History / Comment(s): claustrophobia Smoking Status: Former smoker Past Alcohol Use History: None Reported Additional Past Alcohol Use History / Comment(s): started smoking at age 21(1971) smokes 1/2 ppd, quit smoking 1 yr ago Past Drug Use History: None Reported - Past Family History Mother Family Medical History: No Reported History Additional Family Medical History / Comment(s): . Sister(s) Family Medical History: Diabetes Mellitus Father Family Medical History: Coronary Artery Disease (CAD), Diabetes Mellitus Additional Family Medical History / Comment(s): CABG and carotid endarterectomy Medications and Allergies Home Medications Medication Instructions Recorded Confirmed Type ALPRAZolam [Xanax] 0.25 mg PO BID PRN 07/19/15 08/12/18 History Atenolol 12.5 mg PO BID 07/19/15 08/12/18 History Pentoxifylline [TRENtal] 400 mg PO TID 07/19/15 08/12/18 History Ergocalciferol [Vitamin D2 50,000 unit PO FR 12/15/17 08/12/18 History (DRISDOL)] busPIRone HCL 15 mg PO TID 12/15/17 08/12/18 History Furosemide [Lasix] 40 mg PO DAILY #30 tab 12/30/17 08/12/18 Rx Albuterol Inhaler [Ventolin Hfa 1 - 2 puff INHALATION RT-Q6H PRN 08/03/18 08/12/18 History Inhaler] Albuterol Nebulized [Ventolin 2.5 mg INHALATION RT-BID 08/03/18 08/12/18 History Nebulized] Pantoprazole [Protonix] 40 mg PO DAILY 08/03/18 08/12/18 History Simvastatin [Zocor] 20 mg PO HS 08/03/18 08/12/18 History Hydrocodone/Acetaminophen [[place] 1 tab PO Q6HR PRN 3 Days #5 tab 08/05/18 08/12/18 Rx 5-325] Loperamide [Imodium] 2 mg PO BID 08/12/18 08/12/18 History Loratadine [Claritin] 10 mg PO DAILY 08/12/18 08/12/18 History Meclizine [Antivert] 25 mg PO DAILY 08/12/18 08/12/18 History Prochlorperazine [Compazine] 10 mg PO Q6H PRN 08/12/18 08/12/18 History Allergies Allergy/AdvReac Type Severity Reaction Status Date / Time No Known Allergies Allergy Verified 08/12/18 16:53 Physical Exam Vitals: Vital Signs Temp Pulse Pulse Resp BP BP Pulse Ox 08/13/18 08:00 99.1 F 119 H 16 97/62 97 08/13/18 05:16 99.3 F 131 H 22 93/60 95 08/12/18 23:50 97.8 F 99 18 101/64 96 08/12/18 20:59 98.1 F 99 18 97/63 98 08/12/18 20:32 96/65 08/12/18 19:52 104 H 18 105/68 96 08/12/18 19:03 124 H 16 100/65 93 L 08/12/18 15:49 99.9 F H 120 H 18 101/64 95 Intake and Output 08/12/18 08/13/18 08/13/18 22:59 06:59 14:59 Intake Total 220 Balance 220 Intake: Oral 220 Other: Voiding Method Toilet # Voids 1 1 # Bowel Movements 1 Weight 76.657 kg 77.2 kg Results - Lab Results Most recent lab results Calcium 7.7 mg/dL (8.4-10.2) L 08/13/18 06:46 08/13/18 06:46 08/13/18 06:46 Assessment and Plan Plan: Assessment: 1. Acute kidney injury mostly prerenal secondary to intravascular volume depletion from vomiting and diarrhea as well as use of nonsteroidals. Creatinine 1.39 today. 2. Pancytopenia secondary to chemotherapy. 3. Diarrhea. Rule out C. diff. 4. Nausea and vomiting. Possible gastroenteritis. 5. Hypokalemia secondary to GI losses and diuretics. Rule out magnesium deficiency. 6. Small cell lung cancer. Last chemotherapy on July 27. Plan: Maintain normal saline at 100 mL an hour. Replace potassium. 80 mEq today. Hold diuretics. Avoid nephrotoxins. Discontinue ibuprofen and Toradol. Check magnesium level. Repeat electrolytes in the morning. Follow-up cultures. Monitor hemoglobin. Defer blood transfusion to oncology. Thank you for the consultation. I will continue to follow the patient with you during her hospital stay.
[2018-08-13] MEDS ORDERED: POTASSIUM CHLORIDE ER 20 MEQ TAB.ER PO STA (11:14)
--- NOTE | 2018-08-13 11:32 | P.HPIM ---
History of Present Illness H&P Date: 08/13/18 This is a 67-year-old female patient who presented with complaints of fever nausea and vomiting. Patient has a known medical history of metastatic primary lung cancer. Patient has been receiving chemotherapy and radiation. Patient's last chemotherapy was on 07/27/2018. Patient does follow with oncology services. Patient reports that she started to not feel well on Friday with increased nausea and vomiting. Patient also states she has temperature of 100.4. Patient also reports she's had episodes of diarrhea. Additional medical history includes hyperlipidemia, hypertension, pneumonia and recent chest wall point placement. Chest x-ray completed showing extensive pneumonic infiltrate o n the left pulmonary hilum and volume loss there is slight improved aeration of the left lung compared to last exam. Right upper lobe nodule infiltrate unchanged. Left pleural effusion as compared to old exam. EKG completed showing sinus tachycardia. Patient's white blood cells low at 0.1 platelets 15. Patient's creatinine also slightly elevated at 1.39 and bun 22. Low at 3.0. At this time pathology services have been consulted. Dr. Mckeon consulted for infectious disease due to neutropenia chemotherapy. Dr. Gar consulted for pulmonary care. Potassium replacement protocol. Patient started vancomycin for IV antibiotics. Blood, urine and sputum cultures ordered. Insulin ordered. C. diff sample ordered. At this time patient's blood pressure systolic in the 90s elevated heart rate, lactic acid 1.5. We'll give 500 mL bolus. At this time patient is still complaining of some nausea and vomiting. Patient denies chest pain or shortness of breath. Patient denies any burning with urination Review of Systems Please refer to HPI otherwise unremarkable Past Medical History Past Medical History: Cancer, Hyperlipidemia, Hypertension, Pneumonia, Vascular Disorder Additional Past Medical History / Comment(s): breast cancer right breast- radiation tx finished 1 week ago , kidneys shut down 12/2017-"ok now", hiatal hernia, dry skin, hx brain cancer, small cell lung History of Any Multi-Drug Resistant Organisms: None Reported Past Surgical History: Appendectomy, Breast Surgery, Section, Hysterectomy Additional Past Surgical History / Comment(s): x2, salpingectomy and oopherectomy, angioplasty on left leg, rt breast lumpectomy, lump removed from left shoulder and left axilla, port on right side Past Anesthesia/Blood Transfusion Reactions: Previous Problems w/ Anesthesia, Motion Sickness Additional Past Anesthesia/Blood Transfusion Reaction / Comment(s): slow to wake up after anesthesia x1, claustrophobia Past Psychological History: Anxiety Additional Psychological History / Comment(s): claustrophobia Smoking Status: Former smoker Past Alcohol Use History: None Reported Additional Past Alcohol Use History / Comment(s): started smoking at age 21(1971) smokes 1/2 ppd, quit smoking 1 yr ago Past Drug Use History: None Reported - Past Family History Mother Family Medical History: No Reported History Additional Family Medical History / Comment(s): . Sister(s) Family Medical History: Diabetes Mellitus Father Family Medical History: Coronary Artery Disease (CAD), Diabetes Mellitus Additional Family Medical History / Comment(s): CABG and carotid endarterectomy Medications and Allergies Home Medications Medication Instructions Recorded Confirmed Type ALPRAZolam [Xanax] 0.25 mg PO BID PRN 07/19/15 08/12/18 History Atenolol 12.5 mg PO BID 07/19/15 08/12/18 History Pentoxifylline [TRENtal] 400 mg PO TID 07/19/15 08/12/18 History Ergocalciferol [Vitamin D2 50,000 unit PO FR 12/15/17 08/12/18 History (DRISDOL)] busPIRone HCL 15 mg PO TID 12/15/17 08/12/18 History Furosemide [Lasix] 40 mg PO DAILY #30 tab 12/30/17 08/12/18 Rx Albuterol Inhaler [Ventolin Hfa 1 - 2 puff INHALATION RT-Q6H PRN 08/03/18 08/12/18 History Inhaler] Albuterol Nebulized [Ventolin 2.5 mg INHALATION RT-BID 08/03/18 08/12/18 History Nebulized] Pantoprazole [Protonix] 40 mg PO DAILY 08/03/18 08/12/18 History Simvastatin [Zocor] 20 mg PO HS 08/03/18 08/12/18 History Hydrocodone/Acetaminophen [[place] 1 tab PO Q6HR PRN 3 Days #5 tab 08/05/1808/12 Rx 5-325] Loperamide [Imodium] 2 mg PO BID 08/12/18 08/12/18 History Loratadine [Claritin] 10 mg PO DAILY 08/12/18 08/12/18 History Meclizine [Antivert] 25 mg PO DAILY 08/12/18 08/12/18 History Prochlorperazine [Compazine] 10 mg PO Q6H PRN 08/12/18 08/12/18 History Allergies Allergy/AdvReac Type Severity Reaction Status Date / Time No Known Allergies Allergy Verified 08/12/18 16:53 Physical Exam Vitals: Vital Signs Temp Pulse Pulse Resp BP BP Pulse Ox 08/13/18 08:00 99.1 F 119 H 16 97/62 97 08/13/18 05:16 99.3 F 131 H 22 93/60 95 08/12/18 23:50 97.8 F 99 18 101/64 96 08/12/18 20:59 98.1 F 99 18 97/63 98 08/12/18 20:32 96/65 08/12/18 19:52 104 H 18 105/68 96 08/12/18 19:03 124 H 16 100/65 93 L 08/12/18 15:49 99.9 F H 120 H 18 101/64 95 Intake and Output 08/12/18 08/13/18 08/13/18 22:59 06:59 14:59 Intake Total 220 Balance 220 Intake: Oral 220 Other: Voiding Method Toilet # Voids 1 1 # Bowel Movements 1 Weight 76.657 kg 77.2 kg Head normocephalic Neck supple Lungs clear to auscultation bilaterally no wheezing or crackles Heart regular rate and rhythm S1-S2, no rub or gallop Abdomen is soft nontender nondistended positive bowel sounds no hepatosplenomegaly Extremities no edema Neuro alert and orientated to 3 Results CBC & Chem 7: 08/13/18 06:46 08/13/18 06:46 Labs: Abnormal Lab Results - Last 24 Hours (Table) 08/12/18 08/12/18 08/12/18 Range/Units 17:30 17:30 17:30 WBC 0.2 L* (3.8-10.6) k/uL RBC 2.93 L (3.80-5.40) m/uL Hgb 8.9 L (11.4-16.0) gm/dL Hct 26.1 L (34.0-46.0) % RDW 17.7 H (11.5-15.5) % Plt Count 32 L (150-450) k/uL APTT 16.6 L (22.0-30.0) sec Sodium 133 L (137-145) mmol/L Potassium (3.5-5.1) mmol/L Chloride 93 L (98-107) mmol/L BUN 24 H (7-17) mg/dL Creatinine 1.20 H (0.52-1.04) mg/dL Glucose 152 H (74-99) mg/dL Calcium (8.4-10.2) mg/dL AST 13 L (14-36) U/L Total Protein (6.3-8.2) g/dL Albumin (3.5-5.0) g/dL Urine Protein (Negative) Urine Blood (Negative) Urine Bacteria (None) /hpf Urine Mucus (None) /hpf 08/12/18 08/13/18 08/13/18 Range/Units 20:18 06:46 06:46 WBC 0.1 L* (3.8-10.6) k/uL RBC 2.27 L (3.80-5.40) m/uL Hgb 7.0 L D (11.4-16.0) gm/dL Hct 20.7 L (34.0-46.0) % RDW 17.4 H (11.5-15.5) % Plt Count 15 L* D (150-450) k/uL APTT (22.0-30.0) sec Sodium (137-145) mmol/L Potassium 3.0 L (3.5-5.1) mmol/L Chloride (98-107) mmol/L BUN 22 H (7-17) mg/dL Creatinine 1.39 H (0.52-1.04) mg/dL Glucose 126 H (74-99) mg/dL Calcium 7.7 L (8.4-10.2) mg/dL AST 11 L (14-36) U/L Total Protein 4.8 L (6.3-8.2) g/dL Albumin 2.8 L (3.5-5.0) g/dL Urine Protein 1+ H (Negative) Urine Blood Trace H (Negative) Urine Bacteria Rare H (None) /hpf Urine Mucus Rare H (None) /hpf Microbiology - Last 24 Hours (Table) 08/12/18 20:18 Urine Culture - Preliminary Urine,Clean Catch Thrombosis Risk Factor Assmnt - Choose All That Apply Any of the Below Risk Factors Present?: Yes Each Factor Represents 1 point: Obesity (BMI >25) Other Risk Factors: Yes Each Risk Factor Represents 2 Points: Age 61-74 years Thrombosis Risk Factor Assessment Total Risk Factor Score: 3 Thrombosis Risk Factor Assessment Level: Moderate Risk Assessment and Plan Assessment: 1. Neutropenia with fever and sepsis. Dr. Mckeon is been consulted for infectious disease. Blood urine and sputum culture ordered. Influenza ordered. Patient started on vancomycin. Lactic acid 1.5 2. Nausea vomiting and diarrhea. Dr. Mckeon consulted. C. diff ordered 3. Acute kidney injury. Nephrology services consulted. Creatinine 1.39 4. Tachycardia likely due to infection and dehydration. 500 mL bolus has been ordered. Dr. Gar has been consulted for critical care 5. Pneumonia. Chest x-ray completed showing extensive pneumonic infiltrate or on the left pulmonary hilum with volume loss. There is slight improved aeration of the left lung compared to last exam. Right upper lobe nodule unchanged left pleural fluid decreased compared to old exam. Dr. Gar has been consulted for pulmonary critical care 6. Metastatic small cell lung cancer. Patient follows oncology services with chemotherapy for 12/08/2018. Patient also received radiation to brain. Oncology services have been consulted 7. Hypokalemia. Replace per protocol. Nephrology services consulted. M agnesium ordered 8. Pancytopenia secondary to chemotherapy 9. Underlying history of essential hypertension 10. History of hyperlipidemia 11. History of COPD 12. History of previous tobacco use 13. History of anxiety disorder 14. Abdominal aortic aneurysm. Previously seen on renal ultrasound showing aortic aneurysm measuring up to 5 cm in diameter. The length is more than 8 cm. Patient to follow with outpatient services and PCP DVT prophylaxis SCDs due to cytopenia. GI prophylaxis Protonix Oncology, infectious disease, nephrology and pulmonary service is consulted. Blood, sputum and urine cultures ordered. Influenza ordered. Patient started on vancomycin IV antibiotics Time with Patient: Greater than 30 (Greater than 60% of the total time spent in counseling and coordination of care. I performed an examination of the patient and discussed their management with the Nurse Practitioner. I have reviewed the Nurse Practitioner's notes and agree with the documented findings and plan of care)
[2018-08-13] MEDS: INSULIN ASPART (NovoLOG) 100 UNIT/ML VIAL SQ SCH ×3 (12:42→21:30)
[2018-08-13] MEDS: ACETAMINOPHEN TAB 325 MG TAB PO PRN (12:50)
[2018-08-13 12:51] LABS: Glucose,Whole Blood 154 mg/dL (75-99)
[2018-08-13] MEDS ORDERED: Magnesium Replacement Protocol 1 EACH MISC MISCELLANE PRN (12:58)
[2018-08-13] MEDS: MAGNESIUM SULFATE-D5W PMX 1 GM in DEXTROSE/WATER 1 100ML.BAG IVPB SCH ×3 (13:38→18:42)
[2018-08-13] MEDS ORDERED: IPRATROPIUM-ALBUTEROL 3 ML NEB INHALATION PRN (14:46)
--- NOTE | 2018-08-13 16:06 | CONS ---
CONSULTATION This is a 67-year-old female with a history of small-cell lung cancer. She is status post 1 round of chemotherapy and recently started her 2nd round. The patient was brought in for complaints of fever, chills, vomiting, and diarrhea. Her last treatment apparently was July 27. She saw the commercial real estate appraiser the day before. She was feeling ill at that time. Her nausea, vomiting, fever, chills became much more significant. The patient was admitted with a diagnosis of neutropenic sepsis. She had pancytopenia. The patient's chest x-ray showed evidence of infiltrate and/or effusion in the left lung. She also has a significantly enlarged left hilar area. MEDICATIONS: Reviewed and are reviewed. She is on Xanax, atenolol, Trental, vitamin D2, BuSpar. MMODL / IJN: [id number] /
[2018-08-13 16:09] LABS: Glucose,Whole Blood 185 mg/dL (75-99)
--- NOTE | 2018-08-13 16:21 | CONS ---
CONSULTATION DATE OF CONSULTATION: 08/13/2018 This patient is a 67-year-old female with a history of small-cell lung cancer. She presented to the emergency department with complaints of fever, chills, nausea and vomiting. They had been going on for a couple of days prior to admission. It had been getting worse. The patient recently had chemotherapy on July 27. I believe that was her second round of chemotherapy. I believe she is receiving RAIL GANG SUPERVISOR-16 and carboplatin. She apparently saw her production repairer the day prior to admission. At that time she was starting to feel ill as well. The symptoms progressed and she was brought to the ER, where she was evaluated. She was noted to have a chest x-ray that showed infiltrate and/or effusion on the left. Also her left hilum was quite prominent. In addition, her blood analysis showed evidence of pancytopenia. Currently she is resting comfortably in bed. Her major complaints include weakness. HOME MEDICATIONS: Include: 1. Xanax. 2. Atenolol. 3. Trental. 4. Vitamin D2. 5. BuSpar. 6. Albuterol updrafts. 7. Protonix. 8. Zocor. 9. Imodium. 10.Claritin. 11.Antivert. 12.Compazine. 13.Lasix. 14.[place]. ALLERGIES: DENIED. PAST MEDICAL HISTORY: Includes: 1. Small-cell lung cancer. 2. Hyperlipidemia. 3. Hypertension. 4. Pneumonia. 5. Breast cancer of the right breast, status post radiation treatment. 6. Kidney failure. 7. Hiatal hernia. 8. Dry skin. SURGICAL HISTORY: Includes: 1. Appendectomy. 2. Breast surgery. 3. section. 4. Hysterectomy. 5. Salpingectomy. 6. Oophorectomy. 7. Angioplasty on left leg. 8. Right breast lumpectomy. 9. Insertion of a permanent port. SOCIAL HISTORY: Positive for previous tobacco use. She does not smoke currently. Denies any alcohol use or illicit drug use. FAMILY HISTORY: Positive for diabetes mellitus and coronary artery disease and previous bypass grafting. REVIEW OF SYSTEMS: CONSTITUTIONAL: Weakness and fatigue. Decreased appetite. NEUROLOGIC: Negative. HEENT: CARDIOVASCULAR: Negative. PULMONARY: Negative. GI: Nausea, vomiting, diarrhea. : Negative. RHEUMATOLOGIC: Negative. IMMUNOLOGIC: Negative. ENDOCRINOLOGIC: Negative. DERMATOLOGIC: Negative. PHYSICAL EXAMINATION: VITAL SIGNS: Current vital signs are reviewed. Temperature is 101.7, heart rate 130, respiratory rate 16, blood pressure 93/62, mean 72, 2-liter saturation 96%. GENERAL: Appears in no acute distress. HEENT EXAMINATION: Grossly unremarkable. Mucous membranes are dry. No oral lesions. NECK: Supple. Full range of motion. No adenopathy. Neck veins are flat. CARDIOVASCULAR EXAMINATION: Regular rhythm and rate. She is tachycardic. Heart rate about 110 beats per minute. It is regular. S1, S2 normal. LUNGS: Diminished breath sounds. A few scattered rhonchi. No wheezes. There are a few scattered crackles. ABDOMEN: Soft. Bowel sounds are heard. EXTREMITIES: Intact. No cyanosis, clubbing or edema. SKIN: Without rash. NEUROLOGIC EXAMINATION: Diffuse weakness. No focal neurologic deficits. Microbiology is currently pending or negative. LABS/IMAGING: Reviewed. White count 0.1, hemoglobin 7, hematocrit 20.7, platelet count 15,000. Sodium 138, potassium 3, chloride 104, CO2 of 22. Anion gap is 12. BUN and creatinine were 12 and 1.39. Calcium 7.7, magnesium 1. Troponin 0.050. Albumin 2.8. Urinary protein is 1+, trace blood in the urine, bacteria rare, mucus rare. The patient had a chest x-ray which suggested extensive infiltrates and abnormality around the left hilum with volume loss. There is a right upper lobe nodular infiltrate and a left pleural effusion which apparently is similar to or reduced from her last chest x-ray. Medications are reviewed. Medications of note include updrafts and antibiotics. She is currently on Zosyn and vancomycin. ASSESSMENT: 1. Neutropenic sepsis, source unclear; may relate to pneumonia. 2. History of small-cell lung cancer, status post 2 rounds of chemotherapy, likely with RAIL GANG SUPERVISOR-16 and carboplatin. 3. History of hyperlipidemia. 4. History of hypertension. 5. History of pneumonia. 6. Peripheral vascular occlusive disease. 7. History of breast cancer. 8. Renal failure. 9. Pancytopenia. 10.Previous history of tobacco abuse. PLAN: The patient will receive supportive care. Additional recommendations and suggestions are forthcoming. Will make sure she is on albuterol and Atrovent updrafts q.i.d. and p.r.n. She is already on vancomycin and Zosyn. CODE STATUS needs to be addressed. Will allow the primary service to do that. No additional recommendations are made. Prognosis is guarded. MMODL / IJN: [id number] /
[2018-08-13] MEDS: IPRATROPIUM-ALBUTEROL 3 ML NEB INHALATION SCH ×2 (16:27→20:55)
[2018-08-13] MEDS: VANCOMYCIN 1,500 MG in SODIUM CHLORIDE 0.9% 250 ML IVPB SCH (16:53)
--- NOTE | 2018-08-13 20:33 | P.CONS ---
History of Present Illness - Reason for Consult Consult date: 08/13/18 neutropenic fever, pneumonia Requesting physician: Jing Simon - Chief Complaint fever, progressive weakness - History of Present Illness Mrs. Flores is a very pleasant female patient of Dr. Braxton with a history of breast cancer in 2006 there was treated with a lumpectomy and radiation. Patient was on hormonal therapy. 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 Patient was in the hospital 12/15/17 with abnormal labs and chest x-ray from primary care physician. She was in acute renal failure with a creatinine of 6, CT of the chest without contrast showed scattered pulmonary nodules with multiple enlarged mediastinal lymph nodes. Bronchoscopy on 12/18/2017 biopsies were done of the left lower lobe as well as the precarinal area, pathology was consistent with a small cell as well as squamous cell carcinoma. MRI of the brain on 12/23/17 without contrast showed a small area of abnormal FLAIR along the right paramedian area-recommendation was for another MRI once creatinine improved. Patient was started on chemotherapy, carboplatin and etoposide, tecentric immunotherapy was added cycle 5 and continued. She had a good response on CT. F/U scans in 07/07 unfortunately showed progression in the lung and in the brain. Palliative RT to the brain and lung was done, completed that on 07/15/18. She received first cycle of salvage Camptosar and carboplatin on 08/04, she did receive growth factor on 08/05 (patient did not remember receiving this). At home patient was progressively getting weaker, oral intake was poor, denied any pain in the mouth, just dry, has been noted her getting lethargic, she did end up having fever, on admit MAXIMUM TEMPERATURE was 101.7, she was tachycardic and hypotensive, pancultures ordered, empiric antibiotics have been initiated. Patient denies any current nausea or vomiting, she feels better this evening than she did this morning, no hemoptysis, chest pain, palpitations, mild abdominal discomfort, denies cramping, she has had "a lot of diarrhea", denies any blood, rectal pain, dysuria, hematuria, swelling in the lower extremities, she is able to ambulate only short distances due to weakness, no pain to report Review of Systems 14 point review of systems is negative except as stated in HPI Past Medical History Past Medical History: Cancer, Hyperlipidemia, Hypertension, Pneumonia, Vascular Disorder Additional Past Medical History / Comment(s): breast cancer right breast- radiation tx finished 1 week ago , kidneys shut down 12/2017-"ok now", hiatal hernia, dry skin, hx brain cancer, small cell lung History of Any Multi-Drug Resistant Organisms: None Reported Past Surgical History: Appendectomy, Breast Surgery, Section, Hysterectomy Additional Past Surgical History / Comment(s): x2, salpingectomy and oopherectomy, angioplasty on left leg, rt breast lumpectomy, lump removed from left shoulder and left axilla, port on right side Past Anesthesia/Blood Transfusion Reactions: Previous Problems w/ Anesthesia, Motion Sickness Additional Past Anesthesia/Blood Transfusion Reaction / Comm: slow to wake up after anesthesia x1, claustrophobia Past Psychological History: Anxiety Additional Psychological History / Comment(s): claustrophobia Smoking Status: Former smoker Past Alcohol Use History: None Reported Additional Past Alcohol Use History / Comment(s): started smoking at age 21(1971) smokes 1/2 ppd, quit smoking 1 yr ago Past Drug Use History: None Reported - Past Family History Mother Family Medical History: No Reported History Additional Family Medical History / Comment(s): . Sister(s) Family Medical History: Diabetes Mellitus Father Family Medical History: Coronary Artery Disease (CAD), Diabetes Mellitus Additional Family Medical History / Comment(s): CABG and carotid endarterectomy Medications and Allergies Home Medications Medication Instructions Recorded Confirmed Type ALPRAZolam [Xanax] 0.25 mg PO BID PRN 07/19/15 08/12/18 History Atenolol 12.5 mg PO BID 07/19/15 08/12/18 History Pentoxifylline [TRENtal] 400 mg PO TID 07/19/15 08/12/18 History Ergocalciferol [Vitamin D2 50,000 unit PO FR 12/15/17 08/12/18 History (DRISDOL)] busPIRone HCL 15 mg PO TID 12/15/17 08/12/18 History Furosemide [Lasix] 40 mg PO DAILY #30 tab 12/30/17 08/12/18 Rx Albuterol Inhaler [Ventolin Hfa 1 - 2 puff INHALATION RT-Q6H PRN 08/03/18 08/12/18 History Inhaler] Albuterol Nebulized [Ventolin 2.5 mg INHALATION RT-BID 08/03/18 08/12/18 History Nebulized] Pantoprazole [Protonix] 40 mg PO DAILY 08/03/18 08/12/18 History Simvastatin [Zocor] 20 mg PO HS 08/03/18 08/12/18 History Hydrocodone/Acetaminophen [[place] 1 tab PO Q6HR PRN 3 Days #5 tab 08/05/18 08/12/18 Rx 5-325] Loperamide [Imodium] 2 mg PO BID 08/12/18 08/12/18 History Loratadine [Claritin] 10 mg PO DAILY 08/12/18 08/12/18 History Meclizine [Antivert] 25 mg PO DAILY 08/12/18 08/12/18 History Prochlorperazine [Compazine] 10 mg PO Q6H PRN 08/12/18 08/12/18 History Allergies Allergy/AdvReac Type Severity Reaction Status Date / Time No Known Allergies Allergy Verified 08/12/18 16:53 Physical Exam Vitals: Vital Signs Temp Pulse Resp BP BP Pulse Ox 08/13/18 16:00 98.4 F 99 16 85/55 95 08/13/18 15:44 16 08/13/18 12:00 101.7 F H 130 H 16 93/62 96 08/13/18 08:00 99.1 F 119 H 16 97/62 97 08/13/18 05:16 99.3 F 131 H 22 93/60 95 08/12/18 23:50 97.8 F 99 18 101/64 96 08/12/18 20:59 98.1 F 99 18 97/63 98 08/12/18 20:32 96/65 Intake and Output 08/13/18 08/13/18 08/13/18 06:59 14:59 22:59 Intake Total 220 Balance 220 Intake: Oral 220 Other: Voiding Method Toilet Toilet # Voids 1 1 5 # Bowel Movements 1 Weight 77.2 kg 77.2 kg - Constitutional General appearance: average body habitus, cooperative, no acute distress - EENT dry mucous membranes Eyes: anicteric sclerae, EOMI ENT: no hard of hearing, hearing grossly normal, no NA/AT, normal oropharynx, no other, no pharyngeal erythema, no thrush, no tonsillar exudates, no tonsillar swelling - Neck Neck: no lymphadenopathy - Respiratory Respiratory: bilateral: CTA - Cardiovascular Rhythm: regular Heart sounds: normal: S1, S2 Abnormal Heart Sounds: systolic murmur leg Peripheral Edema: bilateral: None - Gastrointestinal mild lower quadrant tenderness, no rebound, no organomegaly General gastrointestinal: normal bowel sounds, soft - Neurologic Neurologic: CNII-XII intact - Musculoskeletal Musculoskeletal: generalized weakness, strength equal bilaterally - Psychiatric Psychiatric: A&O x's 3, appropriate affect, intact judgment & insight Results CBC & Chem 7: 08/13/18 06:46 08/13/18 06:46 Labs: Abnormal Lab Results - Last 24 Hours (Table) 08/12/18 08/13/18 08/13/18 Range/Units 20:18 06:46 06:46 WBC 0.1 L* (3.8-10.6) k/uL RBC 2.27 L (3.80-5.40) m/uL Hgb 7.0 L D (11.4-16.0) gm/dL Hct 20.7 L (34.0-46.0) % RDW 17.4 H (11.5-15.5) % Plt Count 15 L* D (150-450) k/uL Potassium 3.0 L (3.5-5.1) mmol/L BUN 22 H (7-17) mg/dL Creatinine 1.39 H (0.52-1.04) mg/dL Glucose 126 H (74-99) mg/dL POC Glucose (mg/dL) (75-99) mg/dL Calcium 7.7 L (8.4-10.2) mg/dL Magnesium (1.6-2.3) mg/dL AST 11 L (14-36) U/L Troponin I (0.000-0.034) ng/mL Total Protein 4.8 L (6.3-8.2) g/dL Albumin 2.8 L (3.5-5.0) g/dL Urine Protein 1+ H (Negative) Urine Blood Trace H (Negative) Urine Bacteria Rare H (None) /hpf Urine Mucus Rare H (None) /hpf 08/13/18 08/13/18 08/13/18 Range/Units 10:15 10:15 12:39 WBC (3.8-10.6) k/uL RBC (3.80-5.40) m/uL Hgb (11.4-16.0) gm/dL Hct (34.0-46.0) % RDW (11.5-15.5) % Plt Count (150-450) k/uL Potassium (3.5-5.1) mmol/L BUN (7-17) mg/dL Creatinine (0.52-1.04) mg/dL Glucose (74-99) mg/dL POC Glucose (mg/dL) 154 H (75-99) mg/dL Calcium (8.4-10.2) mg/dL Magnesium 1.0 L (1.6-2.3) mg/dL AST (14-36) U/L Troponin I 0.050 H* (0.000-0.034) ng/mL Total Protein (6.3-8.2) g/dL Albumin (3.5-5.0) g/dL Urine Protein (Negative) Urine Blood (Negative) Urine Bacteria (None) /hpf Urine Mucus (None) /hpf 08/13/18 Range/Units 16:07 WBC (3.8-10.6) k/uL RBC (3.80-5.40) m/uL Hgb (11.4-16.0) gm/dL Hct (34.0-46.0) % RDW (11.5-15.5) % Plt Count (150-450) k/uL Potassium (3.5-5.1) mmol/L BUN (7-17) mg/dL Creatinine (0.52-1.04) mg/dL Glucose (74-99) mg/dL POC Glucose (mg/dL) 185 H (75-99) mg/dL Calcium (8.4-10.2) mg/dL Magnesium (1.6-2.3) mg/dL AST (14-36) U/L Troponin I (0.000-0.034) ng/mL Total Protein (6.3-8.2) g/dL Albumin (3.5-5.0) g/dL Urine Protein (Negative) Urine Blood (Negative) Urine Bacteria (None) /hpf Urine Mucus (None) /hpf Microbiology - Last 24 Hours (Table) 08/12/18 17:30 Blood Culture Gram Stain - Preliminary Blood Blood Culture - Preliminary Staphylococcus aureus 08/12/18 17:30 Blood Culture - Final Blood 08/12/18 20:18 Urine Culture - Preliminary Urine,Clean Catch Chest x-ray: report reviewed Assessment and Plan (1) Pancytopenia due to antineoplastic chemotherapy Narrative/Plan: CBC daily Hemoglobin 7, will hold off on a transfusion at this time, unless patient becomes symptomatic or Hgb<7. WBC 0.1. Patient did receive growth factor on 08/05 and administration of additional growth factor support is not indicated for 10 days post injection. Cont empiric abx, close monitoring of VS Platelet count 15,000, no evidence of acute bleeding. Transfuse for platelet count less than 10,000 or symptomatic. No aspirin, anticoagulation NSAIDs Current Visit: Yes Status: Acute Priority: High Code(s): D61.810 - A NTINEOPLASTIC CHEMOTHERAPY INDUCED PANCYTOPENIA; T45.1X5A - ADVERSE EFFECT OF ANTINEOPLASTIC AND IMMUNOSUP DRUGS, INIT SNOMED Code(s): 196117404575437 (2) Fever and neutropenia Narrative/Plan: Pancultures pending, empiric antibiotics ordered. Growth factor support given 08/05 Current Visit: Yes Status: Acute Priority: High Code(s): D70.9 - NEUTROPENIA, UNSPECIFIED; R50.81 - FEVER PRESENTING WITH CONDITIONS CLASSIFIED ELSEWHERE SNOMED Code(s): 270282407 (3) Metastatic primary lung cancer Narrative/Plan: Patient is status post first cycle of Camptosar and carboplatin, salvage chemotherapy. We'll discuss the case in more detail with Dr. Landry. Will follow up with patient and her in the a.m. Current Visit: Yes Status: Acute Priority: High Code(s): C34.90 - MALIGNANT NEOPLASM OF UNSP PART OF UNSP BRONCHUS OR LUNG SNOMED Code(s): 41845250 Plan: clear liquid diet ordered for severe neutropenia Salt and soda and aggressive mouth care discussed
[2018-08-13 20:34] LABS: Glucose,Whole Blood 221 mg/dL (75-99)
[2018-08-13] MEDS: ATORVASTATIN 10 MG TAB PO SCH (20:39)
[2018-08-13] MEDS: SODIUM CHLORIDE 0.9% 1,000 ML IV SCH (20:41)
[2018-08-13] MEDS: HYDROcodone/APAP 5-325MG 1 EACH TAB PO PRN (21:38)
--- NOTE | 2018-08-13 22:55 | P.CONS ---
History of Present Illness - Reason for Consult Consult date: 08/13/18 - Chief Complaint fever - History of Present Illness 67-year-old woman with a complex past medical history presents to Hospital feeling poorly with fever, abdominal discomfort and profuse diarrhea. The patient has a history of several years ago of breast carcinoma that was treated and did relatively well. However thousand she started to feel poorly and evaluations revealed evidence of lung mass. 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 She was initiated to treatment regiment and has had disease progression despite her courses of chemotherapy. 08/04/2018 she was initiated to Camptosar carboplatin regiment and 08/05 did receive a dose of Neulasta. However at home she has evidence of the onset of the symptoms including fever in the profuse diarrhea and progressive weakness and was brought to hospital. With evidence of febrile neutropenia the infectious diseases consultation was requested. Review of Systems HEENT:Denies headache or acute visual change. Denies sinus or mouth discomforts. Denies neck stiffness or pain. Has minimal discomfort of the oral cavity does not have distinct difficulty with swallowing but is irritated from emesis Lungs: Chronic shortness of breath chronic cough and sputum production or recent hemoptysis Cardiovascular: Chronic shortness of breath and dyspnea on exertion but no new chest pain Gastrointestinal: At admission nausea emesis no hematemesis positive diarrhea and no melena or hematochezia Musculoskeletal: denies significant myalgias or arthralgias. No new joint swelling. Denies new back pain. Skin: Denies new rash or lesions. No new ulcers or wounds are related.. 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", hiatal hernia, dry skin, hx brain cancer, small cell lung History of Any Multi-Drug Resistant Organisms: None Reported Past Surgical History: Appendectomy, Breast Surgery, Section, Hysterectomy Additional Past Surgical History / Comment(s): x2, salpingectomy and oopherectomy, angioplasty on left leg, rt breast lumpectomy, lump removed from left shoulder and left axilla, port on right side Past Anesthesia/Blood Transfusion Reactions: Previous Problems w/ Anesthesia, Motion Sickness Additional Past Anesthesia/Blood Transfusion Reaction / Comm: slow to wake up after anesthesia x1, claustrophobia Past Psychological History: Anxiety Additional Psychological History / Comment(s): claustrophobia. and lives with her . Stop tobacco smoking 1 year ago. No alcohol use. No drug use. Adult children. No animals in the home. No international travel. No experience Smoking Status: Former smoker Past Alcohol Use History: None Reported Additional Past Alcohol Use History / Comment(s): started smoking at age 21(1971) smokes 1/2 ppd, quit smoking 1 yr ago Past Drug Use History: None Reported - Past Family History Mother Family Medical History: No Reported History Additional Family Medical History / Comment(s): . Sister(s) Family Medical History: Diabetes Mellitus Father Family Medical History: Coronary Artery Disease (CAD), Diabetes Mellitus Additional Family Medical History / Comment(s): CABG and carotid endarterectomy Medications and Allergies Home Medications and Allergies Comment(s): Current Medications Acetaminophen (Tylenol Tab) 650 mg PO Q6HR PRN PRN Reason: Mild Pain or Fever > 100.5 Last Admin: 08/13/18 12:50 Dose: 650 mg Documented by: Hydrocodone Bitart/Acetaminophen ([place] 5-325) 1 each PO Q6HR PRN PRN Reason: Pain Last Admin: 08/13/18 21:38 Dose: 1 each Documented by: Albuterol/Ipratropium (Duoneb 0.5 Mg-3 Mg/3 Ml Soln) 3 ml INHALATION RT-QID PRN PRN Reason: Shortness Of Breath Or Wheezing Albuterol/Ipratropium (Duoneb 0.5 Mg-3 Mg/3 Ml Soln) 3 ml INHALATION RT-QID [facility] Last Admin: 08/13/18 20:55 Dose: 3 ml Documented by: Alprazolam (Xanax) 0.25 mg PO BID PRN PRN Reason: Anxiety Last Admin: 08/13/18 09:00 Dose: 0.25 mg Documented by: Atenolol (Tenormin) 12.5 mg PO BID [facility] Last Admin: 04/25/19 20:40 Dose: 12.5 mg Documented by: Atorvastatin Calcium (Lipitor) 10 mg PO HS [facility] Last Admin: 08/13/18 20:39 Dose: 10 mg Documented by: Buspirone HCl (Buspar) 15 mg PO TID [facility] Last Admin: 08/13/18 21:40 Dose: 15 mg Documented by: Ergocalciferol (Vitamin D2) 50,000 unit PO Fr@0900 [facility] Vancomycin HCl 1,500 mg/ (Sodium Chloride) 250 mls @ 125 mls/hr IVPB Q24H [facility] Last Admin: 08/13/18 16:53 Dose: 125 mls/hr Documented by: Sodium Chloride (Saline 0.9%) 1,000 mls @ 100 mls/hr IV .Q10H [facility] Last Admin: 08/13/18 20:41 Dose: 100 mls/hr Documented by: Insulin Aspart (Novolog) 0 unit SQ ACHS [facility]; Protocol Last Admin: 08/13/18 21:30 Dose: Not Given Documented by: Loperamide HCl (Imodium) 2 mg PO BID [facility] Last Admin: 08/13/18 20:39 Dose: 2 mg Documented by: Loratadine (Claritin) 10 mg PO DAILY [facility] Last Admin: 08/13/18 09:01 Dose: 10 mg Documented by: Meclizine HCl (Antivert) 25 mg PO DAILY [facility] Last Admin: 08/13/18 08:59 Dose: 25 mg Documented by: Miscellaneous Information (Potassium Per Protocol) 1 each MISCELLANE DAILY PRN; Protocol PRN Reason: Per Protocol Miscellaneous Information (Magnesium Per Protocol) 1 each MISCELLANE DAILY PRN; Protocol PRN Reason: Per Protocol Morphine Sulfate (Morphine Sulfate (Inj)) 4 mg IV Q4HR PRN PRN Reason: Severe Pain Naloxone HCl (Narcan) 0.2 mg IV Q2M PRN PRN Reason: Opioid Reversal Ondansetron HCl (Zofran) 4 mg IVP Q8HR PRN PRN Reason: Nausea And Vomiting Last Admin: 08/13/18 17:02 Dose: 4 mg Documented by: Pantoprazole Sodium (Protonix) 40 mg IV DAILY [facility] Last Admin: 08/13/18 09:01 Dose: 40 mg Documented by: Pentoxifylline (Trental) 400 mg PO TID [facility] Last Admin: 08/13/18 21:41 Dose: 400 mg Documented by: Prochlorperazine Maleate (Compazine) 10 mg PO Q6H PRN PRN Reason: Nausea And Vomiting Sodium Bicarbonate () 5 ml PO 5XD [facility] Home Medications Medication Instructions Recorded Confirmed Type ALPRAZolam [Xanax] 0.25 mg PO BID PRN 07/19/15 08/12/18 History Atenolol 12.5 mg PO BID 07/19/15 08/12/18 History Pentoxifylline [TRENtal] 400 mg PO TID 07/19/15 08/12/18 History Ergocalciferol [Vitamin D2 50,000 unit PO FR 12/15/17 08/12/18 History (DRISDOL)] busPIRone HCL 15 mg PO TID 12/15/17 08/12/18 History Furosemide [Lasix] 40 mg PO DAILY #30 tab 12/30/17 08/12/18 Rx Albuterol Inhaler [Ventolin Hfa 1 - 2 puff INHALATION RT-Q6H PRN 08/03/18 08/12/18 History Inhaler] Albuterol Nebulized [Ventolin 2.5 mg INHALATION RT-BID 08/03/18 08/12/18 History Nebulized] Pantoprazole [Protonix] 40 mg PO DAILY 08/03/18 08/12/18 History Simvastatin [Zocor] 20 mg PO HS 08/03/18 08/12/18 History Hydrocodone/Acetaminophen [[place] 1 tab PO Q6HR PRN 3 Days #5 tab 08/05/18 08/12/18 Rx 5-325] Loperamide [Imodium] 2 mg PO BID 08/12/18 08/12/18 History Loratadine [Claritin] 10 mg PO DAILY 08/12/18 08/12/18 History Meclizine [Antivert] 25 mg PO DAILY 08/12/18 08/12/18 History Prochlorperazine [Compazine] 10 mg PO Q6H PRN 08/12/18 08/12/18 History Allergies Allergy/AdvReac Type Severity Reaction Status Date / Time No Known Allergies Allergy Verified 08/12/18 16:53 Physical Exam Vitals: Vital Signs Temp Pulse Pulse Resp BP Pulse Ox 08/13/18 21:19 110 H 08/13/18 20:55 107 H 94 L 08/13/18 16:00 98.4 F 99 16 85/55 95 08/13/18 15:44 16 08/13/18 12:00 101.7 F H 130 H 16 93/62 96 08/13/18 08:00 99.1 F 119 H 16 97/62 97 08/13/18 05:16 99.3 F 131 H 22 93/60 95 08/12/18 23:50 97.8 F 99 18 101/64 96 Intake and Output 08/13/18 08/13/18 08/13/18 06:59 14:59 22:59 Intake Total 220 Balance 220 Intake: Oral 220 Other: Voiding Method Toilet Toilet # Voids 1 1 3 # Bowel Movements 1 Weight 77.2 kg 77.2 kg 67-year-old woman who appears chronically ill, returning from the restroom where she had some dry heaves HEENT: Anicteric conjunctiva are pink and moist nasal mucosa grossly intact without significant lesions, there is no thrush. Neck: The neck is supple without significant lymphadenopathy or thyromegaly. Lungs: Symmetrical air entry crackles at the bases. Extremities no bronchial sounds Heart: Regular rate and rhythm with an audible S1-S2, no S3 no S4. There is no significant murmur click or rub, PMI was nondisplaced. Abdomen: Mildly obese, Positive bowel sounds soft and nontender without palpable masses or organomegaly. There was no guarding or rebound. Extremities: The upper extremities have excellent pulses they are symmetric, no significant petechiae or telangiectasia. No splinter hemorrhages were noted. The lower extremities are free from significant edema. The peripheral pulses were 2+ and symmetric. Neuro: Awake alert oriented to person place and time. There are no acute new gross focal sensory motor deficits. Results CBC & Chem 7: 08/13/18 06:46 08/13/18 06:46 Labs: Abnormal Lab Results - Last 24 Hours (Table) 08/13/18 08/13/18 08/13/18 Range/Units 06:46 06:46 10:15 WBC 0.1 L* (3.8-10.6) k/uL RBC 2.27 L (3.80-5.40) m/uL Hgb 7.0 L D (11.4-16.0) gm/dL Hct 20.7 L (34.0-46.0) % RDW 17.4 H (11.5-15.5) % Plt Count 15 L* D (150-450) k/uL Potassium 3.0 L (3.5-5.1) mmol/L BUN 22 H (7-17) mg/dL Creatinine 1.39 H (0.52-1.04) mg/dL Glucose 126 H (74-99) mg/dL POC Glucose (mg/dL) (75-99) mg/dL Calcium 7.7 L (8.4-10.2) mg/dL Magnesium 1.0 L (1.6-2.3) mg/dL AST 11 L (14-36) U/L Troponin I (0.000-0.034) ng/mL Total Protein 4.8 L (6.3-8.2) g/dL Albumin 2.8 L (3.5-5.0) g/dL 08/13/18 08/13/18 08/13/18 Range/Units 10:15 12:39 16:07 WBC (3.8-10.6) k/uL RBC (3.80-5.40) m/uL Hgb (11.4-16.0) gm/dL Hct (34.0-46.0) % RDW (11.5-15.5) % Plt Count (150-450) k/uL Potassium (3.5-5.1) mmol/L BUN (7-17) mg/dL Creatinine (0.52-1.04) mg/dL Glucose (74-99) mg/dL POC Glucose (mg/dL) 154 H 185 H (75-99) mg/dL Calcium (8.4-10.2) mg/dL Magnesium (1.6-2.3) mg/dL AST (14-36) U/L Troponin I 0.050 H* (0.000-0.034) ng/mL Total Protein (6.3-8.2) g/dL Albumin (3.5-5.0) g/dL 08/13/18 Range/Units 20:28 WBC (3.8-10.6) k/uL RBC (3.80-5.40) m/uL Hgb (11.4-16.0) gm/dL Hct (34.0-46.0) % RDW (11.5-15.5) % Plt Count (150-450) k/uL Potassium (3.5-5.1) mmol/L BUN (7-17) mg/dL Creatinine (0.52-1.04) mg/dL Glucose (74-99) mg/dL POC Glucose (mg/dL) 221 H (75-99) mg/dL Calcium (8.4-10.2) mg/dL Magnesium (1.6-2.3) mg/dL AST (14-36) U/L Troponin I (0.000-0.034) ng/mL Total Protein (6.3-8.2) g/dL Albumin (3.5-5.0) g/dL Microbiology - Last 24 Hours (Table) 08/12/18 17:30 Blood Culture Gram Stain - Preliminary Blood Blood Culture - Preliminary Staphylococcus aureus 08/12/18 17:30 Blood Culture - Final Blood 08/12/18 20:18 Urine Culture - Preliminary Urine,Clean Catch Laboratory Results WBC 0.1 k/uL (3.8-10.6) L* 08/13/18 06:46 RBC 2.27 m/uL (3.80-5.40) L 08/13/18 06:46 Hgb 7.0 gm/dL (11.4-16.0) L D 08/13/18 06:46 Hct 20.7 % (34.0-46.0) L 08/13/18 06:46 MCV 91.1 fL (80.0-100.0) 08/13/18 06:46 MCH 30.9 pg (25.0-35.0) 08/13/18 06:46 MCHC 33.9 g/dL (31.0-37.0) 08/13/18 06:46 RDW 17.4 % (11.5-15.5) H 08/13/18 06:46 Plt Count 15 k/uL (150-450) L* D 08/13/18 06:46 Neutrophils # DIRECTOR OF MARKETING 08/13/18 06:46 Differential Comment 08/13/18 06:46 Manual Slide Review Performed 08/13/18 06:46 Anisocytosis Slight 08/13/18 06:46 PT 10.3 sec (9.0-12.0) 08/12/18 17:30 INR 1.0 (<1.2) 08/12/18 17:30 APTT 16.6 sec (22.0-30.0) L 08/12/18 17:30 Sodium 138 mmol/L (137-145) 08/13/18 06:46 Potassium 3.0 mmol/L (3.5-5.1) L 08/13/18 06:46 Chloride 104 mmol/L (98-107) 08/13/18 06:46 Carbon Dioxide 22 mmol/L (22-30) 08/13/18 06:46 Anion Gap 12 mmol/L 08/13/18 06:46 BUN 22 mg/dL (7-17) H 08/13/18 06:46 Creatinine 1.39 mg/dL (0.52-1.04) H 08/13/18 06:46 Est GFR (CKD-EPI)AfAm 46 (>60 ml/min/1.73 sqM) 08/13/18 06:46 Est GFR (CKD-EPI)NonAf 40 (>60 ml/min/1.73 sqM) 08/13/18 06:46 Glucose 126 mg/dL (74-99) H 08/13/18 06:46 POC Glucose (mg/dL) 221 mg/dL (75-99) H 08/13/18 20:28 POC Glu Minister ID Sara Esquivel 08/13/18 20:28 Plasma Lactic Acid [place] 1.5 mmol/L (0.7-2.0) 08/12/18 17:30 Calcium 7.7 mg/dL (8.4-10.2) L 08/13/18 06:46 Magnesium 1.0 mg/dL (1.6-2.3) L 08/13/18 10:15 Total Bilirubin 0.8 mg/dL (0.2-1.3) 08/13/18 06:46 AST 11 U/L (14-36) L 08/13/18 06:46 ALT 18 U/L (9-52) 08/13/18 06:46 Alkaline Phosphatase 76 U/L (38-126) 08/13/18 06:46 Troponin I 0.050 ng/mL (0.000-0.034) H* 08/13/18 10:15 Total Protein 4.8 g/dL (6.3-8.2) L 08/13/18 06:46 Albumin 2.8 g/dL (3.5-5.0) L 08/13/18 06:46 Urine Color Yellow 08/12/18 20:18 Urine Appearance Clear (Clear) 08/12/18 20:18 Urine pH 5.5 (5.0-8.0) 08/12/18 20:18 Ur Specific [place] 1.014 (1.001-1.035) 08/12/18 20:18 Urine Protein 1+ (Negative) H 08/12/18 20:18 Urine Glucose (UA) Negative (Negative) 08/12/18 20:18 Urine Ketones Negative (Negative) 08/12/18 20:18 Urine Blood Trace (Negative) H 08/12/18 20:18 Urine Nitrite Negative (Negative) 08/12/18 20:18 Urine Bilirubin Negative (Negative) 08/12/18 20:18 Urine Urobilinogen <2.0 mg/dL (<2.0) 08/12/18 20:18 Ur Leukocyte Esterase Negative (Negative) 08/12/18 20:18 Urine RBC 1 /hpf (0-5) 08/12/18 20:18 Urine WBC 1 /hpf (0-5) 08/12/18 20:18 Ur Squamous Epith Cells 1 /hpf (0-4) 08/12/18 20:18 Urine Bacteria Rare /hpf (None) H 08/12/18 20:18 Urine Mucus Rare /hpf (None) H 08/12/18 20:18 C. 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 Has been receiving chemotherapy but had progression of disease and is not received first cycle of Camptosar and carboplatin, and 08/05 her first dose of Neulasta. Now presenting feeling poorly with fevers chills or gastrointestinal symptoms with the nausea abdominal pain and some diarrhea. Since admission feels a little better today and is able to ingest a small amount of fluids and soft foods. Working with oncology for maneuvers to improve her nausea. Is receiving Neulasta. Antimicrobial therapy with cefepime and Vanco will be utilized. Is likely abdominal discomforts that she is having it on the basis of some mucositis and gastrointestinal effects from the recent chemot herapy. Current Visit: Yes Status: Acute Priority: High Code(s): D70.9 - NEUTROPENIA, UNSPECIFIED; R50.81 - FEVER PRESENTING WITH CONDITIONS CLASSIFIED ELSEWHERE SNOMED Code(s): 925237188 (2) Pneumonia Current Visit: Yes Status: Acute Code(s): J18.9 - PNEUMONIA, UNSPECIFIED ORGANISM SNOMED Code(s): 317909932
[2018-08-13] MEDS: SALT AND SODA MOUTHWASH 1,000 ML PO SCH (23:58)
[2018-08-13] MEDS: CEFEPIME 2 GM in SODIUM CHLORIDE 0.9% 100 ML IVPB SCH (23:58)
[2018-08-14] MEDS: ACETAMINOPHEN TAB 325 MG TAB PO PRN (00:09)
[2018-08-14 01:37] LABS: Glucose,Whole Blood 199 mg/dL (75-99)
[2018-08-14] MEDS: HYDROcodone/APAP 5-325MG 1 EACH TAB PO PRN ×2 (06:04→23:44)
[2018-08-14] MEDS: SODIUM CHLORIDE 0.9% 1,000 ML IV SCH ×4 (06:07→16:35)
[2018-08-14 06:18] LABS: Glucose,Whole Blood 145 mg/dL (75-99)
[2018-08-14] MEDS ORDERED: SODIUM CHLORIDE 0.9% 500 ML 500 ML IV ONE ×2 (07:17→12:12)
[2018-08-14] MEDS: IPRATROPIUM-ALBUTEROL 3 ML NEB INHALATION SCH ×4 (07:26→19:29)
[2018-08-14] MEDS: INSULIN ASPART (NovoLOG) 100 UNIT/ML VIAL SQ SCH ×4 (07:33→21:43)
--- NOTE | 2018-08-14 08:41 | P.PN ---
Subjective Patient is seen in follow-up for acute kidney injury. Patient presented with severe nausea and vomiting. She is currently on clear liquid diet. Still feels nauseous. Urine output is good. Blood pressure this morning was 80/52 and she received a 500 mL bolus of normal saline. Vital signs are stable. General: The patient appeared well nourished and normally developed. HEENT: Head exam is unremarkable. Neck is without jugular venous distension. LUNGS: Lungs are clear to auscultation and percussion. Breath sounds decreased. HEART: Rate and Rhythm are regular. First and second heart sounds normal. No murmurs, rubs or gallops. ABDOMEN: Abdominal exam reveals normal bowel sounds. Non-tender and non- distended. No evidence of peritonitis. EXTREMITITES: No clubbing, cyanosis, or edema. Objective - Vital Signs Vital signs: Vital Signs Temp 97.9 F 08/14/18 04:00 Pulse 108 H 08/14/18 07:37 Resp 16 08/14/18 04:00 BP 80/52 08/14/18 04:00 Pulse Ox 96 08/14/18 04:00 Intake & Output 08/13/18 08/14/18 08/14/18 18:59 06:59 18:59 Intake Total 220 Balance 220 Weight 77.2 kg 77.1 kg Intake: Oral 220 Other: Voiding Method Toilet # Voids 5 1 # Bowel Movements 1 - Labs CBC & Chem 7: 08/13/18 06:46 08/13/18 06:46 Labs: Abnormal Lab Results - Last 24 Hours (Table) 08/13/18 08/13/18 08/13/18 Range/Units 10:15 10:15 12:39 POC Glucose (mg/dL) 154 H (75-99) mg/dL Magnesium 1.0 L (1.6-2.3) mg/dL Troponin I 0.050 H* (0.000-0.034) ng/mL 08/13/18 08/13/18 08/14/18 Range/Units 16:07 20:28 01:31 POC Glucose (mg/dL) 185 H 221 H 199 H (75-99) mg/dL Magnesium (1.6-2.3) mg/dL Troponin I (0.000-0.034) ng/mL 08/14/18 Range/Units 06:16 POC Glucose (mg/dL) 145 H (75-99) mg/dL Magnesium (1.6-2.3) mg/dL Troponin I (0.000-0.034) ng/mL Microbiology - Last 24 Hours (Table) 08/12/18 20:18 Urine Culture - Final Urine,Clean Catch 08/12/18 17:30 Blood Culture Gram Stain - Preliminary Blood Blood Culture - Preliminary Staphylococcus aureus 08/12/18 17:30 Blood Culture - Final Blood Assessment and Plan Plan: Assessment: 1. Acute kidney injury mostly prerenal secondary to intravascular volume depletion from vomiting and diarrhea as well as use of nonsteroidals. Creatinine 1.39 as of yesterday. 2. Pancytopenia secondary to chemotherapy. 3. Diarrhea. Better. C. diff negative. 4. Nausea and vomiting. Possible gastroenteritis. 5. Hypokalemia secondary to GI losses and diuretics. Severe magnesium deficiency noted. 6. Small cell lung cancer. Last chemotherapy on July 27. Oncology following. 7. Hypomagnesemia secondary to GI losses. Status post placement. 8. Hypotension secondary to sepsis. 9. Staph aureus bacteremia. Maintained on IV antibiotics. Plan: Maintain normal saline at 100 mL an hour. Patient received 500 mL bolus of normal saline this morning. I will check an a.m. cortisol level as well. Continue to hold diuretics. Avoid nephrotoxins. Discontinued ibuprofen and Toradol. Monitor vancomycin levels. Dose to be adjusted for renal function. Morning labs pending.
[2018-08-14 08:45] LABS: Albumin 2.7 g/dL (3.5-5.0); Calcium 7.9 mg/dL (8.4-10.2); Magnesium 1.8 mg/dL (1.6-2.3); Potassium 2.9 mmol/L (3.5-5.1); Total Bilirubin 1.1 mg/dL (0.2-1.3); Total Protein 4.8 g/dL (6.3-8.2)
[2018-08-14] MEDS: SALT AND SODA MOUTHWASH 1,000 ML PO SCH ×3 (08:51→19:37)
[2018-08-14] MEDS ORDERED: ERGOCALCIFEROL 50,000 UNIT CAP PO SCH (09:00)
[2018-08-14 09:01] LABS: Anisocytosis Slight; HCT 21.9 % (34.0-46.0); HGB 7.2 gm/dL (11.4-16.0); Hypochromasia Slight; MCH 30.7 pg (25.0-35.0); MCV 93.2 fL (80.0-100.0); Mean Platelet Volume 7.7; RBC 2.35 m/uL (3.80-5.40); RDW 17.3 % (11.5-15.5)
[2018-08-14] MEDS: CEFEPIME 2 GM in SODIUM CHLORIDE 0.9% 100 ML IVPB SCH ×2 (09:14→22:09)
[2018-08-14] MEDS: LOPERAMIDE 2 MG CAP PO SCH ×2 (09:15→21:44)
[2018-08-14] MEDS: PANTOPRAZOLE 40 MG/10 ML VIAL IV SCH (09:15)
[2018-08-14] MEDS: MECLIZINE 25 MG TAB PO SCH (09:15)
[2018-08-14] MEDS: LORATADINE 10 MG TAB PO SCH (09:15)
[2018-08-14] MEDS: busPIRone HCl 10 MG TAB PO SCH ×3 (09:15→22:09)
[2018-08-14 09:16] LABS: Platelet Count 8 k/uL (150-450); WBC 0.2 k/uL (3.8-10.6)
[2018-08-14] MEDS: PENTOXIFYLLINE 400 MG TABLET.ER PO SCH ×2 (09:16→16:35)
[2018-08-14] MEDS: ALPRAZolam 0.25 MG TAB PO PRN ×2 (09:20→22:10)
[2018-08-14] MEDS ORDERED: POTASSIUM CHLORIDE ER 20 MEQ TAB.ER PO STA (09:46)
--- NOTE | 2018-08-14 10:30 | P.PN ---
Subjective Progress Note Date: 08/14/18 This is a 67-year-old female patient who presented with complaints of fever nausea and vomiting. Patient has a known medical history of metastatic primary lung cancer. Patient has been receiving chemotherapy and radiation. Patient's last chemotherapy was on 07/27/2018. Patient does follow with oncology services. Patient reports that she started to not feel well on Friday with increased nausea and vomiting. Patient also states she has temperature of 100.4. Patient also reports she's had episodes of diarrhea. Additional medical history includes hyperlipidemia, hypertension, pneumonia and recent chest wall point placement. Chest x-ray completed showing extensive pneumonic infiltrate on the left pulmonary hilum and volume loss there is slight improved aeration of the left lung compared to last exam. Right upper lobe nodule infiltrate unchanged. Left pleural effusion as compared to old exam. EKG completed showing sinus tachycardia. Patient's white blood cells low at 0.1 platelets 15. Patient's creatinine also slightly elevated at 1.39 and bun 22. Low at 3.0. At this time pathology services have been consulted. Dr. Mckeon consulted for infectious disease due to neutropenia chemotherapy. Dr. Gar consulted for pulmonary care. Potassium replacement protocol. Patient started vancomycin for IV antibiotics. Blood, urine and sputum cultures ordered. Insulin ordered. C. diff sample ordered. At this time patient's blood pressure systolic in the 90s elevated heart rate, lactic acid 1.5. We'll give 500 mL bolus. At this time patient is still complaining of some nausea and vomiting. Patient denies chest pain or shortness of breath. Patient denies any burning with urination On 08/14/2018 patient is alert and oriented 3. Patient states she feels slightly improved from yesterday. Patient did receive another 500 mL bolus the same for low blood pressure. Blood culture positive for Staphylococcus aureus. currently on Maxipime and vancomycin infectious disease is following. At this time patient denies chest pain or shortness breath. Patient denies any urinary burning or frequency Objective - Vital Signs Vital signs: Vital Signs Temp 97.9 F 08/14/18 04:00 Pulse 108 H 08/14/18 07:37 Resp 16 08/14/18 04:00 BP 80/52 08/14/18 04:00 Pulse Ox 96 08/14/18 04:00 Intake & Output 08/13/18 08/14/18 08/14/18 18:59 06:59 18:59 Intake Total 220 0 Balance 220 0 Weight 77.2 kg 77.1 kg Intake: Oral 220 0 Other: Voiding Method Toilet # Voids 5 1 # Bowel Movements 1 - Exam Head normocephalic Neck supple Lungs clear to auscultation bilaterally no wheezing or crackles Heart regular rate and rhythm S1-S2, no rub or gallop Abdomen is soft nontender nondistended positive bowel sounds no hepatos plenomegaly Extremities no edema Neuro alert and orientated to 3 - Labs CBC & Chem 7: 08/14/18 07:34 08/14/18 07:34 Labs: Abnormal Lab Results - Last 24 Hours (Table) 08/13/18 08/13/18 08/13/18 Range/Units 10:15 10:15 12:39 WBC (3.8-10.6) k/uL RBC (3.80-5.40) m/uL Hgb (11.4-16.0) gm/dL Hct (34.0-46.0) % RDW (11.5-15.5) % Plt Count (150-450) k/uL Potassium (3.5-5.1) mmol/L BUN (7-17) mg/dL Creatinine (0.52-1.04) mg/dL Glucose (74-99) mg/dL POC Glucose (mg/dL) 154 H (75-99) mg/dL Calcium (8.4-10.2) mg/dL Magnesium 1.0 L (1.6-2.3) mg/dL AST (14-36) U/L Troponin I 0.050 H* (0.000-0.034) ng/mL Total Protein (6.3-8.2) g/dL Albumin (3.5-5.0) g/dL 08/13/18 08/13/18 08/14/18 Range/Units 16:07 20:28 01:31 WBC (3.8-10.6) k/uL RBC (3.80-5.40) m/uL Hgb (11.4-16.0) gm/dL Hct (34.0-46.0) % RDW (11.5-15.5) % Plt Count (150-450) k/uL Potassium (3.5-5.1) mmol/L BUN (7-17) mg/dL Creatinine (0.52-1.04) mg/dL Glucose (74-99) mg/dL POC Glucose (mg/dL) 185 H 221 H 199 H (75-99) mg/dL Calcium (8.4-10.2) mg/dL Magnesium (1.6-2.3) mg/dL AST (14-36) U/L Troponin I (0.000-0.034) ng/mL Total Protein (6.3-8.2) g/dL Albumin (3.5-5.0) g/dL 08/14/18 08/14/18 08/14/18 Range/Units 06:16 07:34 07:34 WBC 0.2 L* (3.8-10.6) k/uL RBC 2.35 L (3.80-5.40) m/uL Hgb 7.2 L (11.4-16.0) gm/dL Hct 21.9 L (34.0-46.0) % RDW 17.3 H (11.5-15.5) % Plt Count 8 L* (150-450) k/uL Potassium 2.9 L (3.5-5.1) mmol/L BUN 26 H (7-17) mg/dL Creatinine 1.43 H (0.52-1.04) mg/dL Glucose 123 H (74-99) mg/dL POC Glucose (mg/dL) 145 H (75-99) mg/dL Calcium 7.9 L (8.4-10.2) mg/dL Magnesium (1.6-2.3) mg/dL AST 11 L (14-36) U/L Troponin I (0.000-0.034) ng/mL Total Protein 4.8 L (6.3-8.2) g/dL Albumin 2.7 L (3.5-5.0) g/dL Microbiology - Last 24 Hours (Table) 08/12/18 20:18 Urine Culture - Final Urine,Clean Catch 08/12/18 17:30 Blood Culture Gram Stain - Preliminary Blood Blood Culture - Preliminary Staphylococcus aureus 08/12/18 17:30 Blood Culture - Final Blood Assessment and Plan Assessment: 1. Neutropenia with fever and sepsis positive for staph aureus bacteremia. Dr. Mckeon for infectious disease following. Lactic acid 1.5. Patient currently on Maxipime and vancomycin 2. Nausea vomiting and diarrhea. Dr. Mckeon consulted. C. diff ordered 3. Acute kidney injury. Per nephrology most likely prerenal secondary to intravascular volume depletion 4. Hypotension secondary to sepsis. He has received [address] Gar is following 5. Pneumonia. Chest x-ray completed showing extensive pneumonic infiltrate or on the left pulmonary hilum with volume loss. There is slight improved aeration of the left lung compared to last exam. Right upper lobe nodule unchanged left pleural fluid decreased compared to old exam. Dr. Gar has been consulted for pulmonary critical care 6. Metastatic small cell lung cancer. Status post first cycle of camptosar and caqrboplatin, salvage chemotherapy. Patient also received radiation to brain. Oncology services following 7. Hypokalemia. Replace per protocol. Nephrology services consulted. Potassium 2.9 replace per nephrology. 8. Pancytopenia secondary to chemotherapy 9. Underlying history of essential hypertension 10. History of hyperlipidemia 11. History of COPD 12. History of previous tobacco use 13. History of anxiety disorder 14. Abdominal aortic aneurysm. Previously seen on renal ultrasound showing aortic aneurysm measuring up to 5 cm in diameter. The length is more than 8 cm. Patient to follow with outpatient services and PCP 15. Hypomagnesemia. Replace per protocol. Repeat magnesium 1.8. 16. Mildly elevated troponin. Troponin 0.050. Cardiology services have been consulted 17. Tachycardia likely secondary to sepsis and volume depletion. Patient did receive 2 500 mL boluses. Cardiology services consulted. DVT prophylaxis SCDs due to thrombocytopenia. GI prophylaxis Protonix Oncology, infectious disease, nephrology and pulmonary service is consulted. I performed an examination of the patient and discussed their management with the Nurse Practitioner. I have reviewed the Nurse Practitioner's notes and agree with the documented findings and plan of care
[2018-08-14 11:53] LABS: Glucose,Whole Blood 181 mg/dL (75-99)
--- NOTE | 2018-08-14 13:56 | CONS ---
CONSULTATION CHIEF COMPLAINT: Elevated troponin/ Evelyn is a 67-year-old lady with non-small cell lung cancer with recurrence and brain METS who is status post radiation and chemotherapy, who was admitted to hospital primarily with sepsis and pancytopenia. Cardiology had been consulted for mild troponin elevation. Patient did not have any chest pain and did not have shortness of breath. Her EKG shows sinus tachycardia with nonspecific ST-T wave changes. Troponin elevation is of no clinical significance or relevance in this patient with advanced and metastatic cancer. No further workup is needed from cardiac standpoint. PAST MEDICAL HISTORY: Significant for metastatic cancer, dyslipidemia. MEDICATIONS: Include nebulizer, Xanax, Zocor, Compazine, Trental, Protonix, Antivert. ALLERGIES: There are no known drug allergies. FAMILY HISTORY: Negative for premature coronary artery disease. SOCIAL HISTORY: Negative for smoking. There is no history of EtOH abuse or drug abuse. REVIEW OF SYSTEMS: Significant for fatigue, tiredness and problems related to metastatic cancer. On exam, vital signs are stable. Chest exam reveals good air entry bilaterally. Heart exam reveals first and second heart sounds. No gallop. Exam of extremities reveals 1+ edema. Peripheral pulses are felt. ASSESSMENT: 1. Troponin elevation is of no clinical significance in this patient. She did not have a myocardial infarction. 2. Metastatic cancer. PLAN: No further cardiac workup. I will see her as needed. MMODL / IJN: [id number] /
--- NOTE | 2018-08-14 14:31 | P.PN ---
Subjective Progress Note Date: 08/14/18 Principal diagnosis: Neutropenic sepsis, small cell lung cancer On 08/14/2018 patient seen in follow-up in the selective care unit, she is awake and alert, patient has been hypotensive, requiring fluid bolusing, systolic has been in the 80s, and patient has received a total of 1500 mL and fluid boluses in the last 24 hours, 500 mL at a time, 3 different occasions. Blood culture showed Staphylococcus aureus, sensitivities pending, urine culture showed no growth. Recurrent antibiotic coverage in the form of cefepime and vancomycin. Her last febrile episode was yesterday at noon with a T-max of 101.7F, patient has been afebrile since. Today's labs have been reviewed, and showed white blood cell count of 0.2, hemoglobin of 7.2, platelet count is 8, sodium is 138, potassium is 2.9, B1 is 26, creatinine is 1.43. Serum cortisol was greater than 123. Patient is generally weak, but in no acute distress. She denies any chest pain or shortness of breath, denies any abdominal pain, lung sounds are clear, no wheezing or crackles. Abdomen is soft, nontender. Patient is awake and alert, oriented 3. Her is at the bedside, and today we had an extensive discussion about CODE STATUS, patient states she wants to continue with aggressive medical therapy despite her recurrent metastatic small cell lung cancer. She is not opposed to intubation and placement on mechanical ventilation if there is any. Her stated that during previous discussions patient did not want to be on the life support, this has clearly changed. We recommended that they have further discussions and decided on the CODE STATUS. Continue with current medical therapy, we'll increase the dose to 250 ML per hour. Objective - Vital Signs Vital signs: Vital Signs Temp 98.7 F 08/14/18 08:00 Pulse 78 08/14/18 12:00 Resp 16 08/14/18 12:00 BP 114/68 08/14/18 12:00 Pulse Ox 96 08/14/18 12:00 Intake & Output 08/13/18 08/14/18 08/14/18 18:59 06:59 18:59 Intake Total 220 0 Balance 220 0 Weight 77.2 kg 77.1 kg Intake: Oral 220 0 Other: Voiding Method Toilet Toilet # Voids 5 1 # Bowel Movements 1 - Exam GENERAL EXAM: Alert, pleasant, 67-year-old white female, comfortable in no apparent distress. HEAD: Normocephalic/atraumatic. EYES: Normal reaction of pupils, equal size. Conjunctiva pink, sclera white. NOSE: Clear with pink turbinates. THROAT: No erythema or exudates. NECK: No masses, no JVD, no thyroid enlargement, no adenopathy. CHEST: No chest wall deformity. Symmetrical expansion. LUNGS: Equal air entry with no crackles, wheeze, rhonchi or dullness. CVS: Regular rate and rhythm, normal S1 and S2, no gallops, no murmurs, no rubs ABDOMEN: Soft, nontender. No hepatosplenomegaly, normal bowel sounds, no guarding or rigidity. EXTREMITIES: No clubbing, no edema, no cyanosis, 2+ pulses and upper and lower extremities. MUSCULOSKELETAL: Muscle strength and tone normal. SPINE: No scoliosis or deformity SKIN: No rashes CENTRAL NERVOUS SYSTEM: Alert and oriented -3. No focal deficits, tone is normal in all 4 extremities. PSYCHIATRIC: Alert and oriented -3. Appropriate affect. Intact judgment and insight. - Labs CBC & Chem 7: 08/14/18 07:34 08/14/18 07:34 Labs: Abnormal Lab Results - Last 24 Hours (Table) 08/13/18 08/13/18 08/14/18 Range/Units 16:07 20:28 01:31 WBC (3.8-10.6) k/uL RBC (3.80-5.40) m/uL Hgb (11.4-16.0) gm/dL Hct (34.0-46.0) % RDW (11.5-15.5) % Plt Count (150-450) k/uL Potassium (3.5-5.1) mmol/L BUN (7-17) mg/dL Creatinine (0.52-1.04) mg/dL Glucose (74-99) mg/dL POC Glucose (mg/dL) 185 H 221 H 199 H (75-99) mg/dL Calcium (8.4-10.2) mg/dL AST (14-36) U/L Total Protein (6.3-8.2) g/dL Albumin (3.5-5.0) g/dL 08/14/18 08/14/18 08/14/18 Range/Units 06:16 07:34 07:34 WBC 0.2 L* (3.8-10.6) k/uL RBC 2.35 L (3.80-5.40) m/uL Hgb 7.2 L (11.4-16.0) gm/dL Hct 21.9 L (34.0-46.0) % RDW 17.3 H (11.5-15.5) % Plt Count 8 L* (150-450) k/uL Potassium 2.9 L (3.5-5.1) mmol/L BUN 26 H (7-17) mg/dL Creatinine 1.43 H (0.52-1.04) mg/dL Glucose 123 H (74-99) mg/dL POC Glucose (mg/dL) 145 H (75-99) mg/dL Calcium 7.9 L (8.4-10.2) mg/dL AST 11 L (14-36) U/L Total Protein 4.8 L (6.3-8.2) g/dL Albumin 2.7 L (3.5-5.0) g/dL 08/14/18 Range/Units 11:45 WBC (3.8-10.6) k/uL RBC (3.80-5.40) m/uL Hgb (11.4-16.0) gm/dL Hct (34.0-46.0) % RDW (11.5-15.5) % Plt Count (150-450) k/uL Potassium (3.5-5.1) mmol/L BUN (7-17) mg/dL Creatinine (0.52-1.04) mg/dL Glucose (74-99) mg/dL POC Glucose (mg/dL) 181 H (75-99) mg/dL Calcium (8.4-10.2) mg/dL AST (14-36) U/L Total Protein (6.3-8.2) g/dL Albumin (3.5-5.0) g/dL Microbiology - Last 24 Hours (Table) 08/12/18 20:18 Urine Culture - Final Urine,Clean Catch 08/12/18 17:30 Blood Culture Gram Stain - Preliminary Blood Blood Culture - Preliminary Staphylococcus aureus 08/12/18 17:30 Blood Culture - Final Blood Assessment and Plan Plan: Assessment: #1. Neutropenic sepsis, with septic shock, source is under investigation #2. History of small cell lung cancer, status post 2 rounds of chemotherapy, with [employer]-16 and carboplatin #3. Hyperlipidemia #4. History of hypertension #5. Of pneumonia #6. Peripheral vascular occlusive disease #7. His history of breast cancer #8. Acute kidney injury #9. Diarrhea, nausea and vomiting, C. diff was negative #10. Staph aureus bacteremia Plan: Continue with IV antibiotics per ID service recommendations, awaiting final sensitivities. Patient remains hypotensive, has received to additional liter and a half and fluid boluses since yesterday, we'll increase the maintenance IV fluids to 250 ML per hour, this time. Extensive discussion with the patient and the at the bedside regarding her wishes regarding her medical care in case her condition should deteriorate. The patient had previously expressed her wishes against being on life-support, however at this time she wants to proceed with aggressive medical care loading placement on life-support if need be, we advised the patient and the to further discuss this. Patient has advanced metastatic lung cancer with recurrence, and aggressive resuscitation placement on life-support would not be advised. We will let the patient and the discuss this and will continue with supportive medical treatment. I performed a history & physical examination of the patient and discussed their management with my nurse practitioner, Rita Hopkins. I reviewed the nurse practitioner's note and agree with the documented findings and plan of care. Lung sounds are positive for diffuse wheezes throughout the lung pederson. The findings and the impression was discussed with the patient. I attest to the documentation by the nurse practitioner. Time with Patient: Less than 30
[2018-08-14] MEDS: ATENOLOL 25 MG TAB PO SCH ×2 (16:20→21:43)
[2018-08-14] MEDS: VANCOMYCIN 1,500 MG in SODIUM CHLORIDE 0.9% 250 ML IVPB SCH (16:35)
[2018-08-14 16:57] LABS: Glucose,Whole Blood 152 mg/dL (75-99)
[2018-08-14 20:33] LABS: Glucose,Whole Blood 148 mg/dL (75-99)
[2018-08-14] MEDS: ATORVASTATIN 10 MG TAB PO SCH (22:10)
--- NOTE | 2018-08-14 22:54 | P.PN ---
Subjective Progress Note Date: 08/14/18 67-year-old woman with a complex past medical history presents to Hospital feeling poorly with fever, abdominal discomfort and profuse diarrhea. The patient has a history of several years ago of breast carcinoma that was treated and did relatively well. However thousand she started to feel poorly and evaluations revealed evidence of lung mass. 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 She was initiated to treatment regiment and has had disease progression despite her courses of chemotherapy. 08/04/2018 she was initiated to Camptosar carboplatin regiment and 08/05 did receive a dose of Neulasta. However at home she has evidence of the onset of the symptoms including fever in the profuse diarrhea and progressive weakness and was brought to hospital. With evidence of febrile neutropenia the infectious diseases consultation was requested. 08/14/2018 patient has had significant worsening of her status. She's having difficulty with hypotension and not responding well to fluid boluses. She's been seen by pulmonary critical care as well as oncology. There is significant attempts of trying to clarify her CODE STATUS given her rapidly deteriorating status and her advanced metastatic lung cancer. She complains a bit of a dry mouth Objective - Vital Signs Vital signs: Vital Signs Temp 98.7 F 08/14/18 08:00 Pulse 116 H 08/14/18 16:00 Resp 16 08/14/18 16:00 BP 82/51 08/14/18 16:00 Pulse Ox 96 08/14/18 16:00 Intake & Output 08/14/18 08/14/18 08/15/18 06:59 18:59 06:59 Intake Total 1625 Balance 1625 Weight 77.1 kg Intake: Intake, IV Titration 1600 Amount Sodium Chloride 0.9% 1, 1100 000 ml @ 250 mls/hr IV . 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 Has been receiving chemotherapy but had progression of disease and is not received first cycle of Camptosar and carboplatin, and 08/05 her first dose of Neulasta. Now presenting feeling poorly with fevers chills or gastrointestinal symptoms with the nausea abdominal pain and some diarrhea. Since admission feels a little better today and is able to ingest a small amount of fluids and soft foods. Working with oncology for maneuvers to improve her nausea. Is receiving Neulasta. Antimicrobial therapy with cefepime and Vanco will be utilized. Is likely abdominal discomforts that she is having it on the basis of some mucositis and gastrointestinal effects from the recent chemotherapy. 08/14/2018 patient has had significant decline of her status. Has evidence of staph aureus bacteremia without evidence of an underlying indwelling catheter. Extensive education is occurred throughout the day with the multiple teams trying to ensure the patient and family understand the futility of CPR in the situation of advanced metastatic cancer. Based on current data patient is on appropriate antibiotic therapy. - Labs CBC & Chem 7: 08/14/18 07:34 08/14/18 07:34 Labs: Abnormal Lab Results - Last 24 Hours (Table) 08/14/18 08/14/18 08/14/18 Range/Units 01:31 06:16 07:34 WBC 0.2 L* (3.8-10.6) k/uL RBC 2.35 L (3.80-5.40) m/uL Hgb 7.2 L (11.4-16.0) gm/dL Hct 21.9 L (34.0-46.0) % RDW 17.3 H (11.5-15.5) % Plt Count 8 L* (150-450) k/uL Potassium (3.5-5.1) mmol/L BUN (7-17) mg/dL Creatinine (0.52-1.04) mg/dL Glucose (74-99) mg/dL POC Glucose (mg/dL) 199 H 145 H (75-99) mg/dL Calcium (8.4-10.2) mg/dL AST (14-36) U/L Total Protein (6.3-8.2) g/dL Albumin (3.5-5.0) g/dL 08/14/18 08/14/18 08/14/18 Range/Units 07:34 11:45 16:53 WBC (3.8-10.6) k/uL RBC (3.80-5.40) m/uL Hgb (11.4-16.0) gm/dL Hct (34.0-46.0) % RDW (11.5-15.5) % Plt Count (150-450) k/uL Potassium 2.9 L (3.5-5.1) mmol/L BUN 26 H (7-17) mg/dL Creatinine 1.43 H (0.52-1.04) mg/dL Glucose 123 H (74-99) mg/dL POC Glucose (mg/dL) 181 H 152 H (75-99) mg/dL Calcium 7.9 L (8.4-10.2) mg/dL AST 11 L (14-36) U/L Total Protein 4.8 L (6.3-8.2) g/dL Albumin 2.7 L (3.5-5.0) g/dL 08/14/18 Range/Units 20:31 WBC (3.8-10.6) k/uL RBC (3.80-5.40) m/uL Hgb (11.4-16.0) gm/dL Hct (34.0-46.0) % RDW (11.5-15.5) % Plt Count (150-450) k/uL Potassium (3.5-5.1) mmol/L BUN (7-17) mg/dL Creatinine (0.52-1.04) mg/dL Glucose (74-99) mg/dL POC Glucose (mg/dL) 148 H (75-99) mg/dL Calcium (8.4-10.2) mg/dL AST (14-36) U/L Total Protein (6.3-8.2) g/dL Albumin (3.5-5.0) g/dL Microbiology - Last 24 Hours (Table) 08/12/18 20:18 Urine Culture - Final Urine,Clean Catch Assessment and Plan (1) Fever and neutropenia Current Visit: Yes Status: Acute Priority: High Code(s): D70.9 - NEUTROPENIA, UNSPECIFIED; R50.81 - FEVER PRESENTING WITH CONDITIONS CLASSIFIED ELSEWHERE SNOMED Code(s): 196325959 (2) Pneumonia Current Visit: Yes Status: Acute Code(s): J18.9 - PNEUMONIA, UNSPECIFIED ORGANISM SNOMED Code(s): 782475381
[2018-08-14] MEDS: ALBUMIN HUMAN 25% 50 ML in EMPTY BAG 1 BAG IVPB SCH (23:33)
[2018-08-15] MEDS: SODIUM CHLORIDE 0.9% 1,000 ML IV SCH ×5 (00:24→14:34)
[2018-08-15] MEDS: SALT AND SODA MOUTHWASH 1,000 ML PO SCH ×6 (00:25→22:07)
[2018-08-15] MEDS: PENTOXIFYLLINE 400 MG TABLET.ER PO SCH ×2 (00:29→14:40)
[2018-08-15] MEDS: ALBUMIN HUMAN 25% 50 ML in EMPTY BAG 1 BAG IVPB SCH (00:40)
[2018-08-15 06:42] LABS: Glucose,Whole Blood 143 mg/dL (75-99)
[2018-08-15] MEDS: INSULIN ASPART (NovoLOG) 100 UNIT/ML VIAL SQ SCH (06:42)
[2018-08-15 07:00] LABS: Anisocytosis Slight; Hypochromasia Moderate; MCH 31.2 pg (25.0-35.0); MCHC 32.7 g/dL (31.0-37.0); MCV 95.3 fL (80.0-100.0); Mean Platelet Volume 9.1; RBC 1.99 m/uL (3.80-5.40); RDW 17.2 % (11.5-15.5)
[2018-08-15 07:11] LABS: WBC 0.1 k/uL (3.8-10.6)
[2018-08-15 07:13] LABS: HGB 6.2 gm/dL (11.4-16.0)
[2018-08-15 07:26] LABS: Platelet Count 17 k/uL (150-450)
[2018-08-15] MEDS: IPRATROPIUM-ALBUTEROL 3 ML NEB INHALATION SCH ×4 (07:30→18:59)
[2018-08-15 08:18] LABS: Albumin 2.8 g/dL (3.5-5.0); Calcium 8.5 mg/dL (8.4-10.2); Potassium 3.3 mmol/L (3.5-5.1); Total Bilirubin 1.1 mg/dL (0.2-1.3); Total Protein 4.9 g/dL (6.3-8.2)
[2018-08-15] MEDS ORDERED: Potassium Replacement Protocol 1 EACH MISC MISCELLANE PRN (09:41)
[2018-08-15 09:43] LABS: Glucose,Whole Blood 171 mg/dL (75-99)
[2018-08-15] MEDS ORDERED: LORazepam 2 MG/ML INJ IV PRN (11:18)
[2018-08-15] MEDS ORDERED: MORPHINE SULFATE 2 MG/ML SYRINGE IVP PRN (11:18)
--- NOTE | 2018-08-15 11:45 | P.PN ---
Subjective Progress Note Date: 08/15/18 This is a 67-year-old female patient who presented with complaints of fever nausea and vomiting. Patient has a known medical history of metastatic primary lung cancer. Patient has been receiving chemotherapy and radiation. Patient's last chemotherapy was on 07/27/2018. Patient does follow with oncology services. Patient reports that she started to not feel well on Friday with increased nausea and vomiting. Patient also states she has temperature of 100.4. Patient also reports she's had episodes of diarrhea. Additional medical history includes hyperlipidemia, hypertension, pneumonia and recent chest wall point placement. Chest x-ray completed showing extensive pneumonic infiltrate on the left pulmonary hilum and volume loss there is slight improved aeration of the left lung compared to last exam. Right upper lobe nodule infiltrate unchanged. Left pleural effusion as compared to old exam. EKG completed showing sinus tachycardia. Patient's white blood cells low at 0.1 platelets 15. Patient's creatinine also slightly elevated at 1.39 and bun 22. Low at 3.0. At this time pathology services have been consulted. Dr. Mckeon consulted for infectious disease due to neutropenia chemotherapy. Dr. Gar consulted for pulmonary care. Potassium replacement protocol. Patient started vancomycin for IV antibiotics. Blood, urine and sputum cultures ordered. Insulin ordered. C. diff sample ordered. At this time patient's blood pressure systolic in the 90s elevated heart rate, lactic acid 1.5. We'll give 500 mL bolus. At this time patient is still complaining of some nausea and vomiting. Patient denies chest pain or shortness of breath. Patient denies any burning with urination On 08/14/2018 patient is alert and oriented 3. Patient states she feels slightly improved from yesterday. Patient did receive another 500 mL bolus the same for low blood pressure. Blood culture positive for Staphylococcus aureus. currently on Maxipime and vancomycin infectious disease is following. At this time patient denies chest pain or shortness breath. Patient denies any urinary burning or frequency On 08/15/2018 patient declined throughout night. Patient is confused and not following commands. Patient remains hypotensive and tachycardic. Family is at bedside. At this time due to patient's prognosis and metastatic lung cancer family requesting to make patient comfortable and consult hospice care. Ativan and morphine orders placed hospice care consult ordered Objective - Vital Signs Vital signs: Vital Signs Temp 97.9 F 08/15/18 10:30 Pulse 120 H 08/15/18 11:15 Resp 30 H 08/15/18 10:30 BP 98/65 08/15/18 10:30 Pulse Ox 92 L 08/15/18 10:30 Intake & Output 08/14/18 08/15/18 08/15/18 18:59 06:59 18:59 Intake Total 1625 1685 0 Output Total 450 Balance 1625 1235 0 Weight 84.5 kg Intake: Intake, IV Titration 1600 1325 Amount Albumin Human 25% 50 ml 100 In Empty Bag 1 bag @ 50 mls/hr IVPB Q1H [facility] Rx#: [id number] Cefepime 2 gm In Sodium 100 Chloride 0.9% 100 ml @ 200 mls/hr IVPB Q12HR [facility] Rx#:[id number] Sodium Chloride 0.9% 1, 100 000 ml @ 100 mls/hr IV . Q10H [facility] Rx#:[id number] Sodium Chloride 0.9% 1, 400 000 ml @ 125 mls/hr IV . Q8H [facility] Rx#:[id number] Sodium Chloride 0.9% 1, 1100 500 000 ml @ 250 mls/hr IV . Q4H [facility] Rx#:[id number] Sodium Chloride 0.9% 500 500 ml 500 ml @ 999 mls/hr IV .Q31M [facility] Rx#:[id number] Vancomycin 1,500 mg In 125 Sodium Chloride 0.9% 250 ml @ 125 mls/hr IVPB Q24H [facility] Rx#:[id number] Oral 25 150 Blood Product 210 0 Platelet Irr Pheresis 210 Acda1 Unit [id number] Rc As-1 Unit 0 [id number] Output: Urine 450 Other: Voiding Method Toilet Indwelling Catheter - Exam Head normocephalic Neck supple Lungs clear to auscultation bilaterally no wheezing or crackles Heart regular rate and rhythm S1-S2, no rub or gallop Abdomen is soft nontender nondistended positive bowel sounds no hepatosplenomegaly Extremities no edema Neuro confused not following commands - Labs CBC & Chem 7: 08/15/18 06:16 08/15/18 06:16 Labs: Abnormal Lab Results - Last 24 Hours (Table) 08/12/18 08/14/18 08/14/18 Range/Units 17:30 11:45 16:53 WBC (3.8-10.6) k/uL RBC (3.80-5.40) m/uL Hgb (11.4-16.0) gm/dL Hct (34.0-46.0) % RDW (11.5-15.5) % Plt Count (150-450) k/uL Potassium (3.5-5.1) mmol/L Chloride (98-107) mmol/L Carbon Dioxide (22-30) mmol/L BUN (7-17) mg/dL Creatinine (0.52-1.04) mg/dL Glucose (74-99) mg/dL POC Glucose (mg/dL) 181 H 152 H (75-99) mg/dL AST (14-36) U/L Total Protein (6.3-8.2) g/dL Albumin (3.5-5.0) g/dL Crossmatch See Detail 08/14/18 08/15/18 08/15/18 Range/Units 20:31 06:16 06:16 WBC 0.1 L* (3.8-10.6) k/uL RBC 1.99 L (3.80-5.40) m/uL Hgb 6.2 L* (11.4-16.0) gm/dL Hct 19.0 L* (34.0-46.0) % RDW 17.2 H (11.5-15.5) % Plt Count 17 L* D (150-450) k/uL Potassium 3.3 L (3.5-5.1) mmol/L Chloride 113 H (98-107) mmol/L Carbon Dioxide 18 L (22-30) mmol/L BUN 25 H (7-17) mg/dL Creatinine 1.28 H (0.52-1.04) mg/dL Glucose 131 H (74-99) mg/dL POC Glucose (mg/dL) 148 H (75-99) mg/dL AST 10 L (14-36) U/L Total Protein 4.9 L (6.3-8.2) g/dL Albumin 2.8 L (3.5-5.0) g/dL Crossmatch 08/15/18 08/15/18 Range/Units 06:40 09:22 WBC (3.8-10.6) k/uL RBC (3.80-5.40) m/uL Hgb (11.4-16.0) gm/dL Hct (34.0-46.0) % RDW (11.5-15.5) % Plt Count (150-450) k/uL Potassium (3.5-5.1) mmol/L Chloride (98-107) mmol/L Carbon Dioxide (22-30) mmol/L BUN (7-17) mg/dL Creatinine (0.52-1.04) mg/dL Glucose (74-99) mg/dL POC Glucose (mg/dL) 143 H 171 H (75-99) mg/dL AST (14-36) U/L Total Protein (6.3-8.2) g/dL Albumin (3.5-5.0) g/dL Crossmatch Microbiology - Last 24 Hours (Table) 08/14/18 07:34 Blood Culture - Preliminary Blood No Growth after 24 hours 08/12/18 17:30 Blood Culture Gram Stain - Final Blood Blood Culture - Final Staphylococcus aureus Assessment and Plan Assessment: 1. Neutropenia with fever and sepsis positive for staph aureus bacteremia. Dr. Mckeon for infectious disease following. Lactic acid 1.5. Patient currently on Maxipime and vancomycin 2. Nausea vomiting and diarrhea. Dr. Mckeon consulted. C. diff ordered 3. Acute kidney injury. Per nephrology most likely prerenal secondary to intravascular volume depletion 4. Hypotension secondary to sepsis. He has received [address] Gar is following 5. Pneumonia. Chest x-ray completed showing extensive pneumonic infiltrate or on the left pulmonary hilum with volume loss. There is slight improved aeration of the left lung compared to last exam. Right upper lobe nodule unchanged left pleural fluid decreased compared to old exam. Dr. Gar has been consulted for pulmonary critical care 6. Metastatic small cell lung cancer. Status post first cycle of camptosar and caqrboplatin, salvage chemotherapy. Patient also received radiation to brain. Oncology services following 7. Hypokalemia. Replace per protocol. Nephrology services consulted. Potassium 2.9 replace per nephrology. 8. Pancytopenia secondary to chemotherapy 9. Underlying history of essential hypertension 10. History of hyperlipidemia 11. History of COPD 12. History of previous tobacco use 13. History of anxiety disorder 14. Abdominal aortic aneurysm. Previously seen on renal ultrasound showing aortic aneurysm measuring up to 5 cm in diameter. The length is more than 8 cm. Patient to follow with outpatient services and PCP 15. Hypomagnesemia. Replace per protocol. Repeat magnesium 1.8. 16. Mildly elevated troponin. Troponin 0.050. Cardiology services have been consulted 17. Tachycardia likely secondary to sepsis and volume depletion. Patient did receive 2 500 mL boluses. Cardiology services consulted. DVT prophylaxis SCDs due to thrombocytopenia. GI prophylaxis Protonix Patient declining throughout night. Family meeting held with patient's next of kin and other family members. At this time family requesting to make patient comfortable and consult hospice care. Morphine and Ativan ordered. Hospice care consult placed I performed an examination of the patient and discussed their management with the Nurse Practitioner. I have reviewed the Nurse Practitioner's notes and agre e with the documented findings and plan of care
[2018-08-15 12:14] LABS: Glucose,Whole Blood 185 mg/dL (75-99)
--- NOTE | 2018-08-15 12:20 | P.PN ---
Subjective Progress Note Date: 08/15/18 Seen and examined for the follow-up of acute kidney injury. The family and discuss with hospice and planning 2) the patient into hospice. Renal functions improving. Objective - Vital Signs Vital signs: Vital Signs Temp 97.9 F 08/15/18 10:30 Pulse 120 H 08/15/18 11:15 Resp 30 H 08/15/18 10:30 BP 98/65 08/15/18 10:30 Pulse Ox 92 L 08/15/18 10:30 Intake & Output 08/14/18 08/15/18 08/15/18 18:59 06:59 18:59 Intake Total 1625 1685 0 Output Total 450 Balance 1625 1235 0 Weight 84.5 kg Intake: Intake, IV Titration 1600 1325 Amount Albumin Human 25% 50 ml 100 In Empty Bag 1 bag @ 50 mls/hr IVPB Q1H [facility] Rx#: [id number] Cefepime 2 gm In Sodium 100 Chloride 0.9% 100 ml @ 200 mls/hr IVPB Q12HR [facility] Rx#:[id number] Sodium Chloride 0.9% 1, 100 000 ml @ 100 mls/hr IV . Q10H [facility] Rx#:[id number] Sodium Chloride 0.9% 1, 400 000 ml @ 125 mls/hr IV . Q8H [facility] Rx#:[id number] Sodium Chloride 0.9% 1, 1100 500 000 ml @ 250 mls/hr IV . Q4H [facility] Rx#:[id number] Sodium Chloride 0.9% 500 500 ml 500 ml @ 999 mls/hr IV .Q31M [facility] Rx#:[id number] Vancomycin 1,500 mg In 125 Sodium Chloride 0.9% 250 ml @ 125 mls/hr IVPB Q24H [facility] Rx#:[id number] Oral 25 150 Blood Product 210 0 Platelet Irr Pheresis 210 Acda1 Unit [id number] Rc As-1 Unit 0 [id number] Output: Urine 450 Other: Voiding Method Toilet Indwelling Catheter - Exam No acute distress Escobedo catheter - Labs CBC & Chem 7: 08/15/18 06:16 08/15/18 06:16 Labs: Abnormal Lab Results - Last 24 Hours (Table) 08/12/18 08/14/18 08/14/18 Range/Units 17:30 16:53 20:31 WBC (3.8-10.6) k/uL RBC (3.80-5.40) m/uL Hgb (11.4-16.0) gm/dL Hct (34.0-46.0) % RDW (11.5-15.5) % Plt Count (150-450) k/uL Potassium (3.5-5.1) mmol/L Chloride (98-107) mmol/L Carbon Dioxide (22-30) mmol/L BUN (7-17) mg/dL Creatinine (0.52-1.04) mg/dL Glucose (74-99) mg/dL POC Glucose (mg/dL) 152 H 148 H (75-99) mg/dL AST (14-36) U/L Total Protein (6.3-8.2) g/dL Albumin (3.5-5.0) g/dL Crossmatch See Detail 08/15/18 08/15/18 08/15/18 Range/Units 06:16 06:16 06:40 WBC 0.1 L* (3.8-10.6) k/uL RBC 1.99 L (3.80-5.40) m/uL Hgb 6.2 L* (11.4-16.0) gm/dL Hct 19.0 L* (34.0-46.0) % RDW 17.2 H (11.5-15.5) % Plt Count 17 L* D (150-450) k/uL Potassium 3.3 L (3.5-5.1) mmol/L Chloride 113 H (98-107) mmol/L Carbon Dioxide 18 L (22-30) mmol/L BUN 25 H (7-17) mg/dL Creatinine 1.28 H (0.52-1.04) mg/dL Glucose 131 H (74-99) mg/dL POC Glucose (mg/dL) 143 H (75-99) mg/dL AST 10 L (14-36) U/L Total Protein 4.9 L (6.3-8.2) g/dL Albumin 2.8 L (3.5-5.0) g/dL Crossmatch 08/15/18 08/15/18 Range/Units 09:22 11:42 WBC (3.8-10.6) k/uL RBC (3.80-5.40) m/uL Hgb (11.4-16.0) gm/dL Hct (34.0-46.0) % RDW (11.5-15.5) % Plt Count (150-450) k/uL Potassium (3.5-5.1) mmol/L Chloride (98-107) mmol/L Carbon Dioxide (22-30) mmol/L BUN (7-17) mg/dL Creatinine (0.52-1.04) mg/dL Glucose (74-99) mg/dL POC Glucose (mg/dL) 171 H 185 H (75-99) mg/dL AST (14-36) U/L Total Protein (6.3-8.2) g/dL Albumin (3.5-5.0) g/dL Crossmatch Microbiology - Last 24 Hours (Table) 08/14/18 07:34 Blood Culture - Preliminary Blood No Growth after 24 hours 08/12/18 17:30 Blood Culture Gram Stain - Final Blood Blood Culture - Final Staphylococcus aureus Assessment and Plan Assessment: #1 acute kidney injury secondary to prerenal process. Creatinine improving. #2 diarrhea improved #3 nausea and vomiting secondary to gastroenteritis. #4 small cell lung cancer on chemotherapy. #5 electrolyte abnormality Plan: #1 renal function improving. Family decided to enroll into hospice. # once ENrolled into hospice with the sign off.
[2018-08-15] MEDS: POTASSIUM CHLORIDE ER 20 MEQ TAB.ER PO SCH ×2 (14:33→14:36)
[2018-08-15] MEDS: ATENOLOL 25 MG TAB PO SCH (14:39)
[2018-08-15] MEDS: busPIRone HCl 10 MG TAB PO SCH (14:39)
[2018-08-15] MEDS: CEFEPIME 2 GM in SODIUM CHLORIDE 0.9% 100 ML IVPB SCH (14:39)
[2018-08-15] MEDS: PANTOPRAZOLE 40 MG/10 ML VIAL IV SCH (14:40)
[2018-08-15] MEDS: MECLIZINE 25 MG TAB PO SCH (14:40)
[2018-08-15] MEDS: LORATADINE 10 MG TAB PO SCH (14:40)
[2018-08-15] MEDS: LOPERAMIDE 2 MG CAP PO SCH (14:40)
[2018-08-15] MEDS ORDERED: VANCOMYCIN TROUGH DUE 1 EACH MISC MISCELLANE ONE (17:00)
[2018-08-15 20:22] VITALS: BP 100/64; PULSE 120; RESP 20; TEMP 98
== END 2018-08-15 20:23 | disposition hospice, inpatient (51) | DRG 871 ==
LOC: EC 15:33 → 3SCARD 18:55
PROVIDERS: ADMIT Internal Medicine; ATTEND Internal Medicine
PROC: 30233R1 Transfusion of Nonautologous Platelets into Peripheral Vein, Percutaneous Approach (ICD-10-PCS; principal; 2018-08-15)
PROC: 30233N1 Transfusion of Nonautologous Red Blood Cells into Peripheral Vein, Percutaneous Approach (ICD-10-PCS; 2018-08-15)
DX: A41.9 Sepsis, unspecified organism (principal); D61.810 Antineoplastic chemotherapy induced pancytopenia; J18.9 Pneumonia, unspecified organism; R65.21 Severe sepsis with septic shock; N17.9 Acute kidney failure, unspecified; J90 Pleural effusion, not elsewhere classified; J44.0 Chronic obstructive pulmonary disease with (acute) lower respiratory infection; C34.32 Malignant neoplasm of lower lobe, left bronchus or lung; C79.31 Secondary malignant neoplasm of brain; Z66 Do not resuscitate; Z51.5 Encounter for palliative care; D69.6 Thrombocytopenia, unspecified; E83.42 Hypomagnesemia; R50.81 Fever presenting with conditions classified elsewhere; E86.0 Dehydration; K52.9 Noninfective gastroenteritis and colitis, unspecified; T45.1X5A Adverse effect of antineoplastic and immunosuppressive drugs, initial encounter; I10 Essential (primary) hypertension; E87.6 Hypokalemia; I71.4 Abdominal aortic aneurysm, without rupture; E78.5 Hyperlipidemia, unspecified; K44.9 Diaphragmatic hernia without obstruction or gangrene; F40.240 Claustrophobia; E66.9 Obesity, unspecified; Z68.33 Body mass index [BMI] 33.0-33.9, adult; Z79.899 Other long term (current) drug therapy; Z87.01 Personal history of pneumonia (recurrent); Z90.710 Acquired absence of both cervix and uterus; Z92.3 Personal history of irradiation; Z87.891 Personal history of nicotine dependence; Z90.49 Acquired absence of other specified parts of digestive tract; Z98.891 History of uterine scar from previous surgery; Z85.3 Personal history of malignant neoplasm of breast; Z95.1 Presence of aortocoronary bypass graft; Z98.890 Other specified postprocedural states; Z83.3 Family history of diabetes mellitus; Z82.49 Family history of ischemic heart disease and other diseases of the circulatory system
CPT/HCPCS: 36415; 71046; 80053; 81001; 82533; 83605; 83735; 84484; 85025; 85610; 85730; 86850; 86900; 86901; 86920; 87040; 87077; 87086; 87186; 87324; 87502; 93005; 94640; 96365; 96366; 96375; 99285

== ENCOUNTER 2018-08-15 19:28 | Inpatient (IN) | payer MEDICAID ==
[2018-08-15] MEDS ORDERED: ONDANSETRON 4 MG/2 ML VIAL IVP PRN (19:53)
[2018-08-15] MEDS ORDERED: ACETAMINOPHEN SUPPOSITORY 650 MG SUPP RECTAL PRN (19:53)
[2018-08-15] MEDS ORDERED: BISACODYL 10 MG SUPP RECTAL PRN (19:57)
[2018-08-15] MEDS ORDERED: SCOPOLAMINE 1.5MG/72HR PATCH TRANSDERM SCH (20:00)
[2018-08-15] MEDS: MORPHINE SULFATE (100 MG/2 ML) 100 MG in SODIUM CHLORIDE 0.9% 100 ML IV SCH (22:18)
[2018-08-16] MEDS: ATROPINE OPHTH SOLN 1% 5ML BTL SUBLINGUAL PRN ×2 (02:28→08:53)
[2018-08-16] MEDS: LORazepam 2 MG/ML INJ IV PRN ×2 (02:28→08:52)
[2018-08-16] MEDS: MORPHINE SULFATE 2 MG/ML SYRINGE IV PRN ×2 (03:09→04:34)
[2018-08-16 05:47] VITALS: BP 80/62; RESP 26
[2018-08-16] MEDS: MORPHINE SULFATE (100 MG/2 ML) 100 MG in SODIUM CHLORIDE 0.9% 100 ML IV SCH (07:02)
[2018-08-16 11:53] VITALS: PULSE 167; TEMP 99.1
--- NOTE | 2018-08-16 14:36 | P.HPIM ---
History of Present Illness H&P Date: 08/16/18 Evelyn Flores is a 67-year-old female well known to my practice who was diagnosed a few months ago with lung cancer with metastatic disease to the brain she has been following with oncology and underwent chemotherapy and radiation therapy she presented to the hospital few days ago with evidence of sepsis, hypotension, and severe generalized weakness she was started on IV antibiotics IV fluid resuscitation she was seen by oncology, pulmonary critical care, patient failed to improve and decision was made by her and her family to proceed with comfort care only she was evaluated by hospice yesterday and was started on hospice care. Past Medical History Past Medical History: Cancer, Hyperlipidemia, Hypertension, Pneumonia, Vascular Disorder Additional Past Medical History / Comment(s): breast cancer right breast-radiation tx finished 1 week ago , kidneys shut down 12/2017-"ok now", hiatal hernia, dry skin, hx brain cancer, small cell lung History of Any Multi-Drug Resistant Organisms: None Reported Past Surgical History: Appendectomy, Breast Surgery, Section, Hysterectomy Additional Past Surgical History / Comment(s): x2, salpingectomy and oopherectomy, angioplasty on left leg, rt breast lumpectomy, lump removed from left shoulder and left axilla, port on right side Past Anesthesia/Blood Transfusion Reactions: Previous Problems w/ Anesthesia, Motion Sickness Additional Past Anesthesia/Blood Transfusion Reaction / Comment(s): slow to wake up after anesthesia x1, claustrophobia Past Psychological History: Anxiety Additional Psychological History / Comment(s): claustrophobia. and lives with her . Stop tobacco smoking 1 year ago. No alcohol use. No drug use. Adult children. No animals in the home. No international travel. No experience Smoking Status: Unknown if ever smoked Past Alcohol Use History: None Reported Additional Past Alcohol Use History / Comment(s): started smoking at age 21(1971) smokes 1/2 ppd, quit smoking 1 yr ago Past Drug Use History: None Reported - Past Family History Mother Family Medical History: No Reported History Additional Family Medical History / Comment(s): . Sister(s) Family Medical History: Diabetes Mellitus Father Family Medical History: Coronary Artery Disease (CAD), Diabetes Mellitus Additional Family Medical History / Comment(s): CABG and carotid endarterectomy Medications and Allergies Home Medications Medication Instructions Recorded Confirmed Type ALPRAZolam [Xanax] 0.25 mg PO BID PRN 07/19/15 08/15/18 History Atenolol 12.5 mg PO BID 07/19/15 08/15/18 History Pentoxifylline [TRENtal] 400 mg PO TID 07/19/15 08/15/18 History Ergocalciferol [Vitamin D2 50,000 unit PO FR 12/15/17 08/15/18 History (DRISDOL)] busPIRone HCL 15 mg PO TID 12/15/17 08/15/18 History Furosemide [Lasix] 40 mg PO DAILY #30 tab 12/30/17 08/15/18 Rx Albuterol Inhaler [Ventolin Hfa 1 - 2 puff INHALATION RT-Q6H PRN 08/03/18 08/15/18 History Inhaler] Albuterol Nebulized [Ventolin 2.5 mg INHALATION RT-BID 08/03/18 08/15/18 History Nebulized] Pantoprazole [Protonix] 40 mg PO DAILY 08/03/18 08/15/18 History Simvastatin [Zocor] 20 mg PO HS 08/03/18 08/15/18 History Hydrocodone/Acetaminophen [Babbitt 1 tab PO Q6HR PRN 3 Days #5 tab 08/05/18 08/15/18 Rx 5-325] Loperamide [Imodium] 2 mg PO BID 08/12/18 08/15/18 History Loratadine [Claritin] 10 mg PO DAILY 08/12/18 08/15/18 History Meclizine [Antivert] 25 mg PO DAILY 08/12/18 08/15/18 History Prochlorperazine [Compazine] 10 mg PO Q6H PRN 08/12/18 08/15/18 History Allergies Allergy/AdvReac Type Severity Reaction Status Date / Time No Known Allergies Allergy Verified 08/15/18 21:33 Physical Exam Vitals: Vital Signs Temp Pulse Resp BP Pulse Ox 08/16/18 11:53 99.1 F 167 H 26 H 08/16/18 08:00 195 H 26 H 08/16/18 04:00 98.5 F 114 H 26 H 80/62 96 08/16/18 00:00 98.1 F 120 H 20 94 L Intake and Output 08/15/18 08/16/18 08/16/18 22:59 06:59 14:59 Intake Total 0 21.590 Output Total 25 Balance 0 -25 21.590 Intake: Intake, IV Titration 21.590 Amount Morphine Sulfate (100 mg/ 21.590 2 ml) 100 mg In Sodium Chloride 0.9% 100 ml @ 2 MG/HR 2.04 mls/hr IV . Q24H [facility] Rx#:[id number] Oral 0 Output: Urine 25 Other: Voiding Method Indwelling Catheter Indwelling Catheter Weight 84.5 kg 81.5 kg In general patient is somnolent and unresponsive at this time HEENT head normocephalic and atraumatic Neck is supple no JVD no goiter Chest exam reveals tachypnea was coarse crackles in lungs no wheezing Cardiac exam reveals regular heart sounds with tachycardia no gallops no murmurs Abdomen is soft nontender no organomegaly Extremity exam reveals 2+ edema Assessment and Plan Plan: #1 lung cancer with metastatic disease #2 sepsis #3 hospice care initiated yesterday patient is maintained on IV morphine drip, Ativan, scopolamine patch There is no evidence of pain, agitation or discomfort no evidence of any seizure activity Case discussed with today, continue with current management Prognosis is terminal
--- NOTE | 2018-08-16 14:57 | P.DS ---
Providers Date of admission: 08/15/18 20:29 Expected date of discharge: 08/16/18 Attending physician: Diana Mora Primary care physician: Diana Mora [facility] Course: Diagnosis on discharge: #1 Lung cancer with metastatic disease #2 Sepsis Hospital course: Evelyn Flores is a 67-year-old female who was admitted to [facility] was evidence of sepsis she has known history of lung cancer with metastatic disease including the brain metastatic disease she was treated with IV fluid IV antibiotics she was seen by pulmonary critical care, oncology, Patient failed to improve family and decided to proceed with hospice care which was initiated yesterday patient was started on IV Ativan, morphine, and on scopolamine patch she had an uneventful hospice admission and around 2 PM on 08/16/2089 Plan - Discharge Summary Discharge Rx Participant: No New Discharge Prescriptions: No Action ALPRAZolam [Xanax] 0.25 mg PO BID PRN PRN Reason: Anxiety Pentoxifylline [TRENtal] 400 mg PO TID Atenolol 12.5 mg PO BID Ergocalciferol [Vitamin D2 (DRISDOL)] 50,000 unit PO FR busPIRone HCL 15 mg PO TID Furosemide [Lasix] 40 mg PO DAILY #30 tab Simvastatin [Zocor] 20 mg PO HS Pantoprazole [Protonix] 40 mg PO DAILY Albuterol Nebulized [Ventolin Nebulized] 2.5 mg INHALATION RT-BID Albuterol Inhaler [Ventolin Hfa Inhaler] 1 - 2 puff INHALATION RT-Q6H PRN PRN Reason: Shortness Of Breath Hydrocodone/Acetaminophen [[place] 5-325] 1 tab PO Q6HR PRN 3 Days #5 tab PRN Reason: Pain Meclizine [Antivert] 25 mg PO DAILY Loratadine [Claritin] 10 mg PO DAILY Loperamide [Imodium] 2 mg PO BID Prochlorperazine [Compazine] 10 mg PO Q6H PRN PRN Reason: Nausea And Vomiting Discharge Medication List ALPRAZolam [Xanax] 0.25 mg PO BID PRN 07/19/15 [History] Atenolol 12.5 mg PO BID 07/19/15 [History] Pentoxifylline [TRENtal] 400 mg PO TID 07/19/15 [History] Ergocalciferol [Vitamin D2 (DRISDOL)] 50,000 unit PO FR 12/15/17 [History] busPIRone HCL 15 mg PO TID 12/15/17 [History] Furosemide [Lasix] 40 mg PO DAILY #30 tab 12/30/17 [Rx] Albuterol Inhaler [Ventolin Hfa Inhaler] 1 - 2 puff INHALATION RT-Q6H PRN 08/03/18 [History] Albuterol Nebulized [Ventolin Nebulized] 2.5 mg INHALATION RT-BID 08/03/18 [History] Pantoprazole [Protonix] 40 mg PO DAILY 08/03/18 [History] Simvastatin [Zocor] 20 mg PO HS 08/03/18 [History] Hydrocodone/Acetaminophen [[place]ena 5-325] 1 tab PO Q6HR PRN 3 Days #5 tab 08/05/18 [Rx] Loperamide [Imodium] 2 mg PO BID 08/12/18 [History] Loratadine [Claritin] 10 mg PO DAILY 08/12/18 [History] Meclizine [Antivert] 25 mg PO DAILY 08/12/18 [History] Prochlorperazine [Compazine] 10 mg PO Q6H PRN 08/12/18 [History]
== END 2018-08-16 17:30 | disposition expired | DRG 951 ==
LOC: 3SCARD 20:29
PROVIDERS: ADMIT Internal Medicine; ATTEND Internal Medicine
DX: Z51.5 Encounter for palliative care (principal); A41.9 Sepsis, unspecified organism; C34.90 Malignant neoplasm of unspecified part of unspecified bronchus or lung; C79.31 Secondary malignant neoplasm of brain; Z66 Do not resuscitate; F40.240 Claustrophobia; I10 Essential (primary) hypertension; E78.5 Hyperlipidemia, unspecified; K44.9 Diaphragmatic hernia without obstruction or gangrene; Z90.49 Acquired absence of other specified parts of digestive tract; Z90.710 Acquired absence of both cervix and uterus; Z87.891 Personal history of nicotine dependence; Z82.49 Family history of ischemic heart disease and other diseases of the circulatory system; Z83.3 Family history of diabetes mellitus; Z79.899 Other long term (current) drug therapy; Z87.01 Personal history of pneumonia (recurrent); Z85.3 Personal history of malignant neoplasm of breast; Z92.3 Personal history of irradiation; Z92.21 Personal history of antineoplastic chemotherapy